=== PATIENT | female | born 1965 | race Caucasian/White ===

== ENCOUNTER → 2018-05-06 15:10 | Outpatient (CLI) | payer OTHER, SELFPAY ==
--- NOTE | 2018-05-06 | DI.US.S_ITS ---
PROCEDURE: US THYROID INDICATIONS: NONTOXIC DIFFUSE GOITER TECHNIQUE: Real-time scanning was performed of the thyroid gland, with image documentation. COMPARISON: None. FINDINGS: Right: Thyroid lobe measures 4.3 x 1 .8 by 2.2 cm, and is homogeneous in echotexture. Left: Thyroid lobe measures 3.8 x 1.4 x 1.8 cm, and is homogenous in echotexture. Isthmus: 5.0 mm thick. Nodule number: 1 Location: Right mid Size: 1.4 x 1.40 1.9 cm. Composition: Solid Echogenicity: Hypoechoic Shape: wider than tall. Margins: Smooth Echogenic foci: Internal echogenic punctate foci. Total points: 7 ACR TI-RADS category: Highly suspicious Nodule number: 2 Location: Left isthmus Size: 0.5 x 0.7 0.5 cm. Composition: Predominately cystic Echogenicity: Hypoechoic Shape: wider than tall. Margins: Smooth Echogenic foci: Macrocalcifications Total points: 4 ACR TI-RADS category: Moderately suspicious Nodule number: 3 Location: Left mid Size: 1.1 x 0.9 1.0 cm. Composition: Solid Echogenicity: Hypoechoic Shape: wider than tall. Margins: Smooth Echogenic foci: Macrocalcifications Total points: 5 ACR TI-RADS category: Moderately suspicious IMPRESSION: Bilateral thyroid nodules, with the # 1 mid right thyroid nodule demonstrating high suspicion based on TI RADS criteria. Recommend sonographic directed fine needle aspiration for pathologic diagnosis and followup would be additional nodules as below. ACR TI-RADS definitions and recommendations: TI-RADS 1 (benign): 0 points. FNA not needed. TI-RADS 2 (not suspicious): 2 points. FNA not needed. TI-RADS 3 (mildly suspicious): 3 points. * FNA if 2.5 cm or larger, follow up if 1.5 cm or larger (at 1, 3, and 5 years). TI-RADS 4 (moderately suspicious): 4-6 points. * FNA if 1.5 cm or larger, follow up if 1 cm or larger (at 1, 2, 3, and 5 years). TI-RADS 5 (highly suspicious): 7 points or more. * FNA if 1 cm or larger, follow up if 0.5 cm or larger (every year for 5 years). Dictated by: Óscar CRUZ Interpreted: Kierra Barrera MD on 05/06/2018 at 16:11 Approved by: Kierra Barrera M.D. on 05/06/2018 at 17:11
== END ==
PROVIDERS: PCP Internal Medicine Rheumatology; Visit Provider Otolaryngology
DX: E04.2 Nontoxic multinodular goiter (principal)
CPT/HCPCS: 76536

== ENCOUNTER → 2018-05-24 13:26 | Outpatient (CLI) | payer OTHER, SELFPAY ==
--- NOTE | 2018-05-24 | PATH_ITS ---
Note [facility] Accession Number: [id number] TESTS RESULT FLAG UNITS REF RANGE LAB Clinician Provided Cytology Information No. of containers..01 ThinPrep Vial No. of containers..06 Previously Prepared Cytology Slide RIGHT THYROID NODULE DIAGNOSIS: 02 RIGHT THYROID NODULE NEGATIVE FOR MALIGNANT CELLS. [place] CATEGORY II. SPECIMEN CONSISTS OF BENIGN FOLLICULAR CELLS, COLLOID, AND BLOOD. THIS PATTERN IS CONSISTENT WITH A BENIGN FOLLICULAR NODULE. Pathologist ICD10: 02 E04.2 02 Radha Cornelius MD, Pathologist NPI- [id number] Rick Lacey, Aerodynamics Engineer ([facility]) 01 30 CC, PINK, CLEAR RECEIVED: 8 ALCOHOL FIXED AND 8 QUICK STAINED SLIDES. /VDU FLAG LEGEND: L-Low Normal,H-High Normal,LL-Alert Low,HH-Alert High <-Panic Low,>-Panic High,A-Abnormal,AA-Critical Abnormal Performed at: 01 =Z [facility] [address], [place] [address] Neil Young MD, 02 L[facility] [address] [place] [id number] Orlin Mazariegos MD, Performed at: 01 [facility] [address], [place], [place] [id number] MD Neil Young MD Phone: [phone]
--- NOTE | 2018-05-24 | DI.US.S_ITS ---
PROCEDURE: US FINE NEEDLE ASPIRATION INDICATIONS: NODULE TECHNIQUE: The indications, alternatives, benefits, risks, and complications of the procedure were explained to the patient. Written informed consent was obtained and placed in the chart. The thyroid region was examined sonographically and a site was chosen for ultrasound guided percutaneous sampling. The skin was prepared and draped in the usual fashion, and anesthetized with 1% lidocaine infiltrated from the skin down to the thyroid gland. Multiple passes were then performed, with contents emptied into an appropriate pathology specimen container. A bandage was applied to the area of access at completion of the study. COMPARISON: None. FINDINGS: Location(s) of lesion(s) sampled: Middle third right thyroid lobe measuring up to approximately 1.5 cm [place]: A total 25 gauge hypodermic needles, and a single 22 gauge needle. Number of passes: 9. Medications: 1% lidocaine for local anaesthesia. Complications: None. IMPRESSION: Successful ultrasound-guided thyroid nodule fine needle aspiration, with cytology results pending. Please see chart below for management recommendations based on cytology results. [facility] ReportingRecommendationsNon-diagnostic* Repeat US-guided FNA, with on-site cytology evaluation if possible. * Repeated non-diagnostic nodules without high suspicion US features: close observation vs surgical consult. * Consider surgery if nodule has high suspicion US features, grows >20% in 2 dimensions on followup, or patient has clinical risk factors for malignancy. Benign* If nodule has high suspicion US features: repeat US and FNA within 12 months. * If nodule has low to intermediate suspicion US features: repeat US at 12-24 months. If nodule grows (20% increase in at least 2 dimensions, with minimal increase of 2 mm or >50% change in volume), or development of new suspicious US features, then repeat FNA or continue followup. * If nodule has very low suspicion US features: followup US at >24 months. Atypia of undetermined significance, follicular lesion of undetermined significanceRepeat FNA, molecular testing, followup US, or surgical consult.Follicular neoplasm, suspicious for follicular neoplasmSurgical consult; also consider molecular testing. Suspicious for malignancySurgical consult.MalignantSurgical consult. Dictated by: Bernardo Branham M.D. on 05/24/2018 at 15:00 Approved by: Bernardo Branham M.D. on 05/24/2018 at 15:01
== END ==
PROVIDERS: PCP Internal Medicine Rheumatology; Visit Provider Otolaryngology
DX: E04.1 Nontoxic single thyroid nodule (principal)
CPT/HCPCS: 10022; 76942

== ENCOUNTER → 2019-08-04 15:54 | Outpatient (CLI) | payer OTHER, SELFPAY ==
--- NOTE | 2019-08-04 | DI.US.S_ITS ---
PROCEDURE: US THYROID INDICATIONS: NONTOXIC DIFFUSE GOITER TECHNIQUE: Real-time scanning was performed of the thyroid gland, with image documentation. COMPARISON: [facility], [place], US THYROID, 05/06/2018, 15:28. FINDINGS: Right: Thyroid lobe measures 3.7 x 2.4 x 2.0 cm, and is homogeneous in echotexture. Left: Thyroid lobe measures 3.4 x 2.0 x 1.2 cm, and is homogenous in echotexture. Isthmus: 3.0 mm thick. Nodule number: 1 Location: Right mid inferior Size: Unchanged 1.7 x 1.4 x 1.3 cm. Composition: Solid Echogenicity: Isoechoic Shape: wider than tall. Margins: Smooth Echogenic foci: None Total points: 3 ACR TI-RADS category: Mildly suspicious Nodule number: 2 Location: Left isthmus Size: Unchanged 0.8 x 0.7 x 0.6 cm. Composition: Predominantly cystic Echogenicity: Hypoechoic Shape: wider than tall. Margins: Smooth Echogenic foci: None Total points: 2 ACR TI-RADS category: No suspicious Nodule number: 3 Location: Left mid Size: Unchanged 1.0 x 0.9 x 1.0 cm. Composition: Predominantly solid Echogenicity: Isoechoic Shape: wider than tall. Margins: Smooth Echogenic foci: Internal punctate echogenic foci Total points: 6 ACR TI-RADS category: Moderately suspicious IMPRESSION: Stable appearance of bilateral thyroid nodules. Recommend continued followup ultrasound as detailed below. ACR TI-RADS definitions and recommendations: TI-RADS 1 (benign): 0 points. FNA not needed. TI-RADS 2 (not suspicious): 2 points. FNA not needed. TI-RADS 3 (mildly suspicious): 3 points. * FNA if 2.5 cm or larger, follow up if 1.5 cm or larger (at 1, 3, and 5 years). TI-RADS 4 (moderately suspicious): 4-6 points. * FNA if 1.5 cm or larger, follow up if 1 cm or larger (at 1, 2, 3, and 5 years). TI-RADS 5 (highly suspicious): 7 points or more. * FNA if 1 cm or larger, follow up if 0.5 cm or larger (every year for 5 years). Dictated by: Óscar CRUZ Interpreted: Lisa Bennett MD on 08/04/2019 at 16:53 Approved by: Kierra Barrera M.D. on 08/05/2019 at 10:50
== END ==
PROVIDERS: Family Provider Internal Medicine Rheumatology; PCP Internal Medicine Rheumatology; Visit Provider Otolaryngology
DX: E04.2 Nontoxic multinodular goiter (principal)
CPT/HCPCS: 76536

== ENCOUNTER → 2020-04-15 10:45 | Outpatient (CLI) | payer OTHER, SELFPAY ==
[2020-04-15 12:04] LABS: Add Manual Diff / Slide Review NO; Basophils Absolute Auto 0 /uL (0-100); Basophils Percent Auto 0.1 % (0-2); Eosinophils Absolute Auto 100 /uL (0-450); Eosinophils Percent Auto 1.6 % (2-4); Hematocrit 40.5 % (36-46); Hemoglobin 13.7 g/dL (12.0-16.0); Lymphocytes Absolute Auto 1800 /uL (1100-4500); Lymphocytes Percent Auto 26.2 % (25-40); Mean Corpuscular HGB Conc 33.7 % (30-36); Mean Corpuscular Volume 91.7 fL (80-100); Monocytes Absolute Auto 600 /uL (0-900); Neutrophils Absolute Auto 4200 /uL (1500-7000); Neutrophils Percent Auto 63.1 % (50-75); Platelet Count 241 X10^3/uL (150-400); Red Blood Cell Count 4.42 X10^6/uL (4.0-5.2); Red Cell Distribution Width 14.7 % (11.6-14.8); White Blood Cell Count 6.7 X10^3/uL (4.5-11.0)
[2020-04-15 12:22] LABS: Alanine Aminotransferase 86 IU/L (<35); Albumin 4.6 g/dL (3.5-5.0); Albumin Globulin Ratio 1.6 (1.0-2.8); Alkaline Phosphatase 57 U/L (38-126); Aspartate Aminotransferase 62 IU/L (14-36); BUN Creatinine Ratio 30.1 (6-22); Bilirubin Total 0.6 mg/dL (0.2-1.3); Blood Urea Nitrogen 25 mg/dL (7-17); Calcium 10.3 mg/dL (8.4-10.2); Carbon Dioxide 33 mmol/L (22-32); Chloride 102 mmol/L (98-107); Estimated Glomerular Filt Rate > 60.0 mL/min (>60); Globulin 2.9 g/dL (1.7-4.1); Glucose 99 mg/dL (70-100); HEMOLYSIS < 15 (0-50); Potassium 4.2 mmol/L (3.4-5.1); Sodium 139 mmol/L (137-145); Total Protein 7.5 g/dL (6.3-8.2)
[2020-04-15 12:35] LABS: C-Reactive Protein Quant < 0.5 mg/dL (<1.0)
[2020-04-15 12:40] LABS: Erythrocyte Sedimentation Rate 4 MM/HR (0-20)
== END ==
PROVIDERS: Family Provider Internal Medicine Rheumatology; PCP Nurse Practitioner Family; Referring Provider Internal Medicine Rheumatology; Visit Provider Internal Medicine Rheumatology
DX: L40.50 Arthropathic psoriasis, unspecified (principal)
CPT/HCPCS: 36415; 80053; 85025; 85651; 86140

== ENCOUNTER → 2020-08-30 11:00 | Outpatient (CLI) | payer OTHER, SELFPAY ==
[2020-08-30 12:20] LABS: Add Manual Diff / Slide Review NO; Basophils Absolute Auto 0 /uL (0-100); Basophils Percent Auto 0.4 % (0-2); Eosinophils Absolute Auto 400 /uL (0-450); Eosinophils Percent Auto 5.5 % (2-4); Hematocrit 39.3 % (36-46); Hemoglobin 13.3 g/dL (12.0-16.0); Lymphocytes Absolute Auto 2500 /uL (1100-4500); Mean Corpuscular HGB Conc 33.7 % (30-36); Mean Corpuscular Hemoglobin 28.4 PG (26-34); Mean Corpuscular Volume 84.3 fL (80-100); Monocytes Absolute Auto 500 /uL (0-900); Monocytes Percent Auto 7.5 % (3-14); Neutrophils Absolute Auto 3700 /uL (1500-7000); Neutrophils Percent Auto 51.6 % (50-75); Platelet Count 220 X10^3/uL (150-400); Red Blood Cell Count 4.66 X10^6/uL (4.0-5.2); Red Cell Distribution Width 14.1 % (11.6-14.8); White Blood Cell Count 7.2 X10^3/uL (4.5-11.0)
[2020-08-30 12:45] LABS: Alanine Aminotransferase 70 IU/L (<35); Albumin 4.3 g/dL (3.5-5.0); Albumin Globulin Ratio 1.3 (1.0-2.8); Alkaline Phosphatase 63 U/L (38-126); Aspartate Aminotransferase 52 IU/L (14-36); BUN Creatinine Ratio 25.6 (6-22); Bilirubin Total 0.6 mg/dL (0.2-1.3); Blood Urea Nitrogen 20 mg/dL (7-17); Calcium 9.8 mg/dL (8.4-10.2); Carbon Dioxide 31 mmol/L (22-32); Chloride 103 mmol/L (98-107); Estimated Glomerular Filt Rate > 60.0 mL/min (>60); Globulin 3.3 g/dL (1.7-4.1); Glucose 123 mg/dL (70-100); HEMOLYSIS < 15 (0-50); Potassium 4.5 mmol/L (3.4-5.1); Sodium 139 mmol/L (137-145); Total Protein 7.6 g/dL (6.3-8.2)
[2020-08-30 12:46] LABS: C-Reactive Protein Quant < 0.5 mg/dL (<1.0)
[2020-08-30 12:53] LABS: Erythrocyte Sedimentation Rate 4 MM/HR (0-20)
[2020-09-01 15:11] LABS: QuantiFERON Nil Value 0.15 IU/mL (.); QuantiFERON TB Gold Plus Negative (Negative); QuantiFERON TB1 Ag Value 0.17 IU/mL (.); QuantiFERON TB2 Ag Value 0.18 IU/mL (.)
== END ==
PROVIDERS: Family Provider Internal Medicine Rheumatology; PCP Nurse Practitioner Family; Referring Provider Internal Medicine Rheumatology; Visit Provider Internal Medicine Rheumatology
DX: L40.50 Arthropathic psoriasis, unspecified (principal)
CPT/HCPCS: 36415; 80053; 85025; 85651; 86140; 86480

== ENCOUNTER → 2020-11-24 07:13 | Outpatient (CLI) | payer OTHER, SELFPAY ==
[2020-11-24 08:31] LABS: Hematocrit 39.8 % (36-46); Hemoglobin 13.4 g/dL (12.0-16.0); Mean Corpuscular HGB Conc 33.8 % (30-36); Mean Corpuscular Hemoglobin 28.6 PG (26-34); Mean Corpuscular Volume 84.8 fL (80-100); Platelet Count 182 X10^3/uL (150-400); Red Blood Cell Count 4.69 X10^6/uL (4.0-5.2); Red Cell Distribution Width 15.7 % (11.6-14.8); White Blood Cell Count 6.2 X10^3/uL (4.5-11.0)
[2020-11-24 08:47] LABS: Alanine Aminotransferase 55 IU/L (<35); Albumin 4.1 g/dL (3.5-5.0); Albumin Globulin Ratio 1.4 (1.0-2.8); Alkaline Phosphatase 56 U/L (38-126); Aspartate Aminotransferase 44 IU/L (14-36); BUN Creatinine Ratio 22.1 (6-22); Bilirubin Total 0.5 mg/dL (0.2-1.3); Blood Urea Nitrogen 21 mg/dL (7-17); Calcium 9.6 mg/dL (8.4-10.2); Carbon Dioxide 35 mmol/L (22-32); Chloride 104 mmol/L (98-107); Cholesterol 167 mg/dL (140-199); Estimated Glomerular Filt Rate > 60.0 mL/min (>60); Glucose 104 mg/dL (70-100); HDL Cholesterol 68 mg/dL (40-60); HEMOLYSIS < 15 (0-50); LDL Cholesterol Calculated 84 mg/dL (<100); Sodium 140 mmol/L (137-145); Total Protein 7.1 g/dL (6.3-8.2); Triglycerides 75 mg/dL (35-150)
== END ==
PROVIDERS: Family Provider Internal Medicine Rheumatology; PCP Nurse Practitioner Family; Referring Provider Nurse Practitioner Family; Visit Provider Nurse Practitioner Family
DX: I10 Essential (primary) hypertension (principal); E78.2 Mixed hyperlipidemia
CPT/HCPCS: 36415; 80053; 80061; 85027

== ENCOUNTER 2021-07-16 16:53 | Inpatient (IN) | payer OTHER, SELFPAY ==
[2021-07-16] VITALS (15 sets, daily range): BP systolic 120–240; BP diastolic 58–116; PULSE 82–97; RESP 16–22; TEMP 36.1–36.8; O2SAT 87–100; BMI 33.9
--- NOTE | 2021-07-16 17:13 | DI.RAD.S_ITS ---
PROCEDURE: XR HIP W PEL IF DONE LT 2V INDICATIONS: acute left hip pain TECHNIQUE: AP pelvis with lateral view(s) of the left hip(s). COMPARISON: [facility], CR, XR KNEE 4+ VIEWS BILATERAL, 10/27/2019, 14:43. [facility], CR, XR LUMBAR SPINE WITH OBLIQUES, 10/27/2019, 14:43. FINDINGS: Bones: No fractures or dislocations. Pelvic ring appears intact. An expansile lucent lesion is partially seen involving the left femoral shaft. Right hip arthroplasty hardware is seen, without findings of failure or loosening. There is moderate superior joint space narrowing seen of the contralateral right hip, with associated remodeling changes with subchondral sclerosis and osteophyte formation. Age-appropriate lower lumbar spine degenerative changes are noted. Soft tissues: The visualized bowel gas pattern is normal. No suspicious soft tissue calcifications. IMPRESSION: Unremarkable left hip arthroplasty hardware. Expansile lesion is partially seen involving the left femur. Please correlate with known patient history and any prior outside imaging through the area. If clinically appropriate, please consider additional workup, beginning with plain films. Moderate contralateral right hip degenerative change. Dictated by: Richie Amor M.D. on 07/16/2021 at 16:52 Approved by: Richie Amor M.D. on 07/16/2021 at 16:54
[2021-07-16] MEDS: MORPHINE 2 MG/ML INJ IV (17:28)
[2021-07-16 17:36] LABS: Add Manual Diff / Slide Review NO; Basophils Absolute Auto 0 /uL (0-100); Basophils Percent Auto 0.2 % (0-2); Eosinophils Absolute Auto 200 /uL (0-450); Eosinophils Percent Auto 1.3 % (2-4); Hematocrit 39.9 % (36-46); Hemoglobin 13.3 g/dL (12.0-16.0); Lymphocytes Absolute Auto 1300 /uL (1100-4500); Lymphocytes Percent Auto 9.8 % (25-40); Mean Corpuscular HGB Conc 33.3 % (30-36); Mean Corpuscular Hemoglobin 28.6 PG (26-34); Mean Corpuscular Volume 85.9 fL (80-100); Monocytes Absolute Auto 800 /uL (0-900); Neutrophils Absolute Auto 11100 /uL (1500-7000); Neutrophils Percent Auto 82.7 % (50-75); Platelet Count 210 X10^3/uL (150-400); Red Blood Cell Count 4.64 X10^6/uL (4.0-5.2); Red Cell Distribution Width 14.3 % (11.6-14.8); White Blood Cell Count 13.4 X10^3/uL (4.5-11.0)
--- NOTE | 2021-07-16 17:41 | DI.US.S_ITS ---
PROCEDURE: US PERIPH VENOUS LOW EXTREM LT INDICATIONS: LEFT HIP PAIN TECHNIQUE: Real-time imaging, as well as color and pulse Doppler interrogation, were performed of the lower extremity deep veins from the inguinal ligament to the popliteal fossa. COMPARISON: None. FINDINGS: The common femoral, femoral and popliteal veins are normally compressible, and free of intraluminal thrombus. Color and pulse Doppler demonstrate normal phasic intraluminal flow. There is normal augmentation response to distal compression maneuver. IMPRESSION: No evidence of deep vein thrombosis involving the left lower extremity. Dictated by: Lisa Bennett MD, PhD on 07/16/2021 at 19:26 Approved by: Lisa Bennett MD, PhD on 07/16/2021 at 19:27
[2021-07-16] MEDS: HYDROMORPHONE 1 MG INJ IV (17:44)
--- NOTE | 2021-07-16 17:49 | ED_ITS ---
HPI - Extremity Problem <Óscar Mishra PA-C - Last Filed: 07/16/21 17:58> General Chief complaint: Extremity Problem,Nontraumatic Stated complaint: left hip pain, no movement Time Seen by Provider: 07/16/21 17:01 Source: patient Mode of arrival: Wheelchair Limitations: no limitations History of Present Illness HPI Narrative: Jillian presents today with chief complaint of gradually worsening left hip pain that started at about 11 this morning. She reports that she took some Tylenol at about noon because the pain was getting worse and then came in here today because she no longer can manage her discomfort. She has history of arthritis, total left hip replacement 8 years ago. She reports that she has never had pain like this before. Pain is made way worse with moving her leg and is slightly better with keeping it still. She denies any trauma to the area or falls. She denies any significant tingling, skin discoloration, abdominal pain, urinary symptoms, constipation, diarrhea or any other acute concerns or complaints at this time. Related Data Home Medications Medication Instructions Recorded Confirmed cholecalciferol (vitamin D3) 25 1,000 unit PO DAILY 09/15/19 05/07/20 mcg (1,000 unit) capsule esomeprazole magnesium 20 mg 20 mg PO DAILY 09/15/19 05/07/20 capsule,delayed release (Nexium) naproxen sodium 220 mg tablet 440 mg PO BID PRN tab 09/15/19 05/07/20 (Aleve) prednisone 5 mg tablet 5 mg PO DAILY PRN 11/06/19 05/07/20 albuterol sulfate 90 mcg/actuation 2 puff INHALATION Q4-6H PRN 05/07/20 05/07/20 aerosol inhaler tofacitinib 5 mg tablet (Xeljanz) 5 mg PO BID 05/07/20 05/07/20 Previous Rx's Medication Instructions Recorded Parking Permit... #2 each 07/06/20 doxepin 3 mg tablet 3 mg PO BEDTIME PRN #90 tab 12/01/20 losartan 50 mg tablet 50 mg PO BID #90 tab 12/01/20 rosuvastatin 10 mg tablet (Crestor) 10 mg PO DAILY #90 tab 12/01/20 sertraline 100 mg tablet 150 mg PO DAILY #135 tab 12/01/20 Allergies Allergy/AdvReac Type Severity Reaction Status Date / Time No Known Drug Allergies Allergy Verified 07/16/21 17:04 Review of Systems <Óscar Mishra PA-C - Last Filed: 07/16/21 17:58> Review of Systems Narrative: As per HPI Patient History <Óscar Mishra PA-C - Last Filed: 07/16/21 17:58> Medical History (Updated 07/16/21 @ 22:10 by Blue Mathis DO) Ankle pain Carpal tunnel syndrome Chicken pox (~1968) Depression Elevated liver enzymes Essential hypertension (2004) Foot pain Hearing loss (~2009) History of recurrent ear infection (~1989) Insomnia Measles (~1964) Mixed hyperlipidemia (2018) Psoriasis (~1967) Psoriatic arthritis (~1993) Ruptured tympanic membrane (~1989) Scleritis Shingles Shoulder pain Thyroid nodule (~2017) Surgical History (Updated 09/14/19 @ 22:06 by Radha Upton) Anesthesia History of arthroscopy (~1993) History of surgery (~2000) History of total left hip replacement (~2013) Family History (Updated 09/14/19 @ 22:07 by Radha Upton) Mother Cervical cancer Alzheimer's disease Brother Mental health problem Social History Smoking Status: Never smoker second hand exposure: No alcohol intake: current (3-4x/week) substance use type: does not use Smoking Status: Never smoker Substance Use Type: does not use Exam <Óscar Mishra PA-C - Last Filed: 07/16/21 17:58> Narrative Exam Narrative: Exam Narrative: Const General: cooperative, healthy appearing, appears in acute pain, well developed and well groomed Nutritional Appearance: Elevated BMI Orientation: alert and oriented x3 HENMT Head: normal to inspection and atraumatic Ears: hearing grossly normal bilaterally Nose: external nose normal and nares normal Face and sinus: normal facial exam Neck Neck: normal visual inspection and supple Resp Effort & Inspection: normal respiratory effort, able to speak in complete sentences, no audible wheezes, not labored, no nasal flaring and no respiratory distress Cardiac Regular rate, regular rhythm, no discernible murmurs, rubs or gallops Musculoskeletal Anterior left hip soft tissue tenderness with palpation. Pelvis appears to be stable, tenderness to the lateral left hip with palpation. Patient is unable to range her left hip secondary to significant pain. Extremities No obvious skin discoloration on left lower extremity compared to right. No rash, pedal pulses are equal and strong bilaterally. No significant leg edema noted. Neuro General: alert, oriented x3, tone normal Cognition: normal cognition Speech: speech normal Psych Appearance: grossly normal and well kempt Mental Status: mental status grossly normal Speech and Movement: speech normal Mood: congruent mood Affect: normal affect Initial Vital Signs Initial Vital Signs: Vital Signs Pulse Oximetry 87 L 07/16/21 17:00 <Blue Mathis DO - Last Filed: 07/16/21 22:32> Initial Vital Signs Initial Vital Signs: Vital Signs Pulse Oximetry 87 L 07/16/21 17:00 Course <Óscar Mishra PA-C - Last Filed: 07/16/21 17:58> 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) Stat Discontinued Medications Hydromorphone HCl (Hydromorphone 1 Mg Inj) 1 mg IV NOW ONE Stop: 07/16/21 17:36 Last Admin: 07/16/21 17:44 Dose: 1 mg Documented by: ARON Hydromorphone HCl (Hydromorphone 0.5 Mg Inj) 0.5 mg IV NOW ONE Stop: 07/16/21 19:28 Last Admin: 07/16/21 19:31 Dose: 0.5 mg Documented by: ARON Morphine Sulfate (Morphine 2 Mg/Ml Inj) 2 mg IV NOW ONE Stop: 07/16/21 17:13 Last Admin: 07/16/21 17:28 Dose: 2 mg Documented by: CHANCE Vital Signs Vital signs: Vital Signs - 8 hr 07/16/21 17:00 07/16/21 17:01 07/16/21 17:04 Temperature 98.2 F Pulse Rate 94 H 94 H Respiratory Rate 20 Blood Pressure 240/116 H 240/116 H Pulse Oximetry 87 L 96 98 07/16/21 17:41 07/16/21 17:50 07/16/21 18:00 Temperature Pulse Rate 91 H 89 88 Respiratory Rate Blood Pressure 165/74 H 141/65 H Pulse Oximetry 100 97 92 07/16/21 18:30 07/16/21 19:00 07/16/21 19:32 Temperature Pulse Rate 86 96 H 89 Respiratory Rate Blood Pressure 131/69 143/77 H 146/71 H Pulse Oximetry 95 96 95 07/16/21 20:17 07/16/21 20:18 07/16/21 20:30 Temperature Pulse Rate 97 H 94 H Respiratory Rate Blood Pressure 135/63 120/58 L Pulse Oximetry 94 92 <Blue Mathis, DO - Last Filed: 07/16/21 22:32> Course Course Narrative: Patient received in sign-out from daytime provider. I have performed an independent history and physical exam. Patient has had significant need for pain medication and currently does not have significant pain on passive range of motion. At sign-out she had a pending CT scan. The CT scan has returned there are no significant abnormal findings. 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 She still is having significant pain and at this point time her etiology is unclear. Multiple diagnoses have been considered including septic arthritis, lumbar radiculopathy, kidney stone, hardware malfunction, osteomyelitis and others. Patient does have a white count and a left shift but no systemic findings. There are normal inflammatory markers and patient does not have significant pain on passive range of motion for me though she has been medicated. Imaging does not obviously suggest an osteomyelitis though the most sensitive modality has not been employed. I did have a lengthy discussion with orthopedist who was reviewed imaging and her story and has no significant additions, though she does state if patient does come into the hospital she would recommend a bone scan. I did have a lengthy discussion with the patient at the bedside and her pain has been difficult to control and though no obvious or clear diagnosis has been made she will require hospitalization for more appropriate pain control, she will likely received trended labs and more advanced imaging with orthopedic consultation. 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) Stat Discontinued Medications Hydromorphone HCl (Hydromorphone 1 Mg Inj) 1 mg IV NOW ONE Stop: 07/16/21 17:36 Last Admin: 07/16/21 17:44 Dose: 1 mg Documented by: ARON Hydromorphone HCl (Hydromorphone 0.5 Mg Inj) 0.5 mg IV NOW ONE Stop: 07/16/21 19:28 Last Admin: 07/16/21 19:31 Dose: 0.5 mg Documented by: ARON Morphine Sulfate (Morphine 2 Mg/Ml Inj) 2 mg IV NOW ONE Stop: 07/16/21 17:13 Last Admin: 07/16/21 17:28 Dose: 2 mg Documented by: CHANCE Vital Signs Vital signs: Vital Signs - 8 hr 07/16/21 17:00 07/16/21 17:01 07/16/21 17:04 Temperature 98.2 F Pulse Rate 94 H 94 H Respiratory Rate 20 Blood Pressure 240/116 H 240/116 H Pulse Oximetry 87 L 96 98 07/16/21 17:41 07/16/21 17:50 07/16/21 18:00 Temperature Pulse Rate 91 H 89 88 Respiratory Rate Blood Pressure 165/74 H 141/65 H Pulse Oximetry 100 97 92 07/16/21 18:30 07/16/21 19:00 07/16/21 19:32 Temperature Pulse Rate 86 96 H 89 Respiratory Rate Blood Pressure 131/69 143/77 H 146/71 H Pulse Oximetry 95 96 95 07/16/21 20:17 07/16/21 20:18 07/16/21 20:30 Temperature Pulse Rate 97 H 94 H Respiratory Rate Blood Pressure 135/63 120/58 L Pulse Oximetry 94 92 MDM - Extremity (Nontraumatic) <Óscar Mishra PA-C - Last Filed: 07/16/21 17:58> Lab Data Result diagrams: 07/16/21 19:32 07/16/21 17:28 Labs: Lab Results 07/16/21 07/16/21 07/16/21 Range/Units 17:28 17:28 19:23 WBC 13.4 H (4.5-11.0) X10^3/uL RBC 4.64 (4.0-5.2) X10^6/uL Hgb 13.3 (12.0-16.0) g/dL Hct 39.9 (36-46) % MCV 85.9 (80-100) fL MCH 28.6 (26-34) PG MCHC 33.3 (30-36) % RDW 14.3 (11.6-14.8) % Plt Count 210 (150-400) X10^3/uL Neut % (Auto) 82.7 H (50-75) % Lymph % (Auto) 9.8 L (25-40) % [place] % (Auto) 6.0 (3-14) % Eos % (Auto) 1.3 L (2-4) % Baso % (Auto) 0.2 (0-2) % Neut # (Auto) 51955 H (0385-0396) /uL Lymph # (Auto) 1300 (3051-0866) /uL [place] # (Auto) 800 (0-900) /uL Eos # (Auto) 200 (0-450) /uL Baso # (Auto) 0 (0-100) /uL Total Counted Seg Neutrophils % (38-70) % Band Neutrophils % (3-7) % Lymphocytes % (Manual) (25-45) % Monocytes % (Manual) (2-11) % Eosinophils % (Manual) (2-4) % Neutrophils # (Manual) (8873-0100) /uL RBC Morphology ESR 6 (0-20) MM/HR Sodium 138 (137-145) mmol/L Potassium 3.9 (3.4-5.1) mmol/L Chloride 103 (98-107) mmol/L Carbon Dioxide 31 (22-32) mmol/L BUN 27 H (7-17) mg/dL Creatinine 0.86 (0.52-1.04) mg/dL Estimated GFR > 60.0 (>60) mL/min BUN/Creatinine Ratio 31.4 H (6-22) Glucose 122 H (70-100) mg/dL Calcium 9.6 (8.4-10.2) mg/dL C-Reactive Protein 0.8 (<1.0) mg/dL Urine RBC 0-1/hpf (0-5/HPF) Urine WBC 1-5/hpf (0-5/HPF) Urine Bacteria Few (2-10) H (None) Ur Culture Indicated? Specimen cultured 07/16/21 Range/Units 19:32 WBC 14.7 H (4.5-11.0) X10^3/uL RBC 4.65 (4.0-5.2) X10^6/uL Hgb 13.4 (12.0-16.0) g/dL Hct 40.2 (36-46) % MCV 86.4 (80-100) fL MCH 28.8 (26-34) PG MCHC 33.3 (30-36) % RDW 14.3 (11.6-14.8) % Plt Count 195 (150-400) X10^3/uL Neut % (Auto) Not Reportable (50-75) % Lymph % (Auto) Not Reportable (25-40) % [place] % (Auto) Not Reportable (3-14) % Eos % (Auto) Not Reportable (2-4) % Baso % (Auto) Not Reportable (0-2) % Neut # (Auto) (7886-7301) /uL Lymph # (Auto) Not Reportable (6638-4531) /uL [place] # (Auto) Not Reportable (0-900) /uL Eos # (Auto) (0-450) /uL Baso # (Auto) Not Reportable (0-100) /uL Total Counted 100 Seg Neutrophils % 76.0 H (38-70) % Band Neutrophils % 13.0 H (3-7) % Lymphocytes % (Manual) 7.0 L (25-45) % Monocytes % (Manual) 3.0 (2-11) % Eosinophils % (Manual) 1.0 L (2-4) % Neutrophils # (Manual) 34898 H (1276-0354) /uL RBC Morphology Normal morphology ESR (0-20) MM/HR Sodium (137-145) mmol/L Potassium (3.4-5.1) mmol/L Chloride (98-107) mmol/L Carbon Dioxide (22-32) mmol/L BUN (7-17) mg/dL Creatinine (0.52-1.04) mg/dL Estimated GFR (>60) mL/min BUN/Creatinine Ratio (6-22) Glucose (70-100) mg/dL Calcium (8.4-10.2) mg/dL C-Reactive Protein (<1.0) mg/dL Urine RBC (0-5/HPF) Urine WBC (0-5/HPF) Urine Bacteria (None) Ur Culture Indicated? Urine Dip Bedside Urine Glucose Negative Bedside Urine Bilirubin - Negative Bedside Urine Ketone - Negative Urine Specific [place] 1.025 Bedside Urine Occult Blood + Bedside Urine pH 5.5 Bedside Urine Protein - Negative Bedside Urine Urobilinogen +/- 1mg Bedside Urine Nitrite - Negative Bedside Urine Leukocytes +/- 15 Esterase <Blue Mathis DO - Last Filed: 07/16/21 22:32> Lab Data Labs: Lab Results 07/16/21 07/16/21 07/16/21 Range/Units 17:28 17:28 19:23 WBC 13.4 H (4.5-11.0) X10^3/uL RBC 4.64 (4.0-5.2) X10^6/uL Hgb 13.3 (12.0-16.0) g/dL Hct 39.9 (36-46) % MCV 85.9 (80-100) fL MCH 28.6 (26-34) PG MCHC 33.3 (30-36) % RDW 14.3 (11.6-14.8) % Plt Count 210 (150-400) X10^3/uL Neut % (Auto) 82.7 H (50-75) % Lymph % (Auto) 9.8 L (25-40) % [place] % (Auto) 6.0 (3-14) % Eos % (Auto) 1.3 L (2-4) % Baso % (Auto) 0.2 (0-2) % Neut # (Auto) 17887 H (2787-3285) /uL Lymph # (Auto) 1300 (2011-6814) /uL [place] # (Auto) 800 (0-900) /uL Eos # (Auto) 200 (0-450) /uL Baso # (Auto) 0 (0-100) /uL Total Counted Seg Neutrophils % (38-70) % Band Neutrophils % (3-7) % Lymphocytes % (Manual) (25-45) % Monocytes % (Manual) (2-11) % Eosinophils % (Manual) (2-4) % Neutrophils # (Manual) (5924-0869) /uL RBC Morphology ESR 6 (0-20) MM/HR Sodium 138 (137-145) mmol/L Potassium 3.9 (3.4-5.1) mmol/L Chloride 103 (98-107) mmol/L Carbon Dioxide 31 (22-32) mmol/L BUN 27 H (7-17) mg/dL Creatinine 0.86 (0.52-1.04) mg/dL Estimated GFR > 60.0 (>60) mL/min BUN/Creatinine Ratio 31.4 H (6-22) Glucose 122 H (70-100) mg/dL Calcium 9.6 (8.4-10.2) mg/dL C-Reactive Protein 0.8 (<1.0) mg/dL Urine RBC 0-1/hpf (0-5/HPF) Urine WBC 1-5/hpf (0-5/HPF) Urine Bacteria Few (2-10) H (None) Ur Culture Indicated? Specimen cultured 07/16/21 Range/Units 19:32 WBC 14.7 H (4.5-11.0) X10^3/uL RBC 4.65 (4.0-5.2) X10^6/uL Hgb 13.4 (12.0-16.0) g/dL Hct 40.2 (36-46) % MCV 86.4 (80-100) fL MCH 28.8 (26-34) PG MCHC 33.3 (30-36) % RDW 14.3 (11.6-14.8) % Plt Count 195 (150-400) X10^3/uL Neut % (Auto) Not Reportable (50-75) % Lymph % (Auto) Not Reportable (25-40) % [place] % (Auto) Not Reportable (3-14) % Eos % (Auto) Not Reportable (2-4) % Baso % (Auto) Not Reportable (0-2) % Neut # (Auto) (5552-1606) /uL Lymph # (Auto) Not Reportable (9699-5055) /uL [place] # (Auto) Not Reportable (0-900) /uL Eos # (Auto) (0-450) /uL Baso # (Auto) Not Reportable (0-100) /uL Total Counted 100 Seg Neutrophils % 76.0 H (38-70) % Band Neutrophils % 13.0 H (3-7) % Lymphocytes % (Manual) 7.0 L (25-45) % Monocytes % (Manual) 3.0 (2-11) % Eosinophils % (Manual) 1.0 L (2-4) % Neutrophils # (Manual) 54273 H (4000-1105) /uL RBC Morphology Normal morphology ESR (0-20) MM/HR Sodium (137-145) mmol/L Potassium (3.4-5.1) mmol/L Chloride (98-107) mmol/L Carbon Dioxide (22-32) mmol/L BUN (7-17) mg/dL Creatinine (0.52-1.04) mg/dL Estimated GFR (>60) mL/min BUN/Creatinine Ratio (6-22) Glucose (70-100) mg/dL Calcium (8.4-10.2) mg/dL C-Reactive Protein (<1.0) mg/dL Urine RBC (0-5/HPF) Urine WBC (0-5/HPF) Urine Bacteria (None) Ur Culture Indicated? Urine Dip Bedside Urine Glucose Negative Bedside Urine Bilirubin - Negative Bedside Urine Ketone - Negative Urine Specific [place] 1.025 Bedside Urine Occult Blood + Bedside Urine pH 5.5 Bedside Urine Protein - Negative Bedside Urine Urobilinogen +/- 1mg Bedside Urine Nitrite - Negative Bedside Urine Leukocytes +/- 15 Esterase <Blue Mathis, DO - Last Filed: 07/16/21 22:32> Critical Care Time Critical Care Time: Yes Total Critical Care Time: 30 Attestation: The high probability of a clinically significant, sudden or life threatening deterioration of the [CV/MSK] system(s) required my full and direct attention, intervention and personal management. The aggregate critical care time was [30] minutes. This time is in addition to time spent performing reported procedures but includes the following: [x] Data Review and interpretation [x] Patient assessment and monitoring of vital signs [x] Documentation [x] Medication orders and management Discharge Plan Departure Patient Disposition: Admitted as Observation Clinical Impression: Intractable pain, Acute pain of left hip Admit Date/Time: 07/16/21 22:09 Admit Provider: Renee Lomax
[2021-07-16 17:50] LABS: BUN Creatinine Ratio 31.4 (6-22); Blood Urea Nitrogen 27 mg/dL (7-17); C-Reactive Protein Quant 0.8 mg/dL (<1.0); Calcium 9.6 mg/dL (8.4-10.2); Carbon Dioxide 31 mmol/L (22-32); Chloride 103 mmol/L (98-107); Estimated Glomerular Filt Rate > 60.0 mL/min (>60); Glucose 122 mg/dL (70-100); HEMOLYSIS < 15 (0-50); Potassium 3.9 mmol/L (3.4-5.1); Sodium 138 mmol/L (137-145)
[2021-07-16 17:56] LABS: Erythrocyte Sedimentation Rate 6 MM/HR (0-20)
--- NOTE | 2021-07-16 17:59 | DI.RAD.S_ITS ---
PROCEDURE: XR FEMUR LT MIN 2V INDICATIONS: bony lesions, hip pain TECHNIQUE: 2 views of the femur were acquired. COMPARISON: [facility], CR, XR HIP W PEL IF DONE LT 2V, 07/16/2021, 17:23. FINDINGS: Bones: Postsurgical changes compatible with left hip arthroplasty. No fractures or dislocations. A lucent lesion in the greater trochanter and expansile lesion in proximal diaphysis of the left femur distal to the tip of the femoral component. Soft tissues: No suspicious soft tissue calcifications or masses. IMPRESSION: Lucency in the greater trochanter and expansile lesion in the proximal diaphysis. Recommend nuclear medicine bone scan and/or MRI with without contrast for additional evaluation. Dictated by: Lisa Bennett MD, PhD on 07/16/2021 at 18:21 Approved by: Lisa Bennett MD, PhD on 07/16/2021 at 18:27
--- NOTE | 2021-07-16 19:29 | DI.CT.S_ITS ---
PROCEDURE: CT ABDOMEN PELVIS W CON INDICATIONS: left hip pain, elevated wbc TECHNIQUE: After the administration of intravenous contrast, axial sections acquired from the lung bases to the pubic symphysis. Coronal and sagittal reformats were performed. For radiation dose reduction, the following was used: automated exposure control, adjustment of mA and/or kV according to patient size. COMPARISON: [facility], CR, XR FEMUR LT MIN 2V, 07/16/2021, 18:05. FINDINGS: Image quality: Excellent. Lung bases: Unremarkable. Heart: No significant findings. ABDOMEN: Liver: Diffuse fatty infiltration of the liver. Gallbladder: Unremarkable. Biliary ducts: Unremarkable. Pancreas: Unremarkable. Spleen: Unremarkable. Adrenal Glands: Unremarkable. Kidneys and Ureters: Unremarkable. Stomach and Bowel: Focal wall thickening noted in the gastric antrum. The small bowel loops, and colon are unremarkable. Appendix is not visualized, however no free fluid or inflammatory changes are noted adjacent. Peritoneum: No abnormal intraperitoneal fluid. No free air. Ventral Wall: No hernias. Abdominal Nodes: No retroperitoneal or mesenteric adenopathy by size criteria. Vessels: Aorta and inferior vena cava are normal in size. PELVIS: Pelvic Organs: Unremarkable. Bladder: Unremarkable. Pelvic Nodes: No enlarged lymph nodes. Miscellaneous: No hernias are seen. Bones: Left hip arthroplasty. Expansile lesion in the proximal diaphysis of the left femur is stable compared to prior plain film radiograph. Spine degenerative disc disease and facet arthropathy. IMPRESSION: 1. Short segment, circumferential wall thickening involving the gastric antrum compatible with nonspecific gastritis. 2. No free fluid or free air. 3. No dilated loops of bowel. 4. Hepatic steatosis. 5. Status post left hip arthroplasty. 6. No rd evidence of osteomyelitis. CT imaging can be insensitive to osteomyelitis during the initial 15 days of the disease process. If there is clinical concern for osteomyelitis, then three-phase nuclear medicine bone scan or MRI should be considered for further evaluation. 7. Expansile lesion in the proximal left femur. Recommend nuclear medicine bone scan and/or MRI for further evaluation when clinically feasible. Dictated by: Lisa Bennett MD, PhD on 07/16/2021 at 20:11 Approved by: Lisa Bennett MD, PhD on 07/16/2021 at 20:22
[2021-07-16 19:31] LABS: Bacteria Urine Few (2-10); Culture Indicated Urine Specimen Cultured; RBC Urine 0-1/HPF (0-5/HPF); WBC Urine 1-5/HPF (0-5/HPF)
[2021-07-16] MEDS: HYDROMORPHONE 0.5 MG INJ IV (19:31)
[2021-07-16 19:38] LABS: Hematocrit 40.2 % (36-46); Hemoglobin 13.4 g/dL (12.0-16.0); Mean Corpuscular HGB Conc 33.3 % (30-36); Mean Corpuscular Hemoglobin 28.8 PG (26-34); Mean Corpuscular Volume 86.4 fL (80-100); Platelet Count 195 X10^3/uL (150-400); Red Blood Cell Count 4.65 X10^6/uL (4.0-5.2); Red Cell Distribution Width 14.3 % (11.6-14.8); White Blood Cell Count 14.7 X10^3/uL (4.5-11.0)
[2021-07-16 19:49] LABS: Add Manual Diff / Slide Review YES
[2021-07-16 20:00] LABS: Neutrophils Absolute Manual 13083 /uL (3000-5900); RBC Morphology Normal Morphology; Total Cells Counted 100
[2021-07-16 22:52] LABS: COVID19 - ADMIT (NP swab/PCR) Negative (Negative)
[2021-07-16 23:16] LABS: Aspartate Aminotransferase 70 IU/L (14-36); Creatine Kinase 98 U/L (30-135)
[2021-07-16 23:34] LABS: Procalcitonin 0.03 ng/mL (<0.5)
[2021-07-16 23:37] LABS: Hemoglobin A1C% w Est Avg Glu 5.4 % (4.0-6.0)
[2021-07-17] VITALS (10 sets, daily range): BP systolic 97–145; BP diastolic 46–76; PULSE 78–97; RESP 15–18; TEMP 35.6–36.3; O2SAT 80–99
[2021-07-17] MEDS: KETOROLAC 30 MG/ML VIAL IV ×3 (00:31→16:59)
[2021-07-17] MEDS: LIDOCAINE PATCH 1 EACH ADH..PATCH TOP (00:31)
--- NOTE | 2021-07-17 01:05 | P.HP_ITS ---
History of Present Illness History of Present Illness Date Patient Seen: 07/16/21 Time Patient Seen: 22:35 Chief complaint: left hip pain, no movement Narrative: Jillian Brown is a 56 year old female with a medical history of psoriatic arthritis, total left hip replacement 8 years ago, hyperlipidemia, essential hypertension, and major depressive disorder who presented to the ED today with a chief complaint of gradually worsening left hip pain that started at about 10 this morning, that has worsened to the the point she is unable to weight bear.?She reports that she has never had pain like this before.? Pain is throbbing in the left groin, does not radiate, worsens with movement, is improved with bed rest and no movement. 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 She denies any trauma to the area or falls.? She denies any chest pain, shortness of breath, numbness, tingling, skin discoloration, abdominal pain, nausea, vomiting, urinary symptoms, constipation, or diarrhea. Patient notes that she had previously been on methotrexate for her psoriatic arthritis but stopped 2 years ago continues to take to Xeljanz, does take prednisone for flares but has not taken any in several years. She is having a current flare of her psoriasis to her scalp ears and upper extremities she has had a one time cortisone injection approximately 8-10 weeks ago in her scalp. Patient also uses clobetasol shampoo and creams to her skin, ears and scalp. Patient denies any recent fungal infections or injections into the left hip she also states that cobalt was not used in her hip replacement, rather titanium. Patient den ies any bowel or bladder incontinence or changes, any injury to her spine, no weakness in her lower extremities to, difficulty with ambulation, balance or coordination. Patient does have a history of UTIs several years ago now but does note increased nocturia q.2 hours throughout the night without urinary symptoms. Upon admit patient's vitals are stable BP 120/58, HR 94, R 20, O2 saturation ini tially 92% on 2 L now is satting at 94% on room air. Patient has an elevated WBC 14.7 neutrophils 11,100 band new it 13% manual neutrophils 13,083 the rest of the patient's CBC and CMP are unremarkable with a BUN of 27 and glucose of 122, ESR and CRP are both WNL. Patient's ultrasound is negative for DVT abdomen of the pelvis CTA demonstrated Short segment, circumferential wall thickening involving the gastric antrum compatible with nonspecific gastritis, no free fluid or free air, no dilated loops of bowel, positive hepatic steatosis. Status post left hip arthroplasty. No signs of rd evidence of osteomyelitis.? There was also present expansile lesion in the proximal left femur.? Femur left Xray demonstrated lucency in the greater trochanter and expansile lesion in the proximal diaphysis. Hip xray left showed expansile lesion is partially seen involving the left femur.? Patient admitted for monoarthritis left intractable groin pain, in the setting of prior total left hip placement. ? Patient History Medical History Ankle pain Carpal tunnel syndrome Chicken pox (~1968) Depression Elevated liver enzymes Essential hypertension (2004) Foot pain Hearing loss (~2009) History of recurrent ear infection (~1989) Insomnia Measles (~1964) Mixed hyperlipidemia (2018) Psoriasis (~1967) Psoriatic arthritis (~1993) Ruptured tympanic membrane (~1989) Scleritis Shingles Shoulder pain Thyroid nodule (~2017) Surgical History Anesthesia History of arthroscopy (~1993) History of surgery (~2000) History of total left hip replacement (~2013) Family & Social History Family History Mother Cervical cancer Alzheimer's disease Brother Mental health problem Safety & Behavioral: Feels Safe in Current Yes Environment Tobacco & Substance use: Smoking Status Never smoker alcohol intake current Substance Use Type does not use Meds Home Medications and Allergies Home Medications Medication Instructions Recorded Confirmed Type cholecalciferol (vitamin D3) 25 5,000 unit PO DAILY 09/15/19 07/17/21 History mcg (1,000 unit) capsule naproxen sodium 220 mg tablet 440 mg PO BID tab 09/15/19 07/17/21 History (Aleve) tofacitinib 5 mg tablet (Xeljanz) 5 mg PO BID 05/07/20 07/17/21 History Parking Permit... #2 each 07/06/20 Rx doxepin 3 mg tablet 3 mg PO BEDTIME PRN #90 tab 12/01/20 07/17/21 Rx losartan 50 mg tablet 50 mg PO BID #90 tab 12/01/20 07/17/21 Rx rosuvastatin 10 mg tablet (Crestor) 10 mg PO DAILY #90 tab 12/01/20 07/17/21 Rx sertraline 100 mg tablet 150 mg PO DAILY #135 tab 12/01/20 07/17/21 Rx Allergies Allergy/AdvReac Type Severity Reaction Status Date / Time No Known Drug Allergies Allergy Verified 07/16/21 17:04 Review of Systems Review of Systems Narrative: All 12 point systems reviewed with the patient and are negative except otherwise documented. Exam Vital Signs (past 8 hours): - 07/16/21 17:41 07/16/21 17:50 07/16/21 18:00 Temperature Pulse Rate 91 H 89 88 Respiratory Rate Blood Pressure 165/74 H 141/65 H Pulse Oximetry 100 97 92 07/16/21 18:30 07/16/21 19:00 07/16/21 19:32 Temperature Pulse Rate 86 96 H 89 Respiratory Rate Blood Pressure 131/69 143/77 H 146/71 H Pulse Oximetry 95 96 95 07/16/21 20:17 07/16/21 20:18 07/16/21 20:30 Temperature Pulse Rate 97 H 94 H Respiratory Rate Blood Pressure 135/63 120/58 L Pulse Oximetry 94 92 07/16/21 22:11 07/16/21 22:25 07/16/21 23:33 Temperature 97.0 F L 98.0 F Pulse Rate 82 84 Respiratory Rate 22 16 Blood Pressure 145/87 H 134/78 Pulse Oximetry 94 94 Oxygen Delivery Method Room Air Oxygen Flow Rate 0 Narrative Exam Narrative: General: Patient is a well-developed, well-nourished female in no distress at this time, with NO movement. HEENT: Normocephalic, atraumatic, extraocular muscles intact, oral pharynx is clear and mucous membranes are moist. Neck is supple and symmetric, trachea is midline, no adenopathy, no thyroid enlargement, nontender, no masses palpated. Negative for JVD Chest: Normal AP diameter and contour without kyphoscoliosis, no nasal flaring, retractions, or tachypneic labored Lungs: Auscultation of all lung diamond are clear without adventitious sounds, wheezes, rhonchi, or rales. Cardio: S1 & S2 with regular rate and rhythm without murmur, rubs, or gallops, no carotid bruit, no cardiac pulsations present. Abdomen: Soft nontender, negative for organomegaly, or masses. Bowel sounds are present in all 4 quadrants without guarding or rebound, no CVA tenderness. Musculoskeletal: Muscle strength and tone appear equal within normal limits, no deformity, crepitus, effusions, cyanosis, clubbing or edema present. radial and pedal pulses are normal. Patient has mild tenderness to lateral left hip pal pation, but the significant pain is produced when palpating left ingunial area, I do not appreciate any erythema, inflammation, warmth, skin rash or wounds, nor lymphadenopathy. Though patients response of pain is severe and significant, unable to perform range of motion. Skin: Warm dry and intact without rashes, ulcerations or petechiae. patient does have some healed plaques on the right forearm. Neuro: Alert and orientated x3, strength is +5/5 in all extremities, sensation to touch intact, no gross deficits noted of cranial nerves. Psych: Patient has a well-kept appearance, appropriate affect, mental status attitude thought context and judgment are appropriate for age. Objective Labs Result Diagrams: 07/16/21 19:32 07/16/21 17:28 Labs: Laboratory Results - last 24 hr 07/16/21 07/16/21 07/16/21 17:28 17:28 17:28 WBC 13.4 H RBC 4.64 Hgb 13.3 Hct 39.9 MCV 85.9 MCH 28.6 MCHC 33.3 RDW 14.3 Plt Count 210 Neut % (Auto) 82.7 H Lymph % (Auto) 9.8 L [place] % (Auto) 6.0 Eos % (Auto) 1.3 L Baso % (Auto) 0.2 Neut # (Auto) 26176 H Lymph # (Auto) 1300 [place] # (Auto) 800 Eos # (Auto) 200 Baso # (Auto) 0 Total Counted Seg Neutrophils % Band Neutrophils % Lymphocytes % (Manual) Monocytes % (Manual) Eosinophils % (Manual) Neutrophils # (Manual) RBC Morphology ESR 6 Sodium 138 Potassium 3.9 Chloride 103 Carbon Dioxide 31 BUN 27 H Creatinine 0.86 Estimated GFR > 60.0 BUN/Creatinine Ratio 31.4 H Glucose 122 H Hemoglobin A1c Calcium 9.6 AST 70 H Total Creatine Kinase 98 C-Reactive Protein 0.8 Procalcitonin Urine RBC Urine WBC Urine Bacteria Ur Culture Indicated? SARS-CoV-2 (PCR) 07/16/21 07/16/21 07/16/21 17:28 19:23 19:25 WBC RBC Hgb Hct MCV MCH MCHC RDW Plt Count Neut % (Auto) Lymph % (Auto) [place] % (Auto) Eos % (Auto) Baso % (Auto) Neut # (Auto) Lymph # (Auto) [place] # (Auto) Eos # (Auto) Baso # (Auto) Total Counted Seg Neutrophils % Band Neutrophils % Lymphocytes % (Manual) Monocytes % (Manual) Eosinophils % (Manual) Neutrophils # (Manual) RBC Morphology ESR Sodium Potassium Chloride Carbon Dioxide BUN Creatinine Estimated GFR BUN/Creatinine Ratio Glucose Hemoglobin A1c 5.4 Calcium AST Total Creatine Kinase C-Reactive Protein Procalcitonin 0.03 Urine RBC 0-1/hpf Urine WBC 1-5/hpf Urine Bacteria Few (2-10) H Ur Culture Indicated? Specimen cultured SARS-CoV-2 (PCR) 07/16/21 07/16/21 19:32 21:52 WBC 14.7 H RBC 4.65 Hgb 13.4 Hct 40.2 MCV 86.4 MCH 28.8 MCHC 33.3 RDW 14.3 Plt Count 195 Neut % (Auto) Not Reportable Lymph % (Auto) Not Reportable [place] % (Auto) Not Reportable Eos % (Auto) Not Reportable Baso % (Auto) Not Reportable Neut # (Auto) Lymph # (Auto) Not Reportable [place] # (Auto) Not Reportable Eos # (Auto) Baso # (Auto) Not Reportable Total Counted 100 Seg Neutrophils % 76.0 H Band Neutrophils % 13.0 H Lymphocytes % (Manual) 7.0 L Monocytes % (Manual) 3.0 Eosinophils % (Manual) 1.0 L Neutrophils # (Manual) 77623 H RBC Morphology Normal morphology ESR Sodium Potassium Chloride Carbon Dioxide BUN Creatinine Estimated GFR BUN/Creatinine Ratio Glucose Hemoglobin A1c Calcium AST Total Creatine Kinase C-Reactive Protein Procalcitonin Urine RBC Urine WBC Urine Bacteria Ur Culture Indicated? SARS-CoV-2 (PCR) Negative Assessment & Plan Assessment & Plan narrative: Jillian Brown is a 56 year old female with a medical history of psoriatic arthritis, total left hip replacement 8 years ago, hyperlipidemia, essential hypertension, and major depressive disorder who presented to the ED today with a chief complaint of gradually worsening left hip pain that started at about 10 this morning, that has worsened to the the point she is unable to weight bear. Patient admitted for monoarthritis left intractable groin pain, in the setting of prior total left hip placement. 1. Monoarthritis left intractable groin pain, in the setting of psoriatic arthritis, chronic, with a history of total left hip replacement, chronic, present on admission Rule out reactive arthritis or spondyloarthritis, alkalosingspondylitis, Axial spondylolararthritis, rheumatoid arthritis which may present as pseudoseptic arthritis, fungal arthritis, Lyme Arthritis, tuberculosis arthritis, septic bursitis, septic arthritis versus hematogenous seeding, inguinal hernia strain, inguinal lymphadenitis. Based on physical exam I did not find the pain to be localized in the left lateral hip joint but in the left groin instead, appeared to be more superficial a higher suspicion for groin strain or lymphadenitis. Although concerning the presence of expansile lesion in the proximal left femur and/or lucency in the greater trochanter. Although patient has history of psoriatic arthritis and immunosuppressant medications increases the likelihood of other rheumatologic based complication. -WBC 14.7 neutrophils 11,100 band new it 13% manual neutrophils 13,083, ESR and CRP are both WNL. -Left leg ultrasound is negative for DVT -ABD/Pelvis CTA demonstrated Short segment, circumferential wall thickening involving the gastric antrum compatible with nonspecific gastritis, no free fluid or free air, no dilated loops of bowel, positive hepatic steatosis. Status post left hip arthroplasty. No signs of rd evidence of osteomyelitis.? There was also present expansile lesion in the proximal left femur.? -Femur left Xray demonstrated lucency in the greater trochanter and expansile lesion in the proximal diaphysis. -Hip xray left showed expansile lesion is partially seen involving the left femur.? -Dr. Turner orthopedic was consulted both by the ED and by hospital medicine-she very graciously reviewed the patient's imaging and chart and found no need for orthopedic consult at this time, she is happy to consult in the future if needed. -3 phase bone scan imaging ordered for tomorrow- Per Dr. Bass /Radiology recommendation. -labs ordered: Trend inflammatory markers, CBC, ESR, CRP, procalcitonin, CPK, AST, RF, urine culture, blood cultures. -Based on elevated WBC, and possible lymphadenitis-ordered Rocephin IV to see if we obtain improvement in WBC, neutrophils, and bands. -Pain management, PT evaluation, Lidocaine patch for pain control trial. -patient to continue her Xelijanz 2. Essential hypertension, acute hypertensive emergency in ED as evidence by BP of 240/116, acute on chronic, present on admission -continued to monitor vital signs -continue patient's losartan 3. Hyperlipidemia, chronic, present on admission -Continue patient's rosuvastatin 4. Major depressive disorder, chronic, present on admission -continue patient's sertraline Code status:Full Surrogate decision maker: Spouse Garry Brown COVID PCR:Negative COVID vaccination:Moderna 2020 DVT/VTE prophylaxis: Heparin 5000 units and SCDs Disposition: Patient admitted for observation, expected length of stay less than 2 midnights. I have utilized all available immediate resources to obtain, update, or review the patient's current medications. I confirmed that the patient's advanced care plan is present, Code status is documented and/or surrogate decision maker is listed in the patient's medical record. ? Time Spent With Patient Critical Care time: I spent a total of [] minutes of critical care time on this patient's care today; this time is exclusive of procedural time.
[2021-07-17] MEDS: LACTATED RINGERS 1,000 ML 60 ML IV (01:37)
[2021-07-17] MEDS: cefTRIAXone 2,000 MG in SODIUM CHLORIDE 0.9% 100 ML 200 ML IV (02:48)
[2021-07-17] MEDS: ACETAMINOPHEN 325 MG TABLET 650 MG PO (02:55)
[2021-07-17] MEDS: HYDROMORPHONE 1 MG INJ IV ×4 (02:55→20:18)
[2021-07-17] MEDS: ONDANSETRON 4 MG/2 ML INJ IV (03:00)
--- NOTE | 2021-07-17 03:22 | PC.NURSE ---
episode of emesis at 0315. one small unmeasured occurrence followed shortly by 100mL measured. patient stated nausea came rapidly and left just as fast. Zofran administered. patient resting comfortably.
[2021-07-17 05:57] LABS: Add Manual Diff / Slide Review NO; Basophils Absolute Auto 0 /uL (0-100); Basophils Percent Auto 0.1 % (0-2); Eosinophils Absolute Auto 0 /uL (0-450); Hematocrit 37.7 % (36-46); Hemoglobin 12.3 g/dL (12.0-16.0); Lymphocytes Absolute Auto 700 /uL (1100-4500); Lymphocytes Percent Auto 3.3 % (25-40); Mean Corpuscular HGB Conc 32.6 % (30-36); Mean Corpuscular Hemoglobin 28.4 PG (26-34); Monocytes Absolute Auto 1500 /uL (0-900); Monocytes Percent Auto 7.2 % (3-14); Neutrophils Absolute Auto 18300 /uL (1500-7000); Neutrophils Percent Auto 89.4 % (50-75); Platelet Count 221 X10^3/uL (150-400); Red Blood Cell Count 4.33 X10^6/uL (4.0-5.2); Red Cell Distribution Width 14.5 % (11.6-14.8); White Blood Cell Count 20.5 X10^3/uL (4.5-11.0)
[2021-07-17 05:59] LABS: BUN Creatinine Ratio 29.7 (6-22); Blood Urea Nitrogen 27 mg/dL (7-17); C-Reactive Protein Quant 8.9 mg/dL (<1.0); Calcium 9.1 mg/dL (8.4-10.2); Carbon Dioxide 34 mmol/L (22-32); Chloride 101 mmol/L (98-107); Estimated Glomerular Filt Rate > 60.0 mL/min (>60); Glucose 129 mg/dL (70-100); HEMOLYSIS < 15 (0-50); Potassium 4.7 mmol/L (3.4-5.1); Sodium 138 mmol/L (137-145)
[2021-07-17 06:04] LABS: Rheumatoid Factor < 8.6 IU/mL (<12.0)
[2021-07-17 06:13] LABS: Procalcitonin 1.26 ng/mL (<0.5)
[2021-07-17 06:26] LABS: Erythrocyte Sedimentation Rate 8 MM/HR (0-20)
--- NOTE | 2021-07-17 08:39 | DI.MRI.S_ITS ---
PROCEDURE: MR PELIS WO/W CON INDICATIONS: L hip pain, hx of hip replacement. poss psoas or hip infxn TECHNIQUE: Noncontrast coronal T1 spin echo and STIR, sagittal T1 spin echo with fat saturation and STIR, axial T1 spin echo and T2 fast spin echo with fat saturation. After the administration of contrast, axial/sagittal/coronal T1 spin echo with fat saturation through the left hip. COMPARISON: [facility], CT, CT ABDOMEN PELVIS W CON, 07/16/2021, 19:44. FINDINGS: Image quality: There is artifact associated with the metallic hardware. Bones: Left hip arthroplasty hardware is seen, with associated prominent susceptibility artifact. Age-appropriate lower lumbar spine degenerative changes are noted. The known expansile lesion of the left femoral shaft is not well seen on this study. Soft tissues: Adjacent to the left hip arthroplasty, there is a focal fluid collection seen laterally that measures up to 5.5 cm. On postcontrast images, no abnormal rim enhancement can be seen. There is inflammatory fatty stranding seen throughout the region to the right hip arthroplasty hardware, surrounding the fluid collection, as on series 9, image 31. Areas of fluid can be seen within the left iliacus muscle, with increased STIR signal seen throughout the iliacus muscle. The iliacus muscle is asymmetrically thickened. The largest solitary fluid collection within the iliacus measures up to 2.7 cm. No significant enhancement of the iliacus can be seen. IMPRESSION: Abnormal signal and thickening can be seen throughout the left iliacus muscle, with fluid collections within the iliacus. This may be related to infection, although no abnormal enhancement is seen. There is a 5.5 cm fluid collection seen lateral to the left hip arthroplasty hardware. No rim enhancement is seen to suggest abscess. Dictated by: Richie Amor M.D. on 07/17/2021 at 9:32 Approved by: Richie Amor M.D. on 07/17/2021 at 9:39
[2021-07-17] MEDS: diazePAM 10 MG/2 ML SYRINGE 5 MG IV (09:09)
--- NOTE | 2021-07-17 09:17 | CM.DANOTE ---
DCP: Case received, EMR reviewed and met with patient. Introduced self and role. Was able to obtain information regarding patient's baseline activity status prior to hospitalization, as well as her current living situation. DCP assessment completed with information currently available. Patient is a 56 year old female who admitted yesterday evening to the care of the hospitalist team. PCP: RENZO Marrero. Payer: confirmed: [facility]. Patient came to the hospital via private vehicle secondary to having increased hip pain to the point where she was not able to bear weight on her extremity. Patient is having MRI now, but denies any falls or trauma. Patient holds current diagnosis of monoarthritis groin pain. Met with patient in her room. She was laying in bed, alert and oriented. 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 From her past surgery, patient has a walker available, but normally uses a cane. She indicated that since she has had this pain, she has had to use her walker. She resides here in [place] with her spouse, Garry. She indicated that he has been out of town, but is due back this pm. She also has a son and his fiance available if needed. P: DCP to continue to follow. Patient is currently having MRI, will note findings, and will see how she works with P.John Piper RN/Power Screwdriver Operator Discharge Planning/Care Management CM Discharge Assessment Start: 07/17/21 09:15 Freq: Status: Active Protocol: Document 07/17/21 09:15 (Rec: 07/17/21 09:17 [id number]) Discharge Planning Assessment Assigned Drug Coordinator Vale Piper RN/Power Screwdriver Operator Advance Directives? Yes Advance Directives on File No History Provided By Patient,Medical Record Prior Living Arrangements House Household Members spouse Type of transporation used prior to Drives own vehicle admit Independent with ADL's Yes Is patient alert and oriented? Yes Caregiver for Another No DME Already Rented / Owned FWW / Walker,Cane Barriers to Discharge No Discharge Plan Home Transportation Arrangement Family Referrals Initiated None needed Additional Comment Patient has not yet worked with P.T. Ariel Updated in Patient Room with Yes name and ext. # of Drug Coordinator Review Status In Process Next Review Type Continued Stay Review
--- NOTE | 2021-07-17 09:35 | P.CONS_ITS ---
History of Present Illness Consult details Date Patient Seen: 07/17/21 Time Patient Seen: 08:20 Chief complaint: left hip pain, no movement Reason for consult: Left hip pain history of total hip arthroplasty and fibrous dysplasia-- Requesting provider: Blue Mathis Narrative: Patient is a 56-year-old female has 1 day history of left groin pain. She has a long history of fibrous dysplasia. This been worked up by musculoskeletal oncology the [facility] and confirmed. She later underwent total hip arthroplasty with Dr. Sarbjit Chambers with you does medicine at [facility]. This was about 8 years ago and again related to her fibrous dysplasia. She does state right after surgery she had some similar anterior hip and groin pain which was thought to be a strain. Since that time she had done well. Yesterday as the day went on she started getting more anterior groin pain and pain with any movement of her hip. She denies any radicular symptoms to her foot. She denies any falls or injury. . She does have psoriatic arthritis and states she was having some sacroiliitis symptoms in the few days prior but none currently. She has not had any recent endoscopy or dental procedures and always takes prophylactic antibiotics for these at direction of her joint surgeon. She denies any fevers. The day went on yesterday she had progressive pain and difficulty with ambulation. States she is okay at rest but with any movement of her hip she gets a sharp pain and points to her groin. Some limited radiation her anterior thigh. Denies any swelling or redness. She presented to the ER for increasing pain. White cell count there was 14. ESR and CRP at that time were normal. She received medication for pain and was able to ambulate to the restroom but had increasing pain and was admitted for concerning exam. She had a CT scan of her abdomen pelvis did not show any abscesses or fracture. For total hip arthroplasty looks in appropriate alignment. As she does have lesions in her left femur which are characteristic of fibrous dysplasia. No concerning or new masses. She does show me a images an x-ray of her left femur from 2017 which essentially looks the same. There is a question of some gastritis on the abdominal pelvis CT. She denies abdominal pain. This morning her labs are elevated white cell count 20. She now has a CRP of 8.9. ESR still 8. Procalcitonin is 1.26. Afebrile. Otherwise unchanged exam anterior groin pain pain with any attempted flexion or movement of the hip. Controlled at rest. Meds Home Medications and Allergies Home Medications Medication Instructions Recorded Confirmed Type cholecalciferol (vitamin D3) 25 5,000 unit PO DAILY 09/15/19 07/17/21 History mcg (1,000 unit) capsule naproxen sodium 220 mg tablet 440 mg PO BID tab 09/15/19 07/17/21 History (Aleve) tofacitinib 5 mg tablet (Xeljanz) 5 mg PO BID 05/07/20 07/17/21 History [address]ing Permit... #2 each 07/06/20 07/17/21 Rx doxepin 3 mg tablet 3 mg PO BEDTIME PRN #90 tab 12/01/20 07/17/21 Rx losartan 50 mg tablet 50 mg PO BID #90 tab 12/01/20 07/17/21 Rx rosuvastatin 10 mg tablet (Crestor) 10 mg PO DAILY #90 tab 12/01/20 07/17/21 Rx sertraline 100 mg tablet 150 mg PO DAILY #135 tab 12/01/20 07/17/21 Rx Allergies Allergy/AdvReac Type Severity Reaction Status Date / Time No Known Drug Allergies Allergy Verified 07/16/21 17:04 Review of Systems Review of Systems Narrative: History of psoriatic arthritis. Sees Dr. Evangelista. History of left total hip arthroplasty. History of fibrous dysplasia. Denies fevers chills nausea or vomiting. Endorses left hip pain with movement improved by rest. Exam Vital Signs (past 8 hours): - 07/17/21 06:08 07/17/21 06:11 07/17/21 07:30 Temperature 96.9 F L 96.1 F L Pulse Rate 78 82 Respiratory Rate 16 16 Blood Pressure 97/46 L 103/60 Pulse Oximetry 92 96 90 L Oxygen Delivery Method Room Air Oxygen Flow Rate 0 Narrative Exam Narrative: Patient is alert and oriented female in no acute distress. No significant discomfort at rest but pain with any motion of the hip. HEENT exam normocephalic atraumatic. Respiratory exam is unlabored on room air. The setting a little low 90% on the 0 L but no use of accessory muscles. Heart is regular rate rhythm. Abdomen is soft and nontender to palpation. Musculoskeletal exam. She has some tenderness to palpation directly over her anterior groin on the left side. There is no redness no fullness no swelling no fluctuance. Pain with attempted hip flexion. 5/5 dorsiflexion plantar flexion. Palpable dorsalis pedis pulses. Grossly normal alignment of the lower extremity. No pain or swelling of the knee. Thigh is soft. Lower extremity compartments are soft. Full range of motion contralateral side. Const General: cooperative Objective Imaging CT scan - pelvis: My impression: Left total hip in expected alignment. No evidence of fracture or obvious loosening. Some distortion with metal Arctic affect but no clear abscess is demonstrated. A normal appearing muscle bulk. Expansile lesion femur with rind consistent with history of fibrous dysplasia. Radiologist's impression: IMPRESSION: 1. Short segment, circumferential wall thickening involving the gastric antrum compatible with nonspecific gastritis. 2. No free fluid or free air. 3. No dilated loops of bowel. 4. Hepatic steatosis. 5. Status post left hip arthroplasty. 6. No rd evidence of osteomyelitis. CT imaging can be insensitive to osteo myelitis during the initial 15 days of the disease process. If there is clinical concern for osteomyelitis, then three-phase nuclear medicine bone scan or MRI should be considered for further evaluation. 7. Expansile lesion in the proximal left femur. Recommend nuclear medicine bone scan and/or MRI for further evaluation when clinically feasible. Dictated by: Lisa Bennett MD, PhD on 07/16/2021 at 20:11 Labs Result Diagrams: 07/17/21 05:20 07/17/21 05:20 Labs: Laboratory Results - last 24 hr 07/16/21 07/16/21 07/16/21 17:28 17:28 17:28 WBC 13.4 H RBC 4.64 Hgb 13.3 Hct 39.9 MCV 85.9 MCH 28.6 MCHC 33.3 RDW 14.3 Plt Count 210 Neut % (Auto) 82.7 H Lymph % (Auto) 9.8 L [place] % (Auto) 6.0 Eos % (Auto) 1.3 L Baso % (Auto) 0.2 Neut # (Auto) 27344 H Lymph # (Auto) 1300 [place] # (Auto) 800 Eos # (Auto) 200 Baso # (Auto) 0 Total Counted Seg Neutrophils % Band Neutrophils % Lymphocytes % (Manual) Monocytes % (Manual) Eosinophils % (Manual) Neutrophils # (Manual) RBC Morphology ESR 6 Sodium 138 Potassium 3.9 Chloride 103 Carbon Dioxide 31 BUN 27 H Creatinine 0.86 Estimated GFR > 60.0 BUN/Creatinine Ratio 31.4 H Glucose 122 H Hemoglobin A1c Calcium 9.6 AST 70 H Total Creatine Kinase 98 C-Reactive Protein 0.8 Procalcitonin Urine RBC Urine WBC Urine Bacteria Ur Culture Indicated? Nasal Screen MRSA (PCR) Rheumatoid Factor SARS-CoV-2 (PCR) 07/16/21 07/16/21 07/16/21 17:28 19:23 19:25 WBC RBC Hgb Hct MCV MCH MCHC RDW Plt Count Neut % (Auto) Lymph % (Auto) [place] % (Auto) Eos % (Auto) Baso % (Auto) Neut # (Auto) Lymph # (Auto) [place] # (Auto) Eos # (Auto) Baso # (Auto) Total Counted Seg Neutrophils % Band Neutrophils % Lymphocytes % (Manual) Monocytes % (Manual) Eosinophils % (Manual) Neutrophils # (Manual) RBC Morphology ESR Sodium Potassium Chloride Carbon Dioxide BUN Creatinine Estimated GFR BUN/Creatinine Ratio Glucose Hemoglobin A1c 5.4 Calcium AST Total Creatine Kinase C-Reactive Protein Procalcitonin 0.03 Urine RBC 0-1/hpf Urine WBC 1-5/hpf Urine Bacteria Few (2-10) H Ur Culture Indicated? Specimen cultured Nasal Screen MRSA (PCR) Rheumatoid Factor SARS-CoV-2 (PCR) 07/16/21 07/16/21 07/17/21 19:32 21:52 01:35 WBC 14.7 H RBC 4.65 Hgb 13.4 Hct 40.2 MCV 86.4 MCH 28.8 MCHC 33.3 RDW 14.3 Plt Count 195 Neut % (Auto) Not Reportable Lymph % (Auto) Not Reportable [place] % (Auto) Not Reportable Eos % (Auto) Not Reportable Baso % (Auto) Not Reportable Neut # (Auto) Lymph # (Auto) Not Reportable [place] # (Auto) Not Reportable Eos # (Auto) Baso # (Auto) Not Reportable Total Counted 100 Seg Neutrophils % 76.0 H Band Neutrophils % 13.0 H Lymphocytes % (Manual) 7.0 L Monocytes % (Manual) 3.0 Eosinophils % (Manual) 1.0 L Neutrophils # (Manual) 45584 H RBC Morphology Normal morphology ESR Sodium Potassium Chloride Carbon Dioxide BUN Creatinine Estimated GFR BUN/Creatinine Ratio Glucose Hemoglobin A1c Calcium AST Total Creatine Kinase C-Reactive Protein Procalcitonin Urine RBC Urine WBC Urine Bacteria Ur Culture Indicated? Nasal Screen MRSA (PCR) Negative for mrsa Rheumatoid Factor SARS-CoV-2 (PCR) Negative 07/17/21 07/17/21 05:20 05:20 WBC 20.5 H RBC 4.33 Hgb 12.3 Hct 37.7 MCV 87.0 MCH 28.4 MCHC 32.6 RDW 14.5 Plt Count 221 Neut % (Auto) 89.4 H Lymph % (Auto) 3.3 L [place] % (Auto) 7.2 Eos % (Auto) 0.0 L Baso % (Auto) 0.1 Neut # (Auto) 09186 H Lymph # (Auto) 700 L [place] # (Auto) 1500 H Eos # (Auto) 0 Baso # (Auto) 0 Total Counted Seg Neutrophils % Band Neutrophils % Lymphocytes % (Manual) Monocytes % (Manual) Eosinophils % (Manual) Neutrophils # (Manual) RBC Morphology ESR 8 D Sodium 138 Potassium 4.7 Chloride 101 Carbon Dioxide 34 H BUN 27 H Creatinine 0.91 Estimated GFR > 60.0 BUN/Creatinine Ratio 29.7 H Glucose 129 H Hemoglobin A1c Calcium 9.1 AST Total Creatine Kinase C-Reactive Protein 8.9 H Procalcitonin 1.26 H Urine RBC Urine WBC Urine Bacteria Ur Culture Indicated? Nasal Screen MRSA (PCR) Rheumatoid Factor < 8.6 SARS-CoV-2 (PCR) [facility] Medical History Ankle pain Carpal tunnel syndrome Chicken pox (~1968) Depression Elevated liver enzymes Essential hypertension (2004) Foot pain Hearing loss (~2009) History of recurrent ear infection (~1989) Insomnia Measles (~1964) Mixed hyperlipidemia (2018) Psoriasis (~1967) Psoriatic arthritis (~1993) Ruptured tympanic membrane (~1989) Scleritis Shingles Shoulder pain Thyroid nodule (~2017) Surgical History Anesthesia History of arthroscopy (~1993) History of surgery (~2000) History of total left hip replacement (~2013) Family History Mother Cervical cancer Alzheimer's disease Brother Mental health problem Social History household members: spouse Tobacco & Substance Use Smoking Status: Never smoker second hand exposure: No alcohol intake: current substance use type: does not use Assessment & Plan Assessment and plan (1) Intractable pain: Status: Acute (2) Acute pain of left hip: Status: Acute Plan: Patient has left hip pain and abnormal labs concerning for infectious or signifi cant inflammatory process. White cell count is 20 this morning elevated from 14 night. She now has a elevated CRP of 8.9. ESR is still normal at 8. Procalcitonin is now elevated 1.26. She remains afebrile. His consistent anterior left hip and groin pain. Recommend advanced imaging MRI of the hip or a repeat abdomen pelvis with without contrast to look for evolving abscess. Unclear whether process is intra-articular with septic arthroplasty versus psoas or other soft tissue musculoskeletal abscess. This was not seen on CT last night but may have been early in the process. Need additional imaging to direct intervention. Which may include aspiration or surgical I&D drainage. Recommend follow up blood cultures -and broad-spectrum antibiotics as indicated. Discussed further lesions in the femur very consistent with fibrous dysplasia do not appear to have changed over time and appear unrelated to her episode of acute hip pain. If nothing is seen on the MRI than 3 phase bone scan to help evaluate for osteomyelitis or periprosthetic loosening. She does have psoriatic arthritis and is on Xeljanz--immunocompromised COVID-19 COVID-19 status: Negative Time Spent With Patient Time with patient: less than 30 minutes Critical Care time: I spent a total of [] minutes of critical care time on this patient's care today; this time is exclusive of procedural time.
[2021-07-17] MEDS: MEROPENEM 1 GM in SODIUM CHLORIDE 0.9% 100 ML 200 ML IV ×2 (10:23→16:44)
[2021-07-17] MEDS: HEPARIN 5,000 UNIT/ML VIAL 5000 UNIT SUBCUT ×2 (10:26→20:19)
[2021-07-17] MEDS: SERTRALINE 50 MG TABLET 150 MG PO (10:26)
[2021-07-17] MEDS: TOFACITINIB 5 MG 5 EACH PO (10:26)
[2021-07-17] MEDS: VANCOMYCIN 1,000 MG/200 ML PIGGYBACK 200 MG IV ×2 (11:04→21:37)
--- NOTE | 2021-07-17 11:15 | PT-IP ANOTE ---
Discussed pt with hospitalist physician who indicated further imaging is needed before initiating treatment. Dr. Cortés requested PT discharge the current therapy order and await new orders as appropriate.
--- NOTE | 2021-07-17 12:48 | P.PN_ITS ---
Subjective Subjective Date Patient Seen: 07/17/21 Time Patient Seen: 12:51 Interval history: Still with left hip pain, worse with movement. No fevers chills, states area does feel hot intermittently. No redness. Exam Vital Signs (past 8 hours): - 07/17/21 06:08 07/17/21 06:11 07/17/21 07:30 Temperature 96.9 F L 96.1 F L Pulse Rate 78 82 Respiratory Rate 16 16 Blood Pressure 97/46 L 103/60 Pulse Oximetry 92 96 90 L Oxygen Delivery Method Room Air Oxygen Flow Rate 0 Narrative Exam Narrative: General:? Patient is a well-developed, well-nourished female in no distress at this time. Lungs:? Auscultation of all lung diamond are clear without wheezes, rhonchi, or rales. Cardio:? RRR no m/r/g Abdomen:? Soft nontender, non-distended.? Bowel sounds are present in all 4 quadrants without guarding or rebound, no CVA tenderness. Musculoskeletal:? L hip pain, present laterally over the hip and moreso near L groin. Some near right hip as well. Worse with active flexion at the hip. Skin:? Warm dry and intact without rashes, ulcerations or petechiae.? patient does have some healed plaques on the right forearm. Neuro:? Alert and orientated x3, strength is +5/5 in all extremities, sensation to touch intact, no gross deficits noted of cranial nerves. Psych:? Patient has a well-kept appearance, appropriate affect, mental status attitude thought context and judgment are appropriate for age. Objective Imaging MRI pelvis: Radiologist's impression: Abnormal signal and thickening can be seen throughout the left iliacus muscle, with fluid collections within the iliacus.? This may be related to infection, although no abnormal enhancement is seen. ? There is a 5.5 cm fluid collection seen lateral to the left hip arthroplasty hardware.? No rim enhancement is seen to suggest abscess. ? Labs Result Diagrams: 07/17/21 05:20 07/17/21 05:20 Labs: Laboratory Results - last 24 hr 07/16/21 07/16/21 07/16/21 17:28 17:28 17:28 WBC 13.4 H RBC 4.64 Hgb 13.3 Hct 39.9 MCV 85.9 MCH 28.6 MCHC 33.3 RDW 14.3 Plt Count 210 Neut % (Auto) 82.7 H Lymph % (Auto) 9.8 L [place] % (Auto) 6.0 Eos % (Auto) 1.3 L Baso % (Auto) 0.2 Neut # (Auto) 02329 H Lymph # (Auto) 1300 [place] # (Auto) 800 Eos # (Auto) 200 Baso # (Auto) 0 Total Counted Seg Neutrophils % Band Neutrophils % Lymphocytes % (Manual) Monocytes % (Manual) Eosinophils % (Manual) Neutrophils # (Manual) RBC Morphology ESR 6 Sodium 138 Potassium 3.9 Chloride 103 Carbon Dioxide 31 BUN 27 H Creatinine 0.86 Estimated GFR > 60.0 BUN/Creatinine Ratio 31.4 H Glucose 122 H Hemoglobin A1c Calcium 9.6 AST 70 H Total Creatine Kinase 98 C-Reactive Protein 0.8 Procalcitonin Urine RBC Urine WBC Urine Bacteria Ur Culture Indicated? Nasal Screen MRSA (PCR) Rheumatoid Factor SARS-CoV-2 (PCR) 07/16/21 07/16/21 07/16/21 17:28 19:23 19:25 WBC RBC Hgb Hct MCV MCH MCHC RDW Plt Count Neut % (Auto) Lymph % (Auto) [place] % (Auto) Eos % (Auto) Baso % (Auto) Neut # (Auto) Lymph # (Auto) [place] # (Auto) Eos # (Auto) Baso # (Auto) Total Counted Seg Neutrophils % Band Neutrophils % Lymphocytes % (Manual) Monocytes % (Manual) Eosinophils % (Manual) Neutrophils # (Manual) RBC Morphology ESR Sodium Potassium Chloride Carbon Dioxide BUN Creatinine Estimated GFR BUN/Creatinine Ratio Glucose Hemoglobin A1c 5.4 Calcium AST Total Creatine Kinase C-Reactive Protein Procalcitonin 0.03 Urine RBC 0-1/hpf Urine WBC 1-5/hpf Urine Bacteria Few (2-10) H Ur Culture Indicated? Specimen cultured Nasal Screen MRSA (PCR) Rheumatoid Factor SARS-CoV-2 (PCR) 07/16/21 07/16/21 07/17/21 19:32 21:52 01:35 WBC 14.7 H RBC 4.65 Hgb 13.4 Hct 40.2 MCV 86.4 MCH 28.8 MCHC 33.3 RDW 14.3 Plt Count 195 Neut % (Auto) Not Reportable Lymph % (Auto) Not Reportable [place] % (Auto) Not Reportable Eos % (Auto) Not Reportable Baso % (Auto) Not Reportable Neut # (Auto) Lymph # (Auto) Not Reportable [place] # (Auto) Not Reportable Eos # (Auto) Baso # (Auto) Not Reportable Total Counted 100 Seg Neutrophils % 76.0 H Band Neutrophils % 13.0 H Lymphocytes % (Manual) 7.0 L Monocytes % (Manual) 3.0 Eosinophils % (Manual) 1.0 L Neutrophils # (Manual) 48351 H RBC Morphology Normal morphology ESR Sodium Potassium Chloride Carbon Dioxide BUN Creatinine Estimated GFR BUN/Creatinine Ratio Glucose Hemoglobin A1c Calcium AST Total Creatine Kinase C-Reactive Protein Procalcitonin Urine RBC Urine WBC Urine Bacteria Ur Culture Indicated? Nasal Screen MRSA (PCR) Negative for mrsa Rheumatoid Factor SARS-CoV-2 (PCR) Negative 07/17/21 07/17/21 05:20 05:20 WBC 20.5 H RBC 4.33 Hgb 12.3 Hct 37.7 MCV 87.0 MCH 28.4 MCHC 32.6 RDW 14.5 Plt Count 221 Neut % (Auto) 89.4 H Lymph % (Auto) 3.3 L [place] % (Auto) 7.2 Eos % (Auto) 0.0 L Baso % (Auto) 0.1 Neut # (Auto) 32279 H Lymph # (Auto) 700 L [place] # (Auto) 1500 H Eos # (Auto) 0 Baso # (Auto) 0 Total Counted Seg Neutrophils % Band Neutrophils % Lymphocytes % (Manual) Monocytes % (Manual) Eosinophils % (Manual) Neutrophils # (Manual) RBC Morphology ESR 8 D Sodium 138 Potassium 4.7 Chloride 101 Carbon Dioxide 34 H BUN 27 H Creatinine 0.91 Estimated GFR > 60.0 BUN/Creatinine Ratio 29.7 H Glucose 129 H Hemoglobin A1c Calcium 9.1 AST Total Creatine Kinase C-Reactive Protein 8.9 H Procalcitonin 1.26 H Urine RBC Urine WBC Urine Bacteria Ur Culture Indicated? Nasal Screen MRSA (PCR) Rheumatoid Factor < 8.6 SARS-CoV-2 (PCR) [facility] Medical History Ankle pain Carpal tunnel syndrome Chicken pox (~1968) Depression Elevated liver enzymes Essential hypertension (2004) Foot pain Hearing loss (~2009) History of recurrent ear infection (~1989) Insomnia Measles (~1964) Mixed hyperlipidemia (2019) Psoriasis (~1967) Psoriatic arthritis (~1993) Ruptured tympanic membrane (~1989) Scleritis Shingles Shoulder pain Thyroid nodule (~2017) Surgical History Anesthesia History of arthroscopy (~1993) History of surgery (~2000) History of total left hip replacement (~2013) Family History Mother Cervical cancer Alzheimer's disease Brother Mental health problem Social History household members: spouse Smoking Status: Never smoker second hand exposure: No alcohol intake: current substance use type: does not use Assessment & Plan Assessment & Plan narrative: Jillian Brown is a 56 year old female with a medical history of psoriatic arthritis, fibrous dysplasia of the Left femur, total left hip replacement 8 years ago, hyperlipidemia, essential hypertension, and major depressive disorder who presented with worsening left hip pain. Found to have 2 separate fluid collections, both without rim enhancement. 1. left hip soft tissue infections and fluid collections, possible myositis, possible - started on broad spectrum antibiotics, meropenem and vancomycin. Not entirely clear the source of her fluid collections, however they are quite painful. Rising WBC and inflammatory markers are suggestive of bacterial cause despite lack of rim enhancement on imaging. Discussed with orthopedic surgery, Dr. Reyes, and Dr. Alcala of general surgery. Both recommended IR drainage. - CT drain ordered. - recommended for PCR microbiology specimen of culture per orthopedics. - continue pain control with dilaudid. - PT / OT after determining cause of fluid 2. psoriatic arthritis, chronic - hold hoem tofacitinib given possible active infection. 3. Hyperlipidemia, chronic, present on admission -Continue patient's rosuvastatin 4. Major depressive disorder, chronic, present on admission -continue patient's sertraline Code status:Full Surrogate decision maker: Spouse Garry Brown COVID PCR:Negative COVID vaccination:Moderna 2020 DVT/VTE prophylaxis:? HSQ Disposition:? changed to inpatient. Time Spent With Patient Critical Care time: I spent a total of [] minutes of critical care time on this patient's care today; this time is exclusive of procedural time.
[2021-07-17] MEDS: diazePAM 2 MG TABLET PO (14:36)
--- NOTE | 2021-07-17 15:14 | DI.US.S_ITS ---
PROCEDURE: US FINE NEEDLE ASPIRATION INDICATIONS: DRAIN LEFT HIP FLUID COLLECTION TECHNIQUE: The indications, alternatives, benefits, risks, and complications of the procedure were explained to the patient. Written informed consent was obtained and placed in the chart. The area of interest was examined sonographically and a site was chosen for ultrasound guided percutaneous sampling. The skin was prepared and draped in the usual fashion, and anesthetized with 1% lidocaine infiltrated from the skin down to the lesion. Single pass then performed, and approximately 10 cubic centimeters of infected appearing fluid was collected with contents emptied into an appropriate pathology specimen container. A bandage was applied to the area of access at completion of the study. COMPARISON: None. FINDINGS: Location(s) of lesion(s) sampled: Soft tissue fluid collection adjacent to the lateral margin of the left hip. [place]: 20 gauge spinal needle. Number of passes: 1 Medications: 1% lidocaine for local anaesthesia. Complications: None. IMPRESSION: Successful ultrasound-guided aspiration of soft tissue fluid collection adjacent to the left hip, with Gram stain as well as culture and sensitivity results pending. Dictated by: Lisa Bennett MD, PhD on 07/18/2021 at 15:07 Approved by: Lisa Bennett MD, PhD on 07/18/2021 at 15:10
--- NOTE | 2021-07-17 17:25 | DI.ECHO.S_ITS ---
[facility]---------+ [facility] +---------+ : : [address] : [address] : : : : [id number] : : : : Phone: [phone]+ Echocardiogram Report + + :Name: RAJAT CARMICHAEL Study Date: 07/18/2021 Height: 66 in : :[facility] ReadingLocation: Weight: 210 lb: : Gender: Female BSA: 2.0 m2 : :: 1965 Age: 56 yrs : :Reason For Study: Staph bacteremia, left hip pain : : Performed By: ROCHELLE HARPER : :Referring: PARISH GREWAL : + + Interpretation Summary 1) Normal left ventricular thickness, size, wall motion, and systolic function (EF 60-65%). 2) Normal right ventricular size and function. 3) No significant valvular abnormalities 4) No prior Echo available for comparison. If there is a clinical concern for endocarditis and it would document management consultant, recommend [facility]. Procedure: A two-dimensional transthoracic echocardiogram with color flow and Doppler was performed. The study quality was technically difficult. There is no prior echocardiogram noted for this patient. A contrast injection of Definity was performed to improve assessment of LV function. Patient supine and in a lot of pain throughout the entire study. The patient was in normal sinus rhythm during the exam. Left Ventricle: There is borderline concentric left ventricular hypertrophy. The left ventricle is grossly normal size. Left ventricular systolic function appears normal without focal wall motion abnormalities. The ejection fraction is estimated to be 60-65%. Right Ventricle: The right ventricle is normal in size and function. Atria: The left atrial size is normal. The right atrium is mild to moderately dilated. There is no Doppler evidence for an interatrial shunt. The atrial septum is aneurysmal. The thickening of interatrial septum suggests lipomatous hypertrophy. Mitral Valve: The mitral valve leaflets appear borderline thickened, but open well. There is trace mitral regurgitation. Aortic Valve: The aortic valve is trileaflet. The aortic valve opens well. The aortic valve is slightly calcified. There is no aortic valve stenosis. There is trace aortic regurgitation. Tricuspid Valve: The tricuspid valve is normal. There is trace tricuspid regurgitation. The right ventricular systolic pressure is estimated to be at least 21 mmHg based on an estimated right atrial pressure of 3 mm Hg. Pulmonic Valve: The pulmonic valve is not well seen, but is grossly normal. There is a trace or physiologic amount of pulmonic regurgitation. Great Vessels: The aortic root is normal size. The ascending aorta is normal in size. The aortic arch is normal in size. The IVC is of normal diameter and collapses greater than 50% with a sniff. This suggests a low right atrial pressure of 3 mm Hg. Pericardium/ Pleura There is no pericardial effusion. There is an anterior echo-free space consistent with a fat pad. There is no pleural effusion. MMode/2D Measurements & Calculations LVIDd: 5.0 cm LVOT diam: 2.0 cm LVIDs: 3.1 cm Ao root diam: 3.1 cm FS: 37.3 % asc Aorta Diam: 3.3 cm IVSd: 1.0 cm Ao Arch Diam (distal): 3.0 cm LVPWd: 1.0 cm LV regalado. diameter/BSA (cm/m^2): 2.4 LV sys. diameter/BSA (cm/m^2): 1.5 LA A2 area: 17.5 cm2 RA long axis: 4.8 cm LA A4 area: 20.8 cm2 RA area: 17.9 cm2 LA length (vol): 5.5 cm RA vol: 56.5 ml LA vol: 56.7 ml RA : 27.7 ml/m2 LA vol index: 27.8 ml/m2 IVC diam: 1.7 cm RVD1 (basal): 3.5 cm TAPSE: 2.4 cm Doppler Measurements & Calculations Ao V2 max: 201.0 cm/sec LVOT Max Michael: 128.1 cm/sec Ao V2 mean: 138.9 cm/sec LV V1 max P.6 mmHg Ao max P.2 mmHg LV V1 VTI: 21.7 cm Ao mean P.4 mmHg ROBERTA(I,D): 2.1 cm2 Ao V2 VTI: 33.9 cm ROBERTA(V,D): 2.1 cm2 sev ratio: 0.64 ROBERTA indexed to BSA (cm^2/m^2): 1.0 MV E max michael: 99.5 cm/sec TR max michael: 211.9 cm/sec MV A max michael: 79.3 cm/sec TR max P.0 mmHg MV E/A: 1.3 PA V2 max: 81.8 cm/sec Med Peak E' Michael: 8.0 cm/sec PA V2 mean: 63.6 cm/sec E/E' med: 12.4 PA mean P.7 mmHg Lat Peak E' Michael: 14.4 cm/sec E/E' lat: 6.9 E/e' average: 9.7 MV dec time: 0.21 sec SV(OT): 70.8 ml Reading Physician:12:16 PM
[2021-07-17 17:36] LABS: Acinetobacter baumannii Not Detected (Not Detect); Candida albicans Not Detected (Not Detect); Candida glabrata Not Detected (Not Detect); Candida krusei Not Detected (Not Detect); Candida parapsilosis Not Detected (Not Detect); Candida tropicalis Not Detected (Not Detect); E. coli Not Detected (Not Detect); Enterobacter cloacae complex Not Detected (Not Detect); Enterobacteriaceae species Not Detected (Not Detect); Enterococcus species Not Detected (Not Detect); Haemophilus influenzae Not Detected (Not Detect); Listeria monocytogenes Not Detected (Not Detect); Methicillin-resistant gene Not Detected (Not Detect); Neisseria meningitidis Not Detected (Not Detect); Proteus species Not Detected (Not Detect); Pseudomonas aeruginosa Not Detected (Not Detect); Serratia marcescens Not Detected (Not Detect); Staphylococcus species Detected (Not Detect); Streptococcus agalactiae (Gr B Not Detected (Not Detect); Streptococcus pneumonia Not Detected (Not Detect); Streptococcus pyogenes (Gr A) Not Detected (Not Detect); Streptococcus species Not Detected (Not Detect)
[2021-07-17] MEDS: LOSARTAN 50 MG TABLET PO (20:18)
[2021-07-17] MEDS: ATORVASTATIN 20 MG TABLET PO (20:19)
[2021-07-17] MEDS: HYDROMORPHONE 4 MG TABLET PO (20:28)
[2021-07-18] VITALS (15 sets, daily range): BP systolic 117–138; BP diastolic 63–68; PULSE 79–93; RESP 16–20; TEMP 36.2–37.8; O2SAT 91–97; BMI 33.9
--- NOTE | 2021-07-18 | PATH_ITS ---
Note [facility] Accession Number: [id number] TESTS RESULT FLAG UNITS REF RANGE LAB Clinician Provided Cytology Information No. of containers..01 Other (Miscellaneous) Source: LEFT LATERAL HIP FLU DIAGNOSIS: LEFT LATERAL HIP FLU NEGATIVE FOR MALIGNANT CELLS. THIS INTERPRETATION INCLUDES EVALUATION OF A CELL BLOCK. COMMENT: Numerous acute inflammatory cells are present. Pathologist ICD10: 01 M25.9 Signed out by: Aubrie Greene MD, Pathologist NPI- [id number] Performed by: Nik Brian, Dry Chain Offbearer ([facility] Gross description: 4 CC, BROWN, CLOUDY RECEIVED: FRESH IN 6 ML SYRINGE. /VDU 07/19/2021 1006 Local FLAG LEGEND: L-Low Normal,H-High Normal,LL-Alert Low,HH-Alert High <-Panic Low,>-Panic High,A-Abnormal,AA-Critical Abnormal Performed at: 01 =Z [facility] Cytology [address], [place] [address] Neil Young MD, Specimen Comment: A duplicate report has been generated due to demographic updates. Performed at: [address] [place] [address], [place], [place] [id number] MD Neil Young MD Phone: [phone]
[2021-07-18] MEDS: MEROPENEM 1 GM in SODIUM CHLORIDE 0.9% 100 ML 200 ML IV ×3 (01:14→17:44)
[2021-07-18 06:26] LABS: Hematocrit 35.1 % (36-46); Hemoglobin 11.5 g/dL (12.0-16.0); Mean Corpuscular HGB Conc 32.8 % (30-36); Mean Corpuscular Hemoglobin 28.7 PG (26-34); Mean Corpuscular Volume 87.5 fL (80-100); Platelet Count 150 X10^3/uL (150-400); Red Blood Cell Count 4.01 X10^6/uL (4.0-5.2); Red Cell Distribution Width 14.8 % (11.6-14.8); White Blood Cell Count 14.3 X10^3/uL (4.5-11.0)
[2021-07-18 06:28] LABS: Add Manual Diff / Slide Review YES; Alanine Aminotransferase 57 IU/L (<35); Albumin 3.5 g/dL (3.5-5.0); Albumin Globulin Ratio 1.2 (1.0-2.8); Alkaline Phosphatase 52 U/L (38-126); Aspartate Aminotransferase 43 IU/L (14-36); BUN Creatinine Ratio 26.7 (6-22); Bilirubin Total 0.8 mg/dL (0.2-1.3); Blood Urea Nitrogen 27 mg/dL (7-17); Carbon Dioxide 32 mmol/L (22-32); Chloride 100 mmol/L (98-107); Estimated Glomerular Filt Rate 56.3 mL/min (>60); Glucose 118 mg/dL (70-100); HEMOLYSIS < 15 (0-50); Magnesium 2.3 mg/dL (1.6-2.3); Potassium 3.8 mmol/L (3.4-5.1); Sodium 136 mmol/L (137-145); Total Protein 6.5 g/dL (6.3-8.2)
[2021-07-18] MEDS: KETOROLAC 30 MG/ML VIAL IV (06:29)
[2021-07-18 06:57] LABS: Neutrophils Absolute Manual 13013 /uL (3000-5900); Total Cells Counted 100
[2021-07-18 06:58] LABS: RBC Morphology Normal Morphology
[2021-07-18] MEDS: LOSARTAN 50 MG TABLET PO ×2 (09:01→21:51)
[2021-07-18] MEDS: SERTRALINE 50 MG TABLET 150 MG PO (09:01)
[2021-07-18] MEDS: HEPARIN 5,000 UNIT/ML VIAL 5000 UNIT SUBCUT ×2 (09:01→21:51)
[2021-07-18] MEDS: HYDROMORPHONE 4 MG TABLET PO (09:07)
[2021-07-18] MEDS: SODIUM CHLORIDE 0.9% FLUSH 10 ML IV ×2 (09:11→21:51)
[2021-07-18] MEDS: VANCOMYCIN 1,000 MG/200 ML PIGGYBACK 200 MG IV ×2 (10:20→21:51)
[2021-07-18] MEDS: HYDROMORPHONE 1 MG INJ IV (11:19)
--- NOTE | 2021-07-18 13:57 | CM.DPC ---
DCP Cont: Per MD, Ortho Consult determined no current need for I&D but want ultrasound/CT guided drainage and then to run cultures to determine if pt's Staph+ also in the fluid collected. Per MD, pt will likely need at least 2 weeks IV-Abx but pending the further cultures and that will determine the IV-Abx med, dosing, and frequency. SW attempted to meet bedside with pt but she was just medicated for pain and unable to keep her eyes open for discussion but confirms that SW can call her to discuss possible options pending her d/c needs. SW called pt's spouse Garry and explained role and discussed likely need for IV-Abx at d/c pending cultures and PT eval towards determining her mobility to see if home is a safe option. SW discussed possible option of home with [facility] pending [facility] coverage and dosing frequency vs outpt clinic if once a day. SW discussed SNF rehab for IV-Abx and therapies as well if [facility] approves as a back up. Spouse confirmed that he is retired and available for 30/04 assist and used to helping pt when she has a flare up or bad day with her arthritis and when she had her hip replacement. 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 Spouse states preference between himself and pt would be home if at all possible and spouse would be very open and agreeable to teaching for IV-Abx etc.. and will make sure he is available for CG training with PT when appropriate. Spouse does have a trip to [place] this week just for Thurs and Fri 07/21-07/22 but if pt is discharged by then he has very supportive local friends willing to stay with pt and help assist. Spouse very appreciative of the update and will discuss this with pt when he visits this evening when pt is more alert and less drowsy. PT/OT eval will need to be re-ordered and discontinued due to waiting for further imaging and drainage. Plan: SW to follow closely for drainage, pending cultures and eventual PT/OT eval orders towards determining home with home infusion and HH vs possible SNF. [facility] will need to be contacted for auth for either home infusion or SNF. JOHN Leyva
--- NOTE | 2021-07-18 15:45 | P.PN_ITS ---
Subjective Subjective Date Patient Seen: 07/18/21 Interval history: 56-year-old female admitted to the hospital for left hip pain. She underwent ultrasound-guided aspiration of the left hip. She is somewhat lethargic after her procedure. The patient denies any diarrhea, no abdominal pain, no shortness of breath Exam Vital Signs (past 8 hours): - 07/18/21 07:47 07/18/21 07:55 07/18/21 07:56 Temperature Pulse Rate 88 Respiratory Rate 16 Blood Pressure Pulse Oximetry 96 91 93 07/18/21 08:33 07/18/21 14:20 Temperature 97.2 F L Pulse Rate 93 H Respiratory Rate 20 Blood Pressure 117/63 Pulse Oximetry 93 94 Oxygen Delivery Method Nasal Cannula Oxygen Flow Rate 2 Narrative Exam Narrative: Sleepy but arousable female lying in bed Resp Other: Lungs clear to auscultation Cardio Other: Cardiac exam: Regular rate and rhythm normal S1-S2 GI Other: Abdomen: Soft and nontender Extrem Other: Left hip: Swollen, edematous, fluctuant, tender to palpation, no erythema Objective Labs Result Diagrams: 07/18/21 05:50 07/18/21 05:50 Labs: Laboratory Results - last 24 hr 07/17/21 07/18/21 07/18/21 01:20 05:50 05:50 WBC 14.3 H RBC 4.01 Hgb 11.5 L Hct 35.1 L MCV 87.5 MCH 28.7 MCHC 32.8 RDW 14.8 Plt Count 150 Neut % (Auto) Not Reportable Lymph % (Auto) Not Reportable [place] % (Auto) Not Reportable Eos % (Auto) Not Reportable Baso % (Auto) Not Reportable Lymph # (Auto) Not Reportable [place] # (Auto) Not Reportable Baso # (Auto) Not Reportable Total Counted 100 Seg Neutrophils % 84.0 H Band Neutrophils % 7.0 Lymphocytes % (Manual) 5.0 L Monocytes % (Manual) 3.0 Basophils % (Manual) 1.0 Neutrophils # (Manual) 67379 H RBC Morphology Normal morphology Sodium Potassium Chloride Carbon Dioxide BUN Creatinine Estimated GFR BUN/Creatinine Ratio Glucose Calcium Magnesium Total Bilirubin AST ALT Alkaline Phosphatase Total Protein Albumin Globulin Albumin/Globulin Ratio Procalcitonin 2.00 H A. baumannii (PCR) Not detected Hodan albicans (PCR) Not detected C. glabrata (PCR) Not detected C. krusei (PCR) Not detected C. parapsilosis (PCR) Not detected C. tropicalis (PCR) Not detected Enterobacteriac sp PCR Not detected E. cloacae complex PCR Not detected Enterococcus sp PCR Not detected E. coli (PCR) Not detected H. influenzae (PCR) Not detected Klebsiella oxytoca PCR Not detected Klebsiella pneumoniae Not detected List. monocytogenes PCR Not detected N. meningitidis (PCR) Not detected Proteus species (PCR) Not detected Serratia marcescens PCR Not detected Staphylococcus sp PCR Detected H Staph aureus (PCR) Detected H mecA-Methicil Res Gene Not detected Streptococcus sp PCR Not detected Group A Strep (PCR) Not detected Strep agalactiae (PCR) Not detected Strep pneumoniae (PCR) Not detected P. aeruginosa (PCR) Not detected Aurelio/B-Vanco Res Genes Not Reportable KPC-Carbap Res Gene PCR Not Reportable 07/18/21 05:50 WBC RBC Hgb Hct MCV MCH MCHC RDW Plt Count Neut % (Auto) Lymph % (Auto) [place] % (Auto) Eos % (Auto) Baso % (Auto) Lymph # (Auto) [place] # (Auto) Baso # (Auto) Total Counted Seg Neutrophils % Band Neutrophils % Lymphocytes % (Manual) Monocytes % (Manual) Basophils % (Manual) Neutrophils # (Manual) RBC Morphology Sodium 136 L Potassium 3.8 Chloride 100 Carbon Dioxide 32 BUN 27 H Creatinine 1.01 Estimated GFR 56.3 L BUN/Creatinine Ratio 26.7 H Glucose 118 H Calcium 9.0 Magnesium 2.3 Total Bilirubin 0.8 AST 43 H ALT 57 H Alkaline Phosphatase 52 Total Protein 6.5 Albumin 3.5 Globulin 3.0 Albumin/Globulin Ratio 1.2 Procalcitonin A. baumannii (PCR) Hodan albicans (PCR) C. glabrata (PCR) C. krusei (PCR) C. parapsilosis (PCR) C. tropicalis (PCR) Enterobacteriac sp PCR E. cloacae complex PCR Enterococcus sp PCR E. coli (PCR) H. influenzae (PCR) Klebsiella oxytoca PCR Klebsiella pneumoniae List. monocytogenes PCR N. meningitidis (PCR) Proteus species (PCR) Serratia marcescens PCR Staphylococcus sp PCR Staph aureus (PCR) mecA-Methicil Res Gene Streptococcus sp PCR Group A Strep (PCR) Strep agalactiae (PCR) Strep pneumoniae (PCR) P. aeruginosa (PCR) Aurelio/B-Vanco Res Genes KPC-Carbap Res Gene PCR PFSH Medical History Ankle pain Carpal tunnel syndrome Chicken pox (~1968) Depression Elevated liver enzymes Essential hypertension (2004) Foot pain Hearing loss (~2009) History of recurrent ear infection (~1989) Insomnia Measles (~1964) Mixed hyperlipidemia (2019) Psoriasis (~1967) Psoriatic arthritis (~1993) Ruptured tympanic membrane (~1989) Scleritis Shingles Shoulder pain Thyroid nodule (~2017) Surgical History Anesthesia History of arthroscopy (~1993) History of surgery (~2000) History of total left hip replacement (~2013) Family History Mother Cervical cancer Alzheimer's disease Brother Mental health problem Social History household members: spouse Smoking Status: Never smoker second hand exposure: No alcohol intake: current substance use type: does not use Assessment & Plan Assessment & Plan narrative: Jlilian Brown is a 56 year old female with a medical history of psoriatic arthritis, fibrous dysplasia of the Left femur, total left hip replacement 8 years ago, hyperlipidemia, essential hypertension, and major depressive disorder who presented with worsening left hip pain. Found to have 2 separate fluid collections, both without rim enhancement. 1. left hip soft tissue infections and fluid collections, possible myositis, possible ?- started on broad spectrum antibiotics, meropenem and vancomycin. Not entirely clear the source of her fluid collections, however they are quite painful. Rising WBC and inflammatory markers are suggestive of bacterial cause despite lack of rim enhancement on imaging. Discussed with orthopedic surgery, Dr. Reyes, and Dr. Alcala of general surgery. Both recommended IR drainage. ?- CT drain ordered. ?- recommended for PCR microbiology specimen of culture per orthopedics. ?- continue pain control with dilaudid. ?- PT / OT after determining cause of fluid -s/p ultrasound guided aspiration -blood cultures growing staph aureus -await gram stain and culture of fluid aspirate 2. psoriatic arthritis, chronic ?- hold hoem tofacitinib given possible active infection. 3. Hyperlipidemia, chronic, present on admission -Continue patient's rosuvastatin 4. Major depressive disorder, chronic, present on admission -continue patient's sertraline Code status:Full Will discuss with ID once gram stain returns will recheck procalcitonin tomorrow. She may require I/D and washout. Time Spent With Patient Critical Care time: I spent a total of [] minutes of critical care time on this patient's care today; this time is exclusive of procedural time.
[2021-07-18 16:01] LABS: Body Fluid Color BROWN
[2021-07-18 16:02] LABS: Body Fluid Appearance TURBID; Body Fluid Clotted? SPECIMEN CLOTTED
[2021-07-18] MEDS: ACETAMINOPHEN 325 MG TABLET 650 MG PO (18:39)
--- NOTE | 2021-07-18 20:00 | DI.RAD.S_ITS ---
PROCEDURE: XR CHEST 1V INDICATIONS: sob TECHNIQUE: One view of the chest was acquired. COMPARISON: None. FINDINGS: Surgical changes and devices: None. Lungs and pleura: Diffuse bilateral perihilar airspace opacities are seen. No pneumothorax or pleural effusion. Mediastinum: Heart size is enlarged. Bones and chest wall: No suspicious bony lesions. Overlying soft tissues appear unremarkable. IMPRESSION: Cardiomegaly and perihilar airspace opacities, possible early CHF. Dictated by: Jordi Mcginnis M.D. on 07/18/2021 at 20:52 Approved by: Jordi Mcginnis M.D. on 07/18/2021 at 20:53
[2021-07-18] MEDS: ATORVASTATIN 20 MG TABLET PO (21:51)
[2021-07-19] VITALS (8 sets, daily range): BP systolic 128–149; BP diastolic 55–79; PULSE 84–91; RESP 18–20; TEMP 36.2–37.1; O2SAT 91–98
[2021-07-19] MEDS: MEROPENEM 1 GM in SODIUM CHLORIDE 0.9% 100 ML 200 ML IV (00:39)
[2021-07-19] MEDS: KETOROLAC 30 MG/ML VIAL IV ×2 (02:24→19:13)
[2021-07-19 07:57] LABS: Add Manual Diff / Slide Review NO; Basophils Absolute Auto 0 /uL (0-100); Basophils Percent Auto 0.2 % (0-2); Eosinophils Absolute Auto 100 /uL (0-450); Eosinophils Percent Auto 0.9 % (2-4); Hematocrit 34.3 % (36-46); Hemoglobin 11.4 g/dL (12.0-16.0); Lymphocytes Absolute Auto 400 /uL (1100-4500); Lymphocytes Percent Auto 3.6 % (25-40); Mean Corpuscular HGB Conc 33.1 % (30-36); Mean Corpuscular Hemoglobin 28.7 PG (26-34); Mean Corpuscular Volume 86.9 fL (80-100); Monocytes Absolute Auto 600 /uL (0-900); Monocytes Percent Auto 5.4 % (3-14); Neutrophils Absolute Auto 10500 /uL (1500-7000); Neutrophils Percent Auto 89.9 % (50-75); Platelet Count 155 X10^3/uL (150-400); Red Blood Cell Count 3.95 X10^6/uL (4.0-5.2); Red Cell Distribution Width 14.6 % (11.6-14.8); White Blood Cell Count 11.7 X10^3/uL (4.5-11.0)
[2021-07-19 08:16] LABS: Alanine Aminotransferase 55 IU/L (<35); Albumin 3.7 g/dL (3.5-5.0); Albumin Globulin Ratio 1.1 (1.0-2.8); Alkaline Phosphatase 67 U/L (38-126); Aspartate Aminotransferase 49 IU/L (14-36); BUN Creatinine Ratio 28.8 (6-22); Bilirubin Total 0.8 mg/dL (0.2-1.3); Blood Urea Nitrogen 21 mg/dL (7-17); Calcium 9.4 mg/dL (8.4-10.2); Carbon Dioxide 32 mmol/L (22-32); Chloride 101 mmol/L (98-107); Estimated Glomerular Filt Rate > 60.0 mL/min (>60); Globulin 3.4 g/dL (1.7-4.1); Glucose 113 mg/dL (70-100); HEMOLYSIS < 15 (0-50); Magnesium 2.7 mg/dL (1.6-2.3); Potassium 3.5 mmol/L (3.4-5.1); Sodium 137 mmol/L (137-145); Total Protein 7.1 g/dL (6.3-8.2)
[2021-07-19] MEDS: HYDROMORPHONE 4 MG TABLET 2 MG PO (09:00)
[2021-07-19] MEDS: HYDROMORPHONE 0.5 MG INJ IV ×3 (09:21→21:19)
[2021-07-19] MEDS: SODIUM CHLORIDE 0.9% FLUSH 10 ML IV (09:22)
[2021-07-19] MEDS: SERTRALINE 50 MG TABLET 150 MG PO (09:28)
[2021-07-19] MEDS: HEPARIN 5,000 UNIT/ML VIAL 5000 UNIT SUBCUT ×2 (09:28→21:21)
[2021-07-19] MEDS: LOSARTAN 50 MG TABLET PO ×2 (09:28→21:22)
[2021-07-19] MEDS: MEROPENEM 1 GM in SODIUM CHLORIDE 0.9% 100 ML 150 ML IV (09:28)
[2021-07-19 09:55] LABS: Procalcitonin 1.32 ng/mL (<0.5)
[2021-07-19 10:14] LABS: Vancomycin Trough 8.5 ug/mL (10-20)
[2021-07-19] MEDS: VANCOMYCIN 1,000 MG/200 ML PIGGYBACK 150 MG IV (10:53)
[2021-07-19] MEDS: POTASSIUM CHLORIDE 20 MEQ TAB 40 MEQ PO (10:53)
--- NOTE | 2021-07-19 11:05 | PC.NURSE ---
Day shift: Pt has misplaced her cell phone. It has not been found at this time (1100). Kitchen and MRI called. Housekeeping informed as well. Spouse has looked in room as well as ANGELIQUE Bradford and this documentation writer. Will look for phone in Pt's bed the next time she uses the BR.
[2021-07-19 13:11] LABS: Vancomycin Peak 24.8 ug/mL (20-40)
--- NOTE | 2021-07-19 13:27 | P.PN_ITS ---
Subjective Subjective Date Patient Seen: 07/19/21 Interval history: Patient admitted for left hip pain. She was found to have an iliac/psoas fluid collection, likely an abscess. She underwent I/R drainage of the bursa yesterday. Her blood cultures are growing Staph Aureus which is bird sensitive. Patient was previously on meropenem and vancomycin. She was having fevers last night but none today. Exam Vital Signs (past 8 hours): - 07/19/21 06:00 07/19/21 08:12 07/19/21 08:30 Temperature 98.7 F Pulse Rate 84 Respiratory Rate 18 Blood Pressure 128/55 L Pulse Oximetry 98 97 97 Oxygen Delivery Method Nasal Cannula Oxygen Flow Rate 2 Narrative Exam Narrative: Pleasant female lying in bed not complaining fo pain at this time Resp Other: Lungs: clear to auscultation Cardio Other: Irregularly irregular, nl Sl S2 Back/Spine/Pelvis Other: Left hip fluctuant, non tender, no erythema Objective Labs Result Diagrams: 07/19/21 07:35 07/19/21 07:35 Labs: Laboratory Results - last 24 hr 07/18/21 07/19/21 07/19/21 Unknown 07:35 07:35 WBC 11.7 H RBC 3.95 L Hgb 11.4 L Hct 34.3 L MCV 86.9 MCH 28.7 MCHC 33.1 RDW 14.6 Plt Count 155 Neut % (Auto) 89.9 H Lymph % (Auto) 3.6 L [place] % (Auto) 5.4 Eos % (Auto) 0.9 L Baso % (Auto) 0.2 Neut # (Auto) 57040 H Lymph # (Auto) 400 L [place] # (Auto) 600 Eos # (Auto) 100 Baso # (Auto) 0 Sodium 137 Potassium 3.5 Chloride 101 Carbon Dioxide 32 BUN 21 H Creatinine 0.73 Estimated GFR > 60.0 BUN/Creatinine Ratio 28.8 H Glucose 113 H Calcium 9.4 Magnesium 2.7 H Total Bilirubin 0.8 AST 49 H ALT 55 H Alkaline Phosphatase 67 Total Protein 7.1 Albumin 3.7 Globulin 3.4 Albumin/Globulin Ratio 1.1 Procalcitonin Fluid Color Brown Fluid Appearance Turbid Fluid RBC TNP Fld Tot Nucleated Cell TNP Fluid Polynuclear WBCs TNP Fluid Mononuclear WBCs TNP Fluid Eosinophils TNP Fluid Other Cells TNP Body Fluid Clot Specimen clotted Vancomycin Peak Vancomycin Trough 07/19/21 07/19/21 07/19/21 07:35 09:37 12:40 WBC RBC Hgb Hct MCV MCH MCHC RDW Plt Count Neut % (Auto) Lymph % (Auto) [place] % (Auto) Eos % (Auto) Baso % (Auto) Neut # (Auto) Lymph # (Auto) [place] # (Auto) Eos # (Auto) Baso # (Auto) Sodium Potassium Chloride Carbon Dioxide BUN Creatinine Estimated GFR BUN/Creatinine Ratio Glucose Calcium Magnesium Total Bilirubin AST ALT Alkaline Phosphatase Total Protein Albumin Globulin Albumin/Globulin Ratio Procalcitonin 1.32 H Fluid Color Fluid Appearance Fluid RBC Fld Tot Nucleated Cell Fluid Polynuclear WBCs Fluid Mononuclear WBCs Fluid Eosinophils Fluid Other Cells Body Fluid Clot Vancomycin Peak 24.8 Vancomycin Trough 8.5 L PFSH Medical History Ankle pain Carpal tunnel syndrome Chicken pox (~1968) Depression Elevated liver enzymes Essential hypertension (2004) Foot pain Hearing loss (~2009) History of recurrent ear infection (~1989) Insomnia Measles (~1964) Mixed hyperlipidemia (2018) Psoriasis (~1967) Psoriatic arthritis (~1993) Ruptured tympanic membrane (~1989) Scleritis Shingles Shoulder pain Thyroid nodule (~2017) Surgical History Anesthesia History of arthroscopy (~1993) History of surgery (~2000) History of total left hip replacement (~2013) Family History Mother Cervical cancer Alzheimer's disease Brother Mental health problem Social History household members: spouse Smoking Status: Never smoker second hand exposure: No alcohol intake: current substance use type: does not use Assessment & Plan Assessment & Plan narrative: left hip soft tissue infections and fluid collections, possible myositis, possible ?- started on broad spectrum antibiotics, meropenem and vancomycin. Not entirely clear the source of her fluid collections, however they are quite painful. Ri sing WBC and inflammatory markers are suggestive of bacterial cause despite lack of rim enhancement on imaging. Discussed with orthopedic surgery, Dr. Reyes, and Dr. Alcala of general surgery. Both recommended IR drainage. ?- CT drain ordered. ?- recommended for PCR microbiology specimen of culture per orthopedics. ?- continue pain control with dilaudid. ?- PT / OT after determining cause of fluid -s/p ultrasound guided aspiration -blood cultures growing staph aureus -await gram stain and culture of fluid aspirate -d/c meropenem -Needs IR drainage of iliopsoas fluid collection, Unable to get that done here or [place] -will need to transfer for Pelvic intraoperative drainage -pain well controlled, febrile last night, gram stain and culture still pending -repeat cultures growing staph aureus 2. psoriatic arthritis, chronic ?- hold hoem tofacitinib given possible active infection. 3. Hyperlipidemia, chronic, present on admission -Continue patient's rosuvastatin 4. Major depressive disorder, chronic, present on admission -continue patient's sertraline Time Spent With Patient Critical Care time: I spent a total of [] minutes of critical care time on this patient's care today; this time is exclusive of procedural time.
[2021-07-19] MEDS: CEFAZOLIN 1 GM VIAL 2 GM IV ×2 (14:43→21:21)
[2021-07-19] MEDS: LACTATED RINGERS 1,000 ML 100 ML IV (19:39)
[2021-07-19] MEDS: ATORVASTATIN 20 MG TABLET PO (21:22)
--- NOTE | 2021-07-19 21:47 | PC.NURSE ---
Pt had relatively uneventful evening. Med 4x 2 w/ IVP Dilaudid for discomfort w/good relief. IVF started per MD, NPO @ [facility] as per orders.for possible surgery in am. SpO2 93% RA Call light w/in reach. bed alarm on for pt safety. Continue w/plan of care.
[2021-07-20] VITALS (24 sets, daily range): BP systolic 111–156; BP diastolic 58–95; PULSE 67–93; RESP 12–22; TEMP 35.3–37.2; O2SAT 83–98
[2021-07-20] MEDS: HYDROMORPHONE 4 MG TABLET 2 MG PO ×2 (00:05→07:57)
[2021-07-20] MEDS: KETOROLAC 30 MG/ML VIAL IV ×2 (04:09→09:45)
[2021-07-20] MEDS: HYDROMORPHONE 0.5 MG INJ IV ×3 (04:09→14:31)
[2021-07-20] MEDS: LACTATED RINGERS 1,000 ML 100 ML IV ×2 (04:12→15:34)
--- NOTE | 2021-07-20 05:21 | PC.NURSE ---
0430 patient called to go to the bathroom, complained of being hot. VSS, afebrile, warm to touch. applied cool clothes to face, chest, and neck. repositioned for comfort. rates pain of 12 out of 10 medicated with toredal and dilaudid 0.5 which resulted in some relief.
[2021-07-20 06:19] LABS: Add Manual Diff / Slide Review NO; Basophils Absolute Auto 0 /uL (0-100); Basophils Percent Auto 0.3 % (0-2); Eosinophils Absolute Auto 200 /uL (0-450); Hematocrit 30.9 % (36-46); Hemoglobin 10.3 g/dL (12.0-16.0); Lymphocytes Absolute Auto 700 /uL (1100-4500); Mean Corpuscular HGB Conc 33.3 % (30-36); Mean Corpuscular Hemoglobin 28.7 PG (26-34); Mean Corpuscular Volume 86.4 fL (80-100); Monocytes Absolute Auto 800 /uL (0-900); Monocytes Percent Auto 7.8 % (3-14); Neutrophils Absolute Auto 8400 /uL (1500-7000); Neutrophils Percent Auto 82.9 % (50-75); Platelet Count 187 X10^3/uL (150-400); Red Blood Cell Count 3.57 X10^6/uL (4.0-5.2); Red Cell Distribution Width 14.6 % (11.6-14.8); White Blood Cell Count 10.1 X10^3/uL (4.5-11.0)
[2021-07-20 06:29] LABS: Alanine Aminotransferase 47 IU/L (<35); Albumin 3.4 g/dL (3.5-5.0); Albumin Globulin Ratio 1.1 (1.0-2.8); Alkaline Phosphatase 65 U/L (38-126); Aspartate Aminotransferase 44 IU/L (14-36); BUN Creatinine Ratio 30.1 (6-22); Bilirubin Total 0.4 mg/dL (0.2-1.3); Blood Urea Nitrogen 22 mg/dL (7-17); Calcium 9.5 mg/dL (8.4-10.2); Carbon Dioxide 34 mmol/L (22-32); Chloride 101 mmol/L (98-107); Estimated Glomerular Filt Rate > 60.0 mL/min (>60); Globulin 3.2 g/dL (1.7-4.1); Glucose 108 mg/dL (70-100); HEMOLYSIS < 15 (0-50); Magnesium 2.5 mg/dL (1.6-2.3); Potassium 3.8 mmol/L (3.4-5.1); Sodium 138 mmol/L (137-145); Total Protein 6.6 g/dL (6.3-8.2)
[2021-07-20] MEDS: CEFAZOLIN 1 GM VIAL 2 GM IV ×3 (06:38→21:32)
[2021-07-20 06:44] LABS: Procalcitonin 0.96 ng/mL (<0.5)
--- NOTE | 2021-07-20 07:35 | P.CONS_ITS ---
History of Present Illness Consult details Date Patient Seen: 07/20/21 Time Patient Seen: 07:35 Chief complaint: left hip pain, no movement Reason for consult: left iliacus fluid collection associated with old Left hip replacement (x2) Requesting provider: Kimberly Wang Narrative: Admitted for Left hip pain and sepsis with blood cultures positive for staph aureus. MRI and CT scan reviewed as well as Left hips aspiration. There is a 5cm fluid collection associated with the left hip in the iliacus muscle with no other source of infection. She has left groin and hip pain that is acute and limits her movement. No fevers over night and WBC is normal today, but has been experiencing persistent fever. Meds Home Medications and Allergies Home Medications Medication Instructions Recorded Confirmed Type cholecalciferol (vitamin D3) 25 5,000 unit PO DAILY 09/15/19 07/17/21 History mcg (1,000 unit) capsule naproxen sodium 220 mg tablet 440 mg PO BID tab 09/15/19 07/17/21 History (Aleve) tofacitinib 5 mg tablet (Xeljanz) 5 mg PO BID 05/07/20 07/17/21 History [address]ing Permit... #2 each 07/06/20 07/17/21 Rx doxepin 3 mg tablet 3 mg PO BEDTIME PRN #90 tab 12/01/20 07/17/21 Rx losartan 50 mg tablet 50 mg PO BID #90 tab 12/01/20 07/17/21 Rx rosuvastatin 10 mg tablet (Crestor) 10 mg PO DAILY #90 tab 12/01/20 07/17/21 Rx sertraline 100 mg tablet 150 mg PO DAILY #135 tab 12/01/20 07/17/21 Rx Allergies Allergy/AdvReac Type Severity Reaction Status Date / Time No Known Drug Allergies Allergy Verified 07/16/21 17:04 Review of Systems Review of Systems ROS: Yes All systems reviewed with the patient and are negative except as otherwise documented Exam Vital Signs (past 8 hours): - 07/20/21 00:01 07/20/21 04:00 07/20/21 05:00 Temperature 97.0 F L 98.9 F Pulse Rate 86 74 Respiratory Rate 16 20 Blood Pressure 144/68 H 137/89 Pulse Oximetry 92 97 95 07/20/21 06:21 Temperature Pulse Rate Respiratory Rate 16 Blood Pressure Pulse Oximetry Oxygen Delivery Method Room Air Oxygen Flow Rate 0 Const General: cooperative and comfortable Orientation: alert and awake HENMT Head: normocephalic and atraumatic Ears: hearing grossly normal bilaterally Face and sinus: normal facial exam Eyes Sclera: sclerae normal Neck Neck: trachea midline Chest Chest: normal inspection of the chest Resp Effort & Inspection: normal respiratory effort and able to speak in complete sentences Cardio Rate: regular rate Rhythm: regular rhythm (with occasional extopic beat) GI Palpation: soft Skin General: no rashes or lesions noted Neuro General: patient alert and patient oriented x3 Cognition: normal cognition Extrem Other: left groin tenderness to palpation, left lateral hip bulge w/o erythema. Psych Appearance: grossly normal Judgment: judgment good Objective Labs Result Diagrams: 07/20/21 06:00 07/20/21 06:00 Labs: Laboratory Results - last 24 hr 07/19/21 07/19/21 07/19/21 07:35 07:35 07:35 WBC 11.7 H RBC 3.95 L Hgb 11.4 L Hct 34.3 L MCV 86.9 MCH 28.7 MCHC 33.1 RDW 14.6 Plt Count 155 Neut % (Auto) 89.9 H Lymph % (Auto) 3.6 L [place] % (Auto) 5.4 Eos % (Auto) 0.9 L Baso % (Auto) 0.2 Neut # (Auto) 30160 H Lymph # (Auto) 400 L [place] # (Auto) 600 Eos # (Auto) 100 Baso # (Auto) 0 Sodium 137 Potassium 3.5 Chloride 101 Carbon Dioxide 32 BUN 21 H Creatinine 0.73 Estimated GFR > 60.0 BUN/Creatinine Ratio 28.8 H Glucose 113 H Calcium 9.4 Magnesium 2.7 H Total Bilirubin 0.8 AST 49 H ALT 55 H Alkaline Phosphatase 67 Total Protein 7.1 Albumin 3.7 Globulin 3.4 Albumin/Globulin Ratio 1.1 Procalcitonin 1.32 H Vancomycin Peak Vancomycin Trough 07/19/21 07/19/21 07/20/21 09:37 12:40 06:00 WBC 10.1 RBC 3.57 L Hgb 10.3 L Hct 30.9 L MCV 86.4 MCH 28.7 MCHC 33.3 RDW 14.6 Plt Count 187 Neut % (Auto) 82.9 H Lymph % (Auto) 7.0 L [place] % (Auto) 7.8 Eos % (Auto) 2.0 Baso % (Auto) 0.3 Neut # (Auto) 8400 H Lymph # (Auto) 700 L [place] # (Auto) 800 Eos # (Auto) 200 Baso # (Auto) 0 Sodium Potassium Chloride Carbon Dioxide BUN Creatinine Estimated GFR BUN/Creatinine Ratio Glucose Calcium Magnesium Total Bilirubin AST ALT Alkaline Phosphatase Total Protein Albumin Globulin Albumin/Globulin Ratio Procalcitonin Vancomycin Peak 24.8 Vancomycin Trough 8.5 L 07/20/21 07/20/21 06:00 06:00 WBC RBC Hgb Hct MCV MCH MCHC RDW Plt Count Neut % (Auto) Lymph % (Auto) [place] % (Auto) Eos % (Auto) Baso % (Auto) Neut # (Auto) Lymph # (Auto) [place] # (Auto) Eos # (Auto) Baso # (Auto) Sodium 138 Potassium 3.8 Chloride 101 Carbon Dioxide 34 H BUN 22 H Creatinine 0.73 Estimated GFR > 60.0 BUN/Creatinine Ratio 30.1 H Glucose 108 H Calcium 9.5 Magnesium 2.5 H Total Bilirubin 0.4 AST 44 H ALT 47 H Alkaline Phosphatase 65 Total Protein 6.6 Albumin 3.4 L Globulin 3.2 Albumin/Globulin Ratio 1.1 Procalcitonin 0.96 H Vancomycin Peak Vancomycin Trough PFSH Medical History Ankle pain Carpal tunnel syndrome Chicken pox (~1968) Depression Elevated liver enzymes Essential hypertension (2004) Foot pain Hearing loss (~2009) History of recurrent ear infection (~1989) Insomnia Measles (~1964) Mixed hyperlipidemia (2018) Psoriasis (~1967) Psoriatic arthritis (~1993) Ruptured tympanic membrane (~1989) Scleritis Shingles Shoulder pain Thyroid nodule (~2017) Surgical History Anesthesia History of arthroscopy (~1993) History of surgery (~2000) History of total left hip replacement (~2013) Family History Mother Cervical cancer Alzheimer's disease Brother Mental health problem Social History household members: spouse Tobacco & Substance Use Smoking Status: Never smoker second hand exposure: No alcohol intake: current substance use type: does not use Assessment & Plan Assessment & Plan narrative: Sepsis with staph aureus in blood. Left hip fluid collection associated with old hip replacement as source. Plan: I and D of left hip. COVID-19 COVID-19 status: Negative Time Spent With Patient Time with patient: 30 to 49 minutes with 50% spent counseling/coordinating care Critical Care time: I spent a total of [] minutes of critical care time on this patient's care today; this time is exclusive of procedural time.
[2021-07-20] MEDS: LOSARTAN 50 MG TABLET PO ×2 (08:01→20:35)
[2021-07-20] MEDS: SERTRALINE 50 MG TABLET 150 MG PO (08:01)
[2021-07-20] MEDS: SODIUM CHLORIDE 0.9% FLUSH 10 ML IV ×2 (08:06→20:36)
[2021-07-20 10:10] LABS: COVID19 - ADMIT (NP swab/PCR) Negative (Negative)
[2021-07-20] MEDS: LACTATED RINGERS 1,000 ML 42 ML IV (11:32)
--- NOTE | 2021-07-20 11:51 | SUR.OPER ---
Supine on padded OR bed, head on pillow, arms secured on padded arm boards at <90 degrees abduction, legs uncrossed, safety belt at waist, tape over blanket over lower legs pillows under knees .Bump under left hip
[2021-07-20] MEDS: BUPIVACAINE 0.25% (PF) VIAL 30 ML INJ (12:13)
[2021-07-20] MEDS: EPINEPHrine 1 MG/ML 0.15 MG INJ (12:14)
--- NOTE | 2021-07-20 12:19 | PM.OP.1 ---
Operative Date/Time/Diagnoses Date of procedure: 07/20/21 Time of procedure: 12:19 Pre-op diagnosis: left hip abscess Post-op diagnosis: same Procedure & Clinicians Procedure: I and d of left hip abscess joint vs bursa Same procedure as scheduled: Yes Indications: sepsis Surgeon: Aubrie Rubio Click Yes if Unassisted: Yes Anesthesia Type: General Operative Notes Findings: Purulent drainage from left hip, palpable space that represents either joint and possible bursa with smooth thick capsule. Closure Type: not applicable Specimen(s): other (Culture of left hip fluid) Applied: drain(s) Estimated Blood Loss (mL): 5 Procedure in detail: Prep diagnosis: Left hip abscess Postop diagnosis: Same Operative procedure: Incision and drainage of left hip abscess Surgeon: Sandra Rubio MD Anesthetic: General with LMA intubation along with local Findings: Able to locate the deep abscess with an 18 gauge spinal needle. Drainage due to the need to enter into fibrinous capsule that digitally represents bursa versus joint space. Procedure: Patient is placed in a lateral position. Prepped and draped in a sterile fashion. 18 gauge spinal needle used to locate the deep abscess. I then used an 11 blade to incise the skin blunt dissection to separate the surrounding muscles and puncture into the hip space. This was followed by digital exam as described above. Was created with significant amount of purulent material sent for culture. Estimated [address] Yousif via phone to initiate a 2nd consult for greater trochanter bursa abscess versus infected left hip hardware. Son drain placed along with dry dressings. Drain sutured to the skin with a 3-0 nylon. Patient awakened, extubated, taken to recovery room in stable condition with needle, instrument, sponge counts correct. Specimen: Culture Blood loss: 5 mL
--- NOTE | 2021-07-20 15:34 | PC.NURSE ---
Pt recieved from [facility] at 1130 approximately, rings removed. Pt transported to OR A&Ox3. Pt returned to room approximately 1310. She has been up to BR to void. Denies n/v, awakenes easily but lethargic. Placed on 2 L NC for support 85 % on RA while sleeping. Pt reports increased pain to L hip with movement medicated with 0.5mg IV dilaudid with good effect.
[2021-07-20] MEDS: HYDROMORPHONE 1 MG INJ IV ×2 (15:59→20:35)
--- NOTE | 2021-07-20 16:20 | PC.NURSE ---
Explained PICC placement to patient and obtained consent, answered her questions. I was preparing to place PICC when Dr. Wang arrived and decided she wants us to wait until pt has a negative blood culture result before we place the PICC. She is scheduled for a recheck blood cx tomorrow. I will pass this information on to the DI nurse for tomorrow.
--- NOTE | 2021-07-20 17:59 | PM.PN.1 ---
Subjective Subjective Date Patient Seen: 07/20/21 Interval history: the patient is a 56-year-old female status post I&D of the left hip bursa, in the revealed rd pus from the left bursa. Patient was in significant pain today. Her Dilaudid was increased. She is now sleeping. Her 's at the bedside and I vast answered his questions accordingly. Exam Vital Signs (past 8 hours): - 07/20/21 12:14 07/20/21 12:19 07/20/21 12:24 Temperature 98.6 F Pulse Rate 67 67 67 Respiratory Rate 12 12 12 Blood Pressure 112/67 112/65 111/58 L Pulse Oximetry 90 L 96 98 07/20/21 12:29 07/20/21 12:34 07/20/21 12:49 Temperature 98.7 F Pulse Rate 68 68 73 Respiratory Rate 12 12 15 Blood Pressure 112/60 113/60 126/71 Pulse Oximetry 98 98 97 07/20/21 12:54 07/20/21 13:00 07/20/21 13:01 Temperature Pulse Rate 71 76 Respiratory Rate 15 16 Blood Pressure 120/70 132/69 Pulse Oximetry 98 95 97 07/20/21 13:16 07/20/21 13:46 07/20/21 14:58 Temperature 96.6 F L 96.6 F L 97.0 F L Pulse Rate 76 77 81 Respiratory Rate 16 18 16 Blood Pressure 141/93 H 150/85 H 156/76 H Pulse Oximetry 98 98 97 07/20/21 16:00 Temperature 95.6 F L Pulse Rate 82 Respiratory Rate 14 Blood Pressure 145/71 H Pulse Oximetry 97 Oxygen Delivery Method Nasal Cannula Oxygen Flow Rate 2 Narrative Exam Narrative: Tearful female in significant pain Resp Other: lungs decreased breath sounds but clear to auscultation Cardio Other: cardiac exam: Regular rate and rhythm normal S1-S2 GI Other: abdomen: Soft and nontender Extrem Other: left hip with dressing in place Objective Labs Result Diagrams: 07/20/21 06:00 07/20/21 06:00 Labs: Laboratory Results - last 24 hr 07/20/21 07/20/21 07/20/21 06:00 06:00 06:00 WBC 10.1 RBC 3.57 L Hgb 10.3 L Hct 30.9 L MCV 86.4 MCH 28.7 MCHC 33.3 RDW 14.6 Plt Count 187 Neut % (Auto) 82.9 H Lymph % (Auto) 7.0 L [place] % (Auto) 7.8 Eos % (Auto) 2.0 Baso % (Auto) 0.3 Neut # (Auto) 8400 H Lymph # (Auto) 700 L [place] # (Auto) 800 Eos # (Auto) 200 Baso # (Auto) 0 Sodium 138 Potassium 3.8 Chloride 101 Carbon Dioxide 34 H BUN 22 H Creatinine 0.73 Estimated GFR > 60.0 BUN/Creatinine Ratio 30.1 H Glucose 108 H Calcium 9.5 Magnesium 2.5 H Total Bilirubin 0.4 AST 44 H ALT 47 H Alkaline Phosphatase 65 Total Protein 6.6 Albumin 3.4 L Globulin 3.2 Albumin/Globulin Ratio 1.1 Procalcitonin 0.96 H SARS-CoV-2 (PCR) 07/20/21 07:48 WBC RBC Hgb Hct MCV MCH MCHC RDW Plt Count Neut % (Auto) Lymph % (Auto) [place] % (Auto) Eos % (Auto) Baso % (Auto) Neut # (Auto) Lymph # (Auto) [place] # (Auto) Eos # (Auto) Baso # (Auto) Sodium Potassium Chloride Carbon Dioxide BUN Creatinine Estimated GFR BUN/Creatinine Ratio Glucose Calcium Magnesium Total Bilirubin AST ALT Alkaline Phosphatase Total Protein Albumin Globulin Albumin/Globulin Ratio Procalcitonin SARS-CoV-2 (PCR) Negative REPLACED BY [facility] Medical History Ankle pain Carpal tunnel syndrome Chicken pox (~1968) Depression Elevated liver enzymes Essential hypertension (2004) Foot pain Hearing loss (~2009) History of recurrent ear infection (~1989) Insomnia Measles (~1964) Mixed hyperlipidemia (2018) Psoriasis (~1967) Psoriatic arthritis (~1993) Ruptured tympanic membrane (~1989) Scleritis Shingles Shoulder pain Thyroid nodule (~2017) Surgical History Anesthesia History of arthroscopy (~1993) History of surgery (~2000) History of total left hip replacement (~2013) Family History Mother Cervical cancer Alzheimer's disease Brother Mental health problem Social History household members: spouse Smoking Status: Never smoker second hand exposure: No alcohol intake: current substance use type: does not use Assessment & Plan Assessment & Plan narrative: Left hip soft tissue infections and fluid collections, possible myositis, possible ?- started on broad spectrum antibiotics, meropenem and vancomycin. Not entirely clear the source of her fluid collections, however they are quite painful. Rising WBC and inflammatory markers are suggestive of bacterial cause despite lack of rim enhancement on imaging. Discussed with orthopedic surgery, Dr. Reyes, and Dr. Alcala of general surgery. Both recommended IR drainage. ?- CT drain ordered. ?- recommended for PCR microbiology specimen of culture per orthopedics. ?- continue pain control with dilaudid. ?- PT / OT after determining cause of fluid -s/p ultrasound guided aspiration -blood cultures growing staph aureus -await gram stain and culture of fluid aspirate -d/c meropenem -Needs IR drainage of iliopsoas fluid collection, Unable to get that done here or [place] -will need to transfer for Pelvic intraoperative drainage -pain well controlled, febrile last night, gram stain and culture still pending -repeat cultures growing staph aureus -Films reviewed by ortho, they felt this could be handled by General Surgery here at [facility] [place] -Discussed with I/R, they refused to perform IR drainage as it was felt that the iliacus abcess was too deep and near major vessles -Discussed with Dr. Reyes who recommend transfer to , refused, General surgery consulted again and took the patient to the OR today for definitive treatment -Rd pus from bursa identified intraoperatively -Staph growing from blood and wound -Continue Ancef, will consult ID for duration of antibiotics -Will place PICC line once blood cultures are negative-they remain positive 2. psoriatic arthritis, chronic ?- hold hoem tofacitinib given possible active infection. 3. Hyperlipidemia, chronic, present on admission -Continue patient's rosuvastatin 4. Major depressive disorder, chronic, present on admission -continue patient's sertraline Time Spent With Patient Critical Care time: I spent a total of [] minutes of critical care time on this patient's care today; this time is exclusive of procedural time.
[2021-07-20] MEDS: HEPARIN 5,000 UNIT/ML VIAL 5000 UNIT SUBCUT (20:35)
[2021-07-20] MEDS: ATORVASTATIN 20 MG TABLET PO (20:35)
--- NOTE | 2021-07-20 20:46 | P.PN_ITS ---
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 Sarbjit Chambers [facility]. She presented with an iliopsoas abscess as well as septic hip bursitis. She was bacteremic with Staph in her blood cultures. Symptoms evolved quite quickly and acutely. She is on an immunomodulator and en dorses some recent sacroiliac symptoms otherwise no recent surgeries, dental work, endoscopies or illness. On presentation to the ER Inflammatory Markers were normal CRP 0.8 and her white blood cell count was 14 on presentation 12 hours later her CRP was elevated 8.9 and white blood cells 20. She was started on IV antibiotics. White cell blood count is currently 10 and prolactin improving. IR was consulted for possible percutaneous drainage of the pelvic abscesses. Per report this was not possible but the hip bursitis was aspirated. This was later I&D'd by general surgery. Orthopedic surgery was not made aware of this OR so unfortunately was not able to assess joint involvement. But have been asked to comment. Gloria I have discussed with the patient at length, with involvement proximal and lateral to the prosthesis, seeding of the joint is possible. However, I think the joint itself unlikely the primary source of the infection given her normal inflammatory markers on presentation and acute course. I believe this lends to a acute hematologic process and iliopsoas abscess. A longstanding prosthetic infection should demonstrate chronically elevated inflammatory markers. Additionally I would expect lucency/osteolysis on x-ray which I do not appreciate. Discussed with the patient possible courses of action. I have recommended IV antibiotics based on the organisms cultured discussed the general term of treatment for IV antibiotics with assumed bone or prosthetic involvement would be 6 weeks but would recommend formal Infectious Disease consultation, monitoring and guidance and follow-up Following this, courses may vary with orals or trials off antibiotics. I discussed if infection cannot be eradicated or recurs to involve the joint, then she may eventually need explant but this would be a large undertaking including chiseling of the cement for her prosth esis and would not be something done acutely and best in the hands of a revision or complex joint specialist. And With appropriate treatment of her bacteremia and iliopsoas abscess she may not require this. My recommendation would be treatment with antibiotics and follow-up with her previous surgeon Dr. Sarbjit Chambers, a revision joint specialist at a tertiary center. I have offered to attempted contact with his clinic tomorrow however this would not be the acute issue. Acute issues would include treating her bacteremia and source identification. Again based on the normal inflammatory markers at presentation and more proximal location of the iliopsoas abscess, it is unlikely for the primary source to be the hip joint. May consider repeat abdomen and pelvis CT with contrast to better identify possible source or enlarging iliopsoas abscess that may be a target for interventional radiology versus continued treatment with organism specific antibiotics. Exam Vital Signs (past 8 hours): - 07/20/21 12:49 07/20/21 12:54 07/20/21 13:00 Temperature 98.7 F Pulse Rate 73 71 Respiratory Rate 15 15 Blood Pressure 126/71 120/70 Pulse Oximetry 97 98 95 07/20/21 13:01 07/20/21 13:16 07/20/21 13:46 Temperature 96.6 F L 96.6 F L Pulse Rate 76 76 77 Respiratory Rate 16 16 18 Blood Pressure 132/69 141/93 H 150/85 H Pulse Oximetry 97 98 98 07/20/21 14:58 07/20/21 16:00 07/20/21 19:21 Temperature 97.0 F L 95.6 F L Pulse Rate 81 82 Respiratory Rate 16 14 Blood Pressure 156/76 H 145/71 H Pulse Oximetry 97 97 94 Oxygen Delivery Method Nasal Cannula Oxygen Flow Rate 2 Narrative Exam Narrative: Alert female lying in bed. Mild distress, tearful. Endorses that pelvic pain feels worse. Feels like her abdomen is swollen. Grossly soft to palpation. Endorse some gas earlier in the day today. Left hip has a dressing laterally scant drainage. Thigh compartments soft. Objective Labs Result Diagrams: 07/20/21 06:00 07/20/21 06:00 Labs: Laboratory Results - last 24 hr 07/20/21 07/20/21 07/20/21 06:00 06:00 06:00 WBC 10.1 RBC 3.57 L Hgb 10.3 L Hct 30.9 L MCV 86.4 MCH 28.7 MCHC 33.3 RDW 14.6 Plt Count 187 Neut % (Auto) 82.9 H Lymph % (Auto) 7.0 L [place] % (Auto) 7.8 Eos % (Auto) 2.0 Baso % (Auto) 0.3 Neut # (Auto) 8400 H Lymph # (Auto) 700 L [place] # (Auto) 800 Eos # (Auto) 200 Baso # (Auto) 0 Sodium 138 Potassium 3.8 Chloride 101 Carbon Dioxide 34 H BUN 22 H Creatinine 0.73 Estimated GFR > 60.0 BUN/Creatinine Ratio 30.1 H Glucose 108 H Calcium 9.5 Magnesium 2.5 H Total Bilirubin 0.4 AST 44 H ALT 47 H Alkaline Phosphatase 65 Total Protein 6.6 Albumin 3.4 L Globulin 3.2 Albumin/Globulin Ratio 1.1 Procalcitonin 0.96 H SARS-CoV-2 (PCR) 07/20/21 07:48 WBC RBC Hgb Hct MCV MCH MCHC RDW Plt Count Neut % (Auto) Lymph % (Auto) [place] % (Auto) Eos % (Auto) Baso % (Auto) Neut # (Auto) Lymph # (Auto) [place] # (Auto) Eos # (Auto) Baso # (Auto) Sodium Potassium Chloride Carbon Dioxide BUN Creatinine Estimated GFR BUN/Creatinine Ratio Glucose Calcium Magnesium Total Bilirubin AST ALT Alkaline Phosphatase Total Protein Albumin Globulin Albumin/Globulin Ratio Procalcitonin SARS-CoV-2 (PCR) Negative [facility] Medical History Ankle pain Carpal tunnel syndrome Chicken pox (~1968) Depression Elevated liver enzymes Essential hypertension (2004) Foot pain Hearing loss (~2009) History of recurrent ear infection (~1989) Insomnia Measles (~1964) Mixed hyperlipidemia (2018) Psoriasis (~1967) Psoriatic arthritis (~1993) Ruptured tympanic membrane (~1989) Scleritis Shingles Shoulder pain Thyroid nodule (~2017) Surgical History Anesthesia History of arthroscopy (~1993) History of surgery (~2000) History of total left hip replacement (~2013) Family History Mother Cervical cancer Alzheimer's disease Brother Mental health problem Social History household members: spouse Smoking Status: Never smoker second hand exposure: No alcohol intake: current substance use type: does not use Assessment & Plan Time Spent With Patient Critical Care time: I spent a total of [] minutes of critical care time on this patient's care today; this time is exclusive of procedural time.
[2021-07-21] VITALS (12 sets, daily range): BP systolic 106–148; BP diastolic 36–82; PULSE 73–85; RESP 16–18; TEMP 35.8–36.8; O2SAT 92–97
[2021-07-21] MEDS: HYDROMORPHONE 1 MG INJ IV ×7 (01:40→23:36)
[2021-07-21] MEDS: CEFAZOLIN 1 GM VIAL 2 GM IV ×3 (06:13→20:45)
[2021-07-21] MEDS: LACTATED RINGERS 1,000 ML 42 ML IV (07:54)
[2021-07-21] MEDS: KETOROLAC 30 MG/ML VIAL IV ×2 (07:54→14:50)
[2021-07-21] MEDS: LOSARTAN 50 MG TABLET PO ×2 (09:00→20:45)
[2021-07-21] MEDS: SODIUM CHLORIDE 0.9% FLUSH 10 ML IV ×2 (09:00→20:45)
[2021-07-21] MEDS: HEPARIN 5,000 UNIT/ML VIAL 5000 UNIT SUBCUT ×2 (09:00→20:44)
[2021-07-21] MEDS: MAGNESIUM HYDROXIDE 30 ML UDC PO (09:04)
[2021-07-21] MEDS: SERTRALINE 50 MG TABLET 150 MG PO (09:04)
--- NOTE | 2021-07-21 10:58 | P.PN_ITS ---
Subjective Subjective Date Patient Seen: 07/21/21 Time Patient Seen: 10:58 Interval history: Still with left groin pain, better at rest but still severe with minimal movement. Has not had a bowel movement since admit. Exam Vital Signs (past 8 hours): - 07/21/21 03:00 07/21/21 04:51 07/21/21 08:00 Temperature 97.0 F L 98.0 F Pulse Rate 83 85 Respiratory Rate 16 16 Blood Pressure 134/75 148/82 H Pulse Oximetry 92 92 97 07/21/21 09:00 Temperature Pulse Rate 85 Respiratory Rate Blood Pressure 148/82 H Pulse Oximetry Oxygen Delivery Method Nasal Cannula Oxygen Flow Rate 3 Narrative Exam Narrative: General:? Patient is a well-developed, well-nourished female in no distress at this time. Lungs:? Auscultation of all lung diamond are clear without wheezes, rhonchi, or rales. Cardio:? RRR no m/r/g Abdomen:? Soft nontender, non-distended.? Bowel sounds are present in all 4 quadrants without guarding or rebound, no CVA tenderness. Musculoskeletal:? L hip pain, present laterally over the hip but appropriate now over incisions and moreso near L groin. Worse with active flexion at the hip. Skin:? Warm dry and intact without rashes, ulcerations or petechiae.? patient does have some healed plaques on the right forearm. L hip bandages mild serosanguinous fluid on bandage, no obvious surrounding erythemia. Neuro:? Alert and orientated x3, strength is +5/5 in all extremities, sensation to touch intact, no gross deficits noted of cranial nerves. Psych:? Patient has a well-kept appearance, appropriate affect, mental status attitude thought context and judgment are appropriate for age. Objective Labs Result Diagrams: 07/20/21 06:00 07/20/21 06:00 [facility] Medical History Ankle pain Carpal tunnel syndrome Chicken pox (~1968) Depression Elevated liver enzymes Essential hypertension (2004) Foot pain Hearing loss (~2009) History of recurrent ear infection (~1989) Insomnia Measles (~1964) Mixed hyperlipidemia (2018) Psoriasis (~1967) Psoriatic arthritis (~1993) Ruptured tympanic membrane (~1989) Scleritis Shingles Shoulder pain Thyroid nodule (~2017) Surgical History Anesthesia History of arthroscopy (~1993) History of surgery (~2000) History of total left hip replacement (~2013) Family History Mother Cervical cancer Alzheimer's disease Brother Mental health problem Social History household members: spouse Smoking Status: Never smoker second hand exposure: No alcohol intake: current substance use type: does not use Assessment & Plan Assessment & Plan narrative: 1. 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 MSSA bacteremia on admission cultures. One fluid collection being a left hip bursa with purulent fluid, ultimately drained in the OR on 07/20 and with IR. And an ileacus muscle fluid collection which has not been drained. ?- continue pain control with dilaudid, suspect recurring pain is due to the collection near her ileacus muscle on prior imaging. This has not been drained. Unfortunately IR not willing to persue here due to proximity to major vessels, general surgery or orthopedics not willing to drain. Unable to transfer patient currently but working on IR availability. Coordinate through [facility]. Will repeat imaging today to see if there is any improvement in size. -s/p ultrasound guided aspiration of left hip, and OR drainage with general surgery of L bursa collection on 07/20. -blood cultures growing staph aureus, MSSA -initially on meropenem and vancomycin, now on cefazolin. -Delgado pus from bursa identified intraoperatively with general surgery from her left hip bursa. Ortho reconsulted and recommended outpatient follow up with her orthopedic physicians at . -Continue Ancef, will consult ID for duration of antibiotics -Will place PICC line once blood cultures are negative, from 07/17/21 evening they are negative. 07/20 cultures pending thus far. -Per Dr. Reyes,?Dr. Sarbjit Chambers ( ortho and pts joint surgeon) this morning. Recommended follow up in his clinic 10-14days after discharge from hospital. Clinic back line is [phone] alternate number is [phone]. please have discharge planners call to set up appt when pt gets close to discharge.? 2. psoriatic arthritis, chronic ?- hold hoem tofacitinib given possible active infection. 3. Hyperlipidemia, chronic, present on admission -Continue patient's rosuvastatin 4. Major depressive disorder, chronic, present on admission -continue patient's sertraline 5. Opiate induced constipation - start laxitive therapy today. Continue to monitor. Code: Orthopedic Assistant Spent With Patient Critical Care time: I spent a total of [] minutes of critical care time on this patient's care today; this time is exclusive of procedural time.
--- NOTE | 2021-07-21 11:20 | PM.PN.1 ---
Subjective Subjective Date Patient Seen: 07/21/21 Time Patient Seen: 11:20 Interval history: s/p drainage of Left hip, bursa abscess. Could not rule out communication to joint. NO fevers over night. Pain minimally better. Exam Vital Signs (past 8 hours): - 07/21/21 04:51 07/21/21 08:00 07/21/21 09:00 Temperature 97.0 F L 98.0 F Pulse Rate 83 85 85 Respiratory Rate 16 16 Blood Pressure 134/75 148/82 H 148/82 H Pulse Oximetry 92 97 Oxygen Delivery Method Nasal Cannula Oxygen Flow Rate 3 Narrative Exam Narrative: tender ROM for left hip only marginally improved. afebrile Objective Labs Result Diagrams: 07/20/21 06:00 07/20/21 06:00 [facility] Medical History Ankle pain Carpal tunnel syndrome Chicken pox (~1968) Depression Elevated liver enzymes Essential hypertension (2004) Foot pain Hearing loss (~2009) History of recurrent ear infection (~1989) Insomnia Measles (~1964) Mixed hyperlipidemia (2018) Psoriasis (~1967) Psoriatic arthritis (~1993) Ruptured tympanic membrane (~1989) Scleritis Shingles Shoulder pain Thyroid nodule (~2017) Surgical History Anesthesia History of arthroscopy (~1993) History of surgery (~2000) History of total left hip replacement (~2013) Family History Mother Cervical cancer Alzheimer's disease Brother Mental health problem Social History household members: spouse Smoking Status: Never smoker second hand exposure: No alcohol intake: current substance use type: does not use Assessment & Plan Assessment & Plan narrative: s/p drainage of left hip bursa. Last WBC normal and no fevers over night. Pain is marginally better. reviewed MRI with radiology. Iliacus abscess at longest view is around 4cm. Plan: repeat MRI, If iliacus abscess is smaller then continue with antibiotics alone. Surgical drain is highly morbid. COVID-19 COVID-19 status: Negative Time Spent With Patient Critical Care time: I spent a total of [] minutes of critical care time on this patient's care today; this time is exclusive of procedural time.
--- NOTE | 2021-07-21 11:32 | DI.MRI.S_ITS ---
PROCEDURE: MR PELIS WO/W CON INDICATIONS: Evaluation of abcess TECHNIQUE: Noncontrast coronal T1 spin echo and STIR, sagittal T1 spin echo with fat saturation and STIR, axial T1 spin echo and T2 fast spin echo with fat saturation. After the administration of contrast, axial/sagittal/coronal T1 spin echo with fat saturation through the pelvis and left hip . COMPARISON: [facility], MR, MR PELVIS WO/W CON, 07/17/2021, 9:22. FINDINGS: Image quality: Excellent. Bones: Left hip arthroplasty. Osseous signal is otherwise normal. Soft tissues: Slight interval decrease in size of greater trochanter bursa fluid collection compared to the prior study. Increase in overlying subcutaneous edema. Increased size and extent of fluid collection in the left iliacus muscle measuring at least 17.8 cm in craniocaudal dimension and with intramuscular fluid pockets extending below the level of the hip joint. There has also been interval increase in fascial edema involving the anterior compartment of the left thigh. There are no focal drainable subcutaneous fluid collections. Proximal, there is atrophy and surrounding edema of the left psoas muscle. Presacral edema/fluid is present within the pelvis. This has increased since the prior study. IMPRESSION: 1. Increase in size and extent of left iliacus intramuscular fluid collection. 2. Increase in fascial edema involving the anterior compartment of the left thigh along with increased intramuscular edema. Further myositis and fasciitis is likely. No MR signs of necrosis, though clinical correlation is recommended. 3. Interval decrease in size of greater trochanteric bursitis post aspiration. 4. Development of presacral edema/fluid. No other intrapelvic abnormalities. 5. Discussed with Dr. Cortés, hospitalist at 18:13 Dictated by: Pam Lema M.D. on 07/21/2021 at 16:54 Approved by: Pam Lema M.D. on 07/21/2021 at 18:14
[2021-07-21] MEDS: BISACODYL 5 MG TABLET PO (11:43)
[2021-07-21] MEDS: polyethylene glycoL 3350 17 GM POWD.PACK PO (11:43)
--- NOTE | 2021-07-21 12:01 | CM.DPC ---
Addendum entered by Vale Piper R.N. 07/21/21 15:31: Went ahead and called [facility], spoke to Anastasiya, pharmacist. Let her know that it's unclear as to when patient will be ready for discharge, and if she will potentially be transferred, but wanted to go ahead and initiate referral should patient be able to remain here, and if she is able to eventually go home, for she does have supportive . Barrier is that she is currently unable to walk, and that she may need further surgery. According to notes, PICC line will be placed. Went ahead and faxed Anastasiya at [facility] the referral. Included face sheet, H&P, current progress notes with hospitalist and surgeon, as well as labs and current med list. She will look over referral. Donnie at [facility] is on vacation until Sunday. Original Note: DCP Cont: Discussed patient during team rounds. Patient is unable to walk at this time, for she needs additional surgery, that most likely can't be done here. Patient is not able to work with P.T. at this time. Hospitalist was discussing a transfer through [facility], so her needs can be met for surgery. Patient's goal was home, but if she isn't able to walk, and needs surgery, may most likely need higher level of care. P: DCP to continue to follow, and will be available for resources needed. Vale Piper RN/Reed Dipper
[2021-07-21] MEDS: SENNOSIDES 8.6 MG TABLET 17.2 MG PO (20:44)
[2021-07-21] MEDS: ATORVASTATIN 20 MG TABLET PO (20:45)
[2021-07-22] VITALS (20 sets, daily range): BP systolic 84–142; BP diastolic 20–77; PULSE 70–84; RESP 12–22; TEMP 35.5–37.7; O2SAT 80–98; BMI 37.2
[2021-07-22] MEDS: HYDROMORPHONE 1 MG INJ IV ×6 (02:55→23:33)
[2021-07-22 07:53] LABS: Add Manual Diff / Slide Review NO; Basophils Absolute Auto 100 /uL (0-100); Basophils Percent Auto 0.6 % (0-2); Eosinophils Absolute Auto 200 /uL (0-450); Eosinophils Percent Auto 2.2 % (2-4); Hematocrit 31.9 % (36-46); Hemoglobin 10.4 g/dL (12.0-16.0); Lymphocytes Absolute Auto 600 /uL (1100-4500); Lymphocytes Percent Auto 5.6 % (25-40); Mean Corpuscular HGB Conc 32.7 % (30-36); Mean Corpuscular Hemoglobin 28.5 PG (26-34); Mean Corpuscular Volume 87.2 fL (80-100); Monocytes Absolute Auto 800 /uL (0-900); Monocytes Percent Auto 7.8 % (3-14); Neutrophils Absolute Auto 8700 /uL (1500-7000); Neutrophils Percent Auto 83.8 % (50-75); Platelet Count 243 X10^3/uL (150-400); Red Blood Cell Count 3.66 X10^6/uL (4.0-5.2); Red Cell Distribution Width 14.8 % (11.6-14.8); White Blood Cell Count 10.4 X10^3/uL (4.5-11.0)
[2021-07-22 08:09] LABS: BUN Creatinine Ratio 31.5 (6-22); Blood Urea Nitrogen 17 mg/dL (7-17); Calcium 9.7 mg/dL (8.4-10.2); Carbon Dioxide 35 mmol/L (22-32); Chloride 96 mmol/L (98-107); Estimated Glomerular Filt Rate > 60.0 mL/min (>60); Glucose 121 mg/dL (70-100); HEMOLYSIS < 15 (0-50); Magnesium 2.2 mg/dL (1.6-2.3); Potassium 3.6 mmol/L (3.4-5.1); Sodium 136 mmol/L (137-145)
[2021-07-22] MEDS: CEFAZOLIN 1 GM VIAL 2 GM IV ×2 (08:26→15:25)
[2021-07-22] MEDS: KETOROLAC 30 MG/ML VIAL IV (09:05)
[2021-07-22] MEDS: SODIUM CHLORIDE 0.9% FLUSH 10 ML IV ×2 (09:16→21:12)
--- NOTE | 2021-07-22 09:17 | PC.NURSE ---
Pt transported off the unit to surgery for draining of abcess. IV 1mg dilaudid and 30mg IV toradol administered for patient 9-10/10 pain level.
--- NOTE | 2021-07-22 09:21 | PM.PREOP ---
Pre-operative Note COVID-19 COVID-19 status: Negative Interval Note History & Physical reviewed/Exam performed by Physician: Yes Changes to H&P: Yes H&P completed within 30 days and has changed as indicated here:: Infected bursa drained w/o improvement in pain. Repeat MRI shows pelvic abscess is larger. Plan is to approach through a retroperitoneal incision for open surgical drainage.
--- NOTE | 2021-07-22 09:23 | SUR.OPER ---
Supine on padded OR bed, head on pillow, arms secured on padded arm boards at <90 degrees abduction, legs uncrossed, safety belt at thigh, tape over blanket over lower legs.
[2021-07-22] MEDS: SERTRALINE 50 MG TABLET 150 MG PO (12:39)
[2021-07-22] MEDS: BISACODYL 5 MG TABLET PO (12:39)
[2021-07-22] MEDS: polyethylene glycoL 3350 17 GM POWD.PACK PO (12:39)
--- NOTE | 2021-07-22 12:52 | CM.DPC ---
DCP Cont: Discussed patient during team rounds. Have not been able to transfer patient to higher level of care for surgery,due to beds not being available. She will be having a procedure today involving draining of her abscess. At this time, patient has not been able to walk due to the pain. [facility] had called and left a message that home IV therapies are 100% covered by [facility]. Patient may be getting PICC line today. P: DCP to continue to follow closely post surgery, to see when she can work with P.T, and how she does upon mobility, and if she will be able to go home with IV ABO, since she will need approximately 6 weeks of IV therapy. Vale Piper RN/Pa[place] Operator
[2021-07-22] MEDS: LACTATED RINGERS 1,000 ML 42 ML IV (13:10)
--- NOTE | 2021-07-22 16:15 | P.PN_ITS ---
Subjective Subjective Date Patient Seen: 07/22/21 Time Patient Seen: 08:30 Interval history: Still complained of severe left hip pain. Was distressed and confused this morning. Went for surgical drainage of fluid collection with general surgery today. Patient did have a bowel movement. Exam Vital Signs (past 8 hours): - 07/22/21 09:13 07/22/21 10:37 07/22/21 10:41 Temperature 99.8 F H 99.9 F H Pulse Rate 79 80 76 Respiratory Rate 14 12 15 Blood Pressure 124/20 L 84/43 L 106/55 L Pulse Oximetry 95 90 L 98 07/22/21 10:51 07/22/21 10:56 07/22/21 11:01 Temperature Pulse Rate 76 72 70 Respiratory Rate 15 17 15 Blood Pressure 112/52 L 104/57 L 102/55 L Pulse Oximetry 98 98 98 07/22/21 11:06 07/22/21 11:11 07/22/21 11:16 Temperature Pulse Rate 81 80 77 Respiratory Rate 16 16 16 Blood Pressure 124/67 117/66 114/61 Pulse Oximetry 97 98 92 07/22/21 11:34 07/22/21 12:00 07/22/21 12:43 Temperature 99 F 96.6 F L Pulse Rate 76 77 Respiratory Rate 16 22 Blood Pressure 107/56 L 135/72 Pulse Oximetry 92 93 93 07/22/21 13:00 07/22/21 14:20 Temperature 96.6 F L 96 F L Pulse Rate 71 77 Respiratory Rate 20 20 Blood Pressure 117/73 123/62 Pulse Oximetry 93 96 Oxygen Delivery Method Nasal Cannula Oxygen Flow Rate 0 Narrative Exam Narrative: General:? Patient is a well-developed, well-nourished female. Mildly anxious. Lungs:? Auscultation of all lung diamond are clear without wheezes, rhonchi, or rales. Cardio:? RRR no m/r/g Abdomen:? Soft nontender, non-distended.? Bowel sounds are present in all 4 quadrants without guarding or rebound, no CVA tenderness. Musculoskeletal:? L hip pain, present laterally over the hip? but appropriate now over incisions and moreso near L groin. Worse with active flexion at the hip. No crepitus anteriorly. Skin:? Warm dry and intact without rashes, ulcerations or petechiae.? patient does have some healed plaques on the right forearm. L hip bandages mild serosanguinous fluid on bandage, no obvious surrounding erythema. Neuro:? Alert and orientated x3, strength is +5/5 in all extremities, sensation to touch intact, no gross deficits noted of cranial nerves. Objective Labs Result Diagrams: 07/22/21 07:12 07/22/21 07:12 Labs: Laboratory Results - last 24 hr 07/22/21 07/22/21 07:12 07:12 WBC 10.4 RBC 3.66 L Hgb 10.4 L Hct 31.9 L MCV 87.2 MCH 28.5 MCHC 32.7 RDW 14.8 Plt Count 243 Neut % (Auto) 83.8 H Lymph % (Auto) 5.6 L [place] % (Auto) 7.8 Eos % (Auto) 2.2 Baso % (Auto) 0.6 Neut # (Auto) 8700 H Lymph # (Auto) 600 L [place] # (Auto) 800 Eos # (Auto) 200 Baso # (Auto) 100 Sodium 136 L Potassium 3.6 Chloride 96 L Carbon Dioxide 35 H BUN 17 Creatinine 0.54 Estimated GFR > 60.0 BUN/Creatinine Ratio 31.5 H Glucose 121 H Calcium 9.7 Magnesium 2.2 PFSH Medical History Ankle pain Carpal tunnel syndrome Chicken pox (~1968) Depression Elevated liver enzymes Essential hypertension (2004) Foot pain Hearing loss (~2009) History of recurrent ear infection (~1989) Insomnia Measles (~1964) Mixed hyperlipidemia (2018) Psoriasis (~1967) Psoriatic arthritis (~1993) Ruptured tympanic membrane (~1989) Scleritis Shingles Shoulder pain Thyroid nodule (~2017) Surgical History Anesthesia History of arthroscopy (~1993) History of surgery (~2000) History of total left hip replacement (~2013) Family History Mother Cervical cancer Alzheimer's disease Brother Mental health problem Social History household members: spouse Smoking Status: Never smoker second hand exposure: No alcohol intake: current substance use type: does not use Assessment & Plan Assessment & Plan narrative: 1. 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 MSSA bacteremia on admission cultures. One fluid collection being a left hip bursa with purulent fluid, ultimately drained in the OR on 07/20 and with IR. And an ileacus muscle fluid collection which was drainged today 07/22/21. ?- continue pain control with dilaudid, suspect recurring pain is due to the collection near her ileacus muscle on prior imaging. Unfortunately IR not willing to persue here due to proximity to major vessels, general surgery or orthopedics not willing to drain initially. Unable to transfer patient. Taken to OR for drainage today. -s/p ultrasound guided aspiration of left hip, and OR drainage with general surgery of L bursa collection on 07/20. -blood cultures growing staph aureus, MSSA -initially on meropenem and vancomycin, now on cefazolin. -Delgado pus from bursa identified intraoperatively with general surgery from her left hip bursa. Ortho reconsulted and recommended outpatient follow up with her orthopedic physicians at . -Continue Ancef, will consult ID for duration of antibiotics -Will place PICC line once blood cultures are negative, from 07/17/21 evening they are negative. 07/20 cultures pending thus far. -Per Dr. Reyes,?Dr. Sarbjit Chambers ( ortho and pts joint surgeon) this morning. Recommended follow up in his clinic 10-14days after discharge from hospital. Clinic back line is [phone] alternate number is [phone]. please have discharge planners call to set up appt when pt gets close to discharge.? 2. psoriatic arthritis, chronic ?- hold hoem tofacitinib given possible active infection. 3. Hyperlipidemia, chronic, present on admission -Continue patient's rosuvastatin 4. Major depressive disorder, chronic, present on admission -continue patient's sertraline 5. Opiate induced constipation ?- start laxitive therapy today. Continue to monitor. Code: Product Safety Technician Spent With Patient Critical Care time: I spent a total of [] minutes of critical care time on this patient's care today; this time is exclusive of procedural time.
[2021-07-22] MEDS: MAGNESIUM CITRATE 300 ML SOLUTION PO (19:14)
[2021-07-22] MEDS: LOSARTAN 50 MG TABLET PO (19:21)
[2021-07-22] MEDS: ATORVASTATIN 20 MG TABLET PO (19:22)
[2021-07-22] MEDS: HEPARIN 5,000 UNIT/ML VIAL 5000 UNIT SUBCUT (19:22)
[2021-07-22] MEDS: SENNOSIDES 8.6 MG TABLET 17.2 MG PO (21:12)
[2021-07-22] MEDS: CELECOXIB 200 MG CAPSULE PO (21:12)
[2021-07-22] MEDS: AMOXICILLIN/CLAV 875/125 MG 1 TAB PO (21:12)
[2021-07-23] VITALS (9 sets, daily range): BP systolic 105–136; BP diastolic 59–73; PULSE 75–82; RESP 18–19; TEMP 35.4–36.6; O2SAT 90–95
[2021-07-23 06:25] LABS: Add Manual Diff / Slide Review NO; Basophils Absolute Auto 100 /uL (0-100); Eosinophils Absolute Auto 200 /uL (0-450); Eosinophils Percent Auto 2.2 % (2-4); Hematocrit 29.5 % (36-46); Hemoglobin 9.7 g/dL (12.0-16.0); Lymphocytes Absolute Auto 600 /uL (1100-4500); Lymphocytes Percent Auto 7.9 % (25-40); Mean Corpuscular HGB Conc 32.8 % (30-36); Mean Corpuscular Hemoglobin 28.4 PG (26-34); Mean Corpuscular Volume 86.4 fL (80-100); Monocytes Absolute Auto 800 /uL (0-900); Monocytes Percent Auto 9.9 % (3-14); Neutrophils Absolute Auto 6200 /uL (1500-7000); Platelet Count 259 X10^3/uL (150-400); Red Blood Cell Count 3.41 X10^6/uL (4.0-5.2); Red Cell Distribution Width 14.9 % (11.6-14.8); White Blood Cell Count 7.8 X10^3/uL (4.5-11.0)
[2021-07-23] MEDS: HYDROMORPHONE 1 MG INJ IV (06:37)
[2021-07-23 06:38] LABS: BUN Creatinine Ratio 26.3 (6-22); Blood Urea Nitrogen 15 mg/dL (7-17); Calcium 8.8 mg/dL (8.4-10.2); Carbon Dioxide 38 mmol/L (22-32); Chloride 96 mmol/L (98-107); Estimated Glomerular Filt Rate > 60.0 mL/min (>60); Glucose 121 mg/dL (70-100); HEMOLYSIS < 15 (0-50); Magnesium 2.4 mg/dL (1.6-2.3); Potassium 3.7 mmol/L (3.4-5.1); Sodium 139 mmol/L (137-145)
[2021-07-23] MEDS: HEPARIN 5,000 UNIT/ML VIAL 5000 UNIT SUBCUT ×2 (08:36→20:41)
[2021-07-23] MEDS: ACETAMINOPHEN 325 MG TABLET 650 MG PO (08:37)
[2021-07-23] MEDS: LOSARTAN 50 MG TABLET PO ×2 (08:37→20:42)
[2021-07-23] MEDS: AMOXICILLIN/CLAV 875/125 MG 1 TAB PO (08:37)
[2021-07-23] MEDS: CELECOXIB 200 MG CAPSULE PO ×2 (08:37→20:41)
[2021-07-23] MEDS: SERTRALINE 50 MG TABLET 150 MG PO (08:37)
[2021-07-23] MEDS: SODIUM CHLORIDE 0.9% FLUSH 10 ML IV ×2 (08:39→21:32)
[2021-07-23] MEDS: PANTOPRAZOLE 40 MG **PACKET PO (08:40)
--- NOTE | 2021-07-23 08:59 | PC.NURSE ---
Addendum entered by Tiki Seymour R.N. 07/23/21 15:13: [place] drain taken out of l.hip, sutures clipped on each side of open wound and drain came out easily. She tolerated this well. Patient will go home with naa drain, both dressings reinforced and are cdi. Patient is getting a picc line placed now. Original Note: Patient has a left hip dressing with a [place] drain and naa drain that are intact with ss drainage. She is up independent and does not weight bear to left leg. Patient given celebrex and tylenol for pain, this has been helpful.
--- NOTE | 2021-07-23 09:04 | PM.PN.1 ---
Subjective Subjective Date Patient Seen: 07/23/21 Time Patient Seen: 09:05 Interval history: feeling better, still has hip pain. Exam Vital Signs (past 8 hours): - 07/23/21 04:12 07/23/21 08:23 Temperature 97.9 F 96.7 F L Pulse Rate 78 75 Respiratory Rate 18 19 Blood Pressure 105/68 116/61 Pulse Oximetry 92 93 Oxygen Delivery Method Nasal Cannula Oxygen Flow Rate 0 Narrative Exam Narrative: pelvic drain is serosang. decreased swelling, [place] is serous. Objective Labs Result Diagrams: 07/23/21 06:03 07/23/21 06:03 Labs: Laboratory Results - last 24 hr 07/23/21 07/23/21 06:03 06:03 WBC 7.8 RBC 3.41 L Hgb 9.7 L Hct 29.5 L MCV 86.4 MCH 28.4 MCHC 32.8 RDW 14.9 H Plt Count 259 Neut % (Auto) 79.0 H Lymph % (Auto) 7.9 L [place] % (Auto) 9.9 Eos % (Auto) 2.2 Baso % (Auto) 1.0 Neut # (Auto) 6200 Lymph # (Auto) 600 L [place] # (Auto) 800 Eos # (Auto) 200 Baso # (Auto) 100 Sodium 139 Potassium 3.7 Chloride 96 L Carbon Dioxide 38 H BUN 15 Creatinine 0.57 Estimated GFR > 60.0 BUN/Creatinine Ratio 26.3 H Glucose 121 H Calcium 8.8 Magnesium 2.4 H PFSH Medical History Ankle pain Carpal tunnel syndrome Chicken pox (~1968) Depression Elevated liver enzymes Essential hypertension (2004) Foot pain Hearing loss (~2009) History of recurrent ear infection (~1989) Insomnia Measles (~1964) Mixed hyperlipidemia (2018) Psoriasis (~1967) Psoriatic arthritis (~1993) Ruptured tympanic membrane (~1989) Scleritis Shingles Shoulder pain Thyroid nodule (~2017) Surgical History Anesthesia History of arthroscopy (~1993) History of surgery (~2000) History of total left hip replacement (~2013) Family History Mother Cervical cancer Alzheimer's disease Brother Mental health problem Social History household members: spouse Smoking Status: Never smoker second hand exposure: No alcohol intake: current substance use type: does not use Assessment & Plan Assessment & Plan narrative: Left bursa abscess drained, [place] can come out. Pelvic abscess drained with cultures pending. Leave drain in and can discharge home. Dr. Cortés will discuss with ID the need for home IV antibiotics given the +blood cultures. No sign of ongoing infection. Follow up next week for removal of drain in the office. Time Spent With Patient Critical Care time: I spent a total of [] minutes of critical care time on this patient's care today; this time is exclusive of procedural time.
[2021-07-23] MEDS: cefTRIAXone 2,000 MG in SODIUM CHLORIDE 0.9% 100 ML 200 ML IV (11:45)
--- NOTE | 2021-07-23 14:49 | P.PN_ITS ---
Subjective Subjective Date Patient Seen: 07/23/21 Time Patient Seen: 14:49 Interval history: Much improved pain today, was able to get up and move somewhat today with a walker. Discussed with ID, recommended 4 weeks IV cefazolin. Exam Vital Signs (past 8 hours): - 07/23/21 08:23 07/23/21 09:05 07/23/21 11:06 Temperature 96.7 F L 95.7 F L Pulse Rate 75 80 Respiratory Rate 19 19 Blood Pressure 116/61 118/66 Pulse Oximetry 93 94 95 Oxygen Delivery Method Nasal Cannula Oxygen Flow Rate 0 Narrative Exam Narrative: General:? Patient is a well-developed, well-nourished female. no acute distress Lungs:? Auscultation of all lung diamond are clear without wheezes, rhonchi, or rales. Cardio:? RRR no m/r/g Abdomen:? Soft nontender, non-distended.? Bowel sounds are present in all 4 quad rants without guarding or rebound, no CVA tenderness. Posterior L KATIE drain serosanguinous drainage. Musculoskeletal:? improved L hip pain. No joint effusions Skin:? Warm dry and intact without rashes, ulcerations or petechiae.? patient does have some healed plaques on the right forearm. L hip bandages mild serosanguinous fluid on bandage, no obvious surrounding erythema. Neuro:? Alert and orientated x3, strength is +5/5 in all extremities, sensation to touch intact, no gross deficits noted of cranial nerves. Objective Labs Result Diagrams: 07/23/21 06:03 07/23/21 06:03 Labs: Laboratory Results - last 24 hr 07/23/21 07/23/21 06:03 06:03 WBC 7.8 RBC 3.41 L Hgb 9.7 L Hct 29.5 L MCV 86.4 MCH 28.4 MCHC 32.8 RDW 14.9 H Plt Count 259 Neut % (Auto) 79.0 H Lymph % (Auto) 7.9 L [place] % (Auto) 9.9 Eos % (Auto) 2.2 Baso % (Auto) 1.0 Neut # (Auto) 6200 Lymph # (Auto) 600 L [place] # (Auto) 800 Eos # (Auto) 200 Baso # (Auto) 100 Sodium 139 Potassium 3.7 Chloride 96 L Carbon Dioxide 38 H BUN 15 Creatinine 0.57 Estimated GFR > 60.0 BUN/Creatinine Ratio 26.3 H Glucose 121 H Calcium 8.8 Magnesium 2.4 H [facility] Medical History Ankle pain Carpal tunnel syndrome Chicken pox (~1968) Depression Elevated liver enzymes Essential hypertension (2004) Foot pain Hearing loss (~2009) History of recurrent ear infection (~1989) Insomnia Measles (~1964) Mixed hyperlipidemia (2018) Psoriasis (~1967) Psoriatic arthritis (~1993) Ruptured tympanic membrane (~1989) Scleritis Shingles Shoulder pain Thyroid nodule (~2017) Surgical History Anesthesia History of arthroscopy (~1993) History of surgery (~2000) History of total left hip replacement (~2013) Family History Mother Cervical cancer Alzheimer's disease Brother Mental health problem Social History household members: spouse Smoking Status: Never smoker second hand exposure: No alcohol intake: current substance use type: does not use Assessment & Plan Assessment & Plan narrative: 1. 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 MSSA bacteremia on admission c ultures. One fluid collection being a left hip bursa with purulent fluid, ultimately drained in the OR on 07/20 and with IR. And an ileacus muscle fluid collection which was drainged today 07/22/21. ?- continue pain control with dilaudid, suspect recurring pain is due to the collection near her ileacus muscle on prior imaging. Unfortunately IR not willing to persue here due to proximity to major vessels, general surgery or orthopedics not willing to drain initially. Unable to transfer patient. Taken to OR for drainage 07/22. -s/p ultrasound guided aspiration of left hip, and OR drainage with general surgery of L bursa collection on 07/20. -blood cultures growing staph aureus, MSSA -initially on meropenem and vancomycin, now on cefazolin. -Delgado pus from bursa identified intraoperatively with general surgery from her left hip bursa. Ortho reconsulted and recommended outpatient follow up with her orthopedic physicians at . -Will place PICC line once blood cultures are negative. Blood culture from 07/17 positive, one culture negative, repeat 07/18 positive again, sets from 07/20 cultures negative. -Per Dr. Reyes,?Dr. Sarbjit Chambers ( ortho and pts joint surgeon) this morning. Recommended follow up in his clinic 10-14days after discharge from hospital. Clinic back line is [phone] alternate number is [phone]. please have discharge planners call to set up appt when pt gets close to discharge.? -Discussed with ID at [facility] today, patient elects to follow there after danette george. Recommended 4 weeks of IV cefazolin q8h. End date 08/18/21. Discuss with rhematology about continued tofacitinib or not. - transition to oral pain medications 2. psoriatic arthritis, chronic ?- hold home tofacitinib given possible active infection. 3. Hyperlipidemia, chronic, present on admission -Continue patient's rosuvastatin 4. Major depressive disorder, chronic, present on admission -continue patient's sertraline 5. Opiate induced constipation ?- improved with laxitive therapies. Code: Dry Cans Operator Spent With Patient Critical Care time: I spent a total of [] minutes of critical care time on this patient's care today; this time is exclusive of procedural time.
--- NOTE | 2021-07-23 15:32 | DI.RAD.S_ITS ---
PROCEDURE: XR CHEST FOR PICC 1V INDICATIONS: PICC placement COMPARISON: [facility], , XR CHEST 1V, 07/18/2021, 20:02. FINDINGS: PICC was placed by the intravenous therapy team from the left side. Fluoroscopic spot film demonstrates the tip of PICC projecting to the area of superior vena cava. No pneumothorax within limitations of non inclusion of the left lung apex. IMPRESSION: Tip of PICC projects to the area of superior vena cava. Dictated by: Cuong Albarado D.O. on 07/23/2021 at 14:59 Approved by: Cuong Albarado D.O. on 07/23/2021 at 14:59
--- NOTE | 2021-07-23 16:44 | CM.DPNOTE ---
DCP Note According to Dr Cortés, patient's mobility has improved greatly and she would like to return home w/spouse and home infusion for ongoing IV abx. Patient will DC on IV cefazolin 2 g Q8 for additional 4 weeks, stop date is 08.18.21. PICC being placed by [facility] today. Following ID doc is Dr Sukhdev Eaton, DO Placed call to [facility], spoke w/Paul, pharmacist. Updated w/paulette and Paul scheduled a Inf Jyoti RN to complete teaching at patient's bedside Sunday07.24.21 at 1100. Faxed order for IV abx per paul's request DC Summary and PICC insertion assessment needed tomorrow upon DC This [employer] unable to update patient this afternoon, will discuss w/evening shift RN. Dr Cortés updated. In addition: Unsure whether patient requires HH nursing to assist w/wound care? DCP team will follow closely for coordination of DCP Sunday. Patient eager to return home. KIMBERLY
[2021-07-23] MEDS: methocarbamoL 500 MG TABLET 750 MG PO (17:08)
[2021-07-23] MEDS: OXYCODONE IR 10 MG TABLET PO (18:13)
[2021-07-23] MEDS: CEFAZOLIN 1 GM VIAL 2 GM IV (18:41)
[2021-07-23] MEDS: HYDROMORPHONE 2 MG TABLET PO (20:41)
[2021-07-23] MEDS: ATORVASTATIN 20 MG TABLET PO (20:41)
[2021-07-23] MEDS: SENNOSIDES 8.6 MG TABLET 17.2 MG PO (20:41)
[2021-07-24 00:40] VITALS: BP 133/73; PULSE 86; RESP 16; TEMP 36.4; O2SAT 95
[2021-07-24] MEDS: HYDROMORPHONE 2 MG TABLET PO (00:44)
[2021-07-24] MEDS: CEFAZOLIN 1 GM VIAL 2 GM IV (03:22)
[2021-07-24 05:00] VITALS: BP 129/84; PULSE 67; RESP 16; TEMP 35.9; O2SAT 97
[2021-07-24] MEDS: PANTOPRAZOLE 40 MG **PACKET PO (06:10)
[2021-07-24] MEDS: methocarbamoL 500 MG TABLET 750 MG PO (06:16)
[2021-07-24 06:58] LABS: Add Manual Diff / Slide Review NO; Basophils Absolute Auto 0 /uL (0-100); Basophils Percent Auto 0.3 % (0-2); Eosinophils Absolute Auto 200 /uL (0-450); Eosinophils Percent Auto 2.6 % (2-4); Hematocrit 29.4 % (36-46); Hemoglobin 9.6 g/dL (12.0-16.0); Lymphocytes Absolute Auto 800 /uL (1100-4500); Lymphocytes Percent Auto 9.8 % (25-40); Mean Corpuscular HGB Conc 32.6 % (30-36); Mean Corpuscular Hemoglobin 28.3 PG (26-34); Mean Corpuscular Volume 86.9 fL (80-100); Monocytes Absolute Auto 600 /uL (0-900); Monocytes Percent Auto 7.7 % (3-14); Neutrophils Absolute Auto 6300 /uL (1500-7000); Neutrophils Percent Auto 79.6 % (50-75); Platelet Count 270 X10^3/uL (150-400); Red Blood Cell Count 3.38 X10^6/uL (4.0-5.2); Red Cell Distribution Width 14.4 % (11.6-14.8); White Blood Cell Count 7.9 X10^3/uL (4.5-11.0)
[2021-07-24 07:07] LABS: BUN Creatinine Ratio 24.6 (6-22); Blood Urea Nitrogen 14 mg/dL (7-17); Calcium 8.9 mg/dL (8.4-10.2); Carbon Dioxide 39 mmol/L (22-32); Chloride 98 mmol/L (98-107); Estimated Glomerular Filt Rate > 60.0 mL/min (>60); Glucose 125 mg/dL (70-100); HEMOLYSIS < 15 (0-50); Magnesium 2.4 mg/dL (1.6-2.3); Potassium 3.5 mmol/L (3.4-5.1); Sodium 139 mmol/L (137-145)
[2021-07-24 07:53] LABS: C-Reactive Protein Quant 25.6 mg/dL (<1.0)
[2021-07-24 08:49] VITALS: BP 141/70; PULSE 71; RESP 18; TEMP 36.4; O2SAT 93
--- NOTE | 2021-07-24 08:55 | P.DS_ITS ---
History of Present Illness History of Present Illness Date Patient Seen: 07/24/21 Time Patient Seen: 08:56 Chief complaint: left hip pain, no movement Narrative: Per Renee Lomax, SYSTEMS SOFTWARE DEVELOPER-: Jillian Brown is a 56 year old female with a medical history of psoriatic arthritis, total left hip replacement 8 years ago, hyperlipidemia, essential hypertension, and major depressive disorder who presented to the ED today with a chief complaint of gradually worsening left hip pain that started at about 10 this morning, that has worsened to the the point she is unable to weight bear.?She reports that she has never had pain like this before.? Pain is throbbing in the left groin, does not radiate, worsens with movement, is improved with bed rest and no movement.? 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 She denies any trauma to the area or falls.? She denies any chest pain, shortness of breath, numbness, tingling, skin discoloration, abdominal pain, nausea, vomiting, urinary symptoms, constipation, or diarrhea.? Patient notes that she had previously been on methotrexate for her psoriatic arthritis but stopped 2 years ago continues to take to Xeljanz, does take prednisone for flares but has not taken any in several years.? She is having a current flare of her psoriasis to her scalp ears and upper extremities she has had a one time cortisone injection approximately 8-10 weeks ago in her scalp.? Patient also uses clobetasol shampoo and creams to her skin, ears and scalp.? Patient denies any recent fungal infections or injections into the left hip she also states that cobalt was not used in her hip replacement, rather titanium.? Patient denies any bowel or bladder incontinence or changes, any injury to her spine, no weakness in her lower extremities to, difficulty with ambulation, balance or coordination.? Patient does have a history of UTIs several years ago now but does note increased nocturia q.2 hours throughout the night without urinary symptoms. Upon admit patient's vitals are stable BP 120/58, HR 94, R 20, O2 saturation initially 92% on 2 L now is satting at 94% on room air.? Patient has an elevated WBC 14.7 neutrophils 11,100 band new it 13% manual neutrophils 13,083 the rest of the patient's CBC and CMP are unremarkable with a BUN of 27 and glucose of 122, ESR and CRP are both WNL.? Patient's ultrasound is negative for DVT abdomen of the pelvis CTA demonstrated Short segment, circumferential wall thickening involving the gastric antrum compatible with nonspecific gastritis, no free fluid or free air, no dilated loops of bowel, positive hepatic steatosis. Status post left hip arthroplasty. No signs of rd evidence of osteomyelitis.? There was also present expansile lesion in the proximal left femur.? Femur left Xray demonstrated?lucency in the greater trochanter and expansile lesion in the proximal diaphysis. Hip xray left showed expansile lesion is partially seen involving the left femur.? Patient admitted for monoarthritis left intractable groin pain, in the setting of prior total left hip placement. Discharge Providers Provider Date of admission: 07/16/21 22:09 Discharge Date: 07/24/21 Primary care physician: RENZO Pacheco Consults: 07/16/21 22:17 Consult to Physical Therapy Evaluate & Treat Comment: Physician Instructions: Evaluate and Treat 07/19/21 19:09 Consult to General Surgery Routine Comment: Consulting Provider: Kimberly Wang Reason for consultation: left hip Has provider been notified: Yes Discharge provider: Reji Cortés DO Summary Hospital Course Discharge Diagnosis: Please see hospital course by problem list noted below Hospital Course: 1. 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 MSSA bacteremia on admission cultures. One fluid collection being a left hip bursa with purulent fluid, ultimately drained in the OR on 07/20 and with IR. And an ileacus muscle fluid collection which was drainged 07/22/21. KATIE in place ad time of discarge. ?- continued pain control with dilaudid, suspect recurring pain is due to the collection near her ileacus muscle. Unfortunately IR not willing to persue here due to proximity to major vessels, general surgery or orthopedics not willing to drain initially. Unable to transfer patient. Taken to OR finally with generaly surgery for drainage 07/22. -s/p ultrasound guided aspiration of left hip, and OR drainage with general surgery of L bursa collection on 07/20. -blood cultures growing staph aureus, MSSA. As are all fluid cultures. -initially on meropenem and vancomycin, narrowed to cefazolin. -Rd pus from bursa identified intraoperatively with general surgery from her left hip bursa. Ortho reconsulted and recommended outpatient follow up with her orthopedic physicians at . -Will place PICC line once blood cultures are negative. Blood culture from 07/17 positive, one culture negative, repeat 07/18 positive again, sets from 07/20 cultures negative. -Per Dr. Reyes,?Dr. Sarbjit Chambers ( ortho and pts joint surgeon) this morning. Recommended follow up in his clinic 10-14days after discharge from hospital. Clinic back line is [phone] alternate number is [phone]. please have discharge planners call to set up appt when pt gets close to dischar ge.? -Discussed with ID at [facility], patient elects to follow there after discharge. Recommended 4 weeks of IV cefazolin q8h. End date 08/18/21. Patient wishes to discuss with her elementary reading tutor about continued tofacitinib. - transitioned to oral pain medications with okay control at discharge. 2. psoriatic arthritis, chronic ?- held home tofacitinib given possible active infection. Recommend patient discuss with her elementary reading tutor as soon as possible. 3. Hyperlipidemia, chronic, present on admission -Continue patient's rosuvastatin 4. Major depressive disorder, chronic, present on admission -continue patient's sertraline 5. Opiate induced constipation ?- improved with laxitive therapies. Time Spent with Patient Time spent: Greater than 30 minutes Exam Vital Signs (past 8 hours): - 07/24/21 05:00 07/24/21 08:49 Temperature 96.6 F L 97.6 F Pulse Rate 67 71 Respiratory Rate 16 18 Blood Pressure 129/84 141/70 H Pulse Oximetry 97 93 Oxygen Delivery Method Room Air Oxygen Flow Rate 0 Narrative Exam Narrative: General:? Patient is a well-developed, well-nourished female. no acute distress Lungs:? Auscultation of all lung diamond are clear without wheezes, rhonchi, or rales. Cardio:? RRR no m/r/g Abdomen:? Soft nontender, non-distended.? Bowel sounds are present in all 4 quadrants without guarding or rebound, no CVA tenderness. Posterior L KATIE drain serosanguinous drainage. Musculoskeletal:? improved L hip pain. No joint effusions Skin:? Warm dry and intact without rashes, ulcerations or petechiae.? patient does have some healed plaques on the right forearm. L hip bandages mild serosanguinous fluid on bandage, no obvious surrounding erythema. Neuro:? Alert and orientated x3, strength is +5/5 in all extremities, sensation to touch intact, no gross deficits noted of cranial nerves. Objective Labs Result Diagrams: 07/24/21 06:03 07/24/21 06:03 Labs: Laboratory Results - last 24 hr 07/24/21 07/24/21 07/24/21 06:03 06:03 06:30 WBC 7.9 RBC 3.38 L Hgb 9.6 L Hct 29.4 L MCV 86.9 MCH 28.3 MCHC 32.6 RDW 14.4 Plt Count 270 Neut % (Auto) 79.6 H Lymph % (Auto) 9.8 L [place] % (Auto) 7.7 Eos % (Auto) 2.6 Baso % (Auto) 0.3 Neut # (Auto) 6300 Lymph # (Auto) 800 L [place] # (Auto) 600 Eos # (Auto) 200 Baso # (Auto) 0 Sodium 139 Potassium 3.5 Chloride 98 Carbon Dioxide 39 H BUN 14 Creatinine 0.57 Estimated GFR > 60.0 BUN/Creatinine Ratio 24.6 H Glucose 125 H Calcium 8.9 Magnesium 2.4 H C-Reactive Protein 25.6 H [facility] Medical History Ankle pain Carpal tunnel syndrome Chicken pox (~1968) Depression Elevated liver enzymes Essential hypertension (2004) Foot pain Hearing loss (~2009) History of recurrent ear infection (~1989) Insomnia Measles (~1964) Mixed hyperlipidemia (2018) Psoriasis (~1967) Psoriatic arthritis (~1993) Ruptured tympanic membrane (~1989) Scleritis Shingles Shoulder pain Thyroid nodule (~2017) Surgical History Anesthesia History of arthroscopy (~1993) History of surgery (~2000) History of total left hip replacement (~2013) Family History Mother Cervical cancer Alzheimer's disease Brother Mental health problem Social History household members: spouse Smoking Status: Never smoker second hand exposure: No alcohol intake: current substance use type: does not use Discharge Plan Discharge Plan Patient Disposition: Home Provider Discharge Comment: You were admitted to the hospital with a bacteria in your blood stream and two fluid collections. It is not entirely known how these fluid collections started. Please follow up with infectious disease at [facility], Dr. Jiang. They should call you next week for a follow up. While using opiate therapies please continue laxitive therapies which are available over the counter. Please try and follow up next week with your primary care office as well. Discharge orders & Medications Prescriptions: New cefazolin 1 gram recon soln 2 g IV Q8H 27 Days Qty: 81 RF: 0 celecoxib [Celebrex] 200 mg Capsule 200 mg PO BID 30 Days Qty: 60 RF: 0 acetaminophen 325 mg Tablet 975 mg PO Q8H Qty: 30 RF: 0 hydromorphone 2 mg tablet 2 - 4 mg PO Q4HR PRN (Reason: Pain, Severe (7-10)) 7 Days Qty: 40 RF: 0 methocarbamol 750 mg tablet 750 mg PO TID PRN (Reason: Muscle Spasm) 7 Days Qty: 21 RF: 0 pantoprazole 40 mg Tablet,Delayed Release (Dr/Ec) 40 mg PO 0600 30 Days Qty: 30 RF: 0 Continued (DME) Parking Permit... Qty: 2 RF: 0 doxepin 3 mg tablet 3 mg PO BEDTIME PRN (Reason: sleep) Qty: 90 RF: 3 losartan 50 mg tablet 50 mg PO BID Qty: 90 RF: 2 rosuvastatin [Crestor] 10 mg tablet 10 mg PO DAILY Qty: 90 RF: 2 sertraline 100 mg tablet 150 mg PO DAILY Qty: 135 RF: 2 cholecalciferol (vitamin D3) 1,000 unit capsule 5,000 unit PO DAILY RF: 0 Discontinued Xeljanz 5 mg tablet 5 mg PO BID RF: 0 naproxen sodium [Aleve] 220 mg tablet 440 mg PO BID RF: 0 Follow up/Referrals: Bridget Reyes MD [Physician] - (left hip infection) Dariusz Del Rio ARNP [Primary Care Provider] - 1 Week Ayo Alcala MD [Physician] - 1 Week (OR abscess drainage with KATIE placement.) Discharge Health Status Multidrug resistant organism: No MDRO Diet/Activity/Treatments Diet: Diet as Tolerated Activity: As tolerated Visit Report/Discharge Packet Instructions: DI for Incision and Drainage of a Skin Abscess, Hydromorphone, DI for Incision and Drainage of a Joint, DI for Incision and Drainage, [facility]: Wound Care Discharge Data Primary Care Provider: Dariusz Del Rio
[2021-07-24] MEDS: ACETAMINOPHEN 325 MG TABLET 650 MG PO (09:16)
[2021-07-24] MEDS: LOSARTAN 50 MG TABLET PO (09:16)
[2021-07-24] MEDS: SERTRALINE 50 MG TABLET 150 MG PO (09:16)
[2021-07-24] MEDS: CELECOXIB 200 MG CAPSULE PO (09:16)
[2021-07-24] MEDS: HEPARIN 5,000 UNIT/ML VIAL 5000 UNIT SUBCUT (09:17)
[2021-07-24] MEDS: SODIUM CHLORIDE 0.9% FLUSH 10 ML IV (09:19)
--- NOTE | 2021-07-24 09:53 | PC.NURSE ---
Assess- Patient is going to discharge home today after [facility] goes over antibiotic instructions. Her dressings are cdi, she will go home with her naa drain. Resting comfortably. Refused miralax as she has been having good bowel movements.
--- NOTE | 2021-07-24 11:06 | CM.DPC ---
DCP Cont: Patient is discharging home today. Have a prescription for patient for her home IV ABO. Went ahead and faxed it to [facility], along with DC Summary. Made a copy to scan, and gave original to patient. [facility] nurse is on her way here at the hospital to do home IV ABO training, and is also in the room. Spoke to patient about home health, and what they can provide. Also let her know that a nurse can come out to perform her PICC line dressing change which is normally done weekly. Let her know that home P.T and O.T. also can be ordered. She is interested in home health, with no preferences on agencies. According to calendar, [facility] is the agency for this week. Called Whitney at [facility] about the referral, and let her know that patient is discharging home today. Let her know that patient will need nursing, P.T, and O.T., and she has [employer] insurance. Met with patient and spouse. Gave her [facility] [employer] brochure. She is looking forward to going home, and waiting for [facility] nurse. Faxed [employer] [facility] face sheet, signed face to face (Had Dr. Cortés sign at team rounds), orders, H&P, and DC Summary. P: Patient will discharge home today after working with [facility] nurse. She will have [facility] nursing, P.T, and O.T. Vale Piper RN/Cement Despatch Operator
--- NOTE | 2021-07-25 09:36 | CM.DPNOTE ---
Late entry: Sondra called from [facility] and said they have accepted this patient. Dodie Carlos CM Asst.
--- NOTE | 2021-07-27 08:46 | PM.OP.1 ---
Operative Date/Time/Diagnoses Date of procedure: 07/22/21 Pre-op diagnosis: PELVIC ABSCESS Post-op diagnosis: same Procedure & Clinicians Procedure: Retroperitoneal-I&D a pelvic abscess Same procedure as scheduled: Yes Indications: enlarging iliacus abscess left hip Surgeon: Aubrie Rubio Click Yes if Unassisted: Yes Anesthesia Type: General Operative Notes Findings: Left iliacus abscess Closure Type: primary Specimen(s): other (Cultures) Estimated Blood Loss (mL): 15 Procedure in detail: Prep diagnosis: Left iliacus abscess Postop diagnosis: Same Operative procedure: Incision and drainage through a retroperitoneal approach of left iliacus abscess Surgeon: Sandra Rubio MD Anesthetic: General with LMA intubation Findings: Cloudy fluid aspirated. Abscess following along the curvature of the iliac crest. Procedure: Patient placed in supine position. Prepped and draped in a sterile fashion to expose her abdomen. A Ray incision was created in the left lower quadrant. I approached using a muscle-splitting technique and blunt dissection to push tissue medially and expose the top of the abscess cavity. Abscess cavity was then incised and sucked free of purulent drainage. A 15 [place] drain was placed into the cavity. Of note the external oblique fascia was excised sharply and then reapproximated with a running 3-0 Vicryl. Skin was closed with surgical eric. Patient was awakened, extubated, taken to recovery room in stable condition. Needle, instrument, sponge counts were correct. Blood loss: 15 mL Specimen: Cultures of left iliacus abscess Complications: none Post-operative Condition: stable Disposition: PACU
== END 2021-07-24 13:45 | disposition home health service (06) | DRG 988 ==
LOC: ED 20:46 → AC 22:10
PROVIDERS: Internal Medicine; Physician Assistant; Surgery; Admitting Provider Nurse Practitioner Family; Emergency Provider Emergency Medicine; Family Provider Internal Medicine Rheumatology; PCP Nurse Practitioner Family; Referring Provider Emergency Medicine; Visit Provider Nurse Practitioner Family
PROC: 0M9 Bursae and Ligaments, Drainage (ICD-10-PCS; principal; 2021-07-20 11:45)
PROC: 0W9J0ZX Drainage of Pelvic Cavity, Open Approach, Diagnostic (ICD-10-PCS; principal; 2021-07-22 11:30)
DX: M60.052 Infective myositis, left thigh (principal); R78.81 Bacteremia; B95.61 Methicillin susceptible Staphylococcus aureus infection as the cause of diseases classified elsewhere; M71.152 Other infective bursitis, left hip; F32.9 Major depressive disorder, single episode, unspecified; L40.50 Arthropathic psoriasis, unspecified; Z96.642 Presence of left artificial hip joint; B95.62 Methicillin resistant Staphylococcus aureus infection as the cause of diseases classified elsewhere; K59.03 Drug induced constipation; T40.2X5A Adverse effect of other opioids, initial encounter; I10 Essential (primary) hypertension; E78.5 Hyperlipidemia, unspecified; Z20.822 Contact with and (suspected) exposure to COVID-19
CPT/HCPCS: 10005; 36415; 36569; 71045; 72197; 73502; 73552; 74177; 80048; 80053; 80202; 81003; 81015; 82550; 82962; 83036; 83735; 84145; 84450; 85007; 85025; 85651; 86140; 86430; 87040; 87070; 87075; 87077; 87086; 87147; 87150; 87186; 87205; 87635; 87797; 89051; 93306; 93971; 94760; 96374; 96375; 96376; 99285; 99291; C9803; A9579; J0171; J0690; J0696; J1170; J1644; J1885; J2185; J2250; J2270; J2405; J2704; J3010; J3360; Q9957; Q9967

== ENCOUNTER → 2021-08-15 13:32 | Outpatient (CLI) | payer OTHER, SELFPAY ==
[2021-07-18 14:16] VITALS: BMI 33.9
--- NOTE | 2021-08-15 13:33 | DI.US.S_ITS ---
PROCEDURE: US THYROID INDICATIONS: FOLLOW UP THYROID NODULES TECHNIQUE: Real-time scanning was performed of the thyroid gland, with image documentation. COMPARISON: [facility], US, US THYROID, 08/04/2019, 16:16. FINDINGS: Right: Thyroid lobe measures 5.0 x 1.9 x 1.7 cm, and is homogeneous in echotexture. Left: Thyroid lobe measures 5.4 x 1.7 x 1.3 cm, and is homogenous in echotexture. Isthmus: 4.4 mm thick. Nodule number: 1 Location: Right mid ( previously biopsied) Size: Unchanged at 2.0 x 1.4 x 1.4 cm. Composition: Solid Echogenicity: Hypoechoic Shape: wider than tall. Margins: Smooth Echogenic foci: Macro calcification Total points: 6 ACR TI-RADS category: Moderately suspicious Nodule number: 2 Location: Left isthmus Size: Unchanged 1.0 x 0.8 x 0.6 cm. Composition: Cystic Echogenicity: Anechoic Shape: wider than tall. Margins: Smooth Echogenic foci: None Total points: 0 ACR TI-RADS category: Benign colloid cyst. Nodule number: 3 Location: Left inferior Size: Unchanged 1.1 x 0.9 x 0.9 cm. Composition: Predominantly solid Echogenicity: Hypoechoic Shape: wider than tall. Margins: Smooth Echogenic foci: Internal punctate echogenic foci Total points: 7 ACR TI-RADS category: Highly suspicious Delete IMPRESSION: Stable appearance of bilateral thyroid nodules. Recommend sonographically directed fine-needle aspiration involving the left # 3 highly suspicious nodule. ACR TI-RADS definitions and recommendations: TI-RADS 1 (benign): 0 points. FNA not needed. TI-RADS 2 (not suspicious): 2 points. FNA not needed. TI-RADS 3 (mildly suspicious): 3 points. * FNA if 2.5 cm or larger, follow up if 1.5 cm or larger (at 1, 3, and 5 years). TI-RADS 4 (moderately suspicious): 4-6 points. * FNA if 1.5 cm or larger, follow up if 1 cm or larger (at 1, 2, 3, and 5 years). TI-RADS 5 (highly suspicious): 7 points or more. * FNA if 1 cm or larger, follow up if 0.5 cm or larger (every year for 5 years). Dictated by: Óscar Bartlett RRUnique Interpreted: Matt Bhandari MD on 08/15/2021 at 15:02 Transcribed by: CITLALY on 08/15/2021 at 15:06 Approved by: Matt Bhandari M.D. on 08/15/2021 at 16:26
== END ==
PROVIDERS: Family Provider Internal Medicine Rheumatology; PCP Nurse Practitioner Family; Referring Provider Nurse Practitioner Family; Visit Provider Nurse Practitioner Family
DX: E04.2 Nontoxic multinodular goiter (principal)
CPT/HCPCS: 76536

== ENCOUNTER 2021-08-15 16:46 | Emergency (ER) | payer OTHER, SELFPAY ==
[2021-07-18 14:16] VITALS: BMI 33.9
[2021-08-15 16:54] VITALS: BP 200/89; PULSE 86; RESP 16; TEMP 36.6; O2SAT 98; BMI 32.3
--- NOTE | 2021-08-15 16:59 | PC.NURSE ---
Pt has left arm picc line, redness noted around insertion site with slight swelling, described area as sensitive and painful. States she was sent here for US to rule out blood clot and cultures from the line.
--- NOTE | 2021-08-15 17:08 | DI.US.S_ITS ---
PROCEDURE: US PERIPH VENOUS UP EXTREM LT INDICATIONS: PICC LINE WITH REDNESS, SWELLING NEAR LINE TECHNIQUE: Real-time imaging, as well as color and pulse Doppler interrogation, was performed of the left upper extremity deep veins from the inferior neck to the antecubital fossa. COMPARISON: None. FINDINGS: The internal jugular vein, visualized portions of the subclavian vein, axillary, and brachial veins are free of intraluminal thrombus. Where physically possible, the veins are normally compressible. Color and pulse Doppler demonstrate normal intraluminal flow, with expected phasicity and pulsatility. Additional scanning of the cephalic and basilic veins of the superficial system demonstrate normal compressibility, without thrombus. Portions of the basilic vein are obscured by the PICC line itself. IMPRESSION: No findings of deep venous thrombosis can be seen. Note: Concordant preliminary findings given by the loan officer assistant upon the completion of the examination to Rogelio Guevara at 5:49 p.m. on August 15, 2021. Dictated by: Richie Amor M.D. on 08/15/2021 at 16:55 Approved by: Richie Amor M.D. on 08/15/2021 at 16:57
--- NOTE | 2021-08-15 17:17 | ED_ITS ---
HPI - Skin/Abscess/Foreign Bdy <Rogelio Guevara PA-C - Last Filed: 08/15/21 20:31> General Chief complaint: Skin/Abscess/Foreign Body Stated complaint: PICC LINE LEFT ARM PAIN Time Seen by Provider: 08/15/21 16:59 Source: patient Mode of arrival: Ambulatory History of Present Illness HPI narrative: 56-year-old female with past medical history intertrochanteric abscess, iliopsoas abscess, psoriatic arthritis presents to the ED with redness, pain, discharge at the site of insertion of a PICC line on the left arm. Hosea prince states that she has had the nurse from [facility] provide care every week, noticed today that the might be a potential infection. Patient is currently being treated with IV antibiotics for the abscesses, via the PICC line. Patient sees Dr. Eaton, infectious diseases specialist who is managing the antibiotics, he recommended patient come to the ED to get labs and blood cultures. Patient states that he was going to reassess her in 2 days to evaluate if she could be taken of the IV antibiotics. Patient denies fever, chills, chest pain, shortness of breath, cough, nausea, vomiting, abdominal pain, dysuria, lightheadedness, dizziness, syncope. Related Data Home Medications Medication Instructions Recorded Confirmed cholecalciferol (vitamin D3) 25 5,000 unit PO DAILY 09/15/19 08/02/21 mcg (1,000 unit) capsule Previous Rx's Medication Instructions Recorded Parking Permit... #2 each 07/06/20 losartan 50 mg tablet 50 mg PO BID #90 tab 12/01/20 rosuvastatin 10 mg tablet (Crestor) 10 mg PO DAILY #90 tab 12/01/20 sertraline 100 mg tablet 150 mg PO DAILY #135 tab 12/01/20 cefazolin 1 gram intravenous 2 g IV Q8H 27 Days #81 ea 07/23/21 solution acetaminophen 325 mg tablet 975 mg PO Q8H #30 tab 07/24/21 pantoprazole 40 mg tablet,delayed 40 mg PO 0600 30 Days #30 tab 07/24/21 release celecoxib 200 mg capsule (Celebrex) 200 mg PO DAILY 30 Days #30 cap 08/02/21 methocarbamol 750 mg tablet 750 mg PO TID PRN 30 Days #90 tab 10/26/21 trazodone 50 mg tablet 50 mg PO BEDTIME PRN #30 tab 08/02/21 Allergies Allergy/AdvReac Type Severity Reaction Status Date / Time No Known Drug Allergies Allergy Verified 08/02/21 14:43 Review of Systems <Rogelio Guevara PA-C - Last Filed: 08/15/21 20:31> Constitutional Constitutional: Denies chills, Denies fatigue, Denies fever(s), Denies frequent falls, Denies lethargy and Denies weakness Eyes Eyes: Denies change in vision, Denies eye discharge, Denies irritation and Denies loss of vision ENT Ears, Nose, Mouth, and Throat: Denies change in voice, Denies dizziness, Denies neck pain, Denies sore throat and Denies throat swelling Cardiovascular Cardiovascular: Denies chest pain, Denies irregular heart rhythm, Denies lightheadedness, Denies palpitations, Denies dyspnea, Denies dyspnea on exertion and Denies orthopnea Respiratory Respiratory: Denies cough, Denies dyspnea, Denies dyspnea on exertion and Denies wheezing Gastrointestinal Gastrointestinal: Denies abdominal pain, Denies change in bowel habits, Denies diarrhea, Denies nausea and Denies vomiting Musculoskeletal Musculoskeletal: Denies neck pain and Denies numbness Integumentary/Breasts Skin/Breast: Denies pruritus, Denies rash and Denies wounds Comments: Redness, tenderness, discharge at site of insertion of PICC line in the left arm Neurologic Neurologic: Denies behavioral changes, Denies confusion, Denies dizziness, Denies frequent falls, Denies loss of vision, Denies numbness and Denies weakness Psychiatric Psychiatric: Denies anxiety, Denies behavioral changes, Denies confusion, Denies depression, Denies homicidal ideation and Denies suicidal ideation Endocrine Endocrine: Denies fatigue, Denies flushing and Denies palpitations Hematologic/Lymphatic Hematologic/Lymphatic: Denies easy bruising Allergic/Immunologic Allergic/Immunologic: Denies urticaria, Denies throat swelling and Denies wheezing Patient History <Rogelio Guevara PA-C - Last Filed: 08/15/21 20:31> Medical History Ankle pain Carpal tunnel syndrome Chicken pox (~1968) Depression Elevated liver enzymes Essential hypertension (2004) Foot pain Hearing loss (~2009) History of recurrent ear infection (~1989) Insomnia Measles (~1964) Mixed hyperlipidemia (2019) Psoriasis (~1967) Psoriatic arthritis (~1993) Ruptured tympanic membrane (~1989) Scleritis Shingles Shoulder pain Thyroid nodule (~2017) Surgical History Anesthesia History of arthroscopy (~1993) History of surgery (~2000) History of total left hip replacement (~2013) Family History Mother Cervical cancer Alzheimer's disease Brother Mental health problem Social History household members: spouse Smoking Status: Never smoker second hand exposure: No alcohol intake: current substance use type: does not use Smoking Status: Never smoker Substance Use Type: does not use Exam <Rogelio Guevara PA-C - Last Filed: 08/15/21 20:31> Initial Vital Signs Initial Vital Signs: Vital Signs Temperature 98 F 08/15/21 16:54 Pulse Rate 86 08/15/21 16:54 Respiratory Rate 16 08/15/21 16:54 Blood Pressure 200/89 H 08/15/21 16:54 Pulse Oximetry 98 08/15/21 16:54 Const General: cooperative HENMT Head: normocephalic and atraumatic Ears: external ears normal and TM's normal bilaterally Nose: external nose normal and No nasal discharge Face and sinus: sinuses nontender, face symmetric, no sinus tenderness and No dry mucous membranes Mouth: oral mucosae normal and moist mucous membranes Teeth and gingiva: dentition normal Throat: tonsils normal and uvula midline Eyes General: appearance normal, both eyes and all related structures Eyelids: eyelids normal Conjunctivae: conjunctivae normal Sclera: sclerae normal Pupils: PERRL EOM: EOM intact bilaterally Neck Neck: normal visual inspection, trachea midline, No lymphadenopathy, No midline deformity and No JVD Lymphatic: No lymphedema Chest Chest: normal inspection of the chest Resp Effort & Inspection: normal respiratory effort, able to speak in complete sentences, no respiratory distress and no use of accessory muscles Auscultation: clear to auscultation bilaterally, no rales, no rhonchi and no wheezes Cardio Rate: regular rate Rhythm: regular rhythm Heart Sounds: no click, no gallops, no murmurs and no rubs Pulses: normal peripheral pulses GI Inspection: non-distended Palpation: soft, no hepatosplenomegaly, No guarding, No pulsatile mass and No tender Auscultation: normal bowel sounds Back/Spine/Pelvis Back: No CVA tenderness Cervical Spine: cervical ROM normal and No pain with cervical ROM Thoracic/Lumbar Spine: thoracic and lumbar spine normal to inspection Skin General: no rashes or lesions noted, No jaundice and No petechiae Other: Erythema, mild swelling, tenderness to palpation in at the point of insertion of the PICC line in the left arm. No discharge visualized at time of exam. Patient is neurovascularly intact. Neuro General: patient alert, patient oriented x3, gait normal and no focal motor deficits Speech: speech normal Extrem General: full ROM, no clubbing, cyanosis or edema, no pedal edema and no calf tenderness Psych Appearance: well kempt Mental Status: mental status grossly normal Attitude: cooperative Thought Content: normal and suicidality Judgment: judgment good <Blue Mathis DO - Last Filed: 08/15/21 20:59> Initial Vital Signs Initial Vital Signs: Vital Signs Temperature 98 F 08/15/21 16:54 Pulse Rate 86 08/15/21 16:54 Respiratory Rate 16 08/15/21 16:54 Blood Pressure 200/89 H 08/15/21 16:54 Pulse Oximetry 98 08/15/21 16:54 Course <Rogelio Guevara PA-C - Last Filed: 08/15/21 20:31> Course Course Narrative: Labs within normal limits. Blood cultures pending. Ultrasound negative for DVTs, superficial thrombophlebitis. Will consult Dr. Eaton to see if they wish to pull the PICC line today and put in a new line soon. Dr. Fuentes, manager simulation ID physician from Dr. Eaton recommends pulling out the PICC line, culturing the tip. Patient to be given 2 g of ceftriaxone through different peripheral IV line. Patient to call Dr.dela Last tomorrow morning at 8:00 a.m for further management. Patient will be discharged home with ED return precautions. Orders Ordered: ED Orders 08/15/21 17:08 US periph venous up extrem lt Stat 08/15/21 18:28 Blood Culture Stat Complete Blood Count AUTO DIFF Stat Comprehensive Metabolic Panel Stat 08/15/21 20:15 Catheter Tip Culture Stat Discontinued Medications Acetaminophen (Acetaminophen 325 Mg Tablet) 975 mg PO NOW ONE Stop: 08/15/21 19:15 Last Admin: 08/15/21 19:38 Dose: 975 mg Documented by: ENMANUEL Ceftriaxone Sodium 2,000 mg/ (Sodium Chloride) 100 mls @ 200 mls/hr IV NOW ONE Stop: 08/15/21 19:35 Last Infusion: 08/15/21 20:35 Dose: 0 mls/hr Documented by: Admin: 08/15/21 20:00 Dose: 200 mls/hr Documented by: KRISTOPHER Vital Signs Vital signs: Vital Signs - 8 hr 08/15/21 16:54 08/15/21 18:58 08/15/21 19:12 Temperature 98 F Pulse Rate 86 76 77 Respiratory Rate 16 16 Blood Pressure 200/89 H 144/80 H 144/80 H Pulse Oximetry 98 96 95 08/15/21 20:35 Temperature Pulse Rate 80 Respiratory Rate 16 Blood Pressure 163/73 H Pulse Oximetry 94 <Blue Mathis, - Last Filed: 08/15/21 20:59> Orders Ordered: ED Orders 08/15/21 17:08 US periph venous up extrem lt Stat 08/15/21 18:28 Blood Culture Stat Complete Blood Count AUTO DIFF Stat Comprehensive Metabolic Panel Stat 08/15/21 20:15 Catheter Tip Culture Stat Discontinued Medications Acetaminophen (Acetaminophen 325 Mg Tablet) 975 mg PO NOW ONE Stop: 08/15/21 19:15 Last Admin: 08/15/21 19:38 Dose: 975 mg Documented by: ENMANUEL Ceftriaxone Sodium 2,000 mg/ (Sodium Chloride) 100 mls @ 200 mls/hr IV NOW ONE Stop: 08/15/21 19:35 Last Infusion: 08/15/21 20:35 Dose: 0 mls/hr Documented by: Admin: 08/15/21 20:00 Dose: 200 mls/hr Documented by: KRISTOPHER Vital Signs Vital signs: Vital Signs - 8 hr 08/15/21 16:54 08/15/21 18:58 08/15/21 19:12 Temperature 98 F Pulse Rate 86 76 77 Respiratory Rate 16 16 Blood Pressure 200/89 H 144/80 H 144/80 H Pulse Oximetry 98 96 95 08/15/21 20:35 Temperature Pulse Rate 80 Respiratory Rate 16 Blood Pressure 163/73 H Pulse Oximetry 94 MDM - Skin/Abscess/Foreign Bdy <Rogelio Guevara PA-C - Last Filed: 08/15/21 20:31> Medical Records Attestation: I reviewed the patient's medical records. Lab Data Result diagrams: 08/15/21 18:28 08/15/21 18:28 Labs: Lab Results 08/15/21 08/15/21 Range/Units 18:28 18:28 WBC 7.4 (4.5-11.0) X10^3/uL RBC 3.93 L (4.0-5.2) X10^6/uL Hgb 10.7 L (12.0-16.0) g/dL Hct 32.0 L (36-46) % MCV 81.4 (80-100) fL MCH 27.2 (26-34) PG MCHC 33.4 (30-36) % RDW 15.3 H (11.6-14.8) % Plt Count 257 (150-400) X10^3/uL Neut % (Auto) 60.9 (50-75) % Lymph % (Auto) 24.8 L (25-40) % Taylor % (Auto) 8.2 (3-14) % Eos % (Auto) 5.3 H (2-4) % Baso % (Auto) 0.8 (0-2) % Neut # (Auto) 4500 (2758-6219) /uL Lymph # (Auto) 1800 (6601-4567) /uL Taylor # (Auto) 600 (0-900) /uL Eos # (Auto) 400 (0-450) /uL Baso # (Auto) 100 (0-100) /uL Sodium 139 (137-145) mmol/L Potassium 4.2 (3.4-5.1) mmol/L Chloride 103 (98-107) mmol/L Carbon Dioxide 29 (22-32) mmol/L BUN 19 H (7-17) mg/dL Creatinine 0.69 (0.52-1.04) mg/dL Estimated GFR > 60.0 (>60) mL/min BUN/Creatinine Ratio 27.5 H (6-22) Glucose 113 H (70-100) mg/dL Calcium 9.7 (8.4-10.2) mg/dL Total Bilirubin 0.3 (0.2-1.3) mg/dL AST 27 (14-36) IU/L ALT 10 (<35) IU/L Alkaline Phosphatase 67 (38-126) U/L Total Protein 7.9 (6.3-8.2) g/dL Albumin 4.1 (3.5-5.0) g/dL Globulin 3.8 (1.7-4.1) g/dL Albumin/Globulin Ratio 1.1 (1.0-2.8) Imaging Data US - DVT: Radiologist's Impression: PROCEDURE:? US PERIPH VENOUS UP EXTREM LT ? INDICATIONS:? PICC LINE WITH REDNESS, SWELLING NEAR LINE ? TECHNIQUE:? Real-time imaging, as well as color and pulse Doppler interrogation, was performed of the left upper extremity deep veins from the inferior neck to the antecubital fossa.? ? COMPARISON:? None. ? FINDINGS:? The internal jugular vein, visualized portions of the subclavian vein, axillary, and brachial veins are free of intraluminal thrombus.? Where physically possible, the veins are normally compressible.? Color and pulse Doppler demonstrate normal intraluminal flow, with expected phasicity and pulsatility.? Additional scanning of the cephalic and basilic veins of the superficial system demonstrate normal compressibility, without thrombus.? Portions of the basilic vein are obscured by the PICC line itself. ? ? ? IMPRESSION:? No findings of deep venous thrombosis can be seen. ? Note: Concordant preliminary findings given by the chief compressor station engineer upon the completion of the examination to Rogelio Guevara at 5:49 p.m. on August 15, 2021. ? ? Dictated by: Richie Amor M.D. on 08/15/2021 at 16:55 ? ? Approved by: Richie Amor M.D. on 08/15/2021 at 16:57 ? MDM Narrative Medical decision making narrative: 56-year-old female with past medical history intertrochanteric abscess, iliopsoas abscess, psoriatic arthritis presents to the ED with redness, pain, discharge at the site of insertion of a PICC line on the left arm. Concern for abscess versus cellulitis versus DVT versus superficial thrombophlebitis. Will get labs, blood cultures, ultrasound DVT of the left upper extremity. <Blue Mathis, DO - Last Filed: 08/15/21 20:59> Lab Data Labs: Lab Results 08/15/21 08/15/21 Range/Units 18:28 18:28 WBC 7.4 (4.5-11.0) X10^3/uL RBC 3.93 L (4.0-5.2) X10^6/uL Hgb 10.7 L (12.0-16.0) g/dL Hct 32.0 L (36-46) % MCV 81.4 (80-100) fL MCH 27.2 (26-34) PG MCHC 33.4 (30-36) % RDW 15.3 H (11.6-14.8) % Plt Count 257 (150-400) X10^3/uL Neut % (Auto) 60.9 (50-75) % Lymph % (Auto) 24.8 L (25-40) % Taylor % (Auto) 8.2 (3-14) % Eos % (Auto) 5.3 H (2-4) % Baso % (Auto) 0.8 (0-2) % Neut # (Auto) 4500 (7123-9021) /uL Lymph # (Auto) 1800 (5362-4980) /uL Taylor # (Auto) 600 (0-900) /uL Eos # (Auto) 400 (0-450) /uL Baso # (Auto) 100 (0-100) /uL Sodium 139 (137-145) mmol/L Potassium 4.2 (3.4-5.1) mmol/L Chloride 103 (98-107) mmol/L Carbon Dioxide 29 (22-32) mmol/L BUN 19 H (7-17) mg/dL Creatinine 0.69 (0.52-1.04) mg/dL Estimated GFR > 60.0 (>60) mL/min BUN/Creatinine Ratio 27.5 H (6-22) Glucose 113 H (70-100) mg/dL Calcium 9.7 (8.4-10.2) mg/dL Total Bilirubin 0.3 (0.2-1.3) mg/dL AST 27 (14-36) IU/L ALT 10 (<35) IU/L Alkaline Phosphatase 67 (38-126) U/L Total Protein 7.9 (6.3-8.2) g/dL Albumin 4.1 (3.5-5.0) g/dL Globulin 3.8 (1.7-4.1) g/dL Albumin/Globulin Ratio 1.1 (1.0-2.8) Discharge Plan Departure Patient Disposition: Home Clinical Impression: PICC line infection Qualifiers: Encounter type: initial encounter Qualified Code(s): T80.219A - Unspecified infection due to central venous catheter, initial encounter Instructions: DI for Wound Infection Activity Restrictions/Additional Instructions: You were evaluated in the ED today for a PICC line infection. Your labs were normal. Your blood cultures are pending. The ultrasound was negative for DVTs or superficial thrombophlebitis. In consultation with Dr. Fuentes, your PICC line was removed due to the infection and will be cultured as well. You were given 2 g of ceftriaxone through a different peripheral IV line. Please call Dr. Eaton's office at [phone] tomorrow at 8:00 a.m. to discuss the antibiotic plan going forward. Please return to the ED if you have signs of worsening infection, fever, chills. Prescriptions: No Action (DME) Parking Permit... Qty: 2 RF: 0 losartan 50 mg tablet 50 mg PO BID Qty: 90 RF: 2 rosuvastatin [Crestor] 10 mg tablet 10 mg PO DAILY Qty: 90 RF: 2 sertraline 100 mg tablet 150 mg PO DAILY Qty: 135 RF: 2 cholecalciferol (vitamin D3) 1,000 unit capsule 5,000 unit PO DAILY RF: 0 trazodone 50 mg tablet 50 mg PO BEDTIME PRN (Reason: insomnia) Qty: 30 RF: 2 celecoxib [Celebrex] 200 mg capsule 200 mg PO DAILY 30 Days Qty: 30 RF: 3 methocarbamol 750 mg tablet 750 mg PO TID PRN (Reason: pain) 30 Days Qty: 90 RF: 2 cefazolin 1 gram recon soln 2 g IV Q8H 27 Days Qty: 81 RF: 0 acetaminophen 325 mg Tablet 975 mg PO Q8H Qty: 30 RF: 0 pantoprazole 40 mg Tablet,Delayed Release (Dr/Ec) 40 mg PO 0600 30 Days Qty: 30 RF: 0 Referrals: Dariusz Del Rio ARNP [Primary Care Provider] - <Blue Mathis DO - Last Filed: 08/15/21 20:59> Cosign ED Attending Cosdanielature Attestation: I was immediately available in the department for consultation. This documentation has been reviewed and I agree with assessment and plan. Supervised by Blue Mathis DO
[2021-08-15 18:41] LABS: Add Manual Diff / Slide Review NO; Basophils Absolute Auto 100 /uL (0-100); Basophils Percent Auto 0.8 % (0-2); Eosinophils Absolute Auto 400 /uL (0-450); Eosinophils Percent Auto 5.3 % (2-4); Hemoglobin 10.7 g/dL (12.0-16.0); Lymphocytes Absolute Auto 1800 /uL (1100-4500); Lymphocytes Percent Auto 24.8 % (25-40); Mean Corpuscular HGB Conc 33.4 % (30-36); Mean Corpuscular Hemoglobin 27.2 PG (26-34); Mean Corpuscular Volume 81.4 fL (80-100); Monocytes Absolute Auto 600 /uL (0-900); Monocytes Percent Auto 8.2 % (3-14); Neutrophils Absolute Auto 4500 /uL (1500-7000); Neutrophils Percent Auto 60.9 % (50-75); Platelet Count 257 X10^3/uL (150-400); Red Blood Cell Count 3.93 X10^6/uL (4.0-5.2); Red Cell Distribution Width 15.3 % (11.6-14.8); White Blood Cell Count 7.4 X10^3/uL (4.5-11.0)
[2021-08-15 18:51] LABS: Alanine Aminotransferase 10 IU/L (<35); Albumin 4.1 g/dL (3.5-5.0); Albumin Globulin Ratio 1.1 (1.0-2.8); Alkaline Phosphatase 67 U/L (38-126); Aspartate Aminotransferase 27 IU/L (14-36); BUN Creatinine Ratio 27.5 (6-22); Bilirubin Total 0.3 mg/dL (0.2-1.3); Blood Urea Nitrogen 19 mg/dL (7-17); Calcium 9.7 mg/dL (8.4-10.2); Carbon Dioxide 29 mmol/L (22-32); Chloride 103 mmol/L (98-107); Estimated Glomerular Filt Rate > 60.0 mL/min (>60); Globulin 3.8 g/dL (1.7-4.1); Glucose 113 mg/dL (70-100); HEMOLYSIS < 15 (0-50); Potassium 4.2 mmol/L (3.4-5.1); Sodium 139 mmol/L (137-145); Total Protein 7.9 g/dL (6.3-8.2)
[2021-08-15 18:58] VITALS: BP 144/80; PULSE 76; O2SAT 96
[2021-08-15 19:12] VITALS: BP 144/80; PULSE 77; RESP 16; O2SAT 95
[2021-08-15] MEDS: ACETAMINOPHEN 325 MG TABLET 975 MG PO (19:38)
[2021-08-15] MEDS: cefTRIAXone 2,000 MG in SODIUM CHLORIDE 0.9% 100 ML 200 ML IV (20:00)
--- NOTE | 2021-08-15 20:19 | PC.NURSE ---
Left PICC line removed and tip cut then sent for culture. Pt tolerated procedure well.
[2021-08-15 20:35] VITALS: BP 163/73; PULSE 80; RESP 16; O2SAT 94
== END 2021-08-15 20:38 | disposition home or self-care (01) ==
PROVIDERS: Emergency Provider Student in an Organized Health Care Education/Training Program; Family Provider Internal Medicine Rheumatology; PCP Nurse Practitioner Family
DX: T80.219A Unspecified infection due to central venous catheter, initial encounter (principal)
CPT/HCPCS: 36415; 76536; 80053; 85025; 87040; 87070; 87205; 93971; 96365; 99284; J0696

== ENCOUNTER 2021-09-02 10:23 | Emergency (ER) | payer OTHER, SELFPAY ==
[2021-07-18 14:16] VITALS: BMI 33.9
[2021-09-02 10:50] VITALS: BP 137/97; PULSE 66; RESP 18; TEMP 36.7; O2SAT 100; BMI 32.4
--- NOTE | 2021-09-02 11:44 | ED_ITS ---
HPI - Skin/Abscess/Foreign Bdy General Chief complaint: Skin/Abscess/Foreign Body Stated complaint: pain in LT hip Time Seen by Provider: 09/02/21 10:51 Source: patient Mode of arrival: Ambulatory Limitations: no limitations History of Present Illness HPI narrative: 56-year-old female. Approximately 1 week ago finished a course of antibiotics secondary to a pelvic infection that required retroperitoneal drainage. Unsure the etiology of this although patient states she does have rheumatoid arthritis and was on immunosuppressants. She is not currently on these medicines. She did have a PICC line. There was some concern that maybe she had a PICC line infection but completed all course of antibiotics 1 week ago. Over the past week she has noticed increasing discomfort in her left hip that was similar to when she started to have symptoms with the infection in her left pelvis. She contacted the on-call primary doctor who advised that she come to the emergency department for further evaluation. Related Data Home Medications Medication Instructions Recorded Confirmed cholecalciferol (vitamin D3) 25 5,000 unit PO DAILY 09/15/19 08/02/21 mcg (1,000 unit) capsule Previous Rx's Medication Instructions Recorded Parking Permit... #2 each 07/06/20 losartan 50 mg tablet 50 mg PO BID #90 tab 12/01/20 rosuvastatin 10 mg tablet (Crestor) 10 mg PO DAILY #90 tab 12/01/20 sertraline 100 mg tablet 150 mg PO DAILY #135 tab 12/01/20 acetaminophen 325 mg tablet 975 mg PO Q8H #30 tab 07/24/21 celecoxib 200 mg capsule (Celebrex) 200 mg PO DAILY 30 Days #30 cap 08/02/21 methocarbamol 750 mg tablet 750 mg PO TID PRN 30 Days #90 tab 08/02/21 trazodone 50 mg tablet 50 mg PO BEDTIME PRN #30 tab 08/02/21 doxycycline hyclate 100 mg tablet 100 mg PO BID 14 Days #28 tab 09/02/21 Allergies Allergy/AdvReac Type Severity Reaction Status Date / Time No Known Drug Allergies Allergy Verified 08/02/21 14:43 Review of Systems Constitutional Constitutional: Denies fever(s) Cardiovascular Cardiovascular: Denies chest pain and Denies dyspnea Respiratory Respiratory: Denies dyspnea Gastrointestinal Gastrointestinal: Denies abdominal pain, Denies nausea and Denies vomiting Genitourinary Genitourinary: Denies dysuria Musculoskeletal Musculoskeletal: Reports system reviewed and no additional complaints, except as documented and Reports as per HPI Integumentary/Breasts Skin/Breast: Reports system reviewed and no additional complaints, except as documented Neurologic Neurologic: Reports system reviewed and no additional complaints, except as documented Hematologic/Lymphatic On Anticoagulants: No Patient History Medical History Ankle pain Carpal tunnel syndrome Chicken pox (~1968) Depression Elevated liver enzymes Essential hypertension (2004) Foot pain Hearing loss (~2009) History of recurrent ear infection (~1989) Insomnia Measles (~1964) Mixed hyperlipidemia (2018) Psoriasis (~1967) Psoriatic arthritis (~1993) Ruptured tympanic membrane (~1989) Scleritis Shingles Shoulder pain Thyroid nodule (~2017) Surgical History Anesthesia History of arthroscopy (~1993) History of surgery (~2000) History of total left hip replacement (~2013) Family History Mother Cervical cancer Alzheimer's disease Brother Mental health problem Social History household members: spouse Smoking Status: Never smoker second hand exposure: No alcohol intake: current substance use type: does not use Smoking Status: Never smoker Substance Use Type: does not use Exam Initial Vital Signs Initial Vital Signs: Vital Signs Temperature 98.0 F 09/02/21 10:50 Pulse Rate 66 09/02/21 10:50 Respiratory Rate 18 09/02/21 10:50 Blood Pressure 137/97 H 09/02/21 10:50 Pulse Oximetry 100 09/02/21 10:50 Const General: cooperative and comfortable HENMT Head: normal to inspection and normocephalic Resp Effort & Inspection: normal respiratory effort Auscultation: clear to auscultation bilaterally Cardio Rate: regular rate Rhythm: regular rhythm GI Inspection: normal to inspection Palpation: soft, No firm and No tender Back/Spine/Pelvis Sacroiliac Joints: tender to palpation left Skin General: no rashes or lesions noted Neuro General: patient alert, patient awake and moves all extremities Extrem Other: Left knee and left ankle unremarkable. Does have some discomfort with palpation and flexion extension of the left hip but she is able to do this. Psych Appearance: grossly normal and well kempt Course Orders Ordered: ED Orders 09/02/21 11:05 C-Reactive Protein Quant Stat Comprehensive Metabolic Panel Stat Lactate (Lactic Acid) Stat Lipase Stat 09/02/21 11:15 Blood Culture Stat 09/02/21 11:45 Complete Blood Count AUTO DIFF Stat Erythrocyte Sedimentation Rate Stat 09/02/21 12:51 CT abdomen pelvis w con Stat 09/02/21 13:53 MR pelvis wo/w con Stat Discontinued Medications Doxycycline Hyclate (Doxycycline Hyclate 100 Mg Tablet) 100 mg PO NOW ONE Stop: 09/02/21 16:20 Last Admin: 09/02/21 17:01 Dose: 100 mg Documented by: DARLENEOR Vital Signs Vital signs: Vital Signs - 8 hr 09/02/21 10:50 09/02/21 16:13 09/02/21 17:06 Temperature 98.0 F Pulse Rate 66 78 80 Respiratory Rate 18 18 Blood Pressure 137/97 H 136/76 146/70 H Pulse Oximetry 100 97 99 MDM - Skin/Abscess/Foreign Bdy Lab Data Attestation: I reviewed the patient's lab results. Result diagrams: 09/02/21 11:45 09/02/21 11:05 Labs: Lab Results 09/02/21 09/02/21 09/02/21 Range/Units 11:05 11:05 11:45 WBC 7.6 (4.5-11.0) X10^3/uL RBC 4.35 (4.0-5.2) X10^6/uL Hgb 11.7 L (12.0-16.0) g/dL Hct 35.1 L (36-46) % MCV 80.6 (80-100) fL MCH 27.0 (26-34) PG MCHC 33.4 (30-36) % RDW 16.2 H (11.6-14.8) % Plt Count 256 (150-400) X10^3/uL Neut % (Auto) 65.6 (50-75) % Lymph % (Auto) 21.4 L (25-40) % Barry % (Auto) 9.0 (3-14) % Eos % (Auto) 3.5 (2-4) % Baso % (Auto) 0.5 (0-2) % Neut # (Auto) 5000 (8514-9651) /uL Lymph # (Auto) 1600 (7717-7295) /uL Barry # (Auto) 700 (0-900) /uL Eos # (Auto) 300 (0-450) /uL Baso # (Auto) 0 (0-100) /uL ESR 40 H (0-20) MM/HR Sodium 138 (137-145) mmol/L Potassium 4.0 (3.4-5.1) mmol/L Chloride 103 (98-107) mmol/L Carbon Dioxide 25 (22-32) mmol/L BUN 17 (7-17) mg/dL Creatinine 0.66 (0.52-1.04) mg/dL Estimated GFR > 60.0 (>60) mL/min BUN/Creatinine Ratio 25.8 H (6-22) Glucose 154 H (70-100) mg/dL Lactate 1.5 (0.7-2.1) mmol/L Calcium 9.8 (8.4-10.2) mg/dL Total Bilirubin 0.5 (0.2-1.3) mg/dL AST 27 (14-36) IU/L ALT 21 (<35) IU/L Alkaline Phosphatase 69 (38-126) U/L C-Reactive Protein 1.4 H (<1.0) mg/dL Total Protein 8.4 H (6.3-8.2) g/dL Albumin 4.5 (3.5-5.0) g/dL Globulin 3.9 (1.7-4.1) g/dL Albumin/Globulin Ratio 1.2 (1.0-2.8) Lipase 104 (23-300) U/L Imaging Data CT scan - abdomen/pelvis: Radiologist's Impression: [address] [address] [address] Scan Report Signed Patient: Jillian Brown MR#: [id number] : 1965 Acct:[id number] Age/Sex: 56 / F Date of Service: 09/02/21 Loc: ED Accession Number: [id number] ?? Procedure: CT abdomen pelvis w con Ordering Provider: Stu Adler D.O. PROCEDURE:? CT ABDOMEN PELVIS W CON ? INDICATIONS:? hx of pelvic abscess with pain ? TECHNIQUE:? After the administration of IV contrast, axial sections were acquired from the lung bases to the pubic symphysis.? Coronal and sagittal reformats were performed.? For radiation dose reduction, the following was used:? automated exposure control, adjustment of mA and/or kV according to patient size. ? COMPARISON:? [facility], MR, MR PELVIS WO/W CON, 07/17/2021, 9:22.? [facility], CR, XR FEMUR LT MIN 2V, 07/16/2021, 18:05.? [facility], MR, MR PELVIS WO/W CON, 07/21/2021, 15:02.? [facility], CT, CT ABDOMEN PELVIS W CON, 07/16/2021, 19:44. ? FINDINGS:? Image quality:? Excellent.? ? Lung bases:? Unremarkable.? ? Heart:? No significant findings. ? ? ABDOMEN: Liver:? Hepatic steatosis.? No focal lesion seen. ? Gallbladder:? Unremarkable.? ? Biliary ducts:? Unremarkable.? ? Pancreas:? Unremarkable.? ? Spleen:? Unremarkable.? ? Adrenal Glands:? No nodule. Kidneys and Ureters:? No hydronephrosis. ? Stomach and Bowel:? Stomach, small bowel loops, and colon are unremarkable.? The appendix is not identified. Peritoneum:? No abnormal intraperitoneal fluid.? No free air.? ? Ventral Wall: ? No hernia.? Stranding at the subcutaneous abdominal wall in the left lower quadrant.? Abdominal Nodes:? No retroperitoneal or mesenteric adenopathy by size criteria.? Vessels:? Aorta and inferior vena cava are normal in size.? ? PELVIS: Pelvic Organs:? Unremarkable.? ? Bladder:? Unremarkable.? ? Pelvic Nodes: No enlarged lymph nodes.? Miscellaneous: No inguinal hernias are seen.? There is asymmetric atrophy of the left psoas muscle compared to the right.? There is minimal hypodensity in the left iliacus muscle.? This is less conspicuous and decreased compared to CT 07/16/2021. Concern that this may be underestimated on CT given the prior MRI appearance. ? ? Bones:? Left hip arthroplasty.? There is thick change within the medullary space inferior to the left femoral stem is unchanged. ? ? IMPRESSION:? 1. Left iliacus intramuscular fluid collection is less conspicuous and decreased compared to CT 07/16/2021.? ? 2. Hepatic steatosis.? ? Dictated by: Louis Finney M.D. on 09/02/2021 at 13:13 ? ? Approved by: Louis Finney M.D. on 09/02/2021 at 13:26? MDM Narrative Medical decision making narrative: Significant history of an abscess in her left pelvic region. Was on antibiotics. CT scan shows improving fluid collections however the comparison was prior to any intervention. An MRI was obtained for further evaluation and this resulted in improvement but again this is based on MRI prior to any intervention. Her labs are very reassuring. She is not febrile. Not toxic appearing. No leukocytosis. Neurovascularly intact. Discussed the case with Infectious Disease at [facility] who recommended that we place her on doxycycline again and have her follow-up with her provider. I discussed this with her. She was given return precautions. She expressed understanding and agreement. Discharge Plan Departure Patient Disposition: Home Clinical Impression: Bursitis, trochanteric, Abscess of pelvis Instructions: Bursitis (Alternative Therapy) Activity Restrictions/Additional Instructions: I did discuss the case with the on-call infectious disease provider at scheduled hospital. She recommended that we place he back on antibiotics. I do recommend that you contact their office for follow-up. Keep all of your other scheduled medical appointments. Return to the emergency department for any new or wor sening symptoms Prescriptions: New doxycycline hyclate 100 mg tablet 100 mg PO BID 14 Days Qty: 28 0RF No Action (DME) Parking Permit... Qty: 2 0RF Rx Instructions: Meets criteria for Permanent Parking Placard losartan 50 mg tablet 50 mg PO BID Qty: 90 2RF rosuvastatin [Crestor] 10 mg tablet 10 mg PO DAILY Qty: 90 2RF sertraline 100 mg tablet 150 mg PO DAILY Qty: 135 2RF cholecalciferol (vitamin D3) 1,000 unit capsule 5,000 unit PO DAILY 0RF trazodone 50 mg tablet 50 mg PO BEDTIME PRN (Reason: insomnia) Qty: 30 2RF celecoxib [Celebrex] 200 mg capsule 200 mg PO DAILY 30 Days Qty: 30 3RF methocarbamol 750 mg tablet 750 mg PO TID PRN (Reason: pain) 30 Days Qty: 90 2RF acetaminophen 325 mg Tablet 975 mg PO Q8H Qty: 30 0RF Referrals: Dariusz Del Rio ARNP [Primary Care Provider] -
[2021-09-02 11:47] LABS: Lactate (Lactic Acid) 1.5 mmol/L (0.7-2.1)
[2021-09-02 11:49] LABS: Alanine Aminotransferase 21 IU/L (<35); Albumin 4.5 g/dL (3.5-5.0); Albumin Globulin Ratio 1.2 (1.0-2.8); Alkaline Phosphatase 69 U/L (38-126); Aspartate Aminotransferase 27 IU/L (14-36); BUN Creatinine Ratio 25.8 (6-22); Bilirubin Total 0.5 mg/dL (0.2-1.3); Blood Urea Nitrogen 17 mg/dL (7-17); C-Reactive Protein Quant 1.4 mg/dL (<1.0); Calcium 9.8 mg/dL (8.4-10.2); Carbon Dioxide 25 mmol/L (22-32); Chloride 103 mmol/L (98-107); Estimated Glomerular Filt Rate > 60.0 mL/min (>60); Globulin 3.9 g/dL (1.7-4.1); Glucose 154 mg/dL (70-100); HEMOLYSIS < 15 (0-50); Lipase 104 U/L (23-300); Sodium 138 mmol/L (137-145); Total Protein 8.4 g/dL (6.3-8.2)
[2021-09-02 11:58] LABS: Add Manual Diff / Slide Review NO; Basophils Absolute Auto 0 /uL (0-100); Basophils Percent Auto 0.5 % (0-2); Eosinophils Absolute Auto 300 /uL (0-450); Eosinophils Percent Auto 3.5 % (2-4); Hematocrit 35.1 % (36-46); Hemoglobin 11.7 g/dL (12.0-16.0); Lymphocytes Absolute Auto 1600 /uL (1100-4500); Lymphocytes Percent Auto 21.4 % (25-40); Mean Corpuscular HGB Conc 33.4 % (30-36); Mean Corpuscular Volume 80.6 fL (80-100); Monocytes Absolute Auto 700 /uL (0-900); Neutrophils Absolute Auto 5000 /uL (1500-7000); Neutrophils Percent Auto 65.6 % (50-75); Platelet Count 256 X10^3/uL (150-400); Red Blood Cell Count 4.35 X10^6/uL (4.0-5.2); Red Cell Distribution Width 16.2 % (11.6-14.8); White Blood Cell Count 7.6 X10^3/uL (4.5-11.0)
[2021-09-02 12:15] LABS: Erythrocyte Sedimentation Rate 40 MM/HR (0-20)
--- NOTE | 2021-09-02 12:51 | DI.CT.S_ITS ---
PROCEDURE: CT ABDOMEN PELVIS W CON INDICATIONS: hx of pelvic abscess with pain TECHNIQUE: After the administration of IV contrast, axial sections were acquired from the lung bases to the pubic symphysis. Coronal and sagittal reformats were performed. For radiation dose reduction, the following was used: automated exposure control, adjustment of mA and/or kV according to patient size. COMPARISON: [facility], MR, MR PELVIS WO/W CON, 07/17/2021, 9:22. [facility], CR, XR FEMUR LT MIN 2V, 07/16/2021, 18:05. [facility], MR, MR PELVIS WO/W CON, 07/21/2021, 15:02. [facility], CT, CT ABDOMEN PELVIS W CON, 07/16/2021, 19:44. FINDINGS: Image quality: Excellent. Lung bases: Unremarkable. Heart: No significant findings. ABDOMEN: Liver: Hepatic steatosis. No focal lesion seen. Gallbladder: Unremarkable. Biliary ducts: Unremarkable. Pancreas: Unremarkable. Spleen: Unremarkable. Adrenal Glands: No nodule. Kidneys and Ureters: No hydronephrosis. Stomach and Bowel: Stomach, small bowel loops, and colon are unremarkable. The appendix is not identified. Peritoneum: No abnormal intraperitoneal fluid. No free air. Ventral Wall: No hernia. Stranding at the subcutaneous abdominal wall in the left lower quadrant. Abdominal Nodes: No retroperitoneal or mesenteric adenopathy by size criteria. Vessels: Aorta and inferior vena cava are normal in size. PELVIS: Pelvic Organs: Unremarkable. Bladder: Unremarkable. Pelvic Nodes: No enlarged lymph nodes. Miscellaneous: No inguinal hernias are seen. There is asymmetric atrophy of the left psoas muscle compared to the right. There is minimal hypodensity in the left iliacus muscle. This is less conspicuous and decreased compared to CT 07/16/2021. Concern that this may be underestimated on CT given the prior MRI appearance. Bones: Left hip arthroplasty. There is thick change within the medullary space inferior to the left femoral stem is unchanged. IMPRESSION: 1. Left iliacus intramuscular fluid collection is less conspicuous and decreased compared to CT 07/16/2021. 2. Hepatic steatosis. Dictated by: Louis Finney M.D. on 09/02/2021 at 13:13 Approved by: Louis Finney M.D. on 09/02/2021 at 13:26
--- NOTE | 2021-09-02 13:53 | DI.MRI.S_ITS ---
mPROCEDURE: MR PELVIS WO/W CON INDICATIONS: L pelvic abscess TECHNIQUE: Coronal STIR, sagittal STIR; axial T1 FSE with and without fat saturation, axial STIR through the pelvis. Sagittal or axial dynamic VIBE during administration of contrast. Post-contrast axial or coronal VIBE/2-D FLASH with fat saturation from the iliac crests to the symphysis. COMPARISON: [facility], MR, MR PELVIS WO/W CON, 07/17/2021, 9:22. [facility], MR, MR PELVIS WO/W CON, 07/21/2021, 15:02. FINDINGS: Image quality: Evaluation is limited by metallic susceptibility artifact from patient's left hip prosthesis. Uterus: Uterus is normal in size for age. Endometrium is grossly normal in thickness. Junctional zone is normal in thickness at 12 mm or less. Adnexa: Both ovaries are normal in size for age, without suspicious cystic or solid adnexal mass lesions. Urinary system: Bladder wall is normal in thickness. Distal ureters are non distended. Urethra appears normal in morphology. Nodes and vessels: No pelvic or inguinal adenopathy by size criteria. Iliac vessels are normal in size. Bowel and peritoneum: There is interval resolution of presacral fluid and edema seen on the prior study. No pathologic free pelvic fluid. Inferior colon and small bowel loops are normal in caliber. Soft tissues: No inguinal hernias. There is marked interval decrease in size of the loculated intramuscular abscess centered in the left iliacus muscle seen on the prior study. There is residual edema within the left iliacus muscle extending inferiorly along the iliopsoas tendon with mild associated residual enhancement. There is a a residual peripherally enhancing abscess measuring approximately 0.5 x 0.4 cm within the medial aspect of the left iliacus muscle as seen on series 15, image 23 and a small peripherally enhancing collection measuring 0.5 x 0.3 cm more superiorly within the medial left iliacus muscle on series 15, image 12. There is a persistent loculated fluid collection superficial to the greater trochanter, measuring up to 3.0 x 1.6 cm in transverse dimension with associated mild adjacent soft tissue edema. This appears decreased from 4.3 x 1.7 cm previously. Evaluation for peripheral enhancement is limited on post-contrast images due to metallic streak artifact. The findings again likely represent greater trochanteric bursitis. Bones: Marrow demonstrates normal overall signal. There is edema and marrow expansion within the visualized left femoral shaft distal to the left femoral prosthesis. This region was not included on the prior studies. IMPRESSION: 1. Mild residual edema and enhancement within the left iliacus muscle which appear markedly decreased compared to the prior study. There is also near-complete resolution of the peripherally enhancing intramuscular abscess collections with small residual collections as described. 2. Persistent loculated fluid collection superficial to the greater trochanter consistent with trochanteric bursitis with progressive decrease in size compared to the prior studies. 3. Edema and marrow expansion within the visualized left femoral shaft distal to the femoral prosthetic component. The finding is incompletely evaluated on the current study but the differential includes infection, metastatic disease, or other infiltrative marrow processes. Recommend correlation clinically and dedicated MRI study of the mid to distal femur for further evaluation if indicated. Dictated by: Neil Neff M.D. on 09/02/2021 at 14:49 Approved by: Neil Neff M.D. on 09/02/2021 at 15:11
[2021-09-02 16:13] VITALS: BP 136/76; PULSE 78; O2SAT 97
[2021-09-02] MEDS: DOXYCYCLINE HYCLATE 100 MG TABLET PO (17:01)
[2021-09-02 17:06] VITALS: BP 146/70; PULSE 80; RESP 18; O2SAT 99
== END 2021-09-02 17:06 | disposition home or self-care (01) ==
PROVIDERS: Emergency Provider Emergency Medicine; Family Provider Internal Medicine Rheumatology; PCP Nurse Practitioner Family
DX: M70.62 Trochanteric bursitis, left hip (principal); N73.9 Female pelvic inflammatory disease, unspecified
CPT/HCPCS: 72197; 74177; 80053; 83605; 83690; 85025; 85651; 86140; 87040; 99284

== ENCOUNTER → 2021-09-16 09:52 | Outpatient (CLI) | payer OTHER, SELFPAY ==
[2021-07-18 14:16] VITALS: BMI 33.9
--- NOTE | 2021-09-16 | PATH_ITS ---
Note [facility] Accession Number: [id number] TESTS RESULT FLAG UNITS REF RANGE LAB Clinician Provided Cytology Information No. of containers..01 Other (Miscellaneous) No. of containers..02 Previously Prepared Cytology Slide Source: LEFT THYROID NODULE DIAGNOSIS: LEFT THYROID NODULE, FINE NEEDLE ASPIRATION. INCONCLUSIVE. BETHESDA CATEGORY III. ATYPIA OF UNDETERMINED SIGNIFICANCE, SEE COMMENT. COMMENT: EXAMINATION OF THE SMEARS REVEALS A MILDLY CELLULAR ASPIRATE, COMPOSED OF COLLOID AND BENIGN FOLLICULAR GROUPS WITH FOCAL HURTHLE CELL CHANGES. IN ADDITION, THERE ARE GROUPS WHERE NUCLEAR ENLARGEMENT, OVERLAPPING, PALLOR AND RARE NUCLEAR MEMBRANE IRREGULARITIES (GROOVES) ARE NOTED. INTRANUCLEAR PSEUDOINCLUSIONS ARE NOT SEEN. THE RISK OF MALIGNANCY IN THE BETHESDA CATEGORY III IS 5-15%. ADDITIONAL MOLECULAR TESTING WILL BE PERFORMED ON THE SUBMITTED RNA VIAL FOR FURTHER EVALUATION. Pathologist ICD10: 01 E04.2 Clinical history: Right: Thyroid lobe measures 5.0 x 1.9 x 1.7 cm, and is homogeneous in echotexture. Left: Thyroid lobe measures 5.4 x 1.7 x 1.3 cm, and is homogenous in echotexture. Isthmus: 4.4 mm thick. Signed out by: Aura Myers MD, Pathologist NPI- [id number] Performed by: Nava Benavides, Resident Hall Director ([facility]) Gross description: 30 CC, RED, CLOUDY RECIEVED: IN CYTOLYT WITH 6 ALCOHOL FIXED AND 6 QUICK STAINED SLIDES ALSO 1 RNA VIAL WAS RECEIVED FOR FURTHER TESTING. /VDU 09/19/2021 1039 Local FLAG LEGEND: L-Low Normal,H-High Normal,LL-Alert Low,HH-Alert High <-Panic Low,>-Panic High,A-Abnormal,AA-Critical Abnormal Performed at: 01 =Z [facility] [address] [place] [address] [address], [place] [address] Neil Young MD, Performed at: 01 [facility] [address] [place] [address] [address], [place], [place] [id number] MD Neil Young MD Phone: [phone]
--- NOTE | 2021-09-16 09:53 | DI.US.S_ITS ---
PROCEDURE: US FINE NEEDLE ASPIRATION INDICATIONS: thyroid nodule TECHNIQUE: The indications, alternatives, benefits, risks, and complications of the procedure were explained to the patient. Written informed consent was obtained and placed in the chart. The thyroid region was examined sonographically and a site was chosen for ultrasound guided percutaneous sampling. The skin was prepared and draped in the usual fashion, and anesthetized with 1% lidocaine infiltrated from the skin down to the thyroid gland. Multiple passes were then performed, with contents emptied into an appropriate pathology specimen container. A bandage was applied to the area of access at completion of the study. COMPARISON: None. FINDINGS: Location(s) of lesion(s) sampled: Left inferior thyroid nodule [place]: 25 gauge hypodermic needles. Number of passes: 5 Medications: 1% lidocaine for local anaesthesia. Complications: None. IMPRESSION: Successful ultrasound-guided thyroid nodule fine needle aspiration, with cytology results pending. Please see chart below for management recommendations based on cytology results. [facility] ReportingRecommendationsNon-diagnostic* Repeat US-guided FNA, with on-site cytology evaluation if possible. * Repeated non-diagnostic nodules without high suspicion US features: close observation vs surgical consult. * Consider surgery if nodule has high suspicion US features, grows >20% in 2 dimensions on followup, or patient has clinical risk factors for malignancy. Benign* If nodule has high suspicion US features: repeat US and FNA within 12 months. * If nodule has low to intermediate suspicion US features: repeat US at 12-24 months. If nodule grows (20% increase in at least 2 dimensions, with minimal increase of 2 mm or >50% change in volume), or development of new suspicious US features, then repeat FNA or continue followup. * If nodule has very low suspicion US features: followup US at >24 months. Atypia of undetermined significance, follicular lesion of undetermined significanceRepeat FNA, molecular testing, followup US, or surgical consult.Follicular neoplasm, suspicious for follicular neoplasmSurgical consult; also consider molecular testing. Suspicious for malignancySurgical consult.MalignantSurgical consult. Dictated by: Lisa Bennett MD, PhD on 09/16/2021 at 14:35 Approved by: Lisa Bennett MD, PhD on 09/16/2021 at 14:36
== END ==
PROVIDERS: Family Provider Internal Medicine Rheumatology; PCP Nurse Practitioner Family; Referring Provider Nurse Practitioner Family; Visit Provider Nurse Practitioner Family
DX: E04.1 Nontoxic single thyroid nodule (principal)
CPT/HCPCS: 10005

== ENCOUNTER 2021-12-19 13:48 | Emergency (ER) | payer OTHER, SELFPAY ==
[2021-07-18 14:16] VITALS: BMI 33.9
[2021-12-19] VITALS (11 sets, daily range): BP systolic 119–174; BP diastolic 57–84; PULSE 73–107; RESP 16–25; TEMP 36.8; O2SAT 90–100; BMI 31.8
--- NOTE | 2021-12-19 14:56 | DI.RAD.S_ITS ---
PROCEDURE: XR CHEST FOR PICC 1V INDICATIONS: picc COMPARISON: [facility], CR, PICC LINE INSERTION, 11/14/2021, 12:24. [facility], DRE, XR CHEST FOR PICC 1V, 07/23/2021, 15:45. FINDINGS: PICC was placed by the intravenous therapy team from the right side. Fluoroscopic spot film demonstrates the tip of PICC projecting to the area of mid SVC. IMPRESSION: Tip of PICC projects to the area of mid SVC. Dictated by: Kierra Barrera M.D. on 12/19/2021 at 16:29 Approved by: Kierra Barrera M.D. on 12/19/2021 at 16:30
[2021-12-19 15:12] LABS: Add Manual Diff / Slide Review NO; Basophils Absolute Auto 100 /uL (0-100); Basophils Percent Auto 0.6 % (0-2); Eosinophils Absolute Auto 100 /uL (0-450); Eosinophils Percent Auto 1.3 % (2-4); Hematocrit 33.9 % (36-46); Hemoglobin 11.1 g/dL (12.0-16.0); Lymphocytes Absolute Auto 1300 /uL (1100-4500); Lymphocytes Percent Auto 14.4 % (25-40); Mean Corpuscular HGB Conc 32.8 % (30-36); Mean Corpuscular Hemoglobin 23.9 PG (26-34); Monocytes Absolute Auto 900 /uL (0-900); Monocytes Percent Auto 9.5 % (3-14); Neutrophils Absolute Auto 6700 /uL (1500-7000); Neutrophils Percent Auto 74.2 % (50-75); Platelet Count 299 X10^3/uL (150-400); Red Blood Cell Count 4.65 X10^6/uL (4.0-5.2); Red Cell Distribution Width 17.4 % (11.6-14.8)
[2021-12-19 15:17] LABS: Lactate (Lactic Acid) 0.9 mmol/L (0.7-2.1)
[2021-12-19 15:19] LABS: Alanine Aminotransferase 9 IU/L (<35); Albumin 4.4 g/dL (3.5-5.0); Alkaline Phosphatase 91 U/L (38-126); Aspartate Aminotransferase 25 IU/L (14-36); BUN Creatinine Ratio 24.2 (6-22); Bilirubin Total 0.4 mg/dL (0.2-1.3); Blood Urea Nitrogen 15 mg/dL (7-17); Calcium 9.9 mg/dL (8.4-10.2); Carbon Dioxide 32 mmol/L (22-32); Chloride 98 mmol/L (98-107); Creatine Kinase 28 U/L (30-135); Estimated Glomerular Filt Rate > 60.0 mL/min (>60); Globulin 4.2 g/dL (1.7-4.1); Glucose 119 mg/dL (70-100); HEMOLYSIS < 15 (0-50); Lipase 84 U/L (23-300); Potassium 4.1 mmol/L (3.4-5.1); Sodium 138 mmol/L (137-145); Total Protein 8.6 g/dL (6.3-8.2)
[2021-12-19 15:30] LABS: Troponin I < 0.012 ng/mL (0.01-0.034)
--- NOTE | 2021-12-19 15:34 | ED_ITS ---
HPI - Headache General Chief Complaint: Headache Stated Complaint: Neck pain getting worse x 2 weeks Time Seen by Provider: 12/19/21 14:56 Mode of arrival: Ambulatory History of Present Illness HPI Narrative: Patient is a 56-year-old female who has a history of a pelvic abscess currently has a PICC line and IV antibioticsThis has been ongoing for a number of months. Over last 2 weeks she has had increasing neck pain more on the right than the left. She denies any injury. She has not had any fever. Over last 2 days the pain has gotten significantly worse. She denies numbness tingling or weakness. She feels like it is going up her neck into her head. She has been taking methocarbamol without any relief. She says it started when she got COVID a few weeks ago she says it is just getting worse. She frail is a on the pulsating per in her ear. It is very tender. Related Data Home Medications Medication Instructions Recorded Confirmed cholecalciferol (vitamin D3) 25 5,000 unit PO DAILY 09/15/19 09/15/21 mcg (1,000 unit) capsule Previous Rx's Medication Instructions Recorded Parking Permit... #2 each 07/06/20 acetaminophen 325 mg tablet 975 mg PO Q8H #30 tab 07/24/21 alprazolam 0.5 mg tablet (Xanax) 0.5 mg PO DAILY PRN #10 tab 09/15/21 rosuvastatin 10 mg tablet (Crestor) 10 mg PO DAILY #90 tab 10/25/21 sertraline 100 mg tablet 150 mg PO DAILY #135 tab 10/25/21 losartan 50 mg tablet 50 mg PO BID #90 tab 10/31/21 trazodone 50 mg tablet 50 mg PO BEDTIME PRN #30 tab 12/05/21 cyclobenzaprine 5 mg tablet 5 mg PO TID PRN #10 tab 12/19/21 hydrocodone 5 mg-acetaminophen 325 1 tab PO Q6H PRN #10 tab 12/19/21 mg tablet methocarbamol 750 mg tablet 750 mg PO Q12H PRN #14 tab 12/19/21 Allergies Allergy/AdvReac Type Severity Reaction Status Date / Time No Known Drug Allergies Allergy Verified 12/19/21 14:33 Review of Systems Review of Systems Narrative: GENERAL: Denies chills, fatigue, malaise, fever, sweats, travel HEENT: See HPI RESPIRATORY: Denies dyspnea, cough, wheezing, hemoptysis, sputum. CARDIOVASCULAR: Denies chest pain, palpitations, orthopnea, edema GASTROINTESTINAL: Denies nausea, vomiting, abdominal pain, diarrhea, constipation, melena. : Denies dysuria, frequency, incontinence, hematuria, urinary retention, flank pain. MUSCULOSKELETAL: Denies weakness, joint pain, or bony pain SKIN: No rash, no erythema, no pruritus NEUROLOGIC: Denies weakness, dizziness, headache, numbness, change in speech, confusion PSYCHIATRIC: No concerning psychosocial issues. 12 point review of systems is negative except for those stated above and HPI Patient History Medical History Ankle pain Carpal tunnel syndrome Chicken pox (~1968) Depression Elevated liver enzymes Essential hypertension (2004) Foot pain Hearing loss (~2009) History of recurrent ear infection (~1989) Insomnia Measles (~1964) Mixed hyperlipidemia (2018) Psoriasis (~1967) Psoriatic arthritis (~1993) Ruptured tympanic membrane (~1989) Scleritis Shingles Shoulder pain Thyroid nodule (~2017) Surgical History Anesthesia History of arthroscopy (~1993) History of surgery (~2000) History of total left hip replacement (~2013) Family History Mother Cervical cancer Alzheimer's disease Brother Mental health problem Social History household members: spouse Smoking Status: Never smoker second hand exposure: No alcohol intake: current substance use type: does not use Smoking Status: Never smoker Substance Use Type: does not use Exam Initial Vital Signs Initial Vital Signs: Vital Signs Temperature 98.3 F 12/19/21 14:30 Pulse Rate 107 H 12/19/21 14:30 Respiratory Rate 22 12/19/21 14:30 Blood Pressure 160/83 H 12/19/21 14:30 Pulse Oximetry 100 12/19/21 14:30 GENERAL: Alert 56-year-old female appears in pain HEENT: Head atraumatic,EOMI, pupils reactive, face symmetric, [moist] mucous membranes NECK: Very tender to touch more right than left, and some midline. Definite decreased range of motion CARDIOVASCULAR: Regular rate and rhythm without murmurs, rubs or gallops. RESPIRATORY: Breath sounds equal bilaterally, no wheezes rales or rhonchi. ABDOMEN: Soft, nontender. Normoactive bowel sounds all 4 quadrants. No guarding or rebound. EXTREMITIES: Normal range of motion, no clubbing or edema. Neurovascularly intact NEUROLOGICAL: Alert and oriented x4.Normal gait and speech. Cranial nerves II through XII grossly intact. Detention Attendant strength equal bilaterally able to move right arm easily SKIN: Warm, dry, no laceration, no petechiae, no rashes or lesions. Course Orders Ordered: Discontinued Medications Ketorolac Tromethamine (Ketorolac 30 Mg/Ml Vial) 15 mg IV NOW ONE Stop: 12/19/21 17:01 Last Admin: 12/19/21 17:05 Dose: 15 mg Documented by: ARON Lorazepam (Lorazepam 2 Mg/Ml Inj) 0.5 mg IV NOW ONE Stop: 12/19/21 17:01 Last Admin: 12/19/21 17:05 Dose: 0.5 mg Documented by: ARON Morphine Sulfate (Morphine 2 Mg/Ml Inj) 2 mg IV NOW ONE Stop: 12/19/21 15:46 Last Admin: 12/19/21 16:24 Dose: 2 mg Documented by: ARON Morphine Sulfate (Morphine 4 Mg/Ml Inj) 4 mg IV NOW ONE Stop: 12/19/21 17:01 Last Admin: 12/19/21 17:05 Dose: 4 mg Documented by: ARON Vital Signs Vital signs: Vital Signs - 8 hr 12/19/21 14:30 12/19/21 14:36 12/19/21 14:37 Temperature 98.3 F Pulse Rate 107 H 93 H 90 Respiratory Rate 22 22 20 Blood Pressure 160/83 H 142/79 H Pulse Oximetry 100 96 12/19/21 15:00 12/19/21 15:30 12/19/21 16:32 Temperature Pulse Rate 83 82 83 Respiratory Rate 22 25 H 25 H Blood Pressure 141/67 H Pulse Oximetry 93 94 95 12/19/21 17:00 12/19/21 17:10 12/19/21 17:30 Temperature Pulse Rate 83 76 79 Respiratory Rate 16 22 19 Blood Pressure 174/84 H Pulse Oximetry 98 94 96 12/19/21 17:31 Temperature Pulse Rate 79 Respiratory Rate 20 Blood Pressure 135/60 Pulse Oximetry 90 L MDM - Headache Lab Data Result diagrams: 12/19/21 14:47 12/19/21 14:47 Labs: Lab Results 12/19/21 12/19/21 12/19/21 Range/Units 14:47 14:47 14:47 WBC 9.0 (4.5-11.0) X10^3/uL RBC 4.65 (4.0-5.2) X10^6/uL Hgb 11.1 L (12.0-16.0) g/dL Hct 33.9 L (36-46) % MCV 73.0 L (80-100) fL MCH 23.9 L (26-34) PG MCHC 32.8 (30-36) % RDW 17.4 H (11.6-14.8) % Plt Count 299 (150-400) X10^3/uL Neut % (Auto) 74.2 (50-75) % Lymph % (Auto) 14.4 L (25-40) % Real % (Auto) 9.5 (3-14) % Eos % (Auto) 1.3 L (2-4) % Baso % (Auto) 0.6 (0-2) % Neut # (Auto) 6700 (7852-7944) /uL Lymph # (Auto) 1300 (5269-9764) /uL Real # (Auto) 900 (0-900) /uL Eos # (Auto) 100 (0-450) /uL Baso # (Auto) 100 (0-100) /uL Sodium 138 (137-145) mmol/L Potassium 4.1 (3.4-5.1) mmol/L Chloride 98 (98-107) mmol/L Carbon Dioxide 32 (22-32) mmol/L BUN 15 (7-17) mg/dL Creatinine 0.62 (0.52-1.04) mg/dL Estimated GFR > 60.0 (>60) mL/min BUN/Creatinine Ratio 24.2 H (6-22) Glucose 119 H (70-100) mg/dL Lactate 0.9 (0.7-2.1) mmol/L Calcium 9.9 (8.4-10.2) mg/dL Total Bilirubin 0.4 (0.2-1.3) mg/dL AST 25 (14-36) IU/L ALT 9 (<35) IU/L Alkaline Phosphatase 91 (38-126) U/L Total Creatine Kinase 28 L (30-135) U/L CK-MB (CK-2) TNP CK-MB (CK-2) Rel Index TNP Troponin I < 0.012 (0.01-0.034) ng/mL Total Protein 8.6 H (6.3-8.2) g/dL Albumin 4.4 (3.5-5.0) g/dL Globulin 4.2 H (1.7-4.1) g/dL Albumin/Globulin Ratio 1.0 (1.0-2.8) Lipase 84 (23-300) U/L Imaging Data CTA - brain/neck: Radiologist's Impression: PROCEDURE:? CT ANGIO HEAD AND NECK ? INDICATIONS:? severe neck pain, right side difficulty walking x 4 days ? TECHNIQUE:? Pre-contrast 4.5 mm thick sections acquired from the foramen magnum to the vertex.? After the administration of intravenous contrast, 1 mm thick sections acquired from the aortic arch through the [place] of [place].? Post-contrast 4.5 mm thick sections then re- acquired from the foramen magnum to the vertex.? 3-dimensional max kstg-sekwhwcvb-iurfwzolda (MIP) and/or volume rendering reformats were acquired of the central intracranial vasculature and neck separately. ? COMPARISON:? None. ? FINDINGS:? Image quality:? Excellent.? ? BRAIN:? CSF spaces:? Ventricles are normal in size and shape.? Basal cisterns are patent.? No extra-axial fluid collections.? ? Brain:? No midline shift.? No intracranial bleeds or masses.? [place]-white matter interface appears intact.? ? Skull and face:? Calvarium and facial bones appear intact, without suspicious lesions.? Orbits appear normal.? ? Sinuses:? Sinuses and mastoids are clear.? ? HEAD CT ANGIOGRAPHY:? Anterior circulation:? Intracranial internal carotid arteries are normal in size and flow.? The flow within the paired anterior cerebral arteries is normal and symmetric.? The flow within the middle cerebral arteries is normal and symmetric.? The anterior communicating artery is seen.? No aneurysms are seen.? ? Posterior circulation:? Visualized portions of the vertebral arteries demonstrate normal caliber, and join to form a normal appearing basilar artery.? Flow within the posterior cerebral arteries is normal and symmetric.? No aneurysms are seen.? ? NECK CT ANGIOGRAPHY:? Carotid system:? The great vessels demonstrate a conventional anatomy as they arise from the aortic arch.? The origins of the common carotid arteries appear patent.? The common carotid arteries demonstrate normal caliber and courses.? The bifurcation regions are both widely patent.? The internal carotid arteries demonstrate normal calibers and courses.? ? Posterior circulation:? The origins of the vertebral arteries both appear widely patent.? The more superior extracranial portions of both vertebral arteries also demonstrate normal courses and calibers.? They join to form a normal appearing basilar artery.? ? Soft tissues:? Bilateral thyroid masses are present, measuring 13 mm on the ri ght, 11 mm on the left. ? Bones:? No suspicious bony lesions.? Visualized cervical spine appears normally aligned.? IMPRESSION:? 1. No acute process involving the arterial tree of the head and neck. 2. Bilateral thyroid masses.? Initial further assessment with nonemergent outpatient follow-up thyroid ultrasound is recommended.? ? Any quantitative measurements of stenosis were performed using NASCET criteria.? ? ? Dictated by: Wicho Martel M.D. on 12/19/2021 at 16:25 ? ? Approved by: Wicho Martel M.D. on 12/19/2021 at 16:27 ? Chest x-ray: Radiologist's Impression: PROCEDURE:? XR CHEST FOR PICC 1V ? INDICATIONS:? picc ? COMPARISON:? [facility], DRE, PICC LINE INSERTION, 11/14/2021, 12:24.? [facility], DRE, XR CHEST FOR PICC 1V, 07/23/2021, 15:45. ? FINDINGS:? PICC was placed by the intravenous therapy team from the right side.? Fluoroscopic spot film demonstrates the tip of PICC projecting to the area of mid SVC.? ? IMPRESSION:? Tip of PICC projects to the area of mid SVC.? ? ? Dictated by: Kierra Barrera M.D. on 12/19/2021 at 16:29 ? ? Approved by: Kierra Barrera M.D. on 12/19/2021 at 16:30 ? MDM Narrative Medical decision making narrative: In her neck. She is afebrile without leukocytosis. It is definitely worse with movement and rotation although she does have pain with flexion extension as as well. It has been ongoing for 2 weeks progressively getting worse. I think unlikely meningitis, without fever. She feels pulsating in her ear and severe pain concern about possible dissection. CT angio is negative. She is tender both midline and is on the muscle unlikely osteomyelitis, CT also did not show any abnormality in the bone. She did get pain medication here in the ED which allowed her sleep. At this time amend outpatient follow-up. She is followed closely with Infectious Disease for her pelvic infection Discharge Plan Departure Patient Disposition: Home Clinical Impression: Acute cervical myofascial strain Instructions: DI for Neck Pain Activity Restrictions/Additional Instructions: *You have been diagnosed with neck pain *What to do: This time I think you have a muscle strain, recommend heating pad light stretching. *Continue to take medications as directed [place] 1 tablet every 6 hours if needed for severe pain Flexeril 5 mg every 8 hours if needed for muscle spasm *Follow up with your primary care provider in 2-3 days or call [phone] *Return to ER if you should have increasing pain numbness tingling weakness fever or any new, worsening or concerning symptoms CONTROLLED SUBSTANCE DISCHARGE (Narcotoic/benzodiazepine/Flexeril/Phenergan) 1. You have been prescribed narcotic medications, it does have acetaminophen/Tylenol/paracetamol in it, DO NOT TAKE MORE THAN 4,00mg in 24 hours of Tylenol. TRAMADOL DOES NOT CONTAIN TYLENOL 2. Please understand that we cannot provide further refills of narcotics, benzodiazepines or controlled substances through the ED and her pain management will need to be through your provider. 3. While on these medications you cannot drive or operate heavy machinery. 4. You cannot sign legal documents or perform any duties such as this. 5. As long as you're taking opiate pain medications he should also be taking a stool softener such as Colace, Dulcolax, MiraLAX or prune juice, to help avoid constipation. Prescriptions: New hydrocodone-acetaminophen 5-325 mg tablet 1 tab PO Q6H PRN (Reason: pain) Qty: 10 0RF methocarbamol 750 mg tablet 750 mg PO Q12H PRN (Reason: muscle spasm) Qty: 14 0RF cyclobenzaprine 5 mg tablet 5 mg PO TID PRN (Reason: muscle spasm) Qty: 10 0RF No Action (DME) Parking Permit... Qty: 2 0RF Rx Instructions: Meets criteria for Permanent Parking Placard rosuvastatin [Crestor] 10 mg tablet 10 mg PO DAILY Qty: 90 0RF Rx Instructions: Due for labs and appointment prior to future refills sertraline 100 mg tablet 150 mg PO DAILY Qty: 135 1RF losartan 50 mg tablet 50 mg PO BID Qty: 90 2RF trazodone 50 mg tablet 50 mg PO BEDTIME PRN (Reason: insomnia) Qty: 30 2RF cholecalciferol (vitamin D3) 1,000 unit capsule 5,000 unit PO DAILY 0RF alprazolam [Xanax] 0.5 mg tablet 0.5 mg PO DAILY PRN (Reason: anxiety) Qty: 10 0RF Rx Instructions: take 30 minutes before procedure. May take a second dose as needed. acetaminophen 325 mg Tablet 975 mg PO Q8H Qty: 30 0RF Referrals: Dariusz Del Rio ARNP [Primary Care Provider] -
--- NOTE | 2021-12-19 15:45 | DI.CT.S_ITS ---
PROCEDURE: CT ANGIO HEAD AND NECK INDICATIONS: severe neck pain, right side difficulty walking x 4 days TECHNIQUE: Pre-contrast 4.5 mm thick sections acquired from the foramen magnum to the vertex. After the administration of intravenous contrast, 1 mm thick sections acquired from the aortic arch through the [place] of [place]. Post-contrast 4.5 mm thick sections then re-acquired from the foramen magnum to the vertex. 3-dimensional cooixod-kkvvzfrjr-ymtbrvzltu (MIP) and/or volume rendering reformats were acquired of the central intracranial vasculature and neck separately. COMPARISON: None. FINDINGS: Image quality: Excellent. BRAIN: CSF spaces: Ventricles are normal in size and shape. Basal cisterns are patent. No extra-axial fluid collections. Brain: No midline shift. No intracranial bleeds or masses. [place]-white matter interface appears intact. Skull and face: Calvarium and facial bones appear intact, without suspicious lesions. Orbits appear normal. Sinuses: Sinuses and mastoids are clear. HEAD CT ANGIOGRAPHY: Anterior circulation: Intracranial internal carotid arteries are normal in size and flow. The flow within the paired anterior cerebral arteries is normal and symmetric. The flow within the middle cerebral arteries is normal and symmetric. The anterior communicating artery is seen. No aneurysms are seen. Posterior circulation: Visualized portions of the vertebral arteries demonstrate normal caliber, and join to form a normal appearing basilar artery. Flow within the posterior cerebral arteries is normal and symmetric. No aneurysms are seen. NECK CT ANGIOGRAPHY: Carotid system: The great vessels demonstrate a conventional anatomy as they arise from the aortic arch. The origins of the common carotid arteries appear patent. The common carotid arteries demonstrate normal caliber and courses. The bifurcation regions are both widely patent. The internal carotid arteries demonstrate normal calibers and courses. Posterior circulation: The origins of the vertebral arteries both appear widely patent. The more superior extracranial portions of both vertebral arteries also demonstrate normal courses and calibers. They join to form a normal appearing basilar artery. Soft tissues: Bilateral thyroid masses are present, measuring 13 mm on the right, 11 mm on the left. Bones: No suspicious bony lesions. Visualized cervical spine appears normally aligned. IMPRESSION: 1. No acute process involving the arterial tree of the head and neck. 2. Bilateral thyroid masses. Initial further assessment with nonemergent outpatient follow-up thyroid ultrasound is recommended. Any quantitative measurements of stenosis were performed using NASCET criteria. Dictated by: Wicho Martel M.D. on 12/19/2021 at 16:25 Approved by: Wicho Martel M.D. on 12/19/2021 at 16:27
[2021-12-19] MEDS: MORPHINE 2 MG/ML INJ IV (16:24)
[2021-12-19] MEDS: MORPHINE 4 MG/ML INJ IV (17:05)
[2021-12-19] MEDS: LORazepam 2 MG/ML INJ 0.5 MG IV (17:05)
[2021-12-19] MEDS: KETOROLAC 30 MG/ML VIAL 15 MG IV (17:05)
== END 2021-12-19 18:46 | disposition home or self-care (01) ==
PROVIDERS: Emergency Provider Emergency Medicine; Family Provider Internal Medicine Rheumatology; PCP Nurse Practitioner Family
DX: S16.1XXA Strain of muscle, fascia and tendon at neck level, initial encounter (principal); X58.XXXA Exposure to other specified factors, initial encounter
CPT/HCPCS: 36415; 70496; 70498; 80053; 82550; 83605; 83690; 84484; 85025; 96374; 96375; 96376; 99284; J1885; J2060; J2270; Q9967

== ENCOUNTER 2022-04-03 14:42 | Emergency (ER) | payer OTHER, SELFPAY ==
[2021-07-18 14:16] VITALS: BMI 33.9
[2022-04-03 15:09] VITALS: BP 185/85; PULSE 75; RESP 16; TEMP 36.7; O2SAT 98; BMI 32.3
--- NOTE | 2022-04-03 15:46 | DI.US.S_ITS ---
PROCEDURE: US PELVIC LIMITED INDICATIONS: hx of suprapubic pelvic abscess, c/f recurrence TECHNIQUE: Real-time transabdominal scanning was performed of the pelvic organs, with image documentation. COMPARISON: None. FINDINGS: Visualized portions of the imaged pelvis appears unremarkable. No peritoneal cavity abnormalities identified. The region of prior suprapubic abscess and anterior abdominal wall demonstrates no abnormal fluid collection or mass lesions. Specifically, no sonographic abnormalities underlying the area of previous surgical scar. IMPRESSION: Unremarkable sonographic evaluation of the left lower quadrant, targeting the scar from previous surgical procedure. No evidence for abnormal fluid collection/abscess or mass lesion. We strive to produce accurate, complete, and clear reports of imaging services. To assist us in improving patient care, this report was composed using standard report templates and voice recognition software. Therefore, it may contain abnormal punctuation, insertions and/or omissions. Occasional wrong-word or sound-alike substitutions may occur. Though we review the report and make efforts to correct it, we do recommend that the report be read carefully in proper context to recognize any text inaccuracies. Dictated by: Justo Dao M.D. on 04/03/2022 at 16:13 Approved by: Justo Dao M.D. on 04/03/2022 at 16:16
--- NOTE | 2022-04-03 15:55 | ED.ABDPAIN ---
HPI - Abdominal Pain <Anastasiya Seymour, [facility] - Last Filed: 04/03/22 20:47> General Chief Complaint: Abdominal Pain Stated Complaint: R/O Abcess Hip/Abd, Sent from [facility] Time Seen by Provider: 04/03/22 15:28 Mode of arrival: Wheelchair History of Present Illness HPI narrative: This is a 57-year-old female previous patient of Dariusz MULLER and now pending primary care appointment with Dr. Olivera with history of complicated pelvic abscesses over the last two years. Patient reports she had a left hip replacement eight years ago, endorses having a left-sided pelvic abscess and left-sided greater trochanter bursa abscess and is on chronic antibiotics. She reports that the left hip one has fully resolved but endorses she thinks the left pelvic abscess has had recurrent since January 2022. Patient is seen by Dr. Jameson from Infectious Disease at [facility], she is currently on cefadroxil for infection prophylaxis, states that she has had recurrence of this abscess one time since the original and had to have drainage Interventional Radiology over at [facility]. She said this happened most recently in November 2021. She denies any recent fevers, states that she is leaving the country this coming Sunday-in five days, states that she uses Vicodin as needed for pain and has had history of this abscess best visualized on pelvic ultrasound, not transvaginal. She states it was not a vaginal abscess, denies any other surgeries to her abdomen or pelvis, denies any dysuria, urinary frequency or genitourinary symptoms. She denies any increased fatigue, weakness, abnormal vaginal discharge, states that she has enlarged lymph node on her left groin and now starting on the right. She is pending her new patient appointment with Dr. Olivera in May of 2022. 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 She endorses numbness and tingling on her left groin and anterior thigh near her groin, states that is likely due to edema. She denies any rash. Related Data Home Medications Medication Instructions Recorded Confirmed cholecalciferol (vitamin D3) 25 5,000 unit PO DAILY 09/15/19 04/03/22 mcg (1,000 unit) capsule Previous Rx's Medication Instructions Recorded Parking Permit... #2 ea 07/06/20 acetaminophen 325 mg tablet 975 mg PO Q8H #30 tabs 07/24/21 alprazolam 0.5 mg tablet (Xanax) 0.5 mg PO DAILY PRN anxiety #10 09/15/21 tabs hydrocodone 5 mg-acetaminophen 325 1 tab PO Q6H PRN pain #10 tabs 12/19/21 mg tablet methocarbamol 750 mg tablet 750 mg PO Q12H PRN muscle spasm 12/19/21 #14 tabs apremilast 30 mg tablet (Otezla) 30 mg PO BID #60 tabs 12/21/21 naproxen 500 mg tablet 500 mg PO BID #120 tabs 12/21/21 trazodone 50 mg tablet 50 mg PO BEDTIME PRN insomnia #90 12/21/21 tabs cyclobenzaprine 10 mg tablet 10 mg PO TID #90 tabs 02/08/22 sertraline 100 mg tablet 150 mg PO DAILY #135 tabs 02/08/22 losartan 50 mg tablet 50 mg PO BID #90 tabs 03/24/22 rosuvastatin 10 mg tablet (Crestor) 10 mg PO DAILY #90 tabs 03/24/22 oxycodone 5 mg tablet 5 mg PO BID PRN pain #14 tabs 04/03/22 prednisolone 5 mg tablet 5 mg PO DAILY #60 tabs 04/03/22 prednisone 5 mg tablet 5 mg PO DAILY #60 tabs 04/03/22 Allergies Allergy/AdvReac Type Severity Reaction Status Date / Time No Known Drug Allergies Allergy Verified 04/03/22 15:12 Review of Systems <RENZO Nath - Last Filed: 04/03/22 20:47> Review of Systems Narrative: General: denies fever, chills Head/Neck: denies headache, neck pain Eyes: denies visual changes, eye pain Cardio: denies chest pain, palpitations Respiratory: denies shortness of breath, cough GI: denies abdominal pain, nausea, vomiting, or diarrhea : denies dysuria, hematuria or flank pain 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: Endorses groin tenderness, lymphadenopathy, suprapubic pressure and discomfort MSK: denies new joint pain, muscle weakness or swelling Skin: denies rash, itching or wound Neuro: denies numbness, tingling, dizziness Patient History <RENZO Nath - Last Filed: 04/03/22 20:47> Medical History Abscess of pelvis Ankle pain Carpal tunnel syndrome Chicken pox (~1968) Depression Elevated liver enzymes Essential hypertension (2004) Foot pain Hearing loss (~2009) History of recurrent ear infection (~1989) Insomnia Long-term use of immunosuppressant medication Measles (~1964) Mixed hyperlipidemia (2018) Psoriasis (~1967) Psoriatic arthritis (~1993) Ruptured tympanic membrane (~1989) Scleritis Shingles Shoulder pain Thyroid nodule (~2017) Surgical History Anesthesia History of arthroscopy (~1993) History of surgery (~2000) History of total left hip replacement (~2013) Family History Mother Cervical cancer Alzheimer's disease Brother Mental health problem Social History household members: spouse Smoking Status: Never smoker second hand exposure: No alcohol intake: current substance use type: does not use Smoking Status: Never smoker Substance Use Type: does not use Exam <RENZO Nath - Last Filed: 04/03/22 20:47> Narrative Exam Narrative: Independently reviewed vitals signs and nursing notes. General: cooperative, comfortable, in no acute distress, well groomed Head: atraumatic, symmetrical facial expressions Neck: supple Eyes: equal round and reactive, EOMI, conjunctiva normal Nose: nares patent, no rhinorrhea Mouth/Throat: moist mucus membranes Cardiovascular: regular rate and rhythm, no peripheral edema, warm extremities Respiratory: normal effort, able to speak in complete sentences, no audible wheezing, stridor, or rales. No retractions or tachypnea. GI: abdomen soft, nontender to palpation, nondistended, no masses, no exquisite tenderness with exam, without guarding or rebound. 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: Scar which is fully healed her left pelvic region, no significant tenderness there, lymphadenopathy is present worse on left than right but present on right as well with tenderness to palpation, no rash, no vaginal discharge, no erythema, no masses mildly tender to palpation MSK: moves all extremities, neurovascularly intact, no weakness, normal tone Skin: brisk capillary refill, no rash, no erythema Neuro: normal speech and cognition, A&O x3 Psych: mental status is grossly normal, congruent mood, normal affect, pleasant and cooperative Initial Vital Signs Initial Vital Signs: Vital Signs Temperature 98.1 F 04/03/22 15:09 Pulse Rate 75 04/03/22 15:09 Respiratory Rate 16 04/03/22 15:09 Blood Pressure 185/85 H 04/03/22 15:09 Pulse Oximetry 98 04/03/22 15:09 Oxygen Delivery Method 04/03/22 15:09 <Jennie Harry DO - Last Filed: 04/04/22 07:30> Initial Vital Signs Initial Vital Signs: Vital Signs Temperature 98.1 F 04/03/22 15:09 Pulse Rate 75 04/03/22 15:09 Respiratory Rate 16 04/03/22 15:09 Blood Pressure 185/85 H 04/03/22 15:09 Pulse Oximetry 98 04/03/22 15:09 Oxygen Delivery Method 04/03/22 15:09 Course <RENZO Nath - Last Filed: 04/03/22 20:47> Orders Ordered: Discontinued Medications Acetaminophen (Acetaminophen 325 Mg Tablet) 975 mg PO NOW ONE Stop: 04/03/22 17:03 Last Admin: 04/03/22 17:38 Dose: Not Given Documented By: MLSloan Ketorolac Tromethamine (Ketorolac 30 Mg/Ml Vial) 15 mg IV NOW ONE Stop: 04/03/22 16:45 Last Admin: 04/03/22 16:55 Dose: 15 mg Documented By: MLSloan Consultations Consultation #1: Consultation with Dr. Jeffry Michael from [facility] and we reviewed her lab work, ultrasound, another findings he recommends patient staying on her suppressive antibiotics, her CRP is not elevated for her, her procalcitonin is negative, and to treat her for a psoriatic arthritic flare at this time since there is no abscess found on ultrasound, she is nontoxic appearing without abnormal vitals, leukocytosis, or other infectious sign. He recommends patient follow-up with her malted milk mixer Dr. Evangelista prior to leaving [facility] [address] on Sunday. He states that there are no contraindications to prescribing steroids for this at this time. Vital Signs Vital signs: Vital Signs - 8 hr 04/03/22 15:09 04/03/22 16:06 04/03/22 17:49 Temperature 98.1 F Pulse Rate 75 73 72 Respiratory Rate 16 Blood Pressure 185/85 H Pulse Oximetry 98 97 97 Oxygen Delivery Method Room Air 04/03/22 17:50 04/03/22 17:50 Temperature Pulse Rate 71 Respiratory Rate Blood Pressure 181/80 H Pulse Oximetry 97 Oxygen Delivery Method <Jennie Harry DO - Last Filed: 04/04/22 07:30> Orders Ordered: Discontinued Medications Acetaminophen (Acetaminophen 325 Mg Tablet) 975 mg PO NOW ONE Stop: 04/03/22 17:03 Last Admin: 04/03/22 17:38 Dose: Not Given Documented By: KERRY Ketorolac Tromethamine (Ketorolac 30 Mg/Ml Vial) 15 mg IV NOW ONE Stop: 04/03/22 16:45 Last Admin: 04/03/22 16:55 Dose: 15 mg Documented By: KERRY Vital Signs Vital signs: Vital Signs - 8 hr 04/03/22 15:09 04/03/22 16:06 04/03/22 17:49 Temperature 98.1 F Pulse Rate 75 73 72 Respiratory Rate 16 Blood Pressure 185/85 H Pulse Oximetry 98 97 97 Oxygen Delivery Method Room Air 04/03/22 17:50 04/03/22 17:50 Temperature Pulse Rate 71 Respiratory Rate Blood Pressure 181/80 H Pulse Oximetry 97 Oxygen Delivery Method MDM - Abdominal Pain <RENZO Nath - Last Filed: 04/03/22 20:47> Lab Data Result diagrams: 04/03/22 16:05 04/03/22 16:05 Labs: Lab Results 04/03/22 04/03/22 Range/Units 16:05 16:05 WBC 7.5 (4.5-11.0) X10^3/uL RBC 4.59 (4.0-5.2) X10^6/uL Hgb 11.0 L (12.0-16.0) g/dL Hct 33.7 L (36-46) % MCV 73.4 L (80-100) fL MCH 24.1 L (26-34) PG MCHC 32.8 (30-36) % RDW 17.0 H (11.6-14.8) % Plt Count 313 (150-400) X10^3/uL Neut % (Auto) 63.5 (50-75) % Lymph % (Auto) 26.1 (25-40) % [place] % (Auto) 7.5 (3-14) % Eos % (Auto) 2.5 (2-4) % Baso % (Auto) 0.4 (0-2) % Neut # (Auto) 4800 (9289-0673) /uL Lymph # (Auto) 2000 (6145-5495) /uL [place] # (Auto) 600 (0-900) /uL Eos # (Auto) 200 (0-450) /uL Baso # (Auto) 0 (0-100) /uL Sodium 140 (137-145) mmol/L Potassium 4.1 (3.4-5.1) mmol/L Chloride 103 (98-107) mmol/L Carbon Dioxide 29 (22-32) mmol/L BUN 19 H (7-17) mg/dL Creatinine 0.76 (0.52-1.04) mg/dL Estimated GFR > 60 (>60) mL/min BUN/Creatinine Ratio 25.0 H (6-22) Glucose 89 (70-100) mg/dL Calcium 9.5 (8.4-10.2) mg/dL Total Bilirubin 0.4 (0.2-1.3) mg/dL AST 25 (14-36) IU/L ALT 22 (<35) IU/L Alkaline Phosphatase 72 (38-126) U/L C-Reactive Protein 2.2 H (<1.0) mg/dL Total Protein 8.0 (6.3-8.2) g/dL Albumin 4.4 (3.5-5.0) g/dL Globulin 3.6 (1.7-4.1) g/dL Albumin/Globulin Ratio 1.2 (1.0-2.8) Procalcitonin < 0.03 (<0.5) ng/mL Imaging Data US - abdomen: Radiologist's Impression: PROCEDURE:? US PELVIC LIMITED ? INDICATIONS:? hx of suprapubic pelvic abscess, c/f recurrence ? TECHNIQUE:? Real-time transabdominal scanning was performed of the pelvic organs, with image documentation.? ? COMPARISON:? None. ? FINDINGS:? ? Visualized portions of the imaged pelvis appears unremarkable.? No peritoneal cavity abnormalities identified.? The region of prior suprapubic abscess and anterior abdominal wall demonstrates no abnormal fluid collection or mass lesions.? Specifically, no sonographic abnormalities underlying the area of previous surgical scar. ? ? IMPRESSION:? Unremarkable sonographic evaluation of the left lower quadrant, targeting the scar from previous surgical procedure.? No evidence for abnormal fluid collection/abscess or mass lesion. ? ? We strive to produce accurate, complete, and clear reports of imaging services. To assist us in improving patient care, this report was composed using standard report templates and voice recognition software. Therefore, it may contain abnormal punctuation, insertions and/or omissions. Occasional wrong-word or sound-alike substitutions may occur. Though we review the report and make efforts to correct it, we do recommend that the report be read carefully in proper context to recognize any text inaccuracies. ? ? Dictated by: Justo Dao M.D. on 04/03/2022 at 16:13 ? ? Approved by: Justo Dao M.D. on 04/03/2022 at 16:16 ? MDM Narrative Medical decision making narrative: This is a 57-year-old female with history of psoriatic arthritis as well as two complicated pelvic abscesses which were surgically drained and she is on chronic antibiotics for with infectious disease following from [facility] and patient presents to the emergency department for concern about pelvic abscess recurrence and she states she is concerned because she is leaving the country in five days. She had two abscesses in her pelvis over the last two years, the one on her left greater trochanteric bursa has fully resolved without recurrence, her pelvic abscess recurred one time and she is currently on cefadroxil for chronic antibiotic suppression. Patient reports that she had a pelvic MRI in January of 2022 and this is when she started feeling suprapubic pressure and the concern for recurrent started. She states that it has been feeling the same since then but now she has lymphadenopathy in her groin with numbness and tingling in the anterior of her left groin. 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 She states that when her pelvic abscess was painful, she would lay down flat and this would relieve pressure and she tried this and it did not improve her pain. Today on exam, she does have lymphadenopathy in her groin without any mass palpable, there is no rash or signs of cellulitis, there is no fungal infection. Ultrasound of her abdomen over wear this car was in the past does not show any mass, fluid collection, abscess, or other abnormality. Her lab work overall is reassuring, she does not have any leukocytosis, the only significant finding was her CRP elevation of 2.2 but this is not elevated for her compared with priors. Her procalcitonin was less than 0.03, no leukocytosis, mild anemia but stable at baseline, hemoglobin 11, hematocrit 33.7, no thrombocytopenia, consultation with her infectious disease physician Dr. Jeffry Michael from [facility] who recommends continuing her antibiotics without any changes, denies any contraindications to steroid therapy. He encourage patient to follow-up with Dr. Evangelista her malted milk mixer prior to leaving the country on Sunday. Patient was 60 tabs of 5 mg of prednisone. She states that she has required long tapers in the past due to her psoriatic arthritis. Encouraged her to follow-up with Dr. Evangelista and ask him about dosing for her steroids otherwise if he is not available, to do four tabs for four days, three tabs for three days, two tabs for two days, and one tab for four days until she can be weaned off. She was given oxycodone for pain control and encouraged to follow-up with Dr. Evangelista before leaving [facility] [address]. Patient will be in [place] for two weeks visiting her father. She does not have any infectious signs or symptoms on her workup today, her vitals are within normal limits. She is nontoxic appearing, afebrile, without any genitourinary symptoms. Patient is appropriate and amenable to discharge home. Vital signs are stable on repeat examination is unremarkable. Patient has been informed of results. Patient has been given strict return to ER precautions for any new or worsening symptoms. Patient understands to follow up closely with outpatient providers as instructed. Patient understands plan and agrees to discharge home. All questions and concerns answered at this time. <Jennie Harry, DO - Last Filed: 04/04/22 07:30> Lab Data Labs: Lab Results 04/03/22 04/03/22 Range/Units 16:05 16:05 WBC 7.5 (4.5-11.0) X10^3/uL RBC 4.59 (4.0-5.2) X10^6/uL Hgb 11.0 L (12.0-16.0) g/dL Hct 33.7 L (36-46) % MCV 73.4 L (80-100) fL MCH 24.1 L (26-34) PG MCHC 32.8 (30-36) % RDW 17.0 H (11.6-14.8) % Plt Count 313 (150-400) X10^3/uL Neut % (Auto) 63.5 (50-75) % Lymph % (Auto) 26.1 (25-40) % [place] % (Auto) 7.5 (3-14) % Eos % (Auto) 2.5 (2-4) % Baso % (Auto) 0.4 (0-2) % Neut # (Auto) 4800 (5849-7695) /uL Lymph # (Auto) 2000 (8340-6169) /uL [place] # (Auto) 600 (0-900) /uL Eos # (Auto) 200 (0-450) /uL Baso # (Auto) 0 (0-100) /uL Sodium 140 (137-145) mmol/L Potassium 4.1 (3.4-5.1) mmol/L Chloride 103 (98-107) mmol/L Carbon Dioxide 29 (22-32) mmol/L BUN 19 H (7-17) mg/dL Creatinine 0.76 (0.52-1.04) mg/dL Estimated GFR > 60 (>60) mL/min BUN/Creatinine Ratio 25.0 H (6-22) Glucose 89 (70-100) mg/dL Calcium 9.5 (8.4-10.2) mg/dL Total Bilirubin 0.4 (0.2-1.3) mg/dL AST 25 (14-36) IU/L ALT 22 (<35) IU/L Alkaline Phosphatase 72 (38-126) U/L C-Reactive Protein 2.2 H (<1.0) mg/dL Total Protein 8.0 (6.3-8.2) g/dL Albumin 4.4 (3.5-5.0) g/dL Globulin 3.6 (1.7-4.1) g/dL Albumin/Globulin Ratio 1.2 (1.0-2.8) Procalcitonin < 0.03 (<0.5) ng/mL Discharge Plan Departure Patient Disposition: Home Clinical Impression: Psoriatic arthritis, Pelvic pain Instructions: DI for Pelvic Pain, Psoriatic Arthritis Activity Restrictions/Additional Instructions: *You have been diagnosed with pelvic pain without known cause. This is likely either a flare of your psoriatic arthritis with your sacral iliac joint pain or could be inflammation related to residual chronic abscess however we did not see this on ultrasound today, your procalcitonin was less than 0.03, your CRP level was 2.2 in your white blood cell count was normal without any elevation of your neutrophil count. Please stay hydrated, go on this important trip, I have given you plenty of prednisone so that you may treat your symptoms. Please contact Dr. Evangelista and get a preference of steroid burst treatment for you. I recommended four tabs of the 5 mg tabs for four days, three tabs for three days, two for two and to titrate over the next four days at one tab or however you can come off of it without a rebound. I accidentally ordered prednisolone 1st so please let the pharmacy know that you do not need that and your going for the prednisone 5 mg tabs and the oxycodone 5 mg tabs. Please go to the emergency department if you have any worsening of your symptoms, and give them your background, and ask for more imaging. I hope that you improve soon, have a great trip with her dad. *What to do: *Please continue to take your regular medications as directed. [x ] New medication prescriptions sent to your pharmacy: [[facility] ] [ ] New medication written as a paper prescription [ ] No new medications given *Please follow up with your primary care provider in 2-3 days, call for an appointment. Let them know you were seen in the Emergency Department and that we asked that you be seen for follow-up. We will electronically transmit a record of today's note if your PCP is in our system *If you do not have a primary care provider please contact [phone] to establish care with one of the [facility] primary care providers. *Return to Emergency Department if you should have any new, worsening or concerning symptoms, such as [fever greater than 101F, chills, worsening pain, persistent vomiting or other bothersome symptoms] Prescriptions: New oxycodone 5 mg tablet 5 mg PO BID PRN (Reason: pain) Qty: 14 0RF prednisolone 5 mg tablet 5 mg PO DAILY Qty: 60 0RF Rx Instructions: For year steroid burst, please take four tabs for the next four days three for three, two for two, one for four, and/or titrate as needed for your symptoms. I gave you plenty of tabs as you may need more steroid for longer period of time than planned. prednisone 5 mg tablet 5 mg PO DAILY Qty: 60 0RF Rx Instructions: Please start your course based on what Dr. Evangelista recommends or take four tabs for four days, three for three days, two for two and titrate as needed. No Action (DME) Parking Permit... Qty: 2 0RF Rx Instructions: Meets criteria for Permanent Parking Placard cyclobenzaprine 10 mg tablet 10 mg PO TID Qty: 90 1RF Rx Instructions: may make drowsy do not drive sertraline 100 mg tablet 150 mg PO DAILY Qty: 135 1RF losartan 50 mg tablet 50 mg PO BID Qty: 90 2RF rosuvastatin [Crestor] 10 mg tablet 10 mg PO DAILY Qty: 90 1RF trazodone 50 mg tablet 50 mg PO BEDTIME PRN (Reason: insomnia) Qty: 90 2RF naproxen 500 mg tablet 500 mg PO BID Qty: 120 0RF Rx Instructions: take with food Otezla 30 mg tablet 30 mg PO BID Qty: 60 0RF cholecalciferol (vitamin D3) 1,000 unit capsule 5,000 unit PO DAILY alprazolam [Xanax] 0.5 mg tablet 0.5 mg PO DAILY PRN (Reason: anxiety) Qty: 10 0RF Rx Instructions: take 30 minutes before procedure. May take a second dose as needed. acetaminophen 325 mg Tablet 975 mg PO Q8H Qty: 30 0RF hydrocodone-acetaminophen 5-325 mg tablet 1 tab PO Q6H PRN (Reason: pain) Qty: 10 0RF methocarbamol 750 mg tablet 750 mg PO Q12H PRN (Reason: muscle spasm) Qty: 14 0RF Referrals: Say Olivera MD [Primary Care Provider] - Tr Evangelista MD [Non-Staff] - Visit Report Forms: Patient Portal/API <Jennie Harry DO - Last Filed: 04/04/22 07:30> Cosign ED Attending Geraldature Attestation: I was immediately available in the department for consultation. Documentation has been reviewed. I agree with assessment and plan.
[2022-04-03 16:06] VITALS: PULSE 73; O2SAT 97
[2022-04-03 16:22] LABS: Add Manual Diff / Slide Review NO; Basophils Absolute Auto 0 /uL (0-100); Basophils Percent Auto 0.4 % (0-2); Eosinophils Absolute Auto 200 /uL (0-450); Eosinophils Percent Auto 2.5 % (2-4); Hematocrit 33.7 % (36-46); Lymphocytes Absolute Auto 2000 /uL (1100-4500); Lymphocytes Percent Auto 26.1 % (25-40); Mean Corpuscular HGB Conc 32.8 % (30-36); Mean Corpuscular Hemoglobin 24.1 PG (26-34); Mean Corpuscular Volume 73.4 fL (80-100); Monocytes Absolute Auto 600 /uL (0-900); Monocytes Percent Auto 7.5 % (3-14); Neutrophils Absolute Auto 4800 /uL (1500-7000); Neutrophils Percent Auto 63.5 % (50-75); Platelet Count 313 X10^3/uL (150-400); Red Blood Cell Count 4.59 X10^6/uL (4.0-5.2); White Blood Cell Count 7.5 X10^3/uL (4.5-11.0)
[2022-04-03 16:41] LABS: Alanine Aminotransferase 22 IU/L (<35); Albumin 4.4 g/dL (3.5-5.0); Albumin Globulin Ratio 1.2 (1.0-2.8); Alkaline Phosphatase 72 U/L (38-126); Aspartate Aminotransferase 25 IU/L (14-36); Bilirubin Total 0.4 mg/dL (0.2-1.3); Blood Urea Nitrogen 19 mg/dL (7-17); C-Reactive Protein Quant 2.2 mg/dL (<1.0); Calcium 9.5 mg/dL (8.4-10.2); Carbon Dioxide 29 mmol/L (22-32); Chloride 103 mmol/L (98-107); Estimated Glomerular Filt Rate > 60 mL/min (>60); Globulin 3.6 g/dL (1.7-4.1); Glucose 89 mg/dL (70-100); HEMOLYSIS < 15 (0-50); Potassium 4.1 mmol/L (3.4-5.1); Sodium 140 mmol/L (137-145)
[2022-04-03 16:55] LABS: Procalcitonin < 0.03 ng/mL (<0.5)
[2022-04-03] MEDS: KETOROLAC 30 MG/ML VIAL 15 MG IV (16:55)
[2022-04-03 17:49] VITALS: PULSE 72; O2SAT 97
[2022-04-03 17:50] VITALS: BP 181/80; PULSE 71; O2SAT 97
== END 2022-04-03 17:58 | disposition home or self-care (01) ==
PROVIDERS: Emergency Provider Nurse Practitioner Critical Care Medicine; Family Provider Internal Medicine Rheumatology; PCP Family Medicine
DX: R10.2 Pelvic and perineal pain (principal); L40.50 Arthropathic psoriasis, unspecified
CPT/HCPCS: 76857; 80053; 84145; 85025; 86140; 96374; 99283; 99284; J1885

== ENCOUNTER → 2022-04-26 09:19 | Outpatient (CLI) | payer OTHER, SELFPAY ==
[2021-07-18 14:16] VITALS: BMI 33.9
--- NOTE | 2022-04-26 09:21 | DI.RAD.S_ITS ---
PROCEDURE: XR LUMBAR SPINE 2-3V INDICATIONS: Chronic back pain with left sided radiculopathy TECHNIQUE: 3 views of the lumbar spine were acquired. COMPARISON: [facility], , XR LUMBAR SPINE WITH OBLIQUES, 10/31/2021, 11:21. FINDINGS: Bones: 5 [id number] vertebrae are present. Minimal left convexity curvature centered at L4-L5. As before there are multilevel degenerative changes of the lumbar spine with disc height loss and endplate spurring. Moderate facet arthropathy at L5-S1 appears similar to before. Facet arthropathy also present to a lesser extent at multiple other levels. No vertebral body compression fractures. No suspicious bony lesions. Prior left hip arthroplasty. Soft tissues: Overlying bowel gas pattern is normal. No suspicious soft tissue calcifications. IMPRESSION: Moderate multilevel degenerative changes of the lumbar spine, not significantly changed. Dictated by: Augusto Black M.D. on 04/26/2022 at 14:02 Approved by: Augusto Black M.D. on 04/26/2022 at 14:07
[2022-04-26 09:48] LABS: Add Manual Diff / Slide Review NO; Basophils Absolute Auto 0 /uL (0-100); Basophils Percent Auto 0.6 % (0-2); Eosinophils Absolute Auto 100 /uL (0-450); Hematocrit 37.1 % (36-46); Hemoglobin 12.1 g/dL (12.0-16.0); Lymphocytes Absolute Auto 1500 /uL (1100-4500); Lymphocytes Percent Auto 20.3 % (25-40); Mean Corpuscular HGB Conc 32.7 % (30-36); Mean Corpuscular Hemoglobin 24.4 PG (26-34); Mean Corpuscular Volume 74.7 fL (80-100); Monocytes Absolute Auto 600 /uL (0-900); Monocytes Percent Auto 7.3 % (3-14); Neutrophils Absolute Auto 5300 /uL (1500-7000); Neutrophils Percent Auto 70.8 % (50-75); Platelet Count 346 X10^3/uL (150-400); Red Blood Cell Count 4.97 X10^6/uL (4.0-5.2); Red Cell Distribution Width 17.4 % (11.6-14.8); White Blood Cell Count 7.6 X10^3/uL (4.5-11.0)
[2022-04-26 10:12] LABS: Erythrocyte Sedimentation Rate 44 MM/HR (0-20)
[2022-04-26 10:21] LABS: Alanine Aminotransferase 17 IU/L (<35); Albumin 4.2 g/dL (3.5-5.0); Albumin Globulin Ratio 1.3 (1.0-2.8); Alkaline Phosphatase 73 U/L (38-126); Aspartate Aminotransferase 21 IU/L (14-36); BUN Creatinine Ratio 29.1 (6-22); Bilirubin Total 0.5 mg/dL (0.2-1.3); Blood Urea Nitrogen 23 mg/dL (7-17); C-Reactive Protein Quant 2.6 mg/dL (<1.0); Calcium 10.1 mg/dL (8.4-10.2); Carbon Dioxide 35 mmol/L (22-32); Chloride 101 mmol/L (98-107); Estimated Glomerular Filt Rate > 60 mL/min (>60); Globulin 3.3 g/dL (1.7-4.1); Glucose 91 mg/dL (70-100); HEMOLYSIS < 15 (0-50); Potassium 3.8 mmol/L (3.4-5.1); Sodium 141 mmol/L (137-145); Total Protein 7.5 g/dL (6.3-8.2)
[2022-04-26 10:30] LABS: TSH w/ Reflex to FT4 1.02 uIU/mL (0.47-4.68)
== END ==
PROVIDERS: Nurse Practitioner Family; Family Provider Internal Medicine Rheumatology; PCP Family Medicine; Referring Provider Family Medicine; Visit Provider Family Medicine
DX: M47.27 Other spondylosis with radiculopathy, lumbosacral region (principal); M25.552 Pain in left hip; E04.1 Nontoxic single thyroid nodule; E78.2 Mixed hyperlipidemia; I10 Essential (primary) hypertension; L40.50 Arthropathic psoriasis, unspecified; R79.82 Elevated C-reactive protein (CRP); G89.29 Other chronic pain; M47.26 Other spondylosis with radiculopathy, lumbar region; Z96.642 Presence of left artificial hip joint; Z79.899 Other long term (current) drug therapy
CPT/HCPCS: 36415; 72100; 80053; 84443; 85025; 85651; 86140

== ENCOUNTER → 2022-05-18 10:52 | Outpatient (CLI) | payer OTHER, SELFPAY ==
[2021-07-18 14:16] VITALS: BMI 33.9
--- NOTE | 2022-05-18 10:53 | DI.RAD.S_ITS ---
PROCEDURE: XR HAND LT MIN 3V INDICATIONS: left thumb pain TECHNIQUE: 3 views of the hand(s) acquired. COMPARISON: None. FINDINGS: Bones: No fractures or dislocations. Carpal bones are normally aligned. Moderate osteoarthritic changes are seen at 1st CMC joint. No suspicious bony lesions. Soft tissues: No suspicious soft tissue calcifications. 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 No acute left thumb fracture or dislocation. No gross soft tissue abnormalities. Dictated by: Matt Bhandari M.D. on 05/18/2022 at 11:35 Approved by: Matt Bhandari M.D. on 05/18/2022 at 11:36
== END ==
PROVIDERS: Family Provider Internal Medicine Rheumatology; PCP Family Medicine; Referring Provider Family Medicine; Visit Provider Family Medicine
DX: M18.12 Unilateral primary osteoarthritis of first carpometacarpal joint, left hand (principal); L40.50 Arthropathic psoriasis, unspecified; M79.645 Pain in left finger(s)
CPT/HCPCS: 73130

== ENCOUNTER → 2022-07-11 11:35 | Outpatient (ROUT) | payer OTHER, SELFPAY ==
[2021-07-18 14:16] VITALS: BMI 33.9
[2022-07-11 11:49] LABS: Add Manual Diff / Slide Review NO; Basophils Absolute Auto 100 /uL (0-100); Basophils Percent Auto 0.7 % (0-2); Eosinophils Absolute Auto 200 /uL (0-450); Eosinophils Percent Auto 2.4 % (2-4); Hematocrit 31.4 % (36-46); Hemoglobin 10.1 g/dL (12.0-16.0); Lymphocytes Absolute Auto 1500 /uL (1100-4500); Lymphocytes Percent Auto 17.8 % (25-40); Mean Corpuscular HGB Conc 32.1 % (30-36); Mean Corpuscular Hemoglobin 24.1 PG (26-34); Monocytes Absolute Auto 400 /uL (0-900); Monocytes Percent Auto 4.9 % (3-14); Neutrophils Absolute Auto 6000 /uL (1500-7000); Neutrophils Percent Auto 74.2 % (50-75); Platelet Count 528 X10^3/uL (150-400); Red Blood Cell Count 4.18 X10^6/uL (4.0-5.2); Red Cell Distribution Width 17.9 % (11.6-14.8); White Blood Cell Count 8.2 X10^3/uL (4.5-11.0)
[2022-07-11 12:08] LABS: Alanine Aminotransferase 16 IU/L (<35); Albumin Globulin Ratio 1.1 (1.0-2.8); Alkaline Phosphatase 69 U/L (38-126); Aspartate Aminotransferase 23 IU/L (14-36); BUN Creatinine Ratio 24.6 (6-22); Bilirubin Total 0.2 mg/dL (0.2-1.3); Blood Urea Nitrogen 16 mg/dL (7-17); Calcium 9.8 mg/dL (8.4-10.2); Carbon Dioxide 29 mmol/L (22-32); Chloride 102 mmol/L (98-107); Estimated Glomerular Filt Rate > 60 mL/min (>60); Globulin 3.5 g/dL (1.7-4.1); Glucose 155 mg/dL (70-100); HEMOLYSIS < 15 (0-50); Potassium 4.2 mmol/L (3.4-5.1); Sodium 140 mmol/L (137-145); Total Protein 7.5 g/dL (6.3-8.2)
== END ==
PROVIDERS: Family Provider Internal Medicine Rheumatology; PCP Family Medicine; Visit Provider Internal Medicine Infectious Disease
DX: T84.50XA Infection and inflammatory reaction due to unspecified internal joint prosthesis, initial encounter (principal); T84.52XA Infection and inflammatory reaction due to internal left hip prosthesis, initial encounter; T84.59XA Infection and inflammatory reaction due to other internal joint prosthesis, initial encounter
CPT/HCPCS: 80053; 85025; 86140

== ENCOUNTER 2022-08-15 11:48 | Emergency (ER) | payer OTHER, SELFPAY ==
[2021-07-18 14:16] VITALS: BMI 33.9
[2022-08-15] VITALS (12 sets, daily range): BP systolic 155–191; BP diastolic 71–90; PULSE 65–76; RESP 16–23; TEMP 36.7; O2SAT 94–98; BMI 31.4
[2022-08-15 12:50] LABS: Add Manual Diff / Slide Review NO; Basophils Absolute Auto 0 /uL (0-100); Basophils Percent Auto 0.5 % (0-2); Eosinophils Absolute Auto 200 /uL (0-450); Eosinophils Percent Auto 2.2 % (2-4); Hematocrit 30.9 % (36-46); Hemoglobin 10.1 g/dL (12.0-16.0); Lymphocytes Absolute Auto 1200 /uL (1100-4500); Lymphocytes Percent Auto 16.4 % (25-40); Mean Corpuscular HGB Conc 32.5 % (30-36); Mean Corpuscular Hemoglobin 23.5 PG (26-34); Mean Corpuscular Volume 72.4 fL (80-100); Monocytes Absolute Auto 500 /uL (0-900); Monocytes Percent Auto 6.8 % (3-14); Neutrophils Absolute Auto 5200 /uL (1500-7000); Neutrophils Percent Auto 74.1 % (50-75); Platelet Count 277 X10^3/uL (150-400); Red Blood Cell Count 4.27 X10^6/uL (4.0-5.2)
[2022-08-15 13:00] LABS: INR 1.1 (0.9-1.3); Prothrombin Time 12.5 SECONDS (10.1-12.7)
[2022-08-15 13:02] LABS: PTT Partial Thromboplastin Tim 34 SECONDS (26-36)
[2022-08-15 13:12] LABS: Alanine Aminotransferase 20 IU/L (<35); Albumin 4.1 g/dL (3.5-5.0); Albumin Globulin Ratio 1.2 (1.0-2.8); Alkaline Phosphatase 57 U/L (38-126); Aspartate Aminotransferase 28 IU/L (14-36); BUN Creatinine Ratio 23.4 (6-22); Bilirubin Total 0.4 mg/dL (0.2-1.3); Blood Urea Nitrogen 18 mg/dL (7-17); Calcium 9.4 mg/dL (8.4-10.2); Carbon Dioxide 28 mmol/L (22-32); Chloride 103 mmol/L (98-107); Estimated Glomerular Filt Rate > 60 mL/min (>60); Globulin 3.3 g/dL (1.7-4.1); Glucose 102 mg/dL (70-100); HEMOLYSIS < 15 (0-50); Lipase 80 U/L (23-300); Sodium 141 mmol/L (137-145); Total Protein 7.4 g/dL (6.3-8.2)
--- NOTE | 2022-08-15 13:39 | DI.CT.S_ITS ---
PROCEDURE: CT ABDOMEN PELVIS W CON INDICATIONS: Epigastric pain TECHNIQUE: After the administration of intravenous contrast, axial sections acquired from the lung bases to the pubic symphysis. Coronal and sagittal reformats were performed. For radiation dose reduction, the following was used: automated exposure control, adjustment of mA and/or kV according to patient size. COMPARISON: None. FINDINGS: Image quality: Excellent. Lung bases: Unremarkable. Heart: No significant findings. ABDOMEN: Liver: No focal hepatic mass. Gallbladder: Normal. Biliary ducts: Nondilated. Pancreas: Unremarkable. Spleen: Normal size and appearance. Adrenal Glands: No nodule or mass. Kidneys and Ureters: No hydronephrosis or perinephric fat stranding. No hydroureter. Stomach and Bowel: No abnormally dilated or thickened loop of bowel. No pericolonic or mesenteric inflammatory fat stranding. Peritoneum: No abnormal intraperitoneal fluid. No free air. Ventral Wall: No hernias. Abdominal Nodes: No retroperitoneal or mesenteric adenopathy by size criteria. Vessels: Aorta and inferior vena cava are normal in size. PELVIS: Pelvic Organs: Unremarkable. Bladder: Unremarkable. Pelvic Nodes: No enlarged lymph nodes. Miscellaneous: No hernias are seen. Bones: No acute or suspicious osseous lesion. IMPRESSION: No acute finding. Dictated by: Henry Lombardi M.D. on 08/15/2022 at 14:11 Approved by: Henry Lombardi M.D. on 08/15/2022 at 14:14
[2022-08-15] MEDS: KETOROLAC 30 MG/ML VIAL 15 MG IV (13:59)
--- NOTE | 2022-08-15 14:45 | ED.ABDPAIN ---
HPI - Abdominal Pain <Rogelio Guevara PA-C - Last Filed: 08/15/22 15:45> General Chief Complaint: Abdominal Pain Stated Complaint: abd pain, High BP, 6weeks post op, V/D headace Time Seen by Provider: 08/15/22 12:09 History of Present Illness HPI narrative: 57-year-old female with past medical history hypertension, hyperlipidemia, psoriatic arthritis, status post hip replacement revision 6 weeks ago presents to the ED with nausea, vomiting, epigastric pain. Patient states that she had a PICC line in after the hip revision for IV antibiotics, was transitioned to oral antibiotic Levaquin last week. Patient states that since then, she has had epigastric pain, nausea, vomited today. Patient also states that her blood pressure medication losartan was increased from 50 mg to 100 mg b.i.d. last week, she has been compliant with the increased dosage. Patient however states that her blood pressure has remained elevated. Patient also endorses a headache, which are similar to her prior headaches. Patient denies fever, chills, chest pain, shortness of breath, dysuria, lightheadedness, dizziness, syncope. Related Data Home Medications Medication Instructions Recorded Confirmed cholecalciferol (vitamin D3) 25 5,000 unit PO DAILY 09/15/19 08/04/22 mcg (1,000 unit) capsule Previous Rx's Medication Instructions Recorded Parking Permit... #2 ea 07/06/20 acetaminophen 325 mg tablet 975 mg PO Q8H #30 tabs 07/24/21 alprazolam 0.5 mg tablet (Xanax) 0.5 mg PO DAILY PRN anxiety #10 09/15/21 tabs hydrocodone 5 mg-acetaminophen 325 1 tab PO Q6H PRN pain #10 tabs 12/19/21 mg tablet methocarbamol 750 mg tablet 750 mg PO Q12H PRN muscle spasm 12/19/21 #14 tabs apremilast 30 mg tablet (Otezla) 30 mg PO BID #60 tabs 12/21/21 trazodone 50 mg tablet 50 mg PO BEDTIME PRN insomnia #90 12/21/21 tabs cyclobenzaprine 10 mg tablet 10 mg PO TID #90 tabs 02/08/22 rosuvastatin 10 mg tablet (Crestor) 10 mg PO DAILY #90 tabs 03/24/22 naproxen 500 mg tablet 500 mg PO BID #120 tabs 04/21/22 oxycodone-acetaminophen 7.5 mg-325 1 tab PO Q8H PRN pain #60 tabs 05/18/22 mg tablet losartan 50 mg tablet 50 mg PO BID #90 tabs 06/30/22 xjsjflop-tlbxyclqf-ovyvirlck 3.5 4 drp EAR-LEFT QID #10 mL 08/04/22 mg-10,000 unit/mL-1 % ear drops,susp sertraline 100 mg tablet 150 mg PO DAILY #135 tabs 08/09/22 sulfamethoxazole 800 2 tab PO Q12H 30 days #120 tabs 08/15/22 mg-trimethoprim 160 mg tablet (Bactrim DS) Allergies Allergy/AdvReac Type Severity Reaction Status Date / Time procaine [From Novocain] Allergy Intermediate Tremors Verified 08/15/22 13:44 Review of Systems <Rogelio Guevara PA-C - Last Filed: 08/15/22 15:45> Review of Systems ROS Unobtainable: All systems reviewed & are unremarkable except as noted in HPI and below Constitutional Constitutional: Denies chills, Denies fatigue, Denies fever(s), Denies frequent falls, Reports headache(s), Denies lethargy and Denies weakness Eyes Eyes: Denies change in vision, Denies eye discharge, Denies irritation and Denies loss of vision ENT Ears, Nose, Mouth, and Throat: Denies change in voice, Denies dizziness, Reports headache(s), Denies neck pain, Denies sore throat and Denies throat swelling Cardiovascular Cardiovascular: Denies chest pain, Denies irregular heart rhythm, Denies lightheadedness, Denies palpitations, Denies dyspnea, Denies dyspnea on exertion and Denies orthopnea Respiratory Respiratory: Denies cough, Denies dyspnea, Denies dyspnea on exertion and Denies wheezing Gastrointestinal Gastrointestinal: Reports abdominal pain, Denies change in bowel habits, Denies diarrhea, Reports nausea and Reports vomiting Genitourinary Genitourinary: Denies hematuria, Denies flank pain, Denies urinary incontinence and Denies urinary urgency Musculoskeletal Musculoskeletal: Denies back pain, Denies muscle weakness, Denies neck pain, Denies numbness and Denies tingling Integumentary/Breasts Skin/Breast: Denies pruritus, Denies erythema, Denies rash and Denies wounds Neurologic Neurologic: Denies behavioral changes, Denies confusion, Denies dizziness, Denies frequent falls, Reports headache(s), Denies loss of vision, Denies numbness, Denies tingling and Denies weakness Psychiatric Psychiatric: Denies anxiety, Denies behavioral changes, Denies confusion, Denies depression, Denies homicidal ideation and Denies suicidal ideation Endocrine Endocrine: Denies fatigue, Denies flushing and Denies palpitations Hematologic/Lymphatic Hematologic/Lymphatic: Denies easy bruising Allergic/Immunologic Allergic/Immunologic: Denies urticaria, Denies throat swelling and Denies wheezing Patient History <Rogelio Guevara PA-C - Last Filed: 08/15/22 15:45> Medical History Abscess of pelvis Ankle pain Carpal tunnel syndrome Chicken pox (~1968) Chronic radicular low back pain Depression Elevated C-reactive protein (CRP) Elevated liver enzymes Essential hypertension (2004) Foot pain Hearing loss (~2009) History of recurrent ear infection (~1989) Insomnia Long-term use of immunosuppressant medication Measles (~1964) Mixed hyperlipidemia (2018) Psoriasis (~1967) Psoriatic arthritis (~1993) Ruptured tympanic membrane (~1989) Scleritis Shingles Shoulder pain Thyroid nodule (~2017) Surgical History Anesthesia History of arthroscopy (~1993) History of surgery (~2000) History of total left hip replacement (~2013) Family History Mother Cervical cancer Alzheimer's disease Brother Mental health problem Social History household members: spouse Smoking Status: Never smoker second hand exposure: No alcohol intake: current substance use type: does not use Smoking Status: Never smoker Substance Use Type: does not use Exam <Rogelio Guevara PA-C - Last Filed: 08/15/22 15:45> Narrative Exam Narrative: Const General:?cooperative, healthy appearing and comfortable HENNY Head:?normal to inspection Ears:?hearing grossly normal bilaterally Nose:?external nose normal Face and sinus:?normal facial exam and sinuses nontender Mouth:?oral mucosae normal Throat:?posterior oropharynx normal Eyes General:?appearance normal, both eyes and all related structures Neck Neck:?normal visual inspection and no lymphadenopathy noted Resp Effort & Inspection:?normal respiratory effort Auscultation:?clear to auscultation bilaterally Cardio Rate:?regular rate Rhythm:?regular rhythm GI Abdomen is soft, nondistended, tender to palpation in the epigastric region. No CVA tenderness. Neuro General:?patient alert, patient awake and patient oriented x3 Initial Vital Signs Initial Vital Signs: Vital Signs Pulse Rate 67 08/15/22 11:59 Blood Pressure 191/90 H 08/15/22 11:59 Pulse Oximetry 97 08/15/22 11:59 <Stu Adler DO - Last Filed: 08/15/22 15:48> Initial Vital Signs Initial Vital Signs: Vital Signs Pulse Rate 67 08/15/22 11:59 Blood Pressure 191/90 H 08/15/22 11:59 Pulse Oximetry 97 08/15/22 11:59 Course <Rogelio Guevara PA-C - Last Filed: 08/15/22 15:45> Orders Ordered: ED Orders 08/15/22 12:06 EKG-12 Lead Stat 08/15/22 12:30 Complete Blood Count AUTO DIFF Stat Comprehensive Metabolic Panel Stat Lactate (Lactic Acid) Stat Lipase Stat Partial Thromboplastin Time Stat Prothrombin Time INR Stat 08/15/22 13:39 CT abdomen pelvis w con Stat 08/15/22 13:40 Urine Microscopic Stat 08/15/22 13:55 Urine Culture Stat Discontinued Medications Acetaminophen (Acetaminophen 325 Mg Tablet) 975 mg PO NOW ONE Stop: 08/15/22 15:23 Last Admin: 08/15/22 15:33 Dose: 975 mg Documented By: STEVIE Ketorolac Tromethamine (Ketorolac 30 Mg/Ml Vial) 15 mg IV NOW ONE Stop: 08/15/22 13:38 Last Admin: 08/15/22 13:59 Dose: 15 mg Documented By: STEVIE Vital Signs Vital signs: Vital Signs - 8 hr 08/15/22 12:02 08/15/22 11:59 08/15/22 11:59 Temperature 98.0 F Pulse Rate 75 67 Respiratory Rate 16 Blood Pressure 191/90 H 191/90 H Pulse Oximetry 98 97 Oxygen Delivery Method Room Air 08/15/22 12:00 08/15/22 12:30 08/15/22 13:00 Temperature Pulse Rate 76 69 65 Respiratory Rate Blood Pressure Pulse Oximetry 98 98 96 Oxygen Delivery Method 08/15/22 13:30 08/15/22 14:00 08/15/22 14:11 Temperature Pulse Rate 74 75 70 Respiratory Rate 23 Blood Pressure Pulse Oximetry 97 97 95 Oxygen Delivery Method 08/15/22 14:11 08/15/22 14:30 08/15/22 14:31 Temperature Pulse Rate 68 68 Respiratory Rate 16 17 Blood Pressure 174/79 H Pulse Oximetry 94 95 Oxygen Delivery Method 08/15/22 14:31 08/15/22 15:00 08/15/22 15:00 Temperature Pulse Rate 66 Respiratory Rate 22 Blood Pressure 162/73 H 155/71 H Pulse Oximetry 95 Oxygen Delivery Method 08/15/22 15:30 08/15/22 15:30 Temperature Pulse Rate 67 Respiratory Rate Blood Pressure 160/82 H Pulse Oximetry 94 Oxygen Delivery Method <Stu Adler DO - Last Filed: 08/15/22 15:48> Orders Ordered: ED Orders 08/15/22 12:06 EKG-12 Lead Stat 08/15/22 12:30 Complete Blood Count AUTO DIFF Stat Comprehensive Metabolic Panel Stat Lactate (Lactic Acid) Stat Lipase Stat Partial Thromboplastin Time Stat Prothrombin Time INR Stat 08/15/22 13:39 CT abdomen pelvis w con Stat 08/15/22 13:40 Urine Microscopic Stat 08/15/22 13:55 Urine Culture Stat Discontinued Medications Acetaminophen (Acetaminophen 325 Mg Tablet) 975 mg PO NOW ONE Stop: 08/15/22 15:23 Last Admin: 08/15/22 15:33 Dose: 975 mg Documented By: STEVIE Ketorolac Tromethamine (Ketorolac 30 Mg/Ml Vial) 15 mg IV NOW ONE Stop: 08/15/22 13:38 Last Admin: 08/15/22 13:59 Dose: 15 mg Documented By: STEVIE Vital Signs Vital signs: Vital Signs - 8 hr 08/15/22 12:02 08/15/22 11:59 08/15/22 11:59 Temperature 98.0 F Pulse Rate 75 67 Respiratory Rate 16 Blood Pressure 191/90 H 191/90 H Pulse Oximetry 98 97 Oxygen Delivery Method Room Air 08/15/22 12:00 08/15/22 12:30 08/15/22 13:00 Temperature Pulse Rate 76 69 65 Respiratory Rate Blood Pressure Pulse Oximetry 98 98 96 Oxygen Delivery Method 08/15/22 13:30 08/15/22 14:00 08/15/22 14:11 Temperature Pulse Rate 74 75 70 Respiratory Rate 23 Blood Pressure Pulse Oximetry 97 97 95 Oxygen Delivery Method 08/15/22 14:11 08/15/22 14:30 08/15/22 14:31 Temperature Pulse Rate 68 68 Respiratory Rate 16 17 Blood Pressure 174/79 H Pulse Oximetry 94 95 Oxygen Delivery Method 08/15/22 14:31 08/15/22 15:00 08/15/22 15:00 Temperature Pulse Rate 66 Respiratory Rate 22 Blood Pressure 162/73 H 155/71 H Pulse Oximetry 95 Oxygen Delivery Method 08/15/22 15:30 08/15/22 15:30 Temperature Pulse Rate 67 Respiratory Rate Blood Pressure 160/82 H Pulse Oximetry 94 Oxygen Delivery Method MDM - Abdominal Pain <Hyma CARLITO Guevara - Last Filed: 08/15/22 15:45> Lab Data Result diagrams: 08/15/22 12:30 08/15/22 12:30 Labs: Lab Results 08/15/22 08/15/22 08/15/22 Range/Units 12:30 12:30 12:30 WBC 7.0 (4.5-11.0) X10^3/uL RBC 4.27 (4.0-5.2) X10^6/uL Hgb 10.1 L (12.0-16.0) g/dL Hct 30.9 L (36-46) % MCV 72.4 L (80-100) fL MCH 23.5 L (26-34) PG MCHC 32.5 (30-36) % RDW 17.0 H (11.6-14.8) % Plt Count 277 (150-400) X10^3/uL Neut % (Auto) 74.1 (50-75) % Lymph % (Auto) 16.4 L (25-40) % [place] % (Auto) 6.8 (3-14) % Eos % (Auto) 2.2 (2-4) % Baso % (Auto) 0.5 (0-2) % Neut # (Auto) 5200 (6559-1047) /uL Lymph # (Auto) 1200 (0681-5855) /uL [place] # (Auto) 500 (0-900) /uL Eos # (Auto) 200 (0-450) /uL Baso # (Auto) 0 (0-100) /uL PT 12.5 (10.1-12.7) SECONDS INR 1.1 (0.9-1.3) APTT 34 (26-36) SECONDS Sodium 141 (137-145) mmol/L Potassium 4.0 (3.4-5.1) mmol/L Chloride 103 (98-107) mmol/L Carbon Dioxide 28 (22-32) mmol/L BUN 18 H (7-17) mg/dL Creatinine 0.77 (0.52-1.04) mg/dL Estimated GFR > 60 (>60) mL/min BUN/Creatinine Ratio 23.4 H (6-22) Glucose 102 H (70-100) mg/dL Lactate (0.7-2.1) mmol/L Calcium 9.4 (8.4-10.2) mg/dL Total Bilirubin 0.4 (0.2-1.3) mg/dL AST 28 (14-36) IU/L ALT 20 (<35) IU/L Alkaline Phosphatase 57 (38-126) U/L Total Protein 7.4 (6.3-8.2) g/dL Albumin 4.1 (3.5-5.0) g/dL Globulin 3.3 (1.7-4.1) g/dL Albumin/Globulin Ratio 1.2 (1.0-2.8) Lipase 80 (23-300) U/L Urine RBC (0-5/HPF) Urine WBC (0-5/HPF) Ur Squamous Epith Cells (0-5/HPF) Urine Bacteria (None) Urine Mucus (Negative) 08/15/22 08/15/22 Range/Units 12:30 13:40 WBC (4.5-11.0) X10^3/uL RBC (4.0-5.2) X10^6/uL Hgb (12.0-16.0) g/dL Hct (36-46) % MCV (80-100) fL MCH (26-34) PG MCHC (30-36) % RDW (11.6-14.8) % Plt Count (150-400) X10^3/uL Neut % (Auto) (50-75) % Lymph % (Auto) (25-40) % [place] % (Auto) (3-14) % Eos % (Auto) (2-4) % Baso % (Auto) (0-2) % Neut # (Auto) (8959-3340) /uL Lymph # (Auto) (6418-8586) /uL [place] # (Auto) (0-900) /uL Eos # (Auto) (0-450) /uL Baso # (Auto) (0-100) /uL PT (10.1-12.7) SECONDS INR (0.9-1.3) APTT (26-36) SECONDS Sodium (137-145) mmol/L Potassium (3.4-5.1) mmol/L Chloride (98-107) mmol/L Carbon Dioxide (22-32) mmol/L BUN (7-17) mg/dL Creatinine (0.52-1.04) mg/dL Estimated GFR (>60) mL/min BUN/Creatinine Ratio (6-22) Glucose (70-100) mg/dL Lactate 1.0 (0.7-2.1) mmol/L Calcium (8.4-10.2) mg/dL Total Bilirubin (0.2-1.3) mg/dL AST (14-36) IU/L ALT (<35) IU/L Alkaline Phosphatase (38-126) U/L Total Protein (6.3-8.2) g/dL Albumin (3.5-5.0) g/dL Globulin (1.7-4.1) g/dL Albumin/Globulin Ratio (1.0-2.8) Lipase (23-300) U/L Urine RBC 1-5/hpf (0-5/HPF) Urine WBC 1-5/hpf (0-5/HPF) Ur Squamous Epith Cells 0-1 /hpf (0-5/HPF) Urine Bacteria None seen (None) Urine Mucus 1+ H (Negative) Point of care testing: Urine Dip Bedside Urine Glucose Negative Bedside Urine Bilirubin - Negative Bedside Urine Ketone - Negative Urine Specific [place] 1.015 Bedside Urine Occult Blood - Negative Bedside Urine pH 6.0 Bedside Urine Protein +/- 15 Bedside Urine Urobilinogen - Negative Bedside Urine Nitrite - Negative Bedside Urine Leukocytes - Negative Esterase Imaging Data CT scan - abdomen/pelvis: Radiologist's Impression: PROCEDURE:? CT ABDOMEN PELVIS W CON ? INDICATIONS:? Epigastric pain ? TECHNIQUE:? After the administration of intravenous contrast, axial sections acquired from the lung bases to the pubic symphysis.? Coronal and sagittal reformats were performed.? For radiation dose reduction, the following was used:? automated exposure control, adjustment of mA and/or kV according to patient size.? ? COMPARISON:? None. ? FINDINGS:? Image quality:? Excellent.? ? Lung bases:? Unremarkable. Heart:? No significant findings. ? ABDOMEN: Liver:? No focal hepatic mass.? ? Gallbladder:? Normal. Biliary ducts:? Nondilated. Pancreas:? Unremarkable. Spleen:? Normal size and appearance. Adrenal Glands:? No nodule or mass. Kidneys and Ureters:? No hydronephrosis or perinephric fat stranding.? No hydroureter. ? Stomach and Bowel:? No abnormally dilated or thickened loop of bowel.? No pericolonic or mesenteric inflammatory fat stranding. Peritoneum:? No abnormal intraperitoneal fluid.? No free air.? ? Ventral Wall: ? No hernias.? Abdominal Nodes:? No retroperitoneal or mesenteric adenopathy by size criteria.? Vessels:? Aorta and inferior vena cava are normal in size.? ? PELVIS: Pelvic Organs:? Unremarkable.? ? Bladder:? Unremarkable.? ? Pelvic Nodes: No enlarged lymph nodes.? Miscellaneous: No hernias are seen. ? ? ? Bones:? No acute or suspicious osseous lesion. ? ? IMPRESSION:? No acute finding. ? ? Dictated by: Henry Lombardi M.D. on 08/15/2022 at 14:11 ? ? Approved by: Henry Lombardi M.D. on 08/15/2022 at 14:14 ? [facility] Narrative Medical decision making narrative: 57-year-old female with past medical history hypertension, hyperlipidemia, psoriatic arthritis, status post hip replacement revision 6 weeks ago presents to the ED with nausea, vomiting, epigastric pain. Concern for adverse reaction to antibiotic versus gastritis versus GERD versus other intra-abdominal pathology. Will obtain labs, lactate, lipase, CT abdomen pelvis, UA. Will give ketorolac for pain. Workup largely unremarkable. Labs, UA, CT without acute findings. Patient's pain improved with ketorolac. Patient's symptoms likely due to adverse reaction to Levaquin. Will consult patient's infectious disease specialist Dr. Deborah Nguyen for an alternative antibiotic recommendation. Per Dr. Nguyen, recommendation is to switch patient from Levaquin to Bactrim. Patient to take 2 Bactrim DS tablets twice daily for 1 month, follow-up with Dr. Nguyen after. Patient needs to get labs drawn weekly, for which Dr. Nguyen will reach out to patient. Recommendations discussed with patient. ED return precautions were also discussed with patient. Patient verbalized understanding. <Stu Adler, DO - Last Filed: 08/15/22 15:48> Lab Data Labs: Lab Results 08/15/22 08/15/22 08/15/22 Range/Units 12:30 12:30 12:30 WBC 7.0 (4.5-11.0) X10^3/uL RBC 4.27 (4.0-5.2) X10^6/uL Hgb 10.1 L (12.0-16.0) g/dL Hct 30.9 L (36-46) % MCV 72.4 L (80-100) fL MCH 23.5 L (26-34) PG MCHC 32.5 (30-36) % RDW 17.0 H (11.6-14.8) % Plt Count 277 (150-400) X10^3/uL Neut % (Auto) 74.1 (50-75) % Lymph % (Auto) 16.4 L (25-40) % [place] % (Auto) 6.8 (3-14) % Eos % (Auto) 2.2 (2-4) % Baso % (Auto) 0.5 (0-2) % Neut # (Auto) 5200 (5129-7548) /uL Lymph # (Auto) 1200 (9537-8654) /uL [place] # (Auto) 500 (0-900) /uL Eos # (Auto) 200 (0-450) /uL Baso # (Auto) 0 (0-100) /uL PT 12.5 (10.1-12.7) SECONDS INR 1.1 (0.9-1.3) APTT 34 (26-36) SECONDS Sodium 141 (137-145) mmol/L Potassium 4.0 (3.4-5.1) mmol/L Chloride 103 (98-107) mmol/L Carbon Dioxide 28 (22-32) mmol/L BUN 18 H (7-17) mg/dL Creatinine 0.77 (0.52-1.04) mg/dL Estimated GFR > 60 (>60) mL/min BUN/Creatinine Ratio 23.4 H (6-22) Glucose 102 H (70-100) mg/dL Lactate (0.7-2.1) mmol/L Calcium 9.4 (8.4-10.2) mg/dL Total Bilirubin 0.4 (0.2-1.3) mg/dL AST 28 (14-36) IU/L ALT 20 (<35) IU/L Alkaline Phosphatase 57 (38-126) U/L Total Protein 7.4 (6.3-8.2) g/dL Albumin 4.1 (3.5-5.0) g/dL Globulin 3.3 (1.7-4.1) g/dL Albumin/Globulin Ratio 1.2 (1.0-2.8) Lipase 80 (23-300) U/L Urine RBC (0-5/HPF) Urine WBC (0-5/HPF) Ur Squamous Epith Cells (0-5/HPF) Urine Bacteria (None) Urine Mucus (Negative) 08/15/22 08/15/22 Range/Units 12:30 13:40 WBC (4.5-11.0) X10^3/uL RBC (4.0-5.2) X10^6/uL Hgb (12.0-16.0) g/dL Hct (36-46) % MCV (80-100) fL MCH (26-34) PG MCHC (30-36) % RDW (11.6-14.8) % Plt Count (150-400) X10^3/uL Neut % (Auto) (50-75) % Lymph % (Auto) (25-40) % [place] % (Auto) (3-14) % Eos % (Auto) (2-4) % Baso % (Auto) (0-2) % Neut # (Auto) (7382-8892) /uL Lymph # (Auto) (3919-9547) /uL [place] # (Auto) (0-900) /uL Eos # (Auto) (0-450) /uL Baso # (Auto) (0-100) /uL PT (10.1-12.7) SECONDS INR (0.9-1.3) APTT (26-36) SECONDS Sodium (137-145) mmol/L Potassium (3.4-5.1) mmol/L Chloride (98-107) mmol/L Carbon Dioxide (22-32) mmol/L BUN (7-17) mg/dL Creatinine (0.52-1.04) mg/dL Estimated GFR (>60) mL/min BUN/Creatinine Ratio (6-22) Glucose (70-100) mg/dL Lactate 1.0 (0.7-2.1) mmol/L Calcium (8.4-10.2) mg/dL Total Bilirubin (0.2-1.3) mg/dL AST (14-36) IU/L ALT (<35) IU/L Alkaline Phosphatase (38-126) U/L Total Protein (6.3-8.2) g/dL Albumin (3.5-5.0) g/dL Globulin (1.7-4.1) g/dL Albumin/Globulin Ratio (1.0-2.8) Lipase (23-300) U/L Urine RBC 1-5/hpf (0-5/HPF) Urine WBC 1-5/hpf (0-5/HPF) Ur Squamous Epith Cells 0-1 /hpf (0-5/HPF) Urine Bacteria None seen (None) Urine Mucus 1+ H (Negative) Point of care testing: Urine Dip Bedside Urine Glucose Negative Bedside Urine Bilirubin - Negative Bedside Urine Ketone - Negative Urine Specific [place] 1.015 Bedside Urine Occult Blood - Negative Bedside Urine pH 6.0 Bedside Urine Protein +/- 15 Bedside Urine Urobilinogen - Negative Bedside Urine Nitrite - Negative Bedside Urine Leukocytes - Negative Esterase Discharge Plan Departure Patient Disposition: Home Clinical Impression: Abdominal pain Instructions: DI for Abdominal Pain-Adult Activity Restrictions/Additional Instructions: You were evaluated in the ED today for abdominal pain, nausea, vomiting. Your labs, urine, CT abdomen pelvis were all normal. Your symptoms are likely due to an adverse reaction to the antibiotic Levaquin. We consulted your infectious disease specialist Dr. Deborah Nguyen, who recommends switching you to a different antibiotic Bactrim. You will take 2 double-strength tablets twice a day for 1 month. You will follow-up with Dr. Nguyen after a month. Dr. Nguyen will contact you regarding getting weekly labs over the next month. If your symptoms worsen, you experience persistent vomiting, fever, chills, worsening abdominal pain, please return to the ED for further evaluation. Prescriptions: New sulfamethoxazole-trimethoprim [Bactrim DS] 800-160 mg tablet 2 tab PO Q12H 30 Days Qty: 120 0RF No Action (DME) Parking Permit... Qty: 2 0RF Rx Instructions: Meets criteria for Permanent Parking Placard cyclobenzaprine 10 mg tablet 10 mg PO TID Qty: 90 1RF Rx Instructions: may make drowsy do not drive rosuvastatin [Crestor] 10 mg tablet 10 mg PO DAILY Qty: 90 1RF losartan 50 mg tablet 50 mg PO BID Qty: 90 2RF sertraline 100 mg tablet 150 mg PO DAILY Qty: 135 1RF trazodone 50 mg tablet 50 mg PO BEDTIME PRN (Reason: insomnia) Qty: 90 2RF Otezla 30 mg tablet 30 mg PO BID Qty: 60 0RF naproxen 500 mg tablet 500 mg PO BID Qty: 120 3RF Rx Instructions: take with food [id number] 3.5-10,000-1 mg/mL-unit/mL-% drops,suspension 4 drp EAR-LEFT QID Qty: 10 1RF cholecalciferol (vitamin D3) 1,000 unit capsule 5,000 unit PO DAILY alprazolam [Xanax] 0.5 mg tablet 0.5 mg PO DAILY PRN (Reason: anxiety) Qty: 10 0RF Rx Instructions: take 30 minutes before procedure. May take a second dose as needed. oxycodone-acetaminophen 7.5-325 mg tablet 1 tab PO Q8H PRN (Reason: pain) Qty: 60 0RF acetaminophen 325 mg Tablet 975 mg PO Q8H Qty: 30 0RF hydrocodone-acetaminophen 5-325 mg tablet 1 tab PO Q6H PRN (Reason: pain) Qty: 10 0RF methocarbamol 750 mg tablet 750 mg PO Q12H PRN (Reason: muscle spasm) Qty: 14 0RF Referrals: Say Olivera MD [Primary Care Provider] - Visit Report Forms: Patient Portal/API <Stu Adler, DO - Last Filed: 08/15/22 15:48> Cosign ED Attending Cosignature Attestation: Dr Adler Co-Sign Statement: I was available for consultation during this patient's emergency department visit. This chart is signed by myself for administrative purposes only. I did not have direct contact with this patient during this visit. They were seen independently by the APC.
--- NOTE | 2022-08-15 15:20 | PC.NURSE ---
Pt reporting 3/10 headache. Provider made aware.
[2022-08-15 15:30] LABS: Bacteria Urine None Seen; Mucus Urine 1+ (Negative); RBC Urine 1-5/HPF (0-5/HPF); Squamous Epithelial Cell Urine 0-1 /HPF (0-5/HPF); WBC Urine 1-5/HPF (0-5/HPF)
[2022-08-15] MEDS: ACETAMINOPHEN 325 MG TABLET 975 MG PO (15:33)
== END 2022-08-15 15:44 | disposition home or self-care (01) ==
PROVIDERS: Emergency Medicine; Emergency Provider Student in an Organized Health Care Education/Training Program; Family Provider Internal Medicine Rheumatology; PCP Family Medicine
DX: R10.13 Epigastric pain (principal); R11.2 Nausea with vomiting, unspecified; I10 Essential (primary) hypertension; R51.9 Headache, unspecified
CPT/HCPCS: 36415; 74177; 80053; 81003; 81015; 83605; 83690; 85025; 85610; 85730; 87086; 93005; 93010; 96374; 99284; J1885; Q9967

== ENCOUNTER → 2022-12-28 14:12 | Outpatient (CLI) | payer OTHER, SELFPAY ==
[2021-07-18 14:16] VITALS: BMI 33.9
--- NOTE | 2022-12-28 14:13 | DI.US.S_ITS ---
PROCEDURE: US PELVIC COMPLETE INDICATIONS: VAGINAL BLEEDING POSTMENOPAUSAL TECHNIQUE: Real-time scanning was performed of the pelvic organs, with image documentation. Additional endovaginal scanning was necessary due to incomplete visualization of the adnexal and endometrial structures by transabdominal scanning. COMPARISON: [facility], CT, CT ABDOMEN PELVIS W CON, 08/15/2022, 13:44. US, US PELVIC LIMITED, 04/03/2022, 15:57. FINDINGS: Uterus: Uterus is anteverted and normal in size at 6.2 x 2.7 x 3.8 cm. The myometrium is homogeneous. The endometrium is ill-defined and not well seen. Ovaries: Left ovary not visualized. Normal right ovary measuring 1.7 x 1.3 x 1.6 cm no adnexal masses seen. Other: No pathologic free abdominal or pelvic fluid. IMPRESSION: Endometrial complex is not well visualized and cannot be accurately assessed. If indicated, pre and post contrast gynecologic protocol MRI could be performed for further assessment. We strive to produce accurate, complete, and clear reports of imaging services. To assist us in improving patient care, this report was composed using standard report templates and voice recognition software. Therefore, it may contain abnormal punctuation, insertions and/or omissions. Occasional wrong-word or sound-alike substitutions may occur. Though we review the report and make efforts to correct it, we do recommend that the report be read carefully in proper context to recognize any text inaccuracies. Dictated by: Óscar CRUZ Interpreted: Wicho Martel MD on 12/28/2022 at 15:22 Transcribed by: IAN on 12/28/2022 at 15:25 Approved by: Wicho Martel M.D. on 12/28/2022 at 15:41
== END ==
PROVIDERS: Family Provider Internal Medicine Rheumatology; PCP Family Medicine; Referring Provider Family Medicine; Visit Provider Family Medicine
DX: N93.9 Abnormal uterine and vaginal bleeding, unspecified (principal)
CPT/HCPCS: 76830; 76856

== ENCOUNTER → 2023-12-20 13:34 | Outpatient (CLI) | payer OTHER, SELFPAY ==
[2021-07-18 14:16] VITALS: BMI 33.9
[2023-12-20 14:35] LABS: Add Manual Diff / Slide Review NO; Basophils Absolute Auto 0 /uL (0-100); Basophils Percent Auto 0.3 % (0-2); Eosinophils Absolute Auto 100 /uL (0-450); Eosinophils Percent Auto 1.5 % (2-4); Hemoglobin 12.4 g/dL (12.0-16.0); Lymphocytes Absolute Auto 2400 /uL (1100-4500); Lymphocytes Percent Auto 33.3 % (25-40); Mean Corpuscular HGB Conc 33.4 % (30-36); Mean Corpuscular Hemoglobin 27.3 PG (26-34); Mean Corpuscular Volume 81.7 fL (80-100); Monocytes Absolute Auto 700 /uL (0-900); Monocytes Percent Auto 9.3 % (3-14); Neutrophils Absolute Auto 4000 /uL (1500-7000); Neutrophils Percent Auto 55.6 % (50-75); Platelet Count 320 X10^3/uL (150-400); Red Blood Cell Count 4.53 X10^6/uL (4.0-5.2); Red Cell Distribution Width 17.9 % (11.6-14.8); White Blood Cell Count 7.1 X10^3/uL (4.5-11.0)
[2023-12-20 14:58] LABS: HEMOLYSIS < 15 (0-50); Iron 71 ug/dL (37-170)
[2023-12-20 15:10] LABS: Percent Iron Saturation 16 % (15-50); Total Iron Binding Capacity 435 ug/dL (265-497); Transferrin 378 mg/dL (206-381)
[2023-12-20 15:30] LABS: TSH w/ Reflex to FT4 1.12 uIU/mL (0.47-4.68)
[2023-12-20 18:29] LABS: Alanine Aminotransferase 60 IU/L (<35); Albumin 4.6 g/dL (3.5-5.0); Albumin Globulin Ratio 1.5 (1.0-2.8); Alkaline Phosphatase 58 U/L (38-126); Aspartate Aminotransferase 41 IU/L (14-36); BUN Creatinine Ratio 23.8 (6-22); Bilirubin Total 0.6 mg/dL (0.2-1.3); Blood Urea Nitrogen 19 mg/dL (7-17); Calcium 10.2 mg/dL (8.4-10.2); Carbon Dioxide 28 mmol/L (22-32); Chloride 104 mmol/L (98-107); Cholesterol 166 mg/dL (140-199); Estimated Glomerular Filt Rate > 60 mL/min (>60); Globulin 3.1 g/dL (1.7-4.1); Glucose 130 mg/dL (80-110); HDL Cholesterol 74 mg/dL (40-60); HEMOLYSIS < 15 (0-50); LDL Cholesterol Calculated 57 mg/dL (<100); Potassium 4.1 mmol/L (3.4-5.1); Sodium 140 mmol/L (137-145); Total Protein 7.7 g/dL (6.3-8.2); Triglycerides 174 mg/dL (35-150)
[2023-12-20 19:00] LABS: Microalbumi Creatinin Ratio Ur 15.5 ug/mg CR (<30); Microalbumin Urine Random 4.1 mg/dL (0-1.6)
[2023-12-20 19:03] LABS: Ferritin 13 ng/mL (11-264)
[2023-12-20 19:58] LABS: Hep C Virus Ab w/Reflex Quant NEGATIVE s/c (NEGATIVE)
[2023-12-23 09:04] LABS: Apolipoprotein B 74 mg/dL (<90)
[2023-12-23 09:56] LABS: HBsAg Screen Negative (Negative); Hepatitis A Antibody IgM Negative (Negative); Hepatitis B Core Antibody IgM Negative (Negative); Hepatitis C Antibody Non Reactive (Non Reactive)
[2023-12-25 09:47] LABS: Hemoglobin A1C% w Est Avg Glu 5.7 % (4.0-6.0)
== END ==
LOC: LAB 13:35
PROVIDERS: Family Provider Internal Medicine Rheumatology; PCP Family Medicine; Referring Provider Family Medicine; Visit Provider Family Medicine
DX: E66.9 Obesity, unspecified (principal); E78.2 Mixed hyperlipidemia; I10 Essential (primary) hypertension; L40.50 Arthropathic psoriasis, unspecified; E04.1 Nontoxic single thyroid nodule; D64.9 Anemia, unspecified; Z00.00 Encounter for general adult medical examination without abnormal findings
CPT/HCPCS: 36415; 80053; 80061; 80074; 82043; 82172; 82570; 82728; 83036; 83540; 83550; 84443; 85025; 86803

== ENCOUNTER 2023-12-25 07:09 | Inpatient (IN) | payer OTHER, SELFPAY ==
[2021-07-18 14:16] VITALS: BMI 33.9
[2023-12-25] VITALS (26 sets, daily range): BP systolic 101–142; BP diastolic 54–86; PULSE 71–107; RESP 16–18; TEMP 36.1–37.2; O2SAT 90–100; BMI 33.9
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
--- NOTE | 2023-12-25 07:54 | DI.RAD.S_ITS ---
PROCEDURE: XR HAND LT MIN 3V INDICATIONS: left hand swelling/pain TECHNIQUE: 3 views of the hand(s) acquired. COMPARISON: [facility], CR, XR HAND LT MIN 3V, 05/18/2022, 11:04. FINDINGS: Bones: No fractures or dislocations. Carpal bones are normally aligned. No suspicious bony lesions. Soft tissues: No suspicious soft tissue calcifications. IMPRESSION: No acute fracture. No osseous lesion. If symptoms and/or clinical suspicion for pathology persist, further assessment with repeat, or advanced imaging (e.g., CT, MRI, or bone scan) may be helpful for further assessment. Dictated by: Wicho Martel M.D. on 12/25/2023 at 9:44 Approved by: Wicho Martel M.D. on 12/25/2023 at 9:47
--- NOTE | 2023-12-25 07:54 | DI.US.S_ITS ---
PROCEDURE: US [facility] VENOUS UP EXTREM LT INDICATIONS: swelling,redness, pain hand TECHNIQUE: Real-time imaging, as well as color and pulse Doppler interrogation, was performed of the upper extremity deep veins from the inferior neck to the antecubital fossa. COMPARISON: [facility], , [facility] VENOUS UP EXTREM LT, 08/15/2021, 18:25. FINDINGS: The internal jugular vein, visualized portions of the subclavian vein, axillary, and brachial veins are free of intraluminal thrombus. Where physically possible, the veins are normally compressible. Color and pulse Doppler demonstrate normal intraluminal flow, with expected phasicity and pulsatility. Additional scanning of the cephalic and basilic veins of the superficial system demonstrates normal compressibility, without thrombus. IMPRESSION: No evidence of DVT in visualized left upper extremity veins. Dictated by: Matt Bhandari M.D. on 12/25/2023 at 8:30 Approved by: Matt Bhandari M.D. on 12/25/2023 at 8:30
[2023-12-25 08:14] LABS: Add Manual Diff / Slide Review NO; Basophils Absolute Auto 0 /uL (0-100); Basophils Percent Auto 0.3 % (0-2); Eosinophils Absolute Auto 100 /uL (0-450); Eosinophils Percent Auto 0.8 % (2-4); Hematocrit 36.7 % (36-46); Hemoglobin 12.2 g/dL (12.0-16.0); Lymphocytes Absolute Auto 1000 /uL (1100-4500); Lymphocytes Percent Auto 9.2 % (25-40); Mean Corpuscular HGB Conc 33.1 % (30-36); Mean Corpuscular Hemoglobin 27.5 PG (26-34); Monocytes Absolute Auto 1300 /uL (0-900); Monocytes Percent Auto 11.6 % (3-14); Neutrophils Absolute Auto 8600 /uL (1500-7000); Neutrophils Percent Auto 78.1 % (50-75); Platelet Count 284 X10^3/uL (150-400); Red Blood Cell Count 4.43 X10^6/uL (4.0-5.2); Red Cell Distribution Width 17.6 % (11.6-14.8)
[2023-12-25] MEDS: MORPHINE 4 MG/ML INJ IV ×3 (08:16→16:14)
[2023-12-25] MEDS: SODIUM CHLORIDE 0.9% 1,000 ML 1000 ML IV (08:17)
[2023-12-25 08:32] LABS: Erythrocyte Sedimentation Rate 53 MM/HR (0-20)
[2023-12-25 08:33] LABS: Alanine Aminotransferase 43 IU/L (<35); Albumin 4.4 g/dL (3.5-5.0); Albumin Globulin Ratio 1.1 (1.0-2.8); Alkaline Phosphatase 64 U/L (38-126); Aspartate Aminotransferase 28 IU/L (14-36); Bilirubin Total 1.4 mg/dL (0.2-1.3); Blood Urea Nitrogen 12 mg/dL (7-17); Calcium 9.7 mg/dL (8.4-10.2); Carbon Dioxide 30 mmol/L (22-32); Chloride 100 mmol/L (98-107); Estimated Glomerular Filt Rate > 60 mL/min (>60); Globulin 3.9 g/dL (1.7-4.1); Glucose 124 mg/dL (80-110); HEMOLYSIS 23 (0-50); Potassium 3.9 mmol/L (3.4-5.1); Sodium 135 mmol/L (137-145); Total Protein 8.3 g/dL (6.3-8.2)
[2023-12-25] MEDS: PIPERACILLIN/TAZO 4.5 GM in SODIUM CHLORIDE 0.9% 100 ML IV (08:35)
[2023-12-25 08:50] LABS: Procalcitonin 0.06 ng/mL (<0.5)
[2023-12-25] MEDS: VANCOMYCIN 1,500 MG/300 ML PIGGYBACK 200 MG IV (09:12)
--- NOTE | 2023-12-25 10:02 | DI.MRI.S_ITS ---
PROCEDURE: MR HAND LT WO/W CON INDICATIONS: redness, swelling, hx psoriatic arthrisit, r/o abscess TECHNIQUE: Noncontrast coronal T1 spin echo and STIR, sagittal T1 spin echo with fat saturation and STIR, axial T1 spin echo and T2 fast spin echo with fat saturation. After the administration of contrast, axial/sagittal/coronal T1 spin echo with fat saturation through the left hand . COMPARISON: [facility], CR, XR HAND LT MIN 3V, 12/25/2023, 8:46. FINDINGS: Image quality: Excellent. Bones: Osteoarthritic changes are noted throughout left hand and wrist joints with joint space narrowing and subchondral sclerosis. Marrow edema involving 1st metacarpal base and proximal to mid shaft is seen with subtle erosive changes involving volar aspect of 1st metacarpal base concerning for osteomyelitis. Contrast enhancement is noted in this area. There is also marrow edema and in adjacent trapezium with subtle erosive changes involving volar and distal cortex. Mild contrast enhancement in this area is also seen. Nonspecific subcortical cystic changes are noted involving multiple carpal bones. No other area of bony erosion or cortical destruction. No other area of abnormal contrast enhancement. Subtle signal abnormality within navicular bone is seen, early avascular necrosis cannot be excluded. Soft tissues: There is marked soft tissue swelling and edema throughout left hand and wrist particularly over dorsum of left hand and wrist joints. No discrete drainable peripherally enhancing fluid collection is noted. There is fluid within 1st CMC joint with synovial thickening and enhancement suggestive of synovitis. Extensive edema throughout thenar muscles along left 1st metacarpal shaft is seen concerning for myositis. Heterogeneous enhancement within thenar muscles is also seen. No discrete intramuscular fluid collection. No enhancing soft tissue mass is seen. Extensor and flexor tendons are grossly intact. IMPRESSION: 1. Osteoarthritic changes throughout left hand and wrist joints most notably involving 1st CMC joint. There is fluid within 1st CMC joint capsule with thickened synovial lining and enhancement. Marrow edema is noted involving 1st metacarpal base and proximal to mid shaft as well as adjacent trapezium with subtle erosive changes concerning for septic arthritis and osteomyelitis. 2. Nonspecific subcortical cystic changes scattered in multiple carpal bones. Subtle signal abnormality within navicular bone, and show no definite abnormal contrast enhancement. Early avascular necrosis cannot be excluded. Clinical and radiographic follow-up is recommended. 3. Extensive cellulitis throughout dorsal aspect of left hand and wrist. No discrete drainable abscess collection. No enhancing soft tissue mass. 4. Myositis involving left thenar muscles along 1st metacarpal shaft. No intramuscular abscess collection. Dictated by: Matt Bhandari M.D. on 12/25/2023 at 15:03 Approved by: Matt Bhandari M.D. on 12/25/2023 at 15:18
--- NOTE | 2023-12-25 11:40 | PM.CALLCOV.1 ---
Call Coverage Note Note Date of Patient Contact: 12/25/23 Time of Patient Contact: 11:25 Narrative of Care Provided: 58 F with PMH of psoriatic arthritis, complex past MSSA bacteremia, left hip bacterial bursitis, ileacus myositits who presents with swelling of her left had for the last two days, now moving into her arm. She saw her deli/bakery associate yesterday at [facility] whom said the next step would be an MRI and did lab evaluation which is summarized in the ER note. L hand is swollen, mildly tender, some erythema and bulge on the palmar aspect between 1st and 2nd digits but no erythema noted more proximally. MRI is planned for this afternoon. At this time, with lack of fever, leukocytosis, negative procalcitonin and indeterminant but elevated ESR / CRP, management will largely depend on orthopedic evaluation and MR findings ranging from recommendation for outpatient treatment to inpatient management with possible I&D as the etiology for her swelling is not entirely clear. Her vitals are within normal limits at this time. Further consultation or H&P to follow depending on results, and consultation with orthopedics.
--- NOTE | 2023-12-25 17:21 | PM.HP.1 ---
History of Present Illness History of Present Illness Date Patient Seen: 12/25/23 Time Patient Seen: 12:00 Chief complaint: left wrist to elbow pain Narrative: 58 F with PMH of psoriatic arthritis, complex past MSSA bacteremia, left hip bacterial bursitis, ileacus myositits who presents with swelling of her left had for the last two days, now moving into her arm. She saw her conference reservationist yesterday at [facility] whom said the next step would be an MRI and did lab evaluation which is summarized in the ER note. L hand is swollen, mildly tender, some erythema and bulge on the palmar aspect between 1st and 2nd digits but no erythema noted more proximally. MRI performed in the ER showed extensive cellulitis of her L hand and myositis of her thenar muscles along with with possible 1st metacarpal, trapezium erosive changes concerning for septic arthritis and osteomyelitis. She was given a dose of zosyn and vancomycin in the emergency room. Orthopedics attempted aspiration with some fluid removed, but unclear if enough fluid obtained for culture at this time. Discussed with orthopedics. Will admit for further antibiotics for presumed recurrence of MSSA. Will continue on ceftriaxone while awaiting cultures. [facility] Medical History Chronic radicular low back pain Elevated C-reactive protein (CRP) Long-term use of immunosuppressant medication Abscess of pelvis Elevated liver enzymes Mixed hyperlipidemia (2018) Essential hypertension (2004) Insomnia Scleritis Depression Psoriasis (~1967) Psoriatic arthritis (~1993) Shoulder pain Foot pain Carpal tunnel syndrome Ankle pain Shingles Measles (~1964) Chicken pox (~1968) Ruptured tympanic membrane (~1989) History of recurrent ear infection (~1989) Hearing loss (~2009) Thyroid nodule (~2017) Surgical History History of surgery (~2000) Anesthesia History of arthroscopy (~1993) History of total left hip replacement (~2013) Family History Mother Cervical cancer Alzheimer's disease Brother Mental health problem Social History household members: spouse Smoking Status: Never smoker second hand exposure: No alcohol intake: former substance use type: does not use Meds Home Medications and Allergies Home Medications Medication Instructions Recorded Confirmed Type cholecalciferol (vitamin D3) 25 5,000 unit PO DAILY 09/15/19 12/20/23 History mcg (1,000 unit) capsule Parking Permit... #2 ea 07/06/20 12/20/23 Rx acetaminophen 325 mg tablet 975 mg (3 x 325 mg) PO Q8H #30 tabs 07/24/21 12/20/23 Rx cyclobenzaprine 10 mg tablet 10 mg PO TID PRN 09/05/22 12/20/23 History trazodone 50 mg tablet 50 mg PO BEDTIME PRN insomnia #90 10/23/22 12/20/23 Rx tabs bupropion HCl 150 mg 24 hr tablet, See Rx Instructions .Route 04/17/23 12/20/23 Rx extended release .COMPLEX #90 tabs duloxetine 60 mg capsule,delayed 60 mg PO DAILY #90 caps 06/05/23 12/20/23 Rx release rosuvastatin 10 mg tablet See Rx Instructions .Route 07/18/23 12/20/23 Rx .COMPLEX #90 tabs hydroxyzine HCl 25 mg tablet 25 mg PO BID PRN itching and sleep 09/20/23 12/20/23 Rx #60 tabs losartan 100 1 tab PO DAILY #90 tabs 12/20/23 12/20/23 Rx mg-hydrochlorothiazide 12.5 mg tablet upadacitinib 15 mg tablet,extended 15 mg PO DAILY Psoriatic Arthritis 12/20/23 12/20/23 History release 24 hr (Rinvoq) phentermine 15 mg capsule 15 mg PO DAILY #60 caps 12/21/23 Rx Allergies Allergy/AdvReac Type Severity Reaction Status Date / Time procaine [From Novocain] Allergy Intermediate Tremors Verified 04/18/23 14:22 hydromorphone [From Dilaudid] Allergy Verified 12/25/23 07:22 Review of Systems Review of Systems Narrative: All other systems reviewed with the patient and are negative unless otherwise stated. Exam Vital Signs (past 8 hours): - 12/25/23 09:30 12/25/23 09:30 12/25/23 10:00 Temperature Pulse Rate 81 81 Blood Pressure 120/62 Pulse Oximetry 93 12/25/23 10:30 12/25/23 10:55 12/25/23 10:55 Temperature 98.6 F Pulse Rate 86 79 Blood Pressure 109/63 Pulse Oximetry 93 93 12/25/23 11:00 12/25/23 11:00 12/25/23 11:30 Temperature Pulse Rate 79 Blood Pressure 112/61 116/63 Pulse Oximetry 92 12/25/23 11:30 12/25/23 12:00 12/25/23 12:00 Temperature Pulse Rate 76 71 Blood Pressure 107/59 L Pulse Oximetry 92 95 12/25/23 12:31 12/25/23 12:32 12/25/23 12:32 Temperature Pulse Rate 95 H 77 Blood Pressure 110/54 L Pulse Oximetry 91 93 12/25/23 13:00 12/25/23 13:00 12/25/23 13:30 Temperature Pulse Rate 79 76 Blood Pressure 104/55 L Pulse Oximetry 94 94 12/25/23 13:30 12/25/23 14:40 12/25/23 14:42 Temperature Pulse Rate 78 85 Blood Pressure 115/60 Pulse Oximetry 93 95 12/25/23 14:42 12/25/23 15:00 12/25/23 15:00 Temperature Pulse Rate 73 Blood Pressure 120/65 109/65 Pulse Oximetry 91 12/25/23 15:30 12/25/23 15:30 12/25/23 16:00 Temperature Pulse Rate 72 Blood Pressure 115/62 125/70 Pulse Oximetry 91 12/25/23 16:00 12/25/23 16:30 12/25/23 16:30 Temperature Pulse Rate 75 76 Blood Pressure 118/76 Pulse Oximetry 92 92 12/25/23 17:00 12/25/23 17:00 Temperature Pulse Rate 86 Blood Pressure 127/73 Pulse Oximetry 94 Oxygen Delivery Method Room Air Narrative Exam Narrative: General:? Patient is well developed and well nourished, in no distress at this time. HEENT:? Normocephalic, atraumatic, extraocular muscles intact, oral pharynx is clear and mucous membranes are moist. Neck: supple and symmetric, trachea is midline, no cervical adenopathy. Negative for JVD Chest:? Normal AP diameter and contour without kyphoscoliosis, no tachypnea, equal chest rise bilaterally. Lungs:? CTA b/l no wheezing rhonchi or rales. Cardio:?RRR no m/r/g. Musculoskeletal:? Muscle strength and tone are equal within normal limits, no deformity. Extremities: L hand swelling more prominently around the palmar aspect of the base of her thumb but does extend to forewarm. Mild erythema, localized around 1st thumb base on palmar side, tenderness there as well. Objective Labs 12/25/23 08:05 12/25/23 08:05 Labs: Laboratory Results - last 24 hr 12/25/23 08:05 WBC 11.0 RBC 4.43 Hgb 12.2 Hct 36.7 MCV 83.0 MCH 27.5 MCHC 33.1 RDW 17.6 H Plt Count 284 Neut % (Auto) 78.1 H Lymph % (Auto) 9.2 L [place] % (Auto) 11.6 Eos % (Auto) 0.8 L Baso % (Auto) 0.3 Neut # (Auto) 8600 H Lymph # (Auto) 1000 L [place] # (Auto) 1300 H Eos # (Auto) 100 Baso # (Auto) 0 ESR 53 H Sodium 135 L Potassium 3.9 Chloride 100 Carbon Dioxide 30 BUN 12 Creatinine 0.75 Estimated GFR > 60 BUN/Creatinine Ratio 16.0 Glucose 124 H Lactate 1.0 Calcium 9.7 Total Bilirubin 1.4 H AST 28 ALT 43 H Alkaline Phosphatase 64 C-Reactive Protein 17.0 H Total Protein 8.3 H Albumin 4.4 Globulin 3.9 Albumin/Globulin Ratio 1.1 Procalcitonin 0.06 Assessment & Plan Assessment & Plan narrative: 1. 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 Presume MSSA again. - suspect will need another 6 weeks of IV antibiotics. Will discuss with infectious disease, ideally will wait for cultures first. Previously followed by [facility] infectious disease. - appreciate orthopedic consultation and aspiration, discussed with Dr. Sarmiento today management and coordinated above care. - ESR53, CRP 17. Will repeat in a couple of days. - differential does include inflammatory arthritis though given diffuse cellulitis and myositis on MRI with her history this is less likely. Will see if there is a comparable image from outside sources to compare arthritic changes. - recommend holding upadacitinib - follow up blood cultures, does have history of MSSA bacteremia. 2. psoriatic arthritis, chronic - hold home tofacitinib given possible active infection. - pain control as needed. 3. Hyperlipidemia, chronic, present on admission -Continue patient's rosuvastatin 4. Major depressive disorder, chronic, present on admission -continue patient's home medications. 5. HTN - continue home losartan HCTZ Code: full Dispo: inpatient, will likely need prolonged IV antibiotics. I have utilized all available immediate resources to obtain, update, or review the patient's current medications.
--- NOTE | 2023-12-25 17:31 | P.HP_ITS ---
History of Present Illness History of Present Illness Date Patient Seen: 12/25/23 Chief complaint: left wrist to elbow pain Narrative: Patient seen and evaluated in the emergency department this afternoon. She continues to complain of pain in her left hand. It began in her volar thumb and now is predominantly localized to her dorsal hand. She reports that it has not improved much since she arrived in the hospital. She has been afebrile [facility] Medical History Chronic radicular low back pain Elevated C-reactive protein (CRP) Long-term use of immunosuppressant medication Abscess of pelvis Elevated liver enzymes Mixed hyperlipidemia (2018) Essential hypertension (2004) Insomnia Scleritis Depression Psoriasis (~1967) Psoriatic arthritis (~1993) Shoulder pain Foot pain Carpal tunnel syndrome Ankle pain Shingles Measles (~1964) Chicken pox (~1968) Ruptured tympanic membrane (~1989) History of recurrent ear infection (~1989) Hearing loss (~2009) Thyroid nodule (~2017) Surgical History History of surgery (~2000) Anesthesia History of arthroscopy (~1993) History of total left hip replacement (~2013) Family History Mother Cervical cancer Alzheimer's disease Brother Mental health problem Social History household members: spouse Smoking Status: Never smoker second hand exposure: No alcohol intake: current substance use type: does not use Meds Home Medications and Allergies Home Medications Medication Instructions Recorded Confirmed Type cholecalciferol (vitamin D3) 25 5,000 unit PO DAILY 09/15/19 12/20/23 History mcg (1,000 unit) capsule Parking Permit... #2 ea 07/06/20 12/20/23 Rx acetaminophen 325 mg tablet 975 mg (3 x 325 mg) PO Q8H #30 tabs 07/24/21 12/20/23 Rx cyclobenzaprine 10 mg tablet 10 mg PO TID PRN 09/05/22 12/20/23 History trazodone 50 mg tablet 50 mg PO BEDTIME PRN insomnia #90 10/23/22 12/20/23 Rx tabs bupropion HCl 150 mg 24 hr tablet, See Rx Instructions .Route 04/17/23 12/20/23 Rx extended release .COMPLEX #90 tabs duloxetine 60 mg capsule,delayed 60 mg PO DAILY #90 caps 06/05/23 12/20/23 Rx release rosuvastatin 10 mg tablet See Rx Instructions .Route 07/18/23 12/20/23 Rx .COMPLEX #90 tabs hydroxyzine HCl 25 mg tablet 25 mg PO BID PRN itching and sleep 09/20/23 12/20/23 Rx #60 tabs losartan 100 1 tab PO DAILY #90 tabs 12/20/23 12/20/23 Rx mg-hydrochlorothiazide 12.5 mg tablet upadacitinib 15 mg tablet,extended 15 mg PO DAILY Psoriatic Arthritis 12/20/23 12/20/23 History release 24 hr (Rinvoq) phentermine 15 mg capsule 15 mg PO DAILY #60 caps 12/21/23 Rx Allergies Allergy/AdvReac Type Severity Reaction Status Date / Time procaine [From Novocain] Allergy Intermediate Tremors Verified 04/18/23 14:22 hydromorphone [From Dilaudid] Allergy Verified 12/25/23 07:22 Review of Systems Review of Systems ROS: Yes All systems reviewed with the patient and are negative except as otherwise documented Exam Vital Signs (past 8 hours): - 12/25/23 10:00 12/25/23 10:30 12/25/23 10:55 Temperature 98.6 F Pulse Rate 81 86 79 Blood Pressure Pulse Oximetry 93 93 12/25/23 10:55 12/25/23 11:00 12/25/23 11:00 Temperature Pulse Rate 79 Blood Pressure 109/63 112/61 Pulse Oximetry 92 12/25/23 11:30 12/25/23 11:30 12/25/23 12:00 Temperature Pulse Rate 76 71 Blood Pressure 116/63 Pulse Oximetry 92 95 12/25/23 12:00 12/25/23 12:31 12/25/23 12:32 Temperature Pulse Rate 95 H 77 Blood Pressure 107/59 L Pulse Oximetry 91 93 12/25/23 12:32 12/25/23 13:00 12/25/23 13:00 Temperature Pulse Rate 79 Blood Pressure 110/54 L 104/55 L Pulse Oximetry 94 12/25/23 13:30 12/25/23 13:30 12/25/23 14:40 Temperature Pulse Rate 76 78 Blood Pressure 115/60 Pulse Oximetry 94 93 12/25/23 14:42 12/25/23 14:42 12/25/23 15:00 Temperature Pulse Rate 85 73 Blood Pressure 120/65 Pulse Oximetry 95 91 12/25/23 15:00 12/25/23 15:30 12/25/23 15:30 Temperature Pulse Rate 72 Blood Pressure 109/65 115/62 Pulse Oximetry 91 12/25/23 16:00 12/25/23 16:00 12/25/23 16:30 Temperature Pulse Rate 75 76 Blood Pressure 125/70 Pulse Oximetry 92 92 12/25/23 16:30 12/25/23 17:00 12/25/23 17:00 Temperature Pulse Rate 86 Blood Pressure 118/76 127/73 Pulse Oximetry 94 Oxygen Delivery Method Room Air Narrative Exam Narrative: Left hand examination demonstrates swelling largely localized to the dorsal ulnar aspect of the hand. There is erythema in the area. There is no fluctuance. There is no induration. There is no drainage. She is able to flex and extend all of her fingers. She has not quite able to completely close her fist due to swelling but is able to fully passively extend her fingers. She has no significant discernible discomfort with finger range of motion through mid range of motion. Const General: cooperative Orientation: alert and awake [facility] Head: normal to inspection Ears: hearing grossly normal bilaterally Eyes General: appearance normal, both eyes and all related structures Neck Neck: normal visual inspection Resp Effort & Inspection: normal respiratory effort and able to speak in complete sentences Cardio Pulses: other (peripheral pulses present) Skin Lesions: no lesions Rashes: no rashes Neuro General: patient alert, patient awake and moves all extremities Psych Appearance: grossly normal Objective Imaging Hand MRI: My impression: Hand MRI personally reviewed. This demonstrates diffuse T2 hyperintensity throughout the dorsum of the hand. There are no localized focal abscesses. Labs 12/25/23 08:05 12/25/23 08:05 Labs: Laboratory Results - last 24 hr 12/25/23 08:05 WBC 11.0 RBC 4.43 Hgb 12.2 Hct 36.7 MCV 83.0 MCH 27.5 MCHC 33.1 RDW 17.6 H Plt Count 284 Neut % (Auto) 78.1 H Lymph % (Auto) 9.2 L [place] % (Auto) 11.6 Eos % (Auto) 0.8 L Baso % (Auto) 0.3 Neut # (Auto) 8600 H Lymph # (Auto) 1000 L [place] # (Auto) 1300 H Eos # (Auto) 100 Baso # (Auto) 0 ESR 53 H Sodium 135 L Potassium 3.9 Chloride 100 Carbon Dioxide 30 BUN 12 Creatinine 0.75 Estimated GFR > 60 BUN/Creatinine Ratio 16.0 Glucose 124 H Lactate 1.0 Calcium 9.7 Total Bilirubin 1.4 H AST 28 ALT 43 H Alkaline Phosphatase 64 C-Reactive Protein 17.0 H Total Protein 8.3 H Albumin 4.4 Globulin 3.9 Albumin/Globulin Ratio 1.1 Procalcitonin 0.06 Assessment & Plan Assessment and plan (1) Cellulitis of hand: Status: Acute Plan Patient has cellulitis of her left hand. There are no obvious areas amenable to incision and debridement on her MRI. She has a history of MSSA infection elsewhere in her body with a periprosthetic joint infection that was treated [facility]. She is going to be admitted here or antibiotic therapy. In an attempt help with this I did attempt to aspirate some fluid hand today. Localized my aspiration site to the dorsal ulnar aspect of her hand. This was where the most T2 hyperintensity was localized. I did not obtained a significant amount of fluid with this attempt. This further reinforced the findings of the MRI indicating that there was not a large abscess in that area. We will continue to follow her serially and evaluate her response to antibiotics. If the cultures obtained from my attempt to aspirate the area of cellulitis do not result in anything it would likely be appropriate to treat her empirically for the MSSA that she has had in the past. I will continue to follow along but do not have any plans for surgical intervention at this point in time
[2023-12-25] MEDS: cefTRIAXone 2,000 MG in SODIUM CHLORIDE 0.9% 100 ML 200 MG IV (18:31)
[2023-12-25] MEDS: OXYCODONE IR 10 MG TABLET PO (18:38)
--- NOTE | 2023-12-25 19:35 | PC.NURSE ---
Patient arrived to room 204 at 1740 this evening. She is A&OX4, VSS, afebrile on RA. Initially she reports pain to L wrist and hand 5/10 but after dinner it is elevated to 7/10. She is given prn oxycodone 10mg this evening. MD at bedside evaluating patient. She is oriented to room. Admission assesment completed, items within reach, scd's on, IV abx running.Continuous monitoring.
[2023-12-25] MEDS: DOCUSATE 100 MG CAPSULE PO (20:16)
[2023-12-25] MEDS: ATORVASTATIN 20 MG TABLET PO (20:16)
[2023-12-25] MEDS: PSYLLIUM HUSK 1 PACKET PO (20:17)
[2023-12-25] MEDS: SENNOSIDES 8.6 MG TABLET 17.2 MG PO (20:17)
[2023-12-25] MEDS: DULOXETINE 30 MG CAPSULE 60 MG PO (20:24)
[2023-12-25] MEDS: SODIUM CHLORIDE 0.9% FLUSH 10 ML IV (20:25)
[2023-12-26] MEDS: CYCLOBENZAPRINE 10 MG TABLET PO (02:27)
[2023-12-26 02:28] VITALS: BP 112/58; PULSE 76; RESP 16; TEMP 37.2; O2SAT 98
--- NOTE | 2023-12-26 03:32 | PC.NURSE ---
Patient is alert and oriented. Breath sounds CTA with RA sat of 98%. HRR. Denied nausea. BT present and abdomen is soft. Denied dysuria. Is independent in room as is steady on feet and has no tubes hooked up; SCD's not ordered. Continues to have swelling in left hand but states it has improved. Erythema not noted. Is able to partially flex fingers and has improved flexion at wrist but edema from fingers to mid forearm. States pain is tolerable at 3/10; ice applied. Fall risk score is moderate but bed alarm not needed at this time.
[2023-12-26] MEDS: OXYCODONE IR 10 MG TABLET PO ×2 (06:08→18:05)
[2023-12-26 06:35] LABS: Add Manual Diff / Slide Review NO; Basophils Absolute Auto 0 /uL (0-100); Basophils Percent Auto 0.4 % (0-2); Eosinophils Absolute Auto 100 /uL (0-450); Eosinophils Percent Auto 2.3 % (2-4); Hematocrit 31.5 % (36-46); Hemoglobin 10.7 g/dL (12.0-16.0); Lymphocytes Absolute Auto 1600 /uL (1100-4500); Lymphocytes Percent Auto 25.4 % (25-40); Mean Corpuscular HGB Conc 33.9 % (30-36); Mean Corpuscular Hemoglobin 28.2 PG (26-34); Mean Corpuscular Volume 83.3 fL (80-100); Monocytes Absolute Auto 800 /uL (0-900); Monocytes Percent Auto 12.3 % (3-14); Neutrophils Absolute Auto 3800 /uL (1500-7000); Neutrophils Percent Auto 59.6 % (50-75); Platelet Count 217 X10^3/uL (150-400); Red Blood Cell Count 3.79 X10^6/uL (4.0-5.2); Red Cell Distribution Width 17.6 % (11.6-14.8); White Blood Cell Count 6.4 X10^3/uL (4.5-11.0)
[2023-12-26 06:55] LABS: Alanine Aminotransferase 57 IU/L (<35); Albumin 3.8 g/dL (3.5-5.0); Albumin Globulin Ratio 1.1 (1.0-2.8); Alkaline Phosphatase 60 U/L (38-126); Aspartate Aminotransferase 37 IU/L (14-36); BUN Creatinine Ratio 18.1 (6-22); Bilirubin Total 0.8 mg/dL (0.2-1.3); Blood Urea Nitrogen 13 mg/dL (7-17); Calcium 9.2 mg/dL (8.4-10.2); Carbon Dioxide 32 mmol/L (22-32); Chloride 102 mmol/L (98-107); Estimated Glomerular Filt Rate > 60 mL/min (>60); Globulin 3.5 g/dL (1.7-4.1); Glucose 99 mg/dL (80-110); HEMOLYSIS < 15 (0-50); Magnesium 2.3 mg/dL (1.6-2.3); Potassium 3.9 mmol/L (3.4-5.1); Sodium 137 mmol/L (137-145); Total Protein 7.3 g/dL (6.3-8.2)
[2023-12-26 07:59] VITALS: O2SAT 98
[2023-12-26] MEDS: buPROPion XL 150 MG TAB PO (08:58)
[2023-12-26] MEDS: DOCUSATE 100 MG CAPSULE PO ×2 (08:58→21:31)
[2023-12-26] MEDS: PSYLLIUM HUSK 1 PACKET PO ×2 (08:58→21:31)
[2023-12-26] MEDS: polyethylene glycoL 3350 17 GM POWD.PACK PO (08:58)
[2023-12-26] MEDS: ENOXAPARIN 40 MG/0.4 ML SYRINGE SUBCUT (08:59)
[2023-12-26] MEDS: hydroCHLOROthiazide 25 MG TABLET 12.5 MG PO (08:59)
[2023-12-26] MEDS: CHOLECALCIFEROL (VITAMIN D3) 1,000 UNIT TABLET 5000 UNIT PO (08:59)
[2023-12-26 09:00] VITALS: BP 122/62; PULSE 84
[2023-12-26] MEDS: LOSARTAN 50 MG TABLET 100 MG PO (09:00)
[2023-12-26] MEDS: ACETAMINOPHEN 325 MG TABLET 650 MG PO ×2 (09:00→18:05)
[2023-12-26] MEDS: SODIUM CHLORIDE 0.9% FLUSH 10 ML IV ×2 (09:06→22:10)
[2023-12-26 09:12] VITALS: BP 122/62; PULSE 84; RESP 16; TEMP 36.7; O2SAT 94
[2023-12-26] MEDS: OXYCODONE IR 5 MG TABLET PO (12:44)
--- NOTE | 2023-12-26 13:00 | PM.PN.1 ---
Subjective Subjective Date Patient Seen: 12/26/23 Time Patient Seen: 13:00 Interval history: Pt resting comfortably in bed. C/o more pain in the forearm today, but otherwise feeling well. Exam Vital Signs (past 8 hours): - 12/26/23 07:59 12/26/23 09:00 12/26/23 09:12 Temperature 98.1 F Pulse Rate 84 84 Respiratory Rate 16 Blood Pressure 122/62 122/62 Pulse Oximetry 98 94 Oxygen Delivery Method Room Air Oxygen Flow Rate 0 Oxygen Delivery Method Room Air Oxygen Flow Rate 0 Narrative Exam Narrative: Minimal decrease in dorsal swelling of hand compared to yesterday; no significant swelling or erythema of hand or forearm noted. Aspirate showed no organisms on GS, and cultures are preliminarily negative. Currently receiving rocephin. Objective Labs 12/26/23 06:05 12/26/23 06:05 Labs: Laboratory Results - last 24 hr 12/26/23 06:05 WBC 6.4 RBC 3.79 L Hgb 10.7 L Hct 31.5 L MCV 83.3 MCH 28.2 MCHC 33.9 RDW 17.6 H Plt Count 217 Neut % (Auto) 59.6 Lymph % (Auto) 25.4 [place] % (Auto) 12.3 Eos % (Auto) 2.3 Baso % (Auto) 0.4 Neut # (Auto) 3800 Lymph # (Auto) 1600 [place] # (Auto) 800 Eos # (Auto) 100 Baso # (Auto) 0 Sodium 137 Potassium 3.9 Chloride 102 Carbon Dioxide 32 BUN 13 Creatinine 0.72 Estimated GFR > 60 BUN/Creatinine Ratio 18.1 Glucose 99 Calcium 9.2 Magnesium 2.3 Total Bilirubin 0.8 AST 37 H ALT 57 H Alkaline Phosphatase 60 Total Protein 7.3 Albumin 3.8 Globulin 3.5 Albumin/Globulin Ratio 1.1 [facility] Medical History Chronic radicular low back pain Elevated C-reactive protein (CRP) Long-term use of immunosuppressant medication Abscess of pelvis Elevated liver enzymes Mixed hyperlipidemia (2019) Essential hypertension (2004) Insomnia Scleritis Depression Psoriasis (~1967) Psoriatic arthritis (~1993) Shoulder pain Foot pain Carpal tunnel syndrome Ankle pain Shingles Measles (~1964) Chicken pox (~1968) Ruptured tympanic membrane (~1989) History of recurrent ear infection (~1989) Hearing loss (~2009) Thyroid nodule (~2017) Surgical History History of surgery (~2000) Anesthesia History of arthroscopy (~1993) History of total left hip replacement (~2013) Family History Mother Cervical cancer Alzheimer's disease Brother Mental health problem Social History household members: spouse Smoking Status: Never smoker second hand exposure: No alcohol intake: former substance use type: does not use Assessment & Plan Assessment and plan (1) Cellulitis of hand: Status: Acute Plan H/o MSSA infection in another part of body and periprosthetic joint infection; now w/ swelling of left hand. No abscess or infectious organism currently identified. Final cultures pending, but as prelim no growth would continue to recommend tx tailored to previous infection. Pt known to Dr Fuentes at [facility] ID. Quality VTE Deep Vein Thrombosis/Pulmonary Embolism Present on Admission: Yes
--- NOTE | 2023-12-26 13:46 | CM.DANOTE ---
Initial DCP Assessment Note Pt is a 58 yo female, resident of [place], arrives with painful, swelling hand and found to have cellulitis. According to discussion in multidisciplinary rounds, patient will have a PICC placed once blood cultures are back negative. Aspirated fluid from hand sent for culture; while awaiting those results, Dr Cortés is likely to discharge patient and treat her empirically for the MSSA that she has had in the past. Patient is established at [facility] with Dr Lentz. PCP: Say Olivera Payer: Popeye Met w/patient, introduced self and role. Patient in good spirits, reports she and spouse are indp in all aspects. Patient's son lives with them also and available to assist as needed. Patient aware there is a need for ongoing IV abx and requests referral to [facility]. Placed call to Donnie at [facility], discussed this referral. CONTRERAS Stoll, kindly agreed to send initial clinical for Donnie's review. Patient now appears to be on 2g IV Rocephin (ceftriaxone) Q8. Discharging order to be confirmed by hospitalist. Plan: Discharge home w/family is anticipated, w/[facility] to manage ongoing IV abx. PICC still needed and discharge orders needed. CM team will plan to follow closely for coordination of discharge plan with patient, provider and [facility]. 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 Yes Advance Directives on File No History Provided By Patient,Medical Record Prior Living Arrangements House Household Members spouse Type of transporation used prior to Drives own vehicle admit Independent with ADL's Yes Is patient alert and oriented? Yes Patient/Family Preference Home with Home Health Barriers to Discharge No Comment Patient is indp in all aspects and has had home infusion in the past for IV abx- [facility] Discharge Plan Home Transportation Arrangement Family Referrals Initiated None needed,Other Additional Comment Referral to [facility] started SNF/HH Preference Patient prefers [facility] Has Agency SNF been contacted Yes
--- NOTE | 2023-12-26 14:29 | PM.PN.1 ---
Subjective Subjective Interval history: No improvement in swelling today, similar to yesterday. Discussed with infectious disease, recommend 6 weeks of cefazolin based on previous history, follow up with outpatient ID clinic as long as cultures remain negative at 48 hours. Exam Vital Signs (past 8 hours): - 12/26/23 07:59 12/26/23 09:00 12/26/23 09:12 Temperature 98.1 F Pulse Rate 84 84 Respiratory Rate 16 Blood Pressure 122/62 122/62 Pulse Oximetry 98 94 Oxygen Delivery Method Room Air Oxygen Flow Rate 0 Oxygen Delivery Method Room Air Oxygen Flow Rate 0 Narrative Exam Narrative: General:? Patient is well developed and well nourished, in no distress at this time. HEENT:? Normocephalic, atraumatic, extraocular muscles intact, oral pharynx is clear and mucous membranes are moist. Neck: supple and symmetric, trachea is midline, no cervical adenopathy. Negative for JVD Chest:? Normal AP diameter and contour without kyphoscoliosis, no tachypnea, equal chest rise bilaterally. Lungs:? CTA b/l no wheezing rhonchi or rales. Cardio:?RRR no m/r/g. Musculoskeletal:? Muscle strength and tone are equal within normal limits, no deformity. Extremities: L hand swelling more prominently around the palmar aspect of the base of her thumb but does extend to forewarm. Mild erythema, localized around 1st thumb base on palmar side, tenderness there as well. Objective Labs 12/26/23 06:05 12/26/23 06:05 Labs: Laboratory Results - last 24 hr 12/26/23 06:05 WBC 6.4 RBC 3.79 L Hgb 10.7 L Hct 31.5 L MCV 83.3 MCH 28.2 MCHC 33.9 RDW 17.6 H Plt Count 217 Neut % (Auto) 59.6 Lymph % (Auto) 25.4 [place] % (Auto) 12.3 Eos % (Auto) 2.3 Baso % (Auto) 0.4 Neut # (Auto) 3800 Lymph # (Auto) 1600 [place] # (Auto) 800 Eos # (Auto) 100 Baso # (Auto) 0 Sodium 137 Potassium 3.9 Chloride 102 Carbon Dioxide 32 BUN 13 Creatinine 0.72 Estimated GFR > 60 BUN/Creatinine Ratio 18.1 Glucose 99 Calcium 9.2 Magnesium 2.3 Total Bilirubin 0.8 AST 37 H ALT 57 H Alkaline Phosphatase 60 Total Protein 7.3 Albumin 3.8 Globulin 3.5 Albumin/Globulin Ratio 1.1 [facility] Medical History Chronic radicular low back pain Elevated C-reactive protein (CRP) Long-term use of immunosuppressant medication Abscess of pelvis Elevated liver enzymes Mixed hyperlipidemia (2019) Essential hypertension (2004) Insomnia Scleritis Depression Psoriasis (~1967) Psoriatic arthritis (~1993) Shoulder pain Foot pain Carpal tunnel syndrome Ankle pain Shingles Measles (~1964) Chicken pox (~1968) Ruptured tympanic membrane (~1989) History of recurrent ear infection (~1989) Hearing loss (~2009) Thyroid nodule (~2017) Surgical History History of surgery (~2000) Anesthesia History of arthroscopy (~1993) History of total left hip replacement (~2013) Family History Mother Cervical cancer Alzheimer's disease Brother Mental health problem Social History household members: spouse Smoking Status: Never smoker second hand exposure: No alcohol intake: former substance use type: does not use Assessment & Plan Assessment & Plan narrative: 1. 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 Presume MSSA again. - suspect will need another 6 weeks of IV antibiotics. Discussed with infectious disease at [facility], recommended 6 weeks of cefazolin empirically and outpatient follow up with infectious disease clinic if cultures remain negative. ID would like to be contacted tomorrow if cultures remain negative. - appreciate orthopedic consultation and aspiration, discussed with Dr. Sarmiento management and coordinated above care. - ESR53, CRP 17. Will repeat in a couple of days. - differential does include inflammatory arthritis though given diffuse cellulitis and myositis on MRI with her history this is less likely. - recommend holding upadacitinib - follow up blood cultures, currently without growth. does have history of MSSA bacteremia. - if cultures negative, can have PICC placed likely tomorrow with plan for outpatient antibiotics. 2. psoriatic arthritis, chronic - hold home tofacitinib given possible active infection. - pain control as needed. 3. Hyperlipidemia, chronic, present on admission -Continue patient's rosuvastatin 4. Major depressive disorder, chronic, present on admission -continue patient's home medications. 5. HTN - continue home losartan HCTZ Code: full Dispo: inpatient, will likely need 6 weeks IV antibiotics and discharge likely home in the next 1-2 days if cultures remain negative. I have utilized all available immediate resources to obtain, update, or review the patient's current medications. Quality VTE Deep Vein Thrombosis/Pulmonary Embolism Present on Admission: Yes
[2023-12-26] MEDS: CEFAZOLIN 2 GM/100 ML PREMIX 100 ML IV ×2 (15:00→22:11)
[2023-12-26 17:00] VITALS: BP 107/62; PULSE 78; RESP 16; TEMP 36.5; O2SAT 94
[2023-12-26 20:00] VITALS: BP 125/65; PULSE 85; RESP 16; TEMP 37.1; O2SAT 95
[2023-12-26] MEDS: SENNOSIDES 8.6 MG TABLET 17.2 MG PO (21:31)
[2023-12-26] MEDS: ATORVASTATIN 20 MG TABLET PO (21:31)
[2023-12-26] MEDS: DULOXETINE 30 MG CAPSULE 60 MG PO (21:31)
[2023-12-26] MEDS: SODIUM CHLORIDE 0.9% 250 ML 21 ML IV (22:11)
[2023-12-26] MEDS: TRAZODONE 50 MG TABLET PO (22:50)
--- NOTE | 2023-12-27 00:54 | PC.NURSE ---
Patient is alert and oriented. Breath sounds CTA with RA sat of 95%. HRR. Denied nausea. Reports not having had BM for 3 days but has been getting multiple bowel meds and has good BT and is passing flatus. Is voiding without dysuria. Independent with mobility. Left hand remains swollen to mid forearm with some light erythema over posterior hand as well as base of thumb anteriorly and some extension up posterior wrist. Has improved flexion of fingers and wrist but now having more pain in upper arm and into axilla; radial pulse is good. Stated pain only 3/10 and declined pain medication. Fall risk score is moderate but steady on feet so alarm is not activated.
[2023-12-27 02:17] VITALS: BP 125/73; PULSE 75; RESP 16; TEMP 37.4; O2SAT 96
[2023-12-27] MEDS: ACETAMINOPHEN 325 MG TABLET 650 MG PO ×3 (02:20→16:03)
[2023-12-27] MEDS: SODIUM CHLORIDE 0.9% FLUSH 10 ML IV (05:58)
[2023-12-27] MEDS: CEFAZOLIN 2 GM/100 ML PREMIX 100 ML IV ×3 (05:58→21:46)
[2023-12-27 06:27] LABS: Add Manual Diff / Slide Review NO; Basophils Absolute Auto 0 /uL (0-100); Basophils Percent Auto 0.3 % (0-2); Eosinophils Absolute Auto 100 /uL (0-450); Eosinophils Percent Auto 2.1 % (2-4); Hematocrit 31.5 % (36-46); Hemoglobin 10.7 g/dL (12.0-16.0); Lymphocytes Absolute Auto 900 /uL (1100-4500); Lymphocytes Percent Auto 14.4 % (25-40); Mean Corpuscular HGB Conc 33.9 % (30-36); Mean Corpuscular Volume 82.6 fL (80-100); Monocytes Absolute Auto 700 /uL (0-900); Monocytes Percent Auto 11.3 % (3-14); Neutrophils Absolute Auto 4400 /uL (1500-7000); Neutrophils Percent Auto 71.9 % (50-75); Platelet Count 221 X10^3/uL (150-400); Red Blood Cell Count 3.81 X10^6/uL (4.0-5.2); Red Cell Distribution Width 17.2 % (11.6-14.8); White Blood Cell Count 6.1 X10^3/uL (4.5-11.0)
[2023-12-27 06:44] LABS: Alanine Aminotransferase 129 IU/L (<35); Albumin 3.6 g/dL (3.5-5.0); Albumin Globulin Ratio 1.1 (1.0-2.8); Alkaline Phosphatase 69 U/L (38-126); Aspartate Aminotransferase 99 IU/L (14-36); BUN Creatinine Ratio 18.6 (6-22); Bilirubin Total 0.6 mg/dL (0.2-1.3); Blood Urea Nitrogen 13 mg/dL (7-17); Calcium 9.5 mg/dL (8.4-10.2); Carbon Dioxide 33 mmol/L (22-32); Chloride 102 mmol/L (98-107); Estimated Glomerular Filt Rate > 60 mL/min (>60); Globulin 3.4 g/dL (1.7-4.1); Glucose 123 mg/dL (80-110); HEMOLYSIS < 15 (0-50); Magnesium 2.1 mg/dL (1.6-2.3); Sodium 136 mmol/L (137-145)
[2023-12-27 07:40] VITALS: O2SAT 100
--- NOTE | 2023-12-27 07:49 | PM.PN.1 ---
Subjective Subjective Interval history: Jillian is a pleasant 58 year old female who is being evaluated and treated for cellulitis of her left hand. Pain has improved since yesterday and she also feels the hand is less red and swollen. She reports pain is mostly located in her left thumb but also does admit she has baseline left thumb pain. Patient has a history of MSSA infection in another part of body and periprosthetic joint infection. Denies fever, chills, chest pain, SOB, nausea, vomiting. Exam Vital Signs (past 8 hours): - 12/27/23 02:17 12/27/23 07:40 Temperature 99.4 F Pulse Rate 75 Respiratory Rate 16 Blood Pressure 125/73 Pulse Oximetry 96 100 Oxygen Delivery Method Room Air Oxygen Flow Rate 0 Oxygen Delivery Method Room Air Oxygen Flow Rate 0 Narrative Exam Narrative: Patient lying comfortably in bed during interview today. Const General: cooperative and healthy appearing Resp Effort & Inspection: normal respiratory effort and able to speak in complete sentences Cardio Rate: regular rate Skin Other: No rash or skin lesion of the left wrist or hand. Neuro General: patient alert, patient awake and patient oriented x3 Extrem Other: Grossly normal alignment, global swelling of the entire left hand. No specific areas of fluctuance. TTP circumferentially around the thumb and volar wrist/forearm. Sensation intact throughout the LUE. Can make a fist, okay sign and finger to thumb opposition is intact. 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 Psych Mental Status: mental status grossly normal Speech and Movement: speech and movement normal Objective Labs 12/27/23 06:09 12/27/23 06:09 Labs: Laboratory Results - last 24 hr 12/27/23 06:09 WBC 6.1 RBC 3.81 L Hgb 10.7 L Hct 31.5 L MCV 82.6 MCH 28.0 MCHC 33.9 RDW 17.2 H Plt Count 221 Neut % (Auto) 71.9 Lymph % (Auto) 14.4 L [place] % (Auto) 11.3 Eos % (Auto) 2.1 Baso % (Auto) 0.3 Neut # (Auto) 4400 Lymph # (Auto) 900 L [place] # (Auto) 700 Eos # (Auto) 100 Baso # (Auto) 0 Sodium 136 L Potassium 4.0 Chloride 102 Carbon Dioxide 33 H BUN 13 Creatinine 0.70 Estimated GFR > 60 BUN/Creatinine Ratio 18.6 Glucose 123 H Calcium 9.5 Magnesium 2.1 Total Bilirubin 0.6 AST 99 H ALT 129 H Alkaline Phosphatase 69 Total Protein 7.0 Albumin 3.6 Globulin 3.4 Albumin/Globulin Ratio 1.1 PFSH Medical History Chronic radicular low back pain Elevated C-reactive protein (CRP) Long-term use of immunosuppressant medication Abscess of pelvis Elevated liver enzymes Mixed hyperlipidemia (2018) Essential hypertension (2004) Insomnia Scleritis Depression Psoriasis (~1967) Psoriatic arthritis (~1993) Shoulder pain Foot pain Carpal tunnel syndrome Ankle pain Shingles Measles (~1964) Chicken pox (~1968) Ruptured tympanic membrane (~1989) History of recurrent ear infection (~1989) Hearing loss (~2009) Thyroid nodule (~2017) Surgical History History of surgery (~2000) Anesthesia History of arthroscopy (~1993) History of total left hip replacement (~2013) Family History Mother Cervical cancer Alzheimer's disease Brother Mental health problem Social History household members: spouse Smoking Status: Never smoker second hand exposure: No alcohol intake: former substance use type: does not use Assessment & Plan Assessment and plan (1) Cellulitis of hand: Status: Acute Plan There are no obvious areas amenable to incision and debridement on her MRI. Final cultures from aspiration performed 12/25/23 still pending, preliminary results show no growth however. Will treat empirically for the MSSA that she has had in the past.(ancef 2g Q8H) We will continue to follow along but do not have any plans for surgical intervention at this point in time Plan to d/c to home tomorrow pending medicine approval and final culture results and getting set up with home abx. Pt known to Dr Fuentes at [facility] ID, will transfer care to Dr. Fuentes once d/c to hospital. Quality VTE Deep Vein Thrombosis/Pulmonary Embolism Present on Admission: Yes
[2023-12-27] MEDS: PSYLLIUM HUSK 1 PACKET PO ×2 (08:19→21:41)
[2023-12-27] MEDS: polyethylene glycoL 3350 17 GM POWD.PACK PO (08:19)
[2023-12-27] MEDS: CHOLECALCIFEROL (VITAMIN D3) 1,000 UNIT TABLET 5000 UNIT PO (08:19)
[2023-12-27] MEDS: ENOXAPARIN 40 MG/0.4 ML SYRINGE SUBCUT (08:19)
[2023-12-27 08:20] VITALS: BP 147/68; PULSE 72
[2023-12-27] MEDS: LOSARTAN 50 MG TABLET 100 MG PO (08:20)
[2023-12-27] MEDS: DOCUSATE 100 MG CAPSULE PO ×2 (08:20→21:43)
[2023-12-27] MEDS: buPROPion XL 150 MG TAB PO (08:20)
[2023-12-27] MEDS: hydroCHLOROthiazide 25 MG TABLET 12.5 MG PO (08:21)
[2023-12-27 09:36] LABS: Erythrocyte Sedimentation Rate 71 MM/HR (0-20)
[2023-12-27 09:45] LABS: C-Reactive Protein Quant 12.6 mg/dL (<1.0)
[2023-12-27] MEDS: OXYCODONE IR 10 MG TABLET PO (10:01)
--- NOTE | 2023-12-27 11:27 | DI.RAD.S_ITS ---
PROCEDURE: XR CHEST 1V INDICATIONS: picc placement TECHNIQUE: One view of the chest was acquired. COMPARISON: [facility], , XR CHEST FOR PICC 1V, 12/19/2021, 15:04. FINDINGS: Surgical changes and devices: Right-sided PICC line tip is projecting in the lower SVC. Lungs and pleura: Lungs are clear. No pleural effusions or pneumothorax. Mediastinum: Mediastinal contours appear normal. Heart size is normal. Bones and chest wall: No suspicious bony lesions. Overlying soft tissues appear unremarkable. IMPRESSION: Right-sided PICC line tip is projecting in lower SVC. No focal infiltrate, pleural effusion or pneumothorax. Dictated by: Matt Bhandari M.D. on 12/27/2023 at 12:05 Approved by: Matt Bhandari M.D. on 12/27/2023 at 12:06
--- NOTE | 2023-12-27 14:26 | PM.PN.1 ---
Subjective Subjective Interval history: Patient doing well. Awaiting home infusions setup likely for tomorrow. Spoke with ID and confirmed 6 weeks of IV ancef through February 05. PICC line placed. Exam Vital Signs (past 8 hours): - 12/27/23 07:40 12/27/23 08:20 Pulse Rate 72 Blood Pressure 147/68 H Pulse Oximetry 100 Oxygen Delivery Method Room Air Oxygen Delivery Method Room Air Oxygen Flow Rate 0 Narrative Exam Narrative: General:? Patient is well developed and well nourished, in no distress at this time. HEENT:? Normocephalic, atraumatic, extraocular muscles intact, oral pharynx is clear and mucous membranes are moist. Neck: supple and symmetric, trachea is midline, no cervical adenopathy. Negative for JVD Chest:? Normal AP diameter and contour without kyphoscoliosis, no tachypnea, equal chest rise bilaterally. Lungs:? CTA b/l no wheezing rhonchi or rales. Cardio:?RRR no m/r/g. Musculoskeletal:? Muscle strength and tone are equal within normal limits, no deformity. Extremities: L hand swelling more prominently around the palmar aspect of the base of her thumb but does extend to forewarm. Mild erythema, localized around 1st thumb base on palmar side, tenderness there as well. Objective Labs 12/27/23 06:09 12/27/23 06:09 Labs: Laboratory Results - last 24 hr 12/27/23 06:09 WBC 6.1 RBC 3.81 L Hgb 10.7 L Hct 31.5 L MCV 82.6 MCH 28.0 MCHC 33.9 RDW 17.2 H Plt Count 221 Neut % (Auto) 71.9 Lymph % (Auto) 14.[address] [place] % (Auto) 11.3 Eos % (Auto) 2.1 Baso % (Auto) 0.3 Neut # (Auto) 4400 Lymph # (Auto) [address] [place] # (Auto) 700 Eos # (Auto) 100 Baso # (Auto) 0 ESR 71 H Sodium 136 L Potassium 4.0 Chloride 102 Carbon Dioxide 33 H BUN 13 Creatinine 0.70 Estimated GFR > 60 BUN/Creatinine Ratio 18.6 Glucose 123 H Calcium 9.5 Magnesium 2.1 Total Bilirubin 0.6 AST 99 H ALT 129 H Alkaline Phosphatase 69 C-Reactive Protein 12.6 H Total Protein 7.0 Albumin 3.6 Globulin 3.4 Albumin/Globulin Ratio 1.1 [facility] Medical History Chronic radicular low back pain Elevated C-reactive protein (CRP) Long-term use of immunosuppressant medication Abscess of pelvis Elevated liver enzymes Mixed hyperlipidemia (2019) Essential hypertension (2005) Insomnia Scleritis Depression Psoriasis (~1967) Psoriatic arthritis (~1993) Shoulder pain Foot pain Carpal tunnel syndrome Ankle pain Shingles Measles (~1964) Chicken pox (~1968) Ruptured tympanic membrane (~1989) History of recurrent ear infection (~1989) Hearing loss (~2009) Thyroid nodule (~2017) Surgical History History of surgery (~2000) Anesthesia History of arthroscopy (~1993) History of total left hip replacement (~2013) Family History Mother Cervical cancer Alzheimer's disease Brother Mental health problem Social History household members: spouse Smoking Status: Never smoker second hand exposure: No alcohol intake: former substance use type: does not use Assessment & Plan Assessment & Plan narrative: 1. 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 Presume MSSA again. - will need another 6 weeks of IV antibiotics. Discussed with infectious disease at [facility], recommended 6 weeks of cefazolin empirically and outpatient follow up with infectious disease clinic if cultures remain negative. - appreciate orthopedic consultation and aspiration, discussed with Dr. Sarmiento management and coordinated above care. - ESR53, CRP 17. Now downtrending. - differential does include inflammatory arthritis though given diffuse cellulitis and myositis on MRI with her history this is less likely. - recommend holding upadacitinib - blood cultures no growth at 48 hours - PICC line placed for 6 weeks IV ancef 2g q8h until February 06, 2024 2. psoriatic arthritis, chronic - hold home tofacitinib given possible active infection. - pain control as needed. 3. Hyperlipidemia, chronic, present on admission -Continue patient's rosuvastatin 4. Major depressive disorder, chronic, present on admission -continue patient's home medications. 5. HTN - continue home losartan HCTZ Code: full Dispo: [facility] with [facility] on 12/27. I have utilized all available immediate resources to obtain, update, or review the patient's current medications. Quality VTE Deep Vein Thrombosis/Pulmonary Embolism Present on Admission: Yes
--- NOTE | 2023-12-27 14:29 | CM.DPNOTE ---
Addendum entered by JOHN De La Vega 12/27/23 16:27: From Donnie at [facility]- plan to meet with pt in the home tomorrow (Sunday) at 3pm. SL Addendum entered by JOHN De La Vega 12/27/23 15:49: no update from [facility] as of 3:50pm if patient could have SOC today. Plan to start tomorrow. Plan for dc tomorrow after 0700 abx dose. BI TECHNICAL LEAD updated pt. Pt agreeable- reports being in pain now and feeling more comfortable staying here another night due to pain. Provider notified of [facility] delay. Plan: dc home tomorrow with family and [facility]. CM team will send dc sum to [facility] when able. CM team will follow closely. JOHN Original Note: DCP Note BI TECHNICAL LEAD reviewed EMR. Per provider, pt will need IV ancef 2g Q8H until 02/06/24. Dr. Fuentes to follow. Pt got PICC placed. BI TECHNICAL LEAD faxed Donnie at [facility] script and PICC report. Coordinated with Donnie often throughout the day-Attempting to get her on schedule for today. SOC pending. BI TECHNICAL LEAD met with pt in room. Anticipates dc home tomorrow but okay if could be arranged today. Deny other CM needs at this time- has a hx of home infusion and is confident she will be able to manage it. Plan: dc home today vs tomorrow with family, pending inf [facility] SOC. CM team will send dc sum to [facility] when able. CM team will follow closely. JOHN De La Vega
[2023-12-27 16:00] VITALS: BP 127/74; PULSE 79; RESP 16; TEMP 36.7; O2SAT 99
[2023-12-27] MEDS: OXYCODONE IR 5 MG TABLET PO (16:03)
[2023-12-27 19:00] VITALS: O2SAT 96
[2023-12-27 20:00] VITALS: BP 136/81; PULSE 79; RESP 16; TEMP 37.1; O2SAT 96
[2023-12-27] MEDS: DULOXETINE 30 MG CAPSULE 60 MG PO (21:43)
[2023-12-27] MEDS: ATORVASTATIN 20 MG TABLET PO (21:43)
[2023-12-27] MEDS: SENNOSIDES 8.6 MG TABLET 17.2 MG PO (21:45)
[2023-12-28 02:02] VITALS: BP 148/78; PULSE 71; RESP 16; TEMP 36.9; O2SAT 95
[2023-12-28] MEDS: ACETAMINOPHEN 325 MG TABLET 650 MG PO (02:08)
[2023-12-28] MEDS: SODIUM CHLORIDE 0.9% FLUSH 10 ML IV ×2 (02:08→08:33)
[2023-12-28] MEDS: OXYCODONE IR 10 MG TABLET PO ×2 (02:08→08:30)
[2023-12-28] MEDS: CEFAZOLIN 2 GM/100 ML PREMIX 100 ML IV (06:05)
[2023-12-28 06:21] LABS: Add Manual Diff / Slide Review NO; Basophils Absolute Auto 0 /uL (0-100); Basophils Percent Auto 0.7 % (0-2); Eosinophils Absolute Auto 100 /uL (0-450); Eosinophils Percent Auto 2.3 % (2-4); Hematocrit 32.3 % (36-46); Hemoglobin 10.9 g/dL (12.0-16.0); Lymphocytes Absolute Auto 1300 /uL (1100-4500); Lymphocytes Percent Auto 21.9 % (25-40); Mean Corpuscular HGB Conc 33.8 % (30-36); Mean Corpuscular Hemoglobin 27.9 PG (26-34); Mean Corpuscular Volume 82.4 fL (80-100); Monocytes Absolute Auto 700 /uL (0-900); Monocytes Percent Auto 12.1 % (3-14); Neutrophils Absolute Auto 3800 /uL (1500-7000); Platelet Count 227 X10^3/uL (150-400); Red Blood Cell Count 3.92 X10^6/uL (4.0-5.2); Red Cell Distribution Width 16.8 % (11.6-14.8)
[2023-12-28 06:47] LABS: Alanine Aminotransferase 143 IU/L (<35); Albumin Globulin Ratio 1.1 (1.0-2.8); Alkaline Phosphatase 79 U/L (38-126); Aspartate Aminotransferase 92 IU/L (14-36); BUN Creatinine Ratio 16.7 (6-22); Bilirubin Total 0.7 mg/dL (0.2-1.3); Blood Urea Nitrogen 12 mg/dL (7-17); Carbon Dioxide 35 mmol/L (22-32); Chloride 100 mmol/L (98-107); Estimated Glomerular Filt Rate > 60 mL/min (>60); Globulin 3.6 g/dL (1.7-4.1); Glucose 115 mg/dL (80-110); HEMOLYSIS < 15 (0-50); Magnesium 2.2 mg/dL (1.6-2.3); Potassium 3.9 mmol/L (3.4-5.1); Sodium 138 mmol/L (137-145); Total Protein 7.6 g/dL (6.3-8.2)
[2023-12-28 07:38] VITALS: O2SAT 97
[2023-12-28 08:00] VITALS: BP 137/77; PULSE 69; RESP 16; TEMP 36.3; O2SAT 99
--- NOTE | 2023-12-28 08:06 | P.PN_ITS ---
Subjective Subjective Interval history: Jillian is a pleasant 58 year old female who is being evaluated and treated for cellulitis of her left hand. Pain has improved since yesterday and she also feels the hand is less red and swollen. She reports pain is mostly located in her left thumb but also does admit she has baseline left thumb pain for which she sees a rhuematologist for. She has stopped her rinvoq d/t infection and that is likely contributing to her pain as well. Patient has a history of MSSA infection in another part of body and periprosthetic joint infection. Patient got her picc line placed yesterday and is set up to have home infusion services meet her at her home today at 3:00pm. She feels comfortable doing home abx infusions as she has done so in the past. Denies fever, chills, chest pain, SOB, nausea, vomiting. Does admit to night sweats last night but feeling better this morning. Exam Vital Signs (past 8 hours): - 12/28/23 02:02 12/28/23 07:38 Temperature 98.5 F Pulse Rate 71 Respiratory Rate 16 Blood Pressure 148/78 H Pulse Oximetry 95 97 Oxygen Delivery Method Room Air Oxygen Flow Rate 0 Oxygen Delivery Method Room Air Oxygen Flow Rate 0 Narrative Exam Narrative: Patient lying comfortably in bed during interview today. Const General: cooperative and healthy appearing Resp Effort & Inspection: normal respiratory effort and able to speak in complete sentences Cardio Rate: regular rate Skin Other: No rash or skin lesion of the left wrist or hand. Neuro General: patient alert, patient awake and patient oriented x3 Extrem Other: Grossly normal alignment, global swelling of the entire left hand with faint erythema. No specific areas of fluctuance. TTP circumferentially around the thumb and volar wrist/forearm. Sensation intact throughout the LUE. Can make a fist, okay sign and finger to thumb opposition is intact. 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 Psych Mental Status: mental status grossly normal Speech and Movement: speech and movement normal Objective Labs 12/28/23 06:04 12/28/23 06:04 Labs: Laboratory Results - last 24 hr 12/27/23 12/28/23 06:09 06:04 WBC 6.0 RBC 3.92 L Hgb 10.9 L Hct 32.3 L MCV 82.4 MCH 27.9 MCHC 33.8 RDW 16.8 H Plt Count 227 Neut % (Auto) 63.0 Lymph % (Auto) 21.9 L [place] % (Auto) 12.1 Eos % (Auto) 2.3 Baso % (Auto) 0.7 Neut # (Auto) 3800 Lymph # (Auto) 1300 [place] # (Auto) 700 Eos # (Auto) 100 Baso # (Auto) 0 ESR 71 H Sodium 138 Potassium 3.9 Chloride 100 Carbon Dioxide 35 H BUN 12 Creatinine 0.72 Estimated GFR > 60 BUN/Creatinine Ratio 16.7 Glucose 115 H Calcium 10.0 Magnesium 2.2 Total Bilirubin 0.7 AST 92 H ALT 143 H Alkaline Phosphatase 79 C-Reactive Protein 12.6 H Total Protein 7.6 Albumin 4.0 Globulin 3.6 Albumin/Globulin Ratio 1.1 PFSH Medical History Chronic radicular low back pain Elevated C-reactive protein (CRP) Long-term use of immunosuppressant medication Abscess of pelvis Elevated liver enzymes Mixed hyperlipidemia (2018) Essential hypertension (2004) Insomnia Scleritis Depression Psoriasis (~1967) Psoriatic arthritis (~1993) Shoulder pain Foot pain Carpal tunnel syndrome Ankle pain Shingles Measles (~1964) Chicken pox (~1968) Ruptured tympanic membrane (~1989) History of recurrent ear infection (~1989) Hearing loss (~2009) Thyroid nodule (~2017) Surgical History History of surgery (~2000) Anesthesia History of arthroscopy (~1993) History of total left hip replacement (~2013) Family History Mother Cervical cancer Alzheimer's disease Brother Mental health problem Social History household members: spouse Smoking Status: Never smoker second hand exposure: No alcohol intake: former substance use type: does not use Assessment & Plan Assessment and plan (1) Cellulitis of hand: Status: Acute Plan There are no obvious areas amenable to incision and debridement on her MRI. Final cultures from aspiration performed 12/25/23 still pending, preliminary results show no growth however. Will treat empirically for the MSSA that she has had in the past.(ancef 2g Q8H x6 weeks). Plan to d/c to home today with home antibiotic infusions. Pt known to Dr Fuentes at [facility] ID, will transfer care to Dr. Fuentes once d/c to hospital. Quality VTE Deep Vein Thrombosis/Pulmonary Embolism Present on Admission: Yes
--- NOTE | 2023-12-28 08:26 | P.DS_ITS ---
History of Present Illness History of Present Illness Chief complaint: left wrist to elbow pain Narrative: 58 F with PMH of psoriatic arthritis, complex past MSSA bacteremia, left hip bacterial bursitis, ileacus myositits who presents with swelling of her left had for the last two days, now moving into her arm. She saw her dental scheduling coordinator yesterday at [facility] whom said the next step would be an MRI and did lab evaluation which is summarized in the ER note. L hand is swollen, mildly tender, some erythema and bulge on the palmar aspect between 1st and 2nd digits but no erythema noted more proximally. MRI performed in the ER showed extensive cellulitis of her L hand and myositis of her thenar muscles along with with possible 1st metacarpal, trapezium erosive changes concerning for septic arthritis and osteomyelitis. She was given a dose of zosyn and vancomycin in the emergency room. Orthopedics attempted aspiration with some fluid removed, but unclear if enough fluid obtained for culture at this time. Discussed with orthopedics. Will admit for further antibiotics for presumed recurrence of MSSA. Will continue on ceftriaxone while awaiting cultures. Discharge Providers Provider Date of admission: 12/25/23 17:13 Discharge Date: 12/28/23 Primary care physician: Say Olivera MD Discharge provider: Israel Kidd DO Summary Hospital Course Discharge Diagnosis: 1. 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 Presume MSSA again. - will need another 6 weeks of IV antibiotics. Discussed with infectious disease at [facility], recommended 6 weeks of cefazolin empirically and outpatient follow up with infectious disease clinic if cultures remain negative. - appreciate orthopedic consultation and aspiration, discussed with Dr. Sarmiento management and coordinated above care. - ESR53, CRP 17. Now downtrending. - differential does include inflammatory arthritis though given diffuse cellulitis and myositis on MRI with her history this is less likely. - recommend holding upadacitinib - blood cultures no growth at 48 hours - PICC line placed for 6 weeks IV ancef 2g q8h until February 06, 2024 2. psoriatic arthritis, chronic - hold home tofacitinib given possible active infection. - pain control as needed. 3. Hyperlipidemia, chronic, present on admission -Continue patient's rosuvastatin 4. Major depressive disorder, chronic, present on admission -continue patient's home medications. 5. HTN - continue home losartan HCTZ Hospital Course: Admitted for swelling of L hand and found to have cellulitis, myositis, septic arthritis and osteomyelitis on MRI. Ortho consulted who did joint aspiration. Placed on broad spectrum abx, but after speaking with ID bg was placed on cefazolin based on prior history of MSSA bacteremia. Blood and joint cultures had no growth. Patient had PICC line placed for 6 weeks of IV ancef and discharged home to f/up with YOS[facility] nixon as outpatient. Exam Vital Signs (past 8 hours): - 12/28/23 02:02 12/28/23 07:38 Temperature 98.5 F Pulse Rate 71 Respiratory Rate 16 Blood Pressure 148/78 H Pulse Oximetry 95 97 Oxygen Delivery Method Room Air Oxygen Flow Rate 0 Oxygen Delivery Method Room Air Oxygen Flow Rate 0 Narrative Exam Narrative: General:? Patient is well developed and well nourished, in no distress at this time. HEENT:? Normocephalic, atraumatic, extraocular muscles intact, oral pharynx is clear and mucous membranes are moist. Neck: supple and symmetric, trachea is midline, no cervical adenopathy. Negative for JVD Chest:? Normal AP diameter and contour without kyphoscoliosis, no tachypnea, equal chest rise bilaterally. Lungs:? CTA b/l no wheezing rhonchi or rales. Cardio:?RRR no m/r/g. Musculoskeletal:? Muscle strength and tone are equal within normal limits, no deformity. Extremities: L hand swelling more prominently around the palmar aspect of the base of her thumb but does extend to forewarm. Mild erythema, localized around 1st thumb base on palmar side, tenderness there as well. Objective Labs 12/28/23 06:04 12/28/23 06:04 Labs: Laboratory Results - last 24 hr 12/27/23 12/28/23 06:09 06:04 WBC 6.0 RBC 3.92 L Hgb 10.9 L Hct 32.3 L MCV 82.4 MCH 27.9 MCHC 33.8 RDW 16.8 H Plt Count 227 Neut % (Auto) 63.0 Lymph % (Auto) 21.9 L Boyd % (Auto) 12.1 Eos % (Auto) 2.3 Baso % (Auto) 0.7 Neut # (Auto) 3800 Lymph # (Auto) 1300 Boyd # (Auto) 700 Eos # (Auto) 100 Baso # (Auto) 0 ESR 71 H Sodium 138 Potassium 3.9 Chloride 100 Carbon Dioxide 35 H BUN 12 Creatinine 0.72 Estimated GFR > 60 BUN/Creatinine Ratio 16.7 Glucose 115 H Calcium 10.0 Magnesium 2.2 Total Bilirubin 0.7 AST 92 H ALT 143 H Alkaline Phosphatase 79 C-Reactive Protein 12.6 H Total Protein 7.6 Albumin 4.0 Globulin 3.6 Albumin/Globulin Ratio 1.1 PFS Medical History Chronic radicular low back pain Elevated C-reactive protein (CRP) Long-term use of immunosuppressant medication Abscess of pelvis Elevated liver enzymes Mixed hyperlipidemia (2018) Essential hypertension (2004) Insomnia Scleritis Depression Psoriasis (~1967) Psoriatic arthritis (~1993) Shoulder pain Foot pain Carpal tunnel syndrome Ankle pain Shingles Measles (~1964) Chicken pox (~1968) Ruptured tympanic membrane (~1989) History of recurrent ear infection (~1989) Hearing loss (~2009) Thyroid nodule (~2017) Surgical History History of surgery (~2000) Anesthesia History of arthroscopy (~1993) History of total left hip replacement (~2013) Family History Mother Cervical cancer Alzheimer's disease Brother Mental health problem Social History household members: spouse Smoking Status: Never smoker second hand exposure: No alcohol intake: former substance use type: does not use Discharge Plan Discharge Plan Patient Disposition: Home Discharge orders & Medications Prescriptions: New oxycodone-acetaminophen [Percocet] 5-325 mg tablet 1 tab PO Q4-6H PRN (Reason: pain) Qty: 20 0RF Continued (DME) Parking Permit... Qty: 2 0RF Rx Instructions: Meets criteria for Permanent Parking Placard trazodone 50 mg tablet 50 mg PO BEDTIME PRN (Reason: insomnia) Qty: 90 3RF duloxetine 60 mg capsule,delayed release(DR/EC) 60 mg PO DAILY Qty: 90 2RF hydroxyzine HCl 25 mg tablet 25 mg PO BID PRN (Reason: itching and sleep) Qty: 60 0RF phentermine 15 mg capsule 15 mg PO DAILY Qty: 60 1RF Rx Instructions: must administer 2 hours after breakfast. will increase to next dosage after a few months. Rinvoq 15 mg tablet extended release 24 hr 15 mg PO DAILY losartan-hydrochlorothiazide 100-12.5 mg tablet 1 tab PO DAILY Qty: 90 1RF cholecalciferol (vitamin D3) 1,000 unit capsule 5,000 unit PO DAILY rosuvastatin 10 mg tablet 10 mg PO DAILY Rx Instructions: take 1 tablet by mouth daily bupropion HCl 150 mg tablet extended release 24 hr 150 mg PO DAILY Follow up/Referrals: Say Olivera MD [Primary Care Provider] - Visit Report/Discharge Packet Stand Alone Forms: Patient Portal/API, Stroke Signs & Symptoms Discharge Data Primary Care Provider: Say Olivera Quality VTE Deep Vein Thrombosis/Pulmonary Embolism Present on Admission: Yes
[2023-12-28 08:27] VITALS: BP 133/77; PULSE 66
[2023-12-28] MEDS: buPROPion XL 150 MG TAB PO (08:27)
[2023-12-28] MEDS: LOSARTAN 50 MG TABLET 100 MG PO (08:27)
[2023-12-28] MEDS: DOCUSATE 100 MG CAPSULE PO (08:27)
[2023-12-28] MEDS: hydroCHLOROthiazide 25 MG TABLET 12.5 MG PO (08:27)
[2023-12-28] MEDS: ENOXAPARIN 40 MG/0.4 ML SYRINGE SUBCUT (08:28)
[2023-12-28] MEDS: CHOLECALCIFEROL (VITAMIN D3) 1,000 UNIT TABLET 5000 UNIT PO (08:28)
--- NOTE | 2023-12-28 11:53 | CM.DPC ---
DCP Discharge Home with Infusion Per MD, pt medically stable to d/c home today with terminal operations manager IV-Abx and no further identified barriers to discharge. Per RN, pt was given her Q8 IV-Abx this morning and spouse to arrive soon to provide transport home this morning and no other concerns noted. ARCELIA called Donnie at [facility] and updated on pt discharge home today and faxed d/c summary and he confirms they have the IV-Abx orders, labs, PICC note and everything else they need and RN remains on their scheduled for 1500 RN at home to provide next IV-Abx dose and teach. Plan: Patient to d/c home this morning via spouse POV and [facility] to follow for ongoing home infusion for IV-Abx. Michelle Bright MSW
== END 2023-12-28 10:20 | disposition home or self-care (01) | DRG 603 ==
LOC: ED 07:29 → AC 17:14
PROVIDERS: Student in an Organized Health Care Education/Training Program; Admitting Provider Internal Medicine; Emergency Provider Emergency Medicine; Family Provider Internal Medicine Rheumatology; PCP Family Medicine; Referring Provider Emergency Medicine; Visit Provider Internal Medicine
DX: L03.114 Cellulitis of left upper limb (principal); M00.9 Pyogenic arthritis, unspecified; M86.8X4 Other osteomyelitis, hand; M60.9 Myositis, unspecified; L40.50 Arthropathic psoriasis, unspecified; E78.5 Hyperlipidemia, unspecified; F32.9 Major depressive disorder, single episode, unspecified; I10 Essential (primary) hypertension; B95.61 Methicillin susceptible Staphylococcus aureus infection as the cause of diseases classified elsewhere
CPT/HCPCS: 36415; 36569; 71045; 73130; 73220; 80053; 83605; 83735; 84145; 85025; 85651; 86140; 87040; 87070; 87075; 87205; 93971; 96365; 96366; 96367; 96375; 96376; 99284; 99285; J0690; J0696; J1650; J2270; J2543

== ENCOUNTER → 2024-01-03 14:20 | Outpatient (ROUT) | payer OTHER, SELFPAY ==
[2023-12-25 18:02] VITALS: BMI 33.9
[2024-01-03 14:28] LABS: Add Manual Diff / Slide Review NO; Basophils Absolute Auto 0 /uL (0-100); Basophils Percent Auto 0.6 % (0-2); Eosinophils Absolute Auto 200 /uL (0-450); Eosinophils Percent Auto 2.5 % (2-4); Hematocrit 35.8 % (36-46); Hemoglobin 11.8 g/dL (12.0-16.0); Lymphocytes Absolute Auto 2000 /uL (1100-4500); Lymphocytes Percent Auto 28.1 % (25-40); Mean Corpuscular HGB Conc 32.9 % (30-36); Mean Corpuscular Hemoglobin 27.4 PG (26-34); Mean Corpuscular Volume 83.3 fL (80-100); Monocytes Absolute Auto 600 /uL (0-900); Monocytes Percent Auto 8.4 % (3-14); Neutrophils Absolute Auto 4400 /uL (1500-7000); Neutrophils Percent Auto 60.4 % (50-75); Platelet Count 438 X10^3/uL (150-400); Red Cell Distribution Width 16.9 % (11.6-14.8); White Blood Cell Count 7.3 X10^3/uL (4.5-11.0)
[2024-01-03 14:52] LABS: Alanine Aminotransferase 29 IU/L (<35); Albumin 4.1 g/dL (3.5-5.0); Albumin Globulin Ratio 1.3 (1.0-2.8); Alkaline Phosphatase 77 U/L (38-126); Aspartate Aminotransferase 30 IU/L (14-36); BUN Creatinine Ratio 21.5 (6-22); Bilirubin Total 0.4 mg/dL (0.2-1.3); Blood Urea Nitrogen 17 mg/dL (7-17); Carbon Dioxide 30 mmol/L (22-32); Chloride 102 mmol/L (98-107); Estimated Glomerular Filt Rate > 60 mL/min (>60); Globulin 3.2 g/dL (1.7-4.1); Glucose 109 mg/dL (80-110); HEMOLYSIS < 15 (0-50); Sodium 140 mmol/L (137-145); Total Protein 7.3 g/dL (6.3-8.2)
[2024-01-03 23:04] LABS: C-Reactive Protein Quant 1.9 mg/dL (<1.0)
== END ==
PROVIDERS: Family Provider Internal Medicine Rheumatology; PCP Family Medicine; Visit Provider Internal Medicine Infectious Disease
DX: R78.81 Bacteremia (principal)
CPT/HCPCS: 80053; 85025; 86140

== ENCOUNTER → 2024-01-07 17:34 | Outpatient (ROUT) | payer OTHER, SELFPAY ==
[2024-01-07 18:48] LABS: Add Manual Diff / Slide Review NO; Basophils Absolute Auto 0 /uL (0-100); Basophils Percent Auto 0.7 % (0-2); Eosinophils Absolute Auto 200 /uL (0-450); Eosinophils Percent Auto 2.2 % (2-4); Hematocrit 36.2 % (36-46); Hemoglobin 11.8 g/dL (12.0-16.0); Lymphocytes Absolute Auto 1800 /uL (1100-4500); Lymphocytes Percent Auto 24.6 % (25-40); Mean Corpuscular HGB Conc 32.4 % (30-36); Mean Corpuscular Hemoglobin 27.2 PG (26-34); Mean Corpuscular Volume 83.8 fL (80-100); Monocytes Absolute Auto 400 /uL (0-900); Neutrophils Absolute Auto 4800 /uL (1500-7000); Neutrophils Percent Auto 66.5 % (50-75); Platelet Count 467 X10^3/uL (150-400); Red Blood Cell Count 4.32 X10^6/uL (4.0-5.2); Red Cell Distribution Width 16.9 % (11.6-14.8); White Blood Cell Count 7.1 X10^3/uL (4.5-11.0)
== END ==
PROVIDERS: Visit Provider Internal Medicine Infectious Disease
DX: K59.9 Functional intestinal disorder, unspecified (principal); R11.0 Nausea; Z79.899 Other long term (current) drug therapy; D50.9 Iron deficiency anemia, unspecified; R78.81 Bacteremia
CPT/HCPCS: 85025

== ENCOUNTER 2024-07-12 12:56 | Emergency (ER) | payer OTHER, SELFPAY ==
[2023-12-25 18:02] VITALS: BMI 33.9
[2024-07-12] VITALS (17 sets, daily range): BP systolic 144–211; BP diastolic 67–99; PULSE 64–80; RESP 17–18; TEMP 36.5–36.9; O2SAT 92–98; BMI 33.0
--- NOTE | 2024-07-12 14:26 | PC.NURSE ---
Patient is having right jaw pain that is 6/10 that radiates up into her head, pain has gotten so bad that she cant open her mouth. Patient reports that her jaw feels hot and swollen, this RN notes the right side does appear to be a little swollen
[2024-07-12] MEDS: KETOROLAC 30 MG/ML VIAL 15 MG IV (14:50)
[2024-07-12 15:00] LABS: Add Manual Diff / Slide Review NO; Basophils Absolute Auto 100 /uL (0-100); Basophils Percent Auto 0.6 % (0-2); Eosinophils Absolute Auto 200 /uL (0-450); Eosinophils Percent Auto 1.9 % (2-4); Hematocrit 37.5 % (36-46); Hemoglobin 12.4 g/dL (12.0-16.0); Lymphocytes Absolute Auto 2000 /uL (1100-4500); Lymphocytes Percent Auto 21.6 % (25-40); Mean Corpuscular Hemoglobin 25.5 PG (26-34); Mean Corpuscular Volume 77.5 fL (80-100); Monocytes Absolute Auto 700 /uL (0-900); Monocytes Percent Auto 7.7 % (3-14); Neutrophils Absolute Auto 6300 /uL (1500-7000); Neutrophils Percent Auto 68.2 % (50-75); Platelet Count 272 X10^3/uL (150-400); Red Blood Cell Count 4.84 X10^6/uL (4.0-5.2); Red Cell Distribution Width 17.7 % (11.6-14.8); White Blood Cell Count 9.3 X10^3/uL (4.5-11.0)
[2024-07-12 15:27] LABS: Alanine Aminotransferase 30 IU/L (<35); Albumin 4.3 g/dL (3.5-5.0); Albumin Globulin Ratio 1.5 (1.0-2.8); Alkaline Phosphatase 64 U/L (38-126); Aspartate Aminotransferase 31 IU/L (14-36); BUN Creatinine Ratio 24.3 (6-22); Bilirubin Total 0.7 mg/dL (0.2-1.3); Blood Urea Nitrogen 18 mg/dL (7-17); Calcium 9.5 mg/dL (8.4-10.2); Carbon Dioxide 28 mmol/L (22-32); Chloride 102 mmol/L (98-107); Estimated Glomerular Filt Rate > 60 mL/min (>60); Globulin 2.8 g/dL (1.7-4.1); Glucose 100 mg/dL (80-110); HEMOLYSIS 23 (0-50); Potassium 3.9 mmol/L (3.4-5.1); Sodium 136 mmol/L (137-145); Total Protein 7.1 g/dL (6.3-8.2)
--- NOTE | 2024-07-12 18:21 | ED_ITS ---
HPI - General Adult General Chief complaint: Upper Respiratory Symptoms Stated complaint: pain in joint by left ear Time Seen by Provider: 07/12/24 14:51 Source: patient Mode of arrival: Ambulatory History of Present Illness HPI narrative: Patient is a 59-year-old female who is here for evaluation of pain on the right side of her jaw. Despite the stated complaint pain by the left ear her discomfort is on the right side of her face. No dental pain. She states this somewhat difficult for her to open her mouth fully. No problems breathing. No dental pain. No sinus congestion sore throat. She has a had osteomyelitis in the past and she was concerned that potentially that was going on now. No vision changes. No hearing deficits. Related Data Home Medications Medication Instructions Recorded Confirmed cholecalciferol (vitamin D3) 25 5,000 unit PO DAILY 09/15/19 12/25/23 mcg (1,000 unit) capsule upadacitinib 15 mg tablet,extended 15 mg PO DAILY Psoriatic Arthritis 12/20/23 12/25/23 release 24 hr (Rinvoq) Previous Rx's Medication Instructions Recorded Parking Permit... #2 ea 07/06/20 hydroxyzine HCl 25 mg tablet 25 mg PO BID PRN itching and sleep 09/20/23 #60 tabs phentermine 15 mg capsule 15 mg PO DAILY #60 caps 12/21/23 oxycodone-acetaminophen 5 mg-325 1 tab PO Q4-6H PRN pain #20 tabs 12/28/23 mg tablet (Percocet) rosuvastatin 10 mg tablet 10 mg PO DAILY #90 tabs 01/30/24 duloxetine 60 mg capsule,delayed 60 mg PO DAILY #90 caps 03/18/24 release trazodone 50 mg tablet 50 mg PO BEDTIME PRN insomnia #90 03/27/24 tabs bupropion HCl 150 mg 24 hr tablet, 150 mg PO DAILY #90 tabs 05/30/24 extended release losartan 100 1 tab PO DAILY #90 tabs 06/24/24 mg-hydrochlorothiazide 12.5 mg tablet penicillin V potassium 500 mg 500 mg PO QID 7 days #28 tabs 07/12/24 tablet Allergies Allergy/AdvReac Type Severity Reaction Status Date / Time procaine [From Novocain] Allergy Intermediate Tremors Verified 07/12/24 12:58 hydromorphone [From Dilaudid] Allergy Verified 07/12/24 12:58 Patient History Medical History Chronic radicular low back pain Elevated C-reactive protein (CRP) Long-term use of immunosuppressant medication Abscess of pelvis Elevated liver enzymes Mixed hyperlipidemia (2019) Essential hypertension (2005) Insomnia Scleritis Depression Psoriasis (~1967) Psoriatic arthritis (~1993) Shoulder pain Foot pain Carpal tunnel syndrome Ankle pain Shingles Measles (~1964) Chicken pox (~1968) Ruptured tympanic membrane (~1989) History of recurrent ear infection (~1989) Hearing loss (~2009) Thyroid nodule (~2017) Surgical History History of surgery (~2000) Anesthesia History of arthroscopy (~1993) History of total left hip replacement (~2013) Family History Mother Cervical cancer Alzheimer's disease Brother Mental health problem Social History household members: spouse Smoking Status: Never smoker second hand exposure: No alcohol intake: former substance use type: does not use Smoking Status: Never smoker alcohol intake frequency: other Substance Use Type: does not use Exam Initial Vital Signs Initial Vital Signs: Vital Signs Temperature 97.7 F 07/12/24 12:58 Pulse Rate 80 07/12/24 12:58 Respiratory Rate 17 07/12/24 12:58 Blood Pressure 211/99 H 07/12/24 12:58 Pulse Oximetry 98 07/12/24 12:58 Oxygen Delivery Method Room Air 07/12/24 12:58 HENMT Head: normal to inspection and normocephalic Ears: TM's normal bilaterally and EAC's normal Mouth: oral mucosae normal, lip normal, tongue normal, oropharynx normal and moist mucous membranes Teeth and gingiva: dentition normal Throat: posterior oropharynx normal HENMT Other: Positive trismus. Mild swelling along the right mandibular ridge Neck Lymphatic: lymphadenopathy (Right-sided submandibular) Resp Effort & Inspection: normal respiratory effort Auscultation: clear to auscultation bilaterally Skin General: no rashes or lesions noted Neuro General: patient alert, patient awake and moves all extremities Course Orders Ordered: ED Orders 07/12/24 18:22 CT facial bones w con Stat Discontinued Medications Ketorolac Tromethamine (Ketorolac 30 Mg/Ml Vial) 15 mg IV NOW ONE Stop: 07/12/24 14:46 Last Admin: 07/12/24 14:50 Dose: 15 mg Documented By: ARGENIS Penicillin V Potassium (Penicillin Vk 250 Mg Tablet) 500 mg PO NOW ONE Stop: 07/12/24 19:24 Last Admin: 07/12/24 19:39 Dose: 500 mg Documented By: ARGENIS Vital Signs Vital signs: Vital Signs - 8 hr 07/12/24 16:30 07/12/24 16:31 07/12/24 16:31 Temperature Pulse Rate 71 70 Respiratory Rate Blood Pressure 161/75 H Pulse Oximetry 93 93 07/12/24 17:00 07/12/24 17:01 07/12/24 17:01 Temperature Pulse Rate 70 71 Respiratory Rate Blood Pressure 144/67 H Pulse Oximetry 93 93 07/12/24 17:30 07/12/24 17:30 07/12/24 19:41 Temperature 98.4 F Pulse Rate 69 77 Respiratory Rate 18 Blood Pressure 158/71 H 183/82 H Pulse Oximetry 93 97 Medical Decision Making Lab Data Lab results reviewed: Yes I reviewed the patient's lab results. 07/12/24 14:41 07/12/24 14:41 Labs: Lab Results 07/12/24 Range/Units 14:41 WBC 9.3 (4.5-11.0) X10^3/uL RBC 4.84 (4.0-5.2) X10^6/uL Hgb 12.4 (12.0-16.0) g/dL Hct 37.5 (36-46) % MCV 77.5 L (80-100) fL MCH 25.5 L (26-34) PG MCHC 33.0 (30-36) % RDW 17.7 H (11.6-14.8) % Plt Count 272 (150-400) X10^3/uL Neut % (Auto) 68.2 (50-75) % Lymph % (Auto) 21.6 L (25-40) % Elmore % (Auto) 7.7 (3-14) % Eos % (Auto) 1.9 L (2-4) % Baso % (Auto) 0.6 (0-2) % Neut # (Auto) 6300 (4561-0722) /uL Lymph # (Auto) 2000 (0345-3595) /uL Elmore # (Auto) 700 (0-900) /uL Eos # (Auto) 200 (0-450) /uL Baso # (Auto) 100 (0-100) /uL ESR 11 (0-20) MM/HR Sodium 136 L (137-145) mmol/L Potassium 3.9 (3.4-5.1) mmol/L Chloride 102 (98-107) mmol/L Carbon Dioxide 28 (22-32) mmol/L BUN 18 H (7-17) mg/dL Creatinine 0.74 (0.52-1.04) mg/dL Estimated GFR > 60 (>60) mL/min BUN/Creatinine Ratio 24.3 H (6-22) Glucose 100 (80-110) mg/dL Calcium 9.5 (8.4-10.2) mg/dL Total Bilirubin 0.7 (0.2-1.3) mg/dL AST 31 (14-36) IU/L ALT 30 (<35) IU/L Alkaline Phosphatase 64 (38-126) U/L C-Reactive Protein 1.5 H (<1.0) mg/dL Total Protein 7.1 (6.3-8.2) g/dL Albumin 4.3 (3.5-5.0) g/dL Globulin 2.8 (1.7-4.1) g/dL Albumin/Globulin Ratio 1.5 (1.0-2.8) Imaging Data CT scan face: Radiologist's Impression: PROCEDURE: CT FACIAL BONES W CON INDICATIONS: R mandibular swelling hx of osteo TECHNIQUE: After the administration of intravenous contrast, 2.5 mm axial sections acquired from the mid-neck to the frontal sinuses, with coronal and sagittal reformats. For radiation dose reduction, the following was used: automated exposure control, adjustment of mA and/or kV according to patient size. COMPARISON: None. FINDINGS: Image quality: Diagnostic Bones: No acute displaced fracture is identified. No definite erosive process involving the mandible. TMJ arthrosis is noted. The zygomatic arches, pterygoid plates, and oral ordaz appear intact. Sinuses and mastoids: No significant paranasal sinus or mastoid opacities. Soft tissues: No rim enhancing drainable abscess. Mild perimandibular soft tissue swelling is present. No pathologic lymph nodes by size criteria. Brain: Unremarkable partially visualized IMPRESSION: Mild soft tissue swelling adjacent at the lower face, no erosive changes seen in the mandible. If clinically indicated, MRI could be more sensitive. MDM Narrative Medical decision making narrative: Mild the elevated CRP. ESR is normal. No leukocytosis. Has trismus most likely because of the swelling along the right-sided mandibular ridge in the some mandibular lymph nodes. She does have some tenderness along the temporal artery on the right however I low suspicion for temporal arteritis is her he was are as normal. CT scan does not show any lytic lesions. No drainable abscess. She does have swelling along the mandibular ridge with no skin changes however there is concern about an infection. Plan will be to place her on antibiotics. First dose given here in the ER and a prescription was sent to the pharmacy of her choice. Also recommended that she contact her dentist for follow-up as well. She was given return precautions. She expressed understanding and agreement. Discharge Plan Departure Patient Disposition: Home Clinical Impression: Trismus, Cellulitis Instructions: DI for Cellulitis -- Adult Activity Restrictions/Additional Instructions: Please start taking the antibiotics as directed. You can also take Tylenol/ibuprofen for any fevers or body aches. I also recommend you contact your dentist for further evaluation to make sure that the infection is not caused by a dental source. Return to the emergency department for new symptoms. Prescriptions: New penicillin V potassium 500 mg tablet 500 mg PO QID 7 Days Qty: 28 0RF No Action (DME) Parking Permit... Qty: 2 0RF Rx Instructions: Meets criteria for Permanent Parking Placard hydroxyzine HCl 25 mg tablet 25 mg PO BID PRN (Reason: itching and sleep) Qty: 60 0RF phentermine 15 mg capsule 15 mg PO DAILY Qty: 60 1RF Rx Instructions: must administer 2 hours after breakfast. will increase to next dosage after a few months. rosuvastatin 10 mg tablet 10 mg PO DAILY Qty: 90 3RF Rx Instructions: take 1 tablet by mouth daily duloxetine 60 mg capsule,delayed release(DR/EC) 60 mg PO DAILY Qty: 90 2RF trazodone 50 mg tablet 50 mg PO BEDTIME PRN (Reason: insomnia) Qty: 90 3RF bupropion HCl 150 mg tablet extended release 24 hr 150 mg PO DAILY Qty: 90 0RF losartan-hydrochlorothiazide 100-12.5 mg tablet 1 tab PO DAILY Qty: 90 1RF Rinvoq 15 mg tablet extended release 24 hr 15 mg PO DAILY cholecalciferol (vitamin D3) 1,000 unit capsule 5,000 unit PO DAILY oxycodone-acetaminophen [Percocet] 5-325 mg tablet 1 tab PO Q4-6H PRN (Reason: pain) Qty: 20 0RF Referrals: Say Olivera MD [Primary Care Provider] - Stand Alone Forms: Patient Portal/API
[2024-07-12 18:39] LABS: C-Reactive Protein Quant 1.5 mg/dL (<1.0)
[2024-07-12 18:46] LABS: Erythrocyte Sedimentation Rate 11 MM/HR (0-20)
[2024-07-12] MEDS: PENICILLIN VK 250 MG TABLET 500 MG PO (19:39)
== END 2024-07-12 19:44 | disposition home or self-care (01) ==
PROVIDERS: Emergency Medicine; Emergency Provider Emergency Medicine; Family Provider Internal Medicine Rheumatology; PCP Family Medicine
DX: L03.211 Cellulitis of face (principal); R25.2 Cramp and spasm
CPT/HCPCS: 70487; 80053; 85025; 85651; 86140; 96374; 99284; J1885; Q9967

== ENCOUNTER → 2024-12-25 14:31 | Outpatient (CLI) | payer OTHER, SELFPAY ==
[2023-12-25 18:02] VITALS: BMI 33.9
[2024-12-25 15:55] LABS: Add Manual Diff / Slide Review NO; Basophils Absolute Auto 100 /uL (0-100); Basophils Percent Auto 0.6 % (0-2); Eosinophils Absolute Auto 100 /uL (0-450); Eosinophils Percent Auto 0.9 % (2-4); Hemoglobin 13.3 g/dL (12.0-16.0); Lymphocytes Absolute Auto 1600 /uL (1100-4500); Lymphocytes Percent Auto 10.6 % (25-40); Mean Corpuscular HGB Conc 33.3 % (30-36); Mean Corpuscular Hemoglobin 26.4 PG (26-34); Mean Corpuscular Volume 79.3 fL (80-100); Monocytes Absolute Auto 900 /uL (0-900); Monocytes Percent Auto 6.1 % (3-14); Neutrophils Absolute Auto 12700 /uL (1500-7000); Neutrophils Percent Auto 81.8 % (50-75); Platelet Count 351 X10^3/uL (150-400); Red Blood Cell Count 5.05 X10^6/uL (4.0-5.2); White Blood Cell Count 15.5 X10^3/uL (4.5-11.0)
[2024-12-25 16:09] LABS: Hemoglobin A1C% w Est Avg Glu 5.7 % (4.0-6.0)
[2024-12-25 16:35] LABS: HEMOLYSIS < 15 (0-50); Iron 43 ug/dL (37-170)
[2024-12-25 16:37] LABS: Alanine Aminotransferase 41 IU/L (<35); Albumin 4.5 g/dL (3.5-5.0); Albumin Globulin Ratio 1.6 (1.0-2.8); Alkaline Phosphatase 83 U/L (38-126); Aspartate Aminotransferase 36 IU/L (14-36); BUN Creatinine Ratio 17.6 (6-22); Bilirubin Total 0.5 mg/dL (0.2-1.3); Blood Urea Nitrogen 13 mg/dL (7-17); Calcium 10.4 mg/dL (8.4-10.2); Carbon Dioxide 29 mmol/L (22-32); Chloride 99 mmol/L (98-107); Cholesterol 152 mg/dL (140-199); Estimated Glomerular Filt Rate > 60 mL/min (>60); Globulin 2.9 g/dL (1.7-4.1); Glucose 128 mg/dL (80-110); HDL Cholesterol 65 mg/dL (40-60); HEMOLYSIS < 15 (0-50); LDL Cholesterol Calculated 66 mg/dL (<100); Potassium 3.9 mmol/L (3.4-5.1); Sodium 139 mmol/L (137-145); Total Protein 7.4 g/dL (6.3-8.2); Triglycerides 107 mg/dL (35-150)
[2024-12-25 16:45] LABS: Percent Iron Saturation 11 % (15-50); Total Iron Binding Capacity 391 ug/dL (265-497); Transferrin 336 mg/dL (206-381)
[2024-12-25 17:07] LABS: TSH w/ Reflex to FT4 0.76 uIU/mL (0.47-4.68)
[2024-12-25 17:12] LABS: Ferritin 18 ng/mL (11-264)
== END ==
LOC: LAB 14:31
PROVIDERS: Family Provider Internal Medicine Rheumatology; PCP Family Medicine; Referring Provider Family Medicine; Visit Provider Family Medicine
DX: L40.9 Psoriasis, unspecified (principal); L40.50 Arthropathic psoriasis, unspecified; E78.2 Mixed hyperlipidemia; I10 Essential (primary) hypertension; D64.9 Anemia, unspecified; G25.81 Restless legs syndrome
CPT/HCPCS: 36415; 80053; 80061; 82728; 83036; 83540; 83550; 84443; 85025

== ENCOUNTER → 2025-02-06 12:50 | Outpatient (CLI) | payer OTHER, SELFPAY ==
[2023-12-25 18:02] VITALS: BMI 33.9
--- NOTE | 2025-02-06 12:50 | DI.US.S_ITS ---
PROCEDURE: US THYROID INDICATIONS: thyroid nodule TECHNIQUE: Real-time scanning was performed of the thyroid gland, with image documentation. COMPARISON: [facility], [place], US FINE NEEDLE ASPIRATION, 09/16/2021, 10:50. [facility], [place], US THYROID, 08/15/2021, 13:56. FINDINGS: Thyroid: Right lobe measures 4.3 x 1.8 x 2.0 cm. Left lobe measures 4.0 x 1.4 x 1.4 cm. Isthmus is 0.6 cm thick. Echotexture is heterogeneous. Nodule number: 1 Location: Right middle pole Size: 1.9 x 1.4 x 1.4 cm, previously 2.0 x 1.4 x 1.4 cm. Composition: Solid Echogenicity: Hypoechoic Shape: wider than tall. Margins: Smooth Echogenic foci: Punctate Total points: 7 ACR TI-RADS category: 5 Nodule number: 2 Location: Isthmus, to the left of midline Size: 1.4 x 1.3 x 0.8 cm, previously 1.0 x 0.8 x 0.6 cm. Composition: Cystic Echogenicity: Anechoic Shape: wider than tall. Margins: Smooth Echogenic foci: None Total points: 0 ACR TI-RADS category: Benign Nodule number: 3 Location: Left lower pole Size: 1.1 x 1.1 x 0.9 cm, previously 1.1 x 0.9 x 0.9 cm. Composition: Solid Echogenicity: Hypoechoic Shape: wider than tall. Margins: Smooth Echogenic foci: Macro calcifications Total points: 5 ACR TI-RADS category: 4 IMPRESSION: There is a category 4 lesion in the right lobe of the thyroid measuring 1.9 cm in maximum diameter. It is stable in size. Please refer to the chart definitions and recommendations below. Follow-up recommendations for category 4 lesions of this size are to perform ultrasound-guided biopsy for tissue diagnosis. It is noted that this patient has previously undergone thyroid FNA. If this lesion, which is unchanged in size, carries a benign diagnosis, no FNA is recommended at this time. Recommend correlation with previous cytology results. ACR TI-RADS definitions and recommendations: TI-RADS 1 (benign): 0 points. FNA not needed. TI-RADS 2 (not suspicious): 2 points. FNA not needed. TI-RADS 3: 3 points. * FNA if 2.5 cm or larger, follow up if 1.5 cm or larger (at 1, 3, and 5 years). TI-RADS 4: 4-6 points. * FNA if 1.5 cm or larger, follow up if 1 cm or larger (at 1, 2, 3, and 5 years). TI-RADS 5: 7 points or more. * FNA if 1 cm or larger, follow up if 0.5 cm or larger (every year for 5 years). Dictated by: Clive Ventura M.D. on 02/06/2025 at 22:50 Approved by: Clive Ventura M.D. on 02/06/2025 at 22:54
== END ==
PROVIDERS: Family Provider Internal Medicine Rheumatology; PCP Family Medicine; Referring Provider Family Medicine; Visit Provider Family Medicine
DX: E04.2 Nontoxic multinodular goiter (principal)
CPT/HCPCS: 76536

== ENCOUNTER → 2025-08-26 14:25 | Outpatient (CLI) | payer OTHER, SELFPAY ==
[2023-12-25 18:02] VITALS: BMI 33.9
--- NOTE | 2025-08-26 14:26 | DI.RAD.S_ITS ---
PROCEDURE: XR CHEST 2V INDICATIONS: cough x 6 weeks started in [place] TECHNIQUE: 2 views of the chest were acquired. COMPARISON: [facility], CR, XR CHEST 1V, 12/27/2023, 11:29. FINDINGS: Surgical changes and devices: None. Lungs and pleura: Increased bronchovascular markings in bilateral hilar region with mild bronchial wall thickening. No definite focal infiltrate. No pleural effusions or pneumothorax. Mediastinum: Mediastinal contours are normal. Heart size is normal. Bones and chest wall: No suspicious bony abnormalities. Soft tissues appear unremarkable. IMPRESSION: Suggestion of reactive airway disease such as bronchitis or viral illness. No definite focal infiltrate. No pleural effusion or pneumothorax. Dictated by: Matt Bhandari M.D. on 08/26/2025 at 14:56 Approved by: Matt Bhandari M.D. on 08/26/2025 at 14:56
== END ==
PROVIDERS: PCP Family Medicine; Referring Provider Physician Assistant; Visit Provider Physician Assistant
DX: J40 Bronchitis, not specified as acute or chronic (principal)
CPT/HCPCS: 71046